=== PATIENT | female | born 1945 | race Caucasian/White ===

== ENCOUNTER → 2018-07-17 12:04 | Outpatient (CLI) | payer MEDICARE, BC, SELFPAY ==
--- NOTE | 2018-07-17 12:07 | BI_ITS ---
MAMMOGRAPHY - BILATERAL SCREENING REASON FOR EXAM: Female, 73 years old. Routine annual screening examination. PERTINENT HISTORY: Non-contributory. TECHNIQUE: Digital bilateral breast viv (3D mammographic acquisition) in the CC and MLO projections. 2-D mediolateral oblique (MLO) and craniocaudad (CC) views of both breasts were obtained. CAD: Full Field Digital Mammography with Computer Added Detection was performed. COMPARISON: Comparison is made with prior study dated February 04, 2017 and September 09, 2014. FINDINGS: Breast Composition: There are scattered areas of fibroglandular density. There are no dominant masses or suspicious calcifications. No other significant abnormalities are identified. There has been no significant change since the prior study. BI/SCREENING MAMM (CAD), BILAT IMPRESSION: Stable bilateral screening mammogram. Yearly follow-up mammogram recommended. (A) ASSESSMENT CATEGORY: BIRADS Category 1: Negative. A letter regarding these results will be sent to the patient by the facility within 30 days. Approximately 10% of breast cancers are not detected by mammography. A normal mammogram should not delay biopsy of a clinically suspicious abnormality. [id number] Electronically Signed: Nico Shine MD at 13:08 EST Tel [phone], Service support ,
--- OUTSIDE RECORDS SUMMARY | 2018-09-21 01:24 | XMS RPT_ITS | Continuity of Care Document ---
:1945 Author Organization [facility] Address [address] [place] [address] Phone Care Team Providers Name Role Phone Melissa Amanda DO Unavailable Physical Therapy, [facility] Unavailable Dr. Servando Vanessa Unavailable Flavio Patino Unavailable Gravius, Monae Unavailable Unavailable Messenger, ELECTRICAL SYSTEMS DESIGNER Jackie Unavailable Unavailable Slanishi ELECTRICAL SYSTEMS DESIGNERDarlene Terry Unavailable Unavailable Unavailable Unavailable Problems Name Dates Details Abortions/Miscarriages Comments: 2. Status: Active Acquired hypothyroidism (E03.9, 244.9) Status: Active Annual Medicare Phyiscal WITHOUT abnormal findings (Renamed from Encounter for general adult medical examination without abnormal findings) (Z00.00, V70.9) Status: Active Anxiety (F41.9, 300.00) Comments: stressful situ currently going on Status: Active BMI 45.0-49.9, adult (Z68.42, V85.42) Status: Active BMI 45.0-49.9, adult (Z68.42, V85.42) Status: Active Encounter for annual general medical examination with abnormal findings in adult (Z00.01, V70.0) Status: Active Encounter for annual general medical examination with abnormal findings in adult (Z00.01, V70.0) Status: Active Encounter for screening for malignant neoplasm of colon (Renamed from Special screening for malignant neoplasms, colon) (Z12.11, V76.51) Comments: pt to call chastity to resched scope before yr end 2017 Status: Active Encounter for screening mammogram for breast cancer (Renamed from Encounter for screening mammogram for malignant neoplasm of breast) (Z12.31, V76.12) Status: Active Encounter for screening mammogram for breast cancer (Renamed from Encounter for screening mammogram for malignant neoplasm of breast) (Z12.31, V76.12) Status: Active GERD (gastroesophageal reflux disease) (K21.9, 530.81) Status: Active Hip pain, left (M25.552, 719.45) Status: Active Hypercholesteremia (Renamed from Hypercholesterolemia) (E78.00, 272.0) Status: Active Hypertension, benign (I10, 401.1) Comments: h/o night odonnell occassionally & her hr would go up and not come down-- so last dr in [place] gave rx low dose atenolol to use prn Status: Active Need for prophylactic vaccination and inoculation against influenza (Renamed from Need for immunization against influenza) (Z23, V04.81) Status: Active Nonsmoker (Z78.9, V49.89) Status: Active Nonsmoker (Z78.9, V49.89) Status: Active Non-smoker (Z78.9, V49.89) Status: Active Nutritional counseling (Z71.3, V65.3) Status: Active Osteoarthritis, chronic (M19.90, 715.90) Status: Active Osteoarthritis, localized (M19.90, 715.30) Status: Active Osteopenia, unspecified location (M85.80, 733.90) Status: Active Pneumococcal vaccination given (Z23, V06.6) Status: Active Postmenopausal (Renamed from Postmenopausal status) (Z78.0, V49.81) Comments: dexa 02/13 Status: Active Pregnancies () Comments: 2. Status: Active Sinusitis, bacterial (J32.9, 473.9) Status: Active Stress fracture with routine healing, subsequent encounter (M84.30XD, V54.89) Status: Active Tear of left acetabular labrum, subsequent encounter (S73.192D, V58.89) Comments: [facility] -- needs hip replacement- but needs to lose wt per surgeon -- this will fix tear Status: Active Tear of left acetabular labrum, subsequent encounter (S73.192D, V58.89) Status: Active Vitamin D deficiency (E55.9, 268.9) Status: Active Medications Name Dates Details Nan-D Allergy & Congestion 180-240 MG Oral Tablet Extended Release 24 Hour 1 (one) Tablet ER 24HR prn for 30 days Refills: 0 Ordered:26-Mar-2016 Kiran Amanda DO, DO, Kathleen Start : 26-Mar-2016 Active Aspirin EC 81 MG Oral Tablet Delayed Release 1 (one) Tablet DR qd for 30 days Refills: 0 Ordered:26-Mar-2016 Kiran Amanda DO, DO, Kathleen Start : 26-Mar-2016 Active Atenolol 25 MG Oral Tablet 1 (one) Tablet qd for 0 days Quantity: 30 {Tablet} Refills: 11 Ordered:14-Apr-2017 Kiran Amanda DO, DO, Kathleen Start : 14-Apr-2017 Active Losartan Potassium-HCTZ 100-25 MG Oral Tablet 1 (one) Tablet qd for 30 days Quantity: 30 {Tablet} Refills: 10 Ordered:11-Mar-2018 Kiran Amanda DO, DO, Kathleen Start : 11-Mar-2018 Active Multivitamins Oral Capsule 1 (one) Capsule qd for 30 days Refills: 0 Ordered:26-Mar-2016 Kiran Amanda DO, DO, Kathleen Start : 26-Mar-2016 Active PARoxetine HCl 20 MG Oral Tablet 1 (one) Tablet qd for 30 days Quantity: 30 {Tablet} Refills: 11 Ordered:14-Apr-2017 Kiran Amanda DO, DO, Kathleen Start : 14-Apr-2017 Active Potassium Chloride ER 10 MEQ Oral Tablet Extended Release 1 (one) Tablet ER qd for 30 days Quantity: 30 {Tablet} Refills: 11 Ordered:11-Mar-2018 Kiran Amanda DO, DO, Kathleen Start : 11-Mar-2018 Active PriLOSEC 20 MG Oral Capsule Delayed Release 1 (one) Capsule DR qd for 30 days Refills: 0 Ordered:26-Mar-2016 Kiran Amanad DO, DO, Kathleen Start : 26-Mar-2016 Active Synthroid 150 MCG Oral Tablet 1 (one) Tablet daily for 30 days Quantity: 30 {Tablet} Refills: 3 Ordered:03-Nov-2017 Kiran Amanda DO, DO, Kathleen Start : 03-Nov-2017 Active Vitamin D3 1000 UNIT Oral Tablet 2 (two) Tablet qd for 30 days Refills: 0 Ordered:13-Feb-2017 Kiran Amanda DO, DO, Kathleen Start : 13-Feb-2017 Active Comments:new dose Vitamin E 400 UNIT Oral Capsule 1 (one) Capsule qd for 30 days Refills: 0 Ordered:26-Mar-2016 Kiran Amanda DO, DO, Kathleen Start : 26-Mar-2016 Active Atorvastatin Calcium 20 MG Oral Tablet 1 (one) Tablet qd for 90 days Quantity: 90 {Tablet} Refills: 0 Ordered:09-Mar-2018 Kiran Amanda DO, DO, Kathleen Start : 09-Mar-2018 End : 07-Jun-2018 Inactive Comments:no more refills, after this, until seen by office Cheratussin AC 100-10 MG/5ML Oral Solution 1 (one) Teaspoon Q6Hrs PRN for 0 days Quantity: 6 {Ounce} Refills: 0 Ordered:22-Jan-2017 Long Valorie HARDEN Start : 03-Jul-2016 End : 22-Jan-2017 Inactive Comments:Six Zithromax Z-Von 250 MG Oral Tablet TAD Tablet QD for 0 days Quantity: 1 {Package} Refills: 0 Ordered:10-Mar-2017 Slarb Darlene HARDEN Start : 24-Feb-2017 End : 10-Mar-2017 Inactive HydroCHLOROthiazide 12.5 MG Oral Capsule 1 (one) Capsule qd for 30 days Refills: 0 Ordered:22-Jan-2017 Kiran Amanda DO, DO, Kathleen Start : 26-Mar-2016 End : 22-Jan-2017 Discontinued Allergies and Adverse Reactions Name Dates Details CeleXA *ANTIDEPRESSANTS* (Allergy) Status: Active Comments: hyperactivity Reglan *GASTROINTESTINAL AGENTS - MISC.* (Allergy) Status: Active Comments: lump in throat Trees (Allergy) Reaction: Cough Status: Active Past Medical History Name Dates Details Abnormal TSH (R79.89, 790.6) Status: Inactive as of 16-Sep-2017 Allergic rhinitis (J30.9, 477.9) Status: Inactive as of 13-Feb-2017 BMI 45.0-49.9, adult (Z68.42, V85.42) Status: Inactive as of 10-Mar-2017 Cough (R05, 786.2) Status: Inactive as of 22-Jan-2017 Cough (R05, 786.2) Status: Inactive as of 10-Mar-2017 Left groin pain (R10.32, 789.09) Status: Inactive as of 16-Sep-2017 Pain of left hip joint (M25.552, 719.45) Status: Inactive as of 16-Sep-2017 Procedures Procedure Dates Details Annual Eye Exam Completed Comments: 07/05/15 Appendectomy Completed Comments: 1965 Colonoscopy, Screening Completed Comments: 10+ yrs Hysterectomy Completed Comments: 2000 Pap Smear Completed Comments: 2000 Tonsillectomy Completed Comments: 1969 Date Value Details 27-May-2017 Inital Evaluation (1) - PT Result: Comments: See Note; NOTES: [facility] [address] [place] [address] [address] [place], [place] [id number] Fax REHABILITATION SERVICES INITIAL EVALUATION MR#: [id number] Acct: [id number] Name: JOI MEDEL Rep #: [id number] : 1945 72 From: Darlene Olea MPT Referring Dr.: Melissa Amanda DO Status: REG RCR Insurance: MEDICARE PA RT A B ANTH Patient's Visit Information JOI MEDEL is a 72 year old F referred to Physical Therapy by Melissa Amanda with a diagnosis of L hip pain. Date of Evaluation: 03/19/17 Electrical Systems Designer apist: Darlene Olea - Visit Plan Frequency: 3x /Week Duration: 4-6 Weeks Plan: To transition to I water exc program. To continue progressing core strength, hip strength, and knee strength per supervi sing PT. - Subjective Subjective: Pt reports that she has developed horrible pain in L groin area. She gets in car with R leg and then butt in the car and then pulls the L leg in. She feels the pain in the front of the groin and radiates many times to the L lateral hip and will feel many times a tension in the abdomin. This has bee going on and off for the past couple of years. This episode has laste d about 1 month to 6 weeks and not getting any better. Dr Amanda wanted her to come to PT and she did the x-ray. She has some arthritic changes in her L hip. She has been using the cane since Mar 07 d ue to the pain. SOmetimes the pain goes down the side of the outer aspect of the leg and she will have a burning feeling in her leg. Pt has no pain when sitting only with walking on it. She notices that if she steps wrong it will bring pain on. Pt is take 4-600 grams IBprof 3 times per day. She can not tolerated it without taking it. 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 Stairs: do not bother her too much with a railing. She is sleeping ok with pain meds. She has pain running down her leg when she rolls onto the R side. WHen she lays on L side she is comfortable. - Pain L groin pain Pain Intens ity (Out of 10): 2 L outer hip pain Pain Intensity (Out of 10): 0 BLAT knees Pain Intensity (Out of 10): 1 Comment: where I hit it - Objective Gait: Walks with shorter strides , slower pace and decreased stance time on the L leg and most of her weight through her cane in the R hand. Pt is able to heel and toe raise holding onto the wall rail. LE MMT: hip flex R 4/5, L 3+/5, h ip abd L3+/5 and R 4/5, knee flex B 4/5, B knee ext 4/5. L hip IR very much limted in PROM compared to the R. Pain on the L with max IR (with limited ROM). ER of B hips is normal ROM without pain. - Go als Goal 1:: I HEP Goal Time Frame: 4-6 Weeks Goal 2:: Decrease L hip pain to 2/10 with gait and ADL's Goal Time Frame: 4-6 Weeks Goal 3:: Increase L hip strength by 1/2 muscle grade on the L to promote better function and less pain (at time of the eval: LE MMT: hip flex R 4/5, L 3+/5, hip abd L3+/5 and R 4/5, knee flex B 4/5, B knee ext 4/5). Goal Time Frame: 4-6 Weeks - Rehabilitation Potential Carol abilitation Potential: Good - Anticipated Interventions Patient/Client Instruction: Educate patient on: Plan of Care For the Purpose of:: To decrease pain, To decrease swelling/inflammation, To increas e ROM, To improve nutrient delivery to tissue, To improve muscle performance and motor function, To improve ability to perform ADL's, To increase tolerance to activity/condition/position, To improve per formance and independence with ADL's, To improve ability of physical actions for home/community/work/leisure, To improve gait and locomotor functions, To improve endurance Therapeutic Exercise to Includ e: Strength training, Endurance training, Gait and locomotor training, In an aquatic setting, Active ROM, Dynamic Lumbar Stabilization For the Purpose of:: To decrease pain, To increas e ROM, To improve nutrient delivery to tissue, To improve muscle performance and motor function, To improve ability to perform ADL's, To increase tolerance to activity/condition/position, To improve per formance and independence with ADL's, To improve ability of physical actions for home/community/work/leisure, To improve gait and locomotor functions Functional Training to Include: Gait training For th e Purpose of:: To improve gait and locomotor functions Thank you for the opportunity to evaluate your patient. For Medicare and Medicare HMO plans, please review the plan of care and approve it. It will need to be FAXED BACK to us at [phone] for Medicare purposes. Please let me know if there are questions or concerns regarding this plan of care. Physician Signature: Date: <Electronically signed by Darlene Olea MPT> 05/27/17 1801 CC: Melissa Amanda DO Signed For Medicare onl y, by signing this I certify the plan of care. Physicians Signature Date 19-May-2017 Lower Ext Joint Only (Routine) Result: Comments: See Note; NOTES: [facility] Imaging Services [address] [place] [address] Lower Ext Joint Only (Routine) MR#: [id number] Acct: [id number] Name: JOI MEDEL Rep # : [id number] : 1945 F 72 From: Stan De La Torre MD PCP: Melissa Amanda DO Status: REG CLI Study: Lower Ext Joint Only (Routine) Date of Exam: 05/19/17 Exam# [id number] Ordering Dr: Meghan Amanda DO STUDY: MRI LEFT HIP REASON FOR EXAM: Female, 72 years old. Left hip pain. Left groin pain. Left buttock pain. TECHNIQUE: Standardized fat and water weighted pulse sequences were obtained in al l 3 orthogonal planes. COMPARISON: X-ray March 13, 2017 FINDINGS: There is mild articular narrowing of the hip joint, with less than 50% loss of the hyaline car tilage. 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 There is edema of the acetabulum. There is teari ng of the acetabular labrum, coronal series 5 images through . There is marrow edema of the femoral head with linear diminished signal stress or insufficiency fracture, coronal series 5 imag es through . There is mild edema of the femoral neck . There is moderate joint effusion of the left hip. Normal gluteus minimus, medius and iliopsoas tendons and distal insertions. There is trochanteric bursitis, coronal series 5 images and . Normal superior and inferior pubic rami. Normal pubic symphysis. Normal ischial tuberosity. Normal origin of the hamstring tendons. Nor mal visualized iliac wing, sacroiliac joint, and sacral ala. Normal visualized soft tissue structures of the pelvis. Uterus is not seen consistent with hysterectomy MRI/Lower Ext Joint Only (Routine) IMPRESSION: Stress or insufficiency fracture of the left femoral head. Degenerative change of the left hip. Tear of the acetabular labrum. Joint effusion. Electronically Signed: Stan De La Torre MD at 13:44 EST , Service support , CC: Melissa Amanda DO Diesel Truck Technician: Signed 06-May-2017 Re-Evaluation - PT (1) Result: Comments: See Note; NOTES: [facility] [address] [place], [place] [address] Fax REEVALUATION / MEDICARE RECERTI FICATION PHYSICAL THERAPY MR#: [id number] Acct: [id number] Name: JOI MEDEL Rep #: [id number] : 1945 72 From: Darlene Olea MPT Referring Dr.: Melissa Amanda DO Status: REG RCR Insuranc e: MEDICARE PART A B ANTHEM Melissa Amanda, It has been my pleasure to treat JOI MEDEL over the last 18 visits for L hip pain. Please see the progress note below for an update on the physical therapy plan of care! Subjective: Pt reports that the water has been going up and down. On Friday she started some higher level exercises and she had increased pain in the L groin muscle 12/07 by that evening and she has been having some difficulties by then. THe therapist limited the exercises some since then. Today she has horrible pain in her knees and her groin muscle has been catching on the L. Pt would like to go back to the water.... she does not feel she is ready for land. Somedays she feels she is better and somedays not. She is only taking IBPROF for pain. Pt reports that she felt better after the first 9 sessions than she does now. Objective/Function: L LE MMT: LE MMT: hip flex L 3+/5 ( increase pain), knee ext b 4/5, knee flex B 4/5, hip abd in supine L 3+/5 Plan Plan: AT: X/ week fo r 4 weeks to work on core strength, hip strength, knee strength then to go to HEP/ water exercises Independently. F/U with Dr Amanda as pt is not progressing as quickly as she would like. She reports pr ogress but small at this time. Possible further diagnostics needed as pt is moving slow and has varying pain levels depending on what she does. Goals Goal 1:: I HEP Goal Time Frame: 4-6 Weeks Goal 2:: Decrease L hip pain to 2/10 with gait and ADL's Goal Time Frame: 4-6 Weeks Goal Progress: Progressing Goal 3:: Increase L hip strength by 1/2 muscle grade on the L to promote better function and less pa in (at time of the eval: LE MMT: hip flex R 4/5, L 3+/5, hip abd L3+/5 and R 4/5, knee flex B 4/5, B knee ext 4/5). Goal Time Frame: 4-6 Weeks Goal Progress: Progressing Anticipated Interventions Patie nt/Client Instruction: Educate patient on: Plan of Care For the Purpose of:: To decrease pain, To decrease swelling/inflammation, To increase ROM, To improve nutrient delivery to tissue, To improve musc le performance and motor function, To improve ability to perform ADL's, To increase tolerance to activity/condition/position, To improve performance and independence with ADL's, To improve ability of ph ysical actions for home/community/work/leisure, To improve gait and locomotor functions, To improve endurance Therapeutic Exercise to Include: Strength training, Endurance training, Gait and locomotor t raining, In an aquatic setting, Active ROM, Dynamic Lumbar Stabilization For the Purpose of:: To decrease pain, To increase ROM, To improve nutrient delivery to tissue, To improve musc le performance and motor function, To improve ability to perform ADL's, To increase tolerance to activity/condition/position, To improve performance and independence with ADL's, To improve ability of ph ysical actions for home/community/work/leisure, To improve gait and locomotor functions Functional Training to Include: Gait training For the Purpose of:: To improve gait and locomotor functions Please do not hesitate to contact me at [phone] by phone or if you have questions or concerns regarding this new plan of care! Sincerely, Darlene Olea <Electronically chayo d by Darlene Olea MPT> 05/06/17 1754 CC: Melissa Amanda DO Signed For Medicare only, by signing this I certify the plan of care. Physicians Signature Date 15-Apr-2017 Re-Evaluation - PT (1) Result: Comments: See Note; NOTES: [facility] [place] [address] Fax REEVALUATION / MEDICARE RECERTI FICATION PHYSICAL THERAPY MR#: [id number] Acct: [id number] Name: JOI MEDEL Rep #: [id number] : 1945 72 From: Darlene BETANCOURT Referring Dr.: Melissa Amanda DO Status: REG RCR Insuranc e: MEDICARE PART A B ANTHEM Melissa Amanda, It has been my pleasure to treat JOI MEDEL over the last 10 visits for L hip pain. Please see the progress note below for an update on the physical therapy plan of care! Subjective: PT 15 MIN LATE FOR APPOINTMENt,. Pt reports that her groin pain is about a 6. Pt feels that her improvement is better painwise. She still takes pain meds everyday. Pt reports that she is not feeling any increase in strength as of today. She has increased reps and stuff in the water but the day after the water she would have horrible pain but the day after that her p ain would be much better. Pt complains of B knee pain and rates the L knee as a 2/10 and R knee as a 4/10. She reports that she hit a pole in the pool on the R knee but it is getting better. Objective/F unction: LE MMT: hip flex R 4/5, L 3+/5 ( increase pain), knee ext b 4/5, knee flex B 4/5, hip abd in supine 3+/5, Plan Plan: Pt to continue AT X 3 additional weeks to see if pain lessesns and she gets stronger. Goals Goal 1:: I HEP Goal Time Frame: 4-6 Weeks Goal 2:: Decrease L hip pain to 2/10 with gait and ADL's Goal Time Frame: 4-6 Weeks Goal Progress: Progressing Goal 3:: Increase L hip strengt h by 1/2 muscle grade on the L to promote better function and less pain (at time of the eval: LE MMT: hip flex R 4/5, L 3+/5, hip abd L3+/5 and R 4/5, knee flex B 4/5, B knee ext 4/5). Goal Time Frame: 4-6 Weeks Goal Progress: Progressing Anticipated Interventions Patient/Client Instruction: Educate patient on: Plan of Care For the Purpose of:: To decrease pain, To decrease swelling/inflammation, To increase ROM, To improve nutrient delivery to tissue, To improve muscle performance and motor function, To improve ability to perform ADL's, To increase tolerance to activity/condition/position, To impr ove performance and independence with ADL's, To improve ability of physical actions for home/community/work/leisure, To improve gait and locomotor functions, To improve endurance Therapeutic Exercise to Include: Strength training, Endurance training, Gait and locomotor training, In an aquatic setting, Active ROM, Dynamic Lumbar Stabilization For the Purpose of:: To decrease pain, To increase ROM, To improve nutrient delivery to tissue, To improve muscle performance and motor function, To improve ability to perform ADL's, To increase tolerance to activity/condition/position, To impr ove performance and independence with ADL's, To improve ability of physical actions for home/community/work/leisure, To improve gait and locomotor functions Functional Training to Include: Gait training For the Purpose of:: To improve gait and locomotor functions Please do not hesitate to contact me at [phone] by phone or if you have questions or concerns regarding this new plan of care! Sincerely, Darlene Olea <Electronically signed by Darlene Olea MPT> 04/15/17 1726 CC: Melissa Amanda DO Signed For Medicare only, by si gning this I certify the plan of care. Physicians Signature Date 19-Mar-2017 Inital Evaluation (1) - PT Result: Comments: See Note; NOTES: [facility] [address] [place] [address] Fax REHABILITATION SERVICES INITIAL EVALUATION MR#: [id number] Acct: [id number] Name: JOI MEDEL Rep #: [id number] : 1945 72 From: Darlene Olea MPT Referring Dr.: Melissa Amanda DO Status: REG RCR Insurance: MEDICARE PA RT A B ANTH Patient's Visit Information JOI MEDEL is a 72 year old F referred to Physical Therapy by Melissa Amanda with a diagnosis of L hip pain. Date of Evaluation: 03/19/17 Electrical Systems Designer apist: Darlene Olea - Visit Plan Frequency: 3x /Week Duration: 4-6 Weeks Plan: 3X/ week for 3 weeks for L hip strengthening, core strengthening, gait training, enduarace actvities with HEP - Subject maranda Subjective: Pt reports that she has developed horrible pain in L groin area. She gets in car with R leg and then butt in the car and then pulls the L leg in. She feels the pain in the front of the g roin and radiates many times to the L lateral hip and will feel many times a tension in the abdomin. This has bee going on and off for the past couple of years. This episode has lasted about 1 month to 6 weeks and not getting any better. Dr Amanda wanted her to come to PT and she did the x-ray. She has some arthritic changes in her L hip. She has been using the cane since Mar 07 due to the pain. Dm etimes the pain goes down the side of the outer aspect of the leg and she will have a burning feeling in her leg. Pt has no pain when sitting only with walking on it. She notices that if she steps wrong it will bring pain on. Pt is take 4-600 grams IBprof 3 times per day. She can not tolerated it without taking it. 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 Stairs: do not bother her too much with a railin g. She is sleeping ok with pain meds. She has pain running down her leg when she rolls onto the R side. WHen she lays on L side she is comfortable. - Pain L groin pain Pain Intensity (Out of 10): 8 L outer hip pain Pain Intensity (Out of 10): 7 - Objective Gait: Walks with shorter strides, slower pace and decreased stance time on the L leg and most of her weight through her cane in the R hand . Pt is able to heel and toe raise holding onto the wall rail. LE MMT: hip flex R 4/5, L 3+/5, hip abd L3+/5 and R 4/5, knee flex B 4/5, B knee ext 4/5. L hip IR very much limted in PROM compared to the R. Pain on the L with max IR (with limited ROM). ER of B hips is normal ROM without pain. - Goals Goal 1:: I HEP Goal Time Frame: 4-6 Weeks Goal 2:: Decrease L hip pain to 2/10 with gait and ADL's Goa l Time Frame: 4-6 Weeks Goal 3:: Increase L hip strength by 1/2 muscle grade on the L to promote better function and less pain (at time of the eval: LE MMT: hip flex R 4/5, L 3+/5, hip abd L3+/5 and R 4 /5, knee flex B 4/5, B knee ext 4/5). Goal Time Frame: 4-6 Weeks - Rehabilitation Potential Rehabilitation Potential: Good - Anticipated Interventions Patient/Client Instruction: Educate patient on: P lydia of Care For the Purpose of:: To decrease pain, To decrease swelling/inflammation, To increase ROM, To improve nutrient delivery to tissue, To improve muscle performance and motor function, To improv e ability to perform ADL's, To increase tolerance to activity/condition/position, To improve performance and independence with ADL's, To improve ability of physical actions for home/community/work/leisu re, To improve gait and locomotor functions, To improve endurance Therapeutic Exercise to Include: Strength training, Endurance training, Gait and locomotor training, In an aquatic setting& #34;, Active ROM, Dynamic Lumbar Stabilization For the Purpose of:: To decrease pain, To increase ROM, To improve nutrient delivery to tissue, To improve muscle performance and motor function, To improv e ability to perform ADL's, To increase tolerance to activity/condition/position, To improve performance and independence with ADL's, To improve ability of physical actions for home/community/work/leisu re, To improve gait and locomotor functions Functional Training to Include: Gait training For the Purpose of:: To improve gait and locomotor functions Thank you for the opportunity to evaluate your patient. For Medicare and Medicare HMO plans, please review the plan of care and approve it. It will need to be FAXED BACK to us at [phone] for Medicare purposes. Please let me know if there are questions or concerns regarding this plan of care. Physician Signature: Date: <Electronically signed by Darlene Olea MPT&#62 ; 03/19/17 1827 CC: Melissa Amanda DO Signed For Medicare only, by signing this I certify the plan of care. Physicians Signature Date 13-Mar-2017 Hip 2-3 Views with Pelvis Result: Comments: See Note; NOTES: [facility] Imaging Services [address] [place] [address] Hip 2-3 Views with Pelvis MR#: [id number] Acct: [id number] Name: JOI MEDEL Rep #: [id number] : 1945 F 72 From: Linda Odell MD PCP: Melissa Amanda DO Status: REG CLI Study: Hip 2-3 Views with Pelvis Date of Exam: 03/13/17 Exam# [id number] Ordering Dr: Melissa Amanda DO STUDY : X-RAY - PELVIS AND LEFT HIP REASON FOR EXAM: Female, 72 years old. Left-sided hip pain. TECHNIQUE: Radiological exam, hip, unilateral, with pelvis when performed; 2 or 3 views. COMPARISON: Prior co mparison studies are not available for review at this time. FINDINGS: There is a non-specific bowel gas pattern. There are multiple calcified phleboliths. There is d iffuse demineralization of the osseous structures. Bowel gas is obscured by the sacrum and iliac wings. Normal bilateral superior and inferior pubic rami. Normal pubic symphysis. Normal bilateral ischi al tuberosities. Normal visualized femoral head. There is osteoarthritic spur formation of the acetabular rim. There is mild articular joint space narrowing of the hip. ___ RAD/Hip 2-3 Views with Pelvis IMPRESSION: Degenerative arthropathy of the left hip. Electronically Signed: Linda Odell MD at 16:15 EDT , Service s upport , CC: Melissa Amanda DO Diesel Truck Technician: Signed 04-Feb-2017 Dexa Bone Density Study (HP) Result: Comments: See Note; NOTES: [facility] Imaging Services [address] [place] [address] Dexa Bone Density Study (HP) MR#: [id number] Acct: [id number] Name: JOI MEDEL Rep #: [id number] : 1945 F 72 From: Nico Shine MD PCP: Melissa Amanda DO Status: REG CLI Study: Dexa Bone Density Study (HP) Date of Exam: 02/04/17 Exam# [id number] Ordering Dr: Meghan Amanda DO STUDY: DUAL ENERGY X-RAY ABSORPTIOMETRY / DXA REASON FOR EXAM: Female, 72 years old. The patient is postmenopausal. Loss of height. TECHNIQUE: Bone Mineral Density (BMD) measurements of lumbar spine and bilateral hips were obtained. COMPARISON: None. FINDINGS: Lumbar Spine (L1-L4): g/cm2 (1.153) / T-score (-0.1) / Z-score (1.5) Findings are suggestive o f normal bone density with a low fracture risk. Left Femur Total: g/cm2 (1.138) / T-score (1.0) / Z-score (2.5) Left Femoral Neck: g/cm2 (0.960) / T-score (- 0.6) / Z-score (1.1) Right Femur Total: g/cm 2 (1.089) / T-score (0.7) / Z-score (2.1) Right Femoral Neck: g/cm2 (0.865) / T-score (-1.2) / Z-score (0.4) HPBD/Dexa Bone Density Study (HP) IM PRESSION: The patient is considered osteopenic as outlined below according to World Tony Organization (WHO) criteria with a low fracture risk. Reference Informatio n: The T-score is the number of standard deviations above or below the standard which is normal for young adults at their peak bone mineral density. The World Health Organization (WHO) interprets the T- scores as follows: Above -1 Normal bone density Between -1 and -2.5 Osteopenia Equal to / or below -2.5 Osteoporosis As a practical clinical guideline, osteopenia may be graded as follows: Mild -1 thr ough -1.5 Moderate -1.6 through -2.0 Severe -2.1 through -2.4 The Z-score is the number of standard deviations above or below age-matched controls. A Z-score of less than -1.5 would be considered abnor mal. References: 1. NIH Osteoporosis and Related Bone Diseases http://www.osteo.org 2. International Society for Clinical Densitometry http://www.iscd.org 3. National Osteoporosis Foundation http://www .nof.org Electronically Signed: Nico Shine MD at 15:43 EDT Tel [phone], Service support , CC: Melissa Amanda DO Diesel Truck Technician: Signed 04-Feb-2017 SCREENING MAMM (CAD), BILAT Result: Comments: See Note; NOTES: [facility] Imaging Services [address] [place] [address] SCREENING MAMM (CAD), BILAT MR#: [id number] Acct: [id number] Name: JOI MEDEL Rep #: [id number] : 1945 F 72 From: Nico Shine MD PCP: Melissa Amanda DO Status: REG CLI Study: SCREENING MAMM (CAD), BILAT Date of Exam: 02/04/17 Exam# [id number] Ordering Dr: Melissa Amanda DO MAMMOGRAPHY - BILATERAL SCREENING REASON FOR EXAM: Female, 72 years old. Routine annual screening examination. PERTINENT HISTORY: Non-contributory. TECHNIQUE: Digital bilateral breast viv (3D mammographic acquisition) in the CC and MLO projections. 2-D mediolateral oblique (MLO) and craniocaudad (CC) views of both breasts were obtained. CAD: Full Field Digital Mammography with Computer Added Detection was performed. COMPARISON: Comparison is made with prior examination dated September 09, 2014. FINDINGS: Breast Composition: There are scattered areas of fib roglandular density. There are no dominant masses or suspicious calcifications. No other significant abnormalities are identified. There has been no significant change since the prior study. HPBI/SCREENING MAMM (CAD), BILAT IMPRESSION: Stable bilateral screening mammogram. Yearly follow-up mammogram recommended. (A) ASSESSMENT CATEGORY: BIRADS Category 1: Negative. A letter regarding these results will be sent to the patient by the facility within 30 days. Approximately 10% of breast cancers are not det ected by mammography. A normal mammogram should not delay biopsy of a clinically suspicious abnormality. [id number] Electronically Signed: Nico Shine MD at 12:03 EDT Tel [phone], Se rvice support , CC: Melissa Amanda DO Diesel Truck Technician: Signed Family History Unknown Family Member Name Dates Details Alcohol Abuse Comments: Maternal Grandfather. Paternal Grandfather. Status: Active Anxiety Disorder Comments: Mother. Maternal Grandmother. Status: Active Colon Cancer Comments: Paternal Grandmother. Status: Active Diabetes Mellitus Comments: Father. Status: Active Heart Disease Comments: Father. Paternal Grandmother. Paternal Grandfather. Status: Active IBS Comments: Maternal Grandmother. Status: Active Kidney Disease Comments: Father. Status: Active Lung Cancer Comments: Mother. Status: Active Prostate dx Comments: Father. Status: Active Thyroid problems Comments: Mother. Brother. Status: Active Social History Name Dates Details Caffeine Use Comments: qd Status: Active Exercise History Status: Active Living Situation: Lives alone. Status: Active No Drug Use Status: Active Non Drinker/No Alcohol Use Status: Active Pets/Animals Status: Active Tobacco use: Never smoker. Status: Active Smoking Status Name Dates Details Never smoker Vital Signs Date Test Result Details [id number] Comments: did not take bp medication yet bc fasting for labs Temperature 98.2 f Comments: Method: Temporal Pulse 76 /min Comments: Pattern: Regular Respiration Rate 16 /min Comments: Pattern: Unlabored O2 SAT 97 % Comments: Room air BP Systolic 158 mm[Hg] Comments: Patient Position: Sitting; Cuff Location: Left Arm; Cuff Size: Standard BP Diastolic 98 mm[Hg] Comments: Patient Position: Sitting; Cuff Location: Left Arm; Cuff Size: Standard Weight 241.5 lb Height 59 in Body Mass Index Calculated 48.78 kg/m2 Body Surface Area Calculated 2 m2 87-Udb-[id number]:05 Comments: hearing wnlNo eye doc Pulse 104 /min Comments: Pattern: Regular Respiration Rate 18 /min Comments: Pattern: Unlabored O2 SAT 97 % Comments: Room air BP Systolic 138 mm[Hg] Comments: Patient Position: Sitting; Cuff Location: Left Arm; Cuff Size: Large BP Diastolic 72 mm[Hg] Comments: Patient Position: Sitting; Cuff Location: Left Arm; Cuff Size: Large Weight 245.5 lb Height 59 in Body Mass Index Calculated 49.58 kg/m2 Body Surface Area Calculated 2.01 m2 :04 Pulse 110 /min Comments: Pattern: Regular Respiration Rate 18 /min Comments: Pattern: Unlabored O2 SAT 93 % Comments: Room air BP Systolic 148 mm[Hg] Comments: Patient Position: Sitting; Cuff Location: Left Arm; Cuff Size: Large BP Diastolic 90 mm[Hg] Comments: Patient Position: Sitting; Cuff Location: Left Arm; Cuff Size: Large Weight 241.375 lb Height 59 in Body Mass Index Calculated 48.75 kg/m2 Body Surface Area Calculated 2 m2 :02 Pulse 91 /min Comments: Pattern: Regular Respiration Rate 18 /min Comments: Pattern: Unlabored O2 SAT 98 % Comments: Room air BP Systolic 142 mm[Hg] Comments: Patient Position: Sitting; Cuff Location: Left Arm; Cuff Size: Large BP Diastolic 90 mm[Hg] Comments: Patient Position: Sitting; Cuff Location: Left Arm; Cuff Size: Large Weight 243 lb Height 59 in Body Mass Index Calculated 49.08 kg/m2 Body Surface Area Calculated 2 m2 :15 Pulse 70 /min Comments: Pattern: Regular Respiration Rate 18 /min Comments: Pattern: Unlabored O2 SAT 97 % Comments: Room air BP Systolic 162 mm[Hg] Comments: Patient Position: Sitting; Cuff Location: Left Arm; Cuff Size: Large BP Diastolic 78 mm[Hg] Comments: Patient Position: Sitting; Cuff Location: Left Arm; Cuff Size: Large Weight 246.5 lb Height 59 in Body Mass Index Calculated 49.79 kg/m2 Body Surface Area Calculated 2.02 m2 :12 Comments: hearing [facility] and had a glaucoma test done Pulse 77 /min Comments: Pattern: Regular Respiration Rate 18 /min Comments: Pattern: Unlabored O2 SAT 97 % Comments: Room air BP Systolic 138 mm[Hg] Comments: Patient Position: Sitting; Cuff Location: Left Arm; Cuff Size: Large BP Diastolic 84 mm[Hg] Comments: Patient Position: Sitting; Cuff Location: Left Arm; Cuff Size: Large Weight 242.125 lb Height 59 in Body Mass Index Calculated 48.9 kg/m2 Body Surface Area Calculated 2 m2 30-Uwu-[id number]:50 Temperature 97.9 f Pulse 79 /min Comments: Pattern: Regular Respiration Rate 17 /min Comments: Pattern: Unlabored O2 SAT 97 % Comments: Room air BP Systolic 124 mm[Hg] Comments: Patient Position: Sitting; Cuff Location: Left Arm; Cuff Size: Standard BP Diastolic 82 mm[Hg] Comments: Patient Position: Sitting; Cuff Location: Left Arm; Cuff Size: Standard Weight 247.5 lb Height 59 in Body Mass Index Calculated 49.99 kg/m2 Body Surface Area Calculated 2.02 m2 :04 Temperature 97.3 f Comments: Method: Temporal Pulse 112 /min Comments: Pattern: Regular Respiration Rate 18 /min Comments: Pattern: Unlabored O2 SAT 92 % Comments: Room air BP Systolic 126 mm[Hg] Comments: Patient Position: Sitting; Cuff Location: Left Arm; Cuff Size: Large BP Diastolic 84 mm[Hg] Comments: Patient Position: Sitting; Cuff Location: Left Arm; Cuff Size: Large Weight 247.5 lb Height 59 in Body Mass Index Calculated 49.99 kg/m2 Body Surface Area Calculated 2.02 m2 :15 Temperature 97.3 f Comments: Method: Temporal Pulse 93 /min Comments: Pattern: Regular Respiration Rate 16 /min Comments: Pattern: Unlabored O2 SAT 96 % Comments: Room air BP Systolic 124 mm[Hg] Comments: Patient Position: Sitting; Cuff Location: Left Arm; Cuff Size: Large BP Diastolic 80 mm[Hg] Comments: Patient Position: Sitting; Cuff Location: Left Arm; Cuff Size: Large Weight 247.5 lb Height 59 in Body Mass Index Calculated 49.99 kg/m2 Body Surface Area Calculated 2.02 m2 :45 Temperature 98.1 f Comments: Method: Temporal Pulse 111 /min Comments: Pattern: Regular Respiration Rate 17 /min Comments: Pattern: Unlabored O2 SAT 93 % Comments: Room air BP Systolic 136 mm[Hg] Comments: Patient Position: Sitting; Cuff Location: Left Arm; Cuff Size: Standard BP Diastolic 84 mm[Hg] Comments: Patient Position: Sitting; Cuff Location: Left Arm; Cuff Size: Standard Weight 245 lb Height 59 in Body Mass Index Calculated 49.48 kg/m2 Body Surface Area Calculated 2.01 m2 :14 Temperature 99.7 f Comments: Method: Temporal Pulse 91 /min Comments: Pattern: Regular Respiration Rate 18 /min Comments: Pattern: Unlabored O2 SAT 98 % Comments: Room air BP Systolic 138 mm[Hg] Comments: Patient Position: Sitting; Cuff Location: Left Arm; Cuff Size: Large BP Diastolic 82 mm[Hg] Comments: Patient Position: Sitting; Cuff Location: Left Arm; Cuff Size: Large Weight 242.375 lb Height 59 in Body Mass Index Calculated 48.95 kg/m2 Body Surface Area Calculated 2 m2 85-Ury-092548:27 Pulse 101 /min Comments: Pattern: Regular Respiration Rate 18 /min Comments: Pattern: Unlabored O2 SAT 96 % Comments: Room air BP Systolic 148 mm[Hg] Comments: Patient Position: Sitting; Cuff Location: Left Arm; Cuff Size: Large BP Diastolic 78 mm[Hg] Comments: Patient Position: Sitting; Cuff Location: Left Arm; Cuff Size: Large Weight 242.375 lb Height 59 in Body Mass Index Calculated 48.95 kg/m2 Body Surface Area Calculated 2 m2 Results Date Description Value Details :05 T4, FREE (THYROXINE) Comments: PATIENT WAS FASTINGPERFORMED BY: [employer] Gh[address] [id number] BY: [employer] InternationalMatheny Medical and Educational CenterXxctmy6130 [facility] [id number] ([id number]) T4,Free(Direct) 1.44 ng/dL (Normal) Range: 0.82-1.77 :05 T3, FREE (TRIDOTHYRONINE) Comments: PATIENT WAS FASTINGPERFORMED BY: [employer] [id number] BY: [employer] [id number] ([address]229) Triiodothyronine (T3), Free 2.7 pg/mL (Normal) Range: 2.0-4.4 21-Wgr-495231:05 CALCIFIDIOL (87053) VIT D Comments: PATIENT WAS FASTINGPERFORMED BY: [employer] Ndpepoysks[address] [id number] BY: [employer] Vckpqb7675 [facility] [id number] Vitamin D, 25-Hydroxy 47.9 ng/mL (Normal) Range: 30.0-100.0 Comments: Vitamin D deficiency has been defined by the [place] of[place]icine and an Endocrine Society practice guideline as alevel of serum 25-OH vitamin D less than 20 ng/mL (1,2).The Endocrine Society went on to further define vitamin Dinsufficiency as a level between 21 and 29 ng/mL (2).1. IOM ([place] of Medicine). 2010. Dietary reference intakes for calcium and D. [place]: The National Academies Press.2. Lisa MF, Jatinder NC, Sofía MA, et al. Evaluation, treatment, and prevention of vitamin D deficiency: an Endocrine Society clinical practice guideline. JCEM. 2010; 96(7):1911-30. 23-Cfe-138948:05 TSH (68027) Comments: PATIENT WAS FASTINGPERFORMED BY: [employer] [id number] BY: [employer] MarketingMimbres Memorial HospitalWwuukz4846 [facility] [id number] TSH 0.115 {uIU/mL} (Abnormal) Range: 0.450-4.500 20-Vff-537410:05 METABOLIC PANEL, Comments: PATIENT WAS FASTINGPERFORMED BY: [employer] [id number] BY: [employer] Mewxpy4728 [facility] [id number] COMPREHENSIVE (50897) ALT (SGPT) 26 [iU]/L (Normal) Range: 0-32 AST (SGOT) 24 [iU]/L (Normal) Range: 0-40 Alkaline Phosphatase 105 [iU]/L (Normal) Range: 39-117 Bilirubin, Total 0.3 mg/dL (Normal) Range: 0.0-1.2 A/G Ratio 1.8 (Normal) Range: 1.2-2.2 Globulin, Total 2.4 g/dL (Normal) Range: 1.5-4.5 Albumin 4.3 g/dL (Normal) Range: 3.5-4.8 Protein, Total 6.7 g/dL (Normal) Range: 6.0-8.5 Calcium 10.0 mg/dL (Normal) Range: 8.7-10.3 Carbon Dioxide, Total 27 mmol/L (Normal) Range: 20-29 Chloride 105 mmol/L (Normal) Range: 96-106 Potassium 5.0 mmol/L (Normal) Range: 3.5-5.2 Sodium 147 mmol/L (Abnormal) Range: 134-144 BUN/Creatinine Ratio 22 (Normal) Range: 12-28 eGFR If Africn Am 62 mL/min/1.73 (Normal) eGFR If NonAfricn Am 54 mL/min/1.73 (Abnormal) Creatinine 1.05 mg/dL (Abnormal) Range: 0.57-1.00 BUN 23 mg/dL (Normal) Range: 8-27 Glucose 98 mg/dL (Normal) Range: 65-99 50-Qzz-316536:05 LIPOPROTEIN, BLD, BY NMR Comments: PATIENT WAS FASTINGPERFORMED BY: BN [facility] [address] [id number] BY: CB [facility] [address]3495 [facility] [id number] (35755) LP-IR Score 62 (Abnormal) Comments: INSULIN RESISTANCE MARKER <--Insulin Sensitive Insulin Resistant--> Percentile in Reference PopulationInsulin Resistance ScoreLP-IR Score Low 25th 50th 75th High <27 27 45 63 >63LP-IR Score is inaccurate if patient is non-fasting. .The LP-IR score is a laboratory developed i [facility] that has beenassociated with insulin resistance and diabetes risk and should beused as one component of a physician's clinical assessment. TheLP-IR score listed above has not been cleared by the [place] Food andDrug Administration. LDL Size 21.1 nm (Normal) Comments: INTERPRETATIVE INFORMATION PARTICLE CONCENTRATION AND SIZE <--Lower CVD Risk Highe r CVD Risk--> LDL AND HDL PARTICLES Percentile in Reference Population HDL-P (total) High 75th 50th 25th Low >34.9 34.9 30.5 26.7 <26.7 . Small LDL-P Low 25th 50th 75th High <117 117 527 839 >839 . LDL Size <-Large (Pattern A)-> <-Small (Pattern B)-> 23.0 20.6 20.5 19.0 Small LDL-P and LDL Size are associated with CVD risk, but not afterLDL-P is taken into account. .These assays were developed and their performance characteristicsdetermined by [employer]. These assays have not been cleared by [place] Food and Drug Administration. The clinical utility of theselaboratory values have not been fully established. Small LDL-P 472 nmol/L (Normal) HDL-P (Total) 39.1 umol/L (Normal) Cholesterol, Total 180 mg/dL (Normal) Range: 100-199 Triglycerides 115 mg/dL (Normal) Range: 0-149 HDL-C 52 mg/dL (Normal) LDL-C 105 mg/dL (Abnormal) Range: 0-99 Comments: . Optimal < 100 Above optimal 100 - 129 Borderline 1 30 - 159 High 160 - 189 Very high > 189 .LDL-C is inaccurate if patient is non-fasting. LDL-P 1294 nmol/L (Abnormal) Comments: Low < 1000 Moderate 1000 - 1299 Borderline-High 1300 - 1599 High 1600 - 2000 Very High > 27-May-201813:05 CBC W/AUTO DIFF WBC Comments: PATIENT WAS FASTINGPERFORMED BY: [facility] [address] [id number] BY: [facility] X[address] [facility] [id number] (11395) Immature Grans (Abs) 0.0 {x10E3/uL} (Normal) Range: 0.0-0.1 Immature Granulocytes 0 % (Normal) Baso (Absolute) 0.0 {x10E3/uL} (Normal) Range: 0.0-0.2 Eos (Absolute) 0.2 {x10E3/uL} (Normal) Range: 0.0-0.4 Monocytes(Absolute) 0.5 {x10E3/uL} (Normal) Range: 0.1-0.9 Lymphs (Absolute) 2.2 {x10E3/uL} (Normal) Range: 0.7-3.1 Neutrophils (Absolute) 5.4 {x10E3/uL} (Normal) Range: 1.4-7.0 Basos 0 % (Normal) Eos 3 % (Normal) Monocytes 6 % (Normal) Lymphs 26 % (Normal) Neutrophils 65 % (Normal) Platelets 207 {x10E3/uL} (Normal) Range: 150-379 RDW 12.8 % (Normal) Range: 12.3-15.4 MCHC 33.4 g/dL (Normal) Range: 31.5-35.7 MCH 29.9 pg (Normal) Range: 26.6-33.0 MCV 90 fL (Normal) Range: 79-97 Hematocrit 43.4 % (Normal) Range: 34.0-46.6 Hemoglobin 14.5 g/dL (Normal) Range: 11.1-15.9 RBC 4.85 {x10E6/uL} (Normal) Range: 3.77-5.28 WBC 8.4 {x10E3/uL} (Normal) Range: 3.4-10.8 92-Auy-472154:52 Microscopic Examination Comments: PATIENT WAS FASTINGPERFORMED BY: [facility] Ggznnx4727 [facility] [id number] Bacteria Few (Normal) Mucus Threads Present (Normal) Crystal Type Amorphous Sediment (Normal) Crystals Present (Abnormal) Cast Type Hyaline casts (Normal) Casts Present {/lpf} (Abnormal) Epithelial Cells (non renal) 0-10 {/hpf} (Normal) Range: 0 - 10 RBC 0-2 {/hpf} (Normal) Range: 0 - 2 WBC 0-5 {/hpf} (Normal) Range: 0 - 5 12-Nol-278707:52 CALCIFIDIOL (38733) VIT D 25 Comments: PATIENT WAS FASTINGPERFORMED BY: [employer] Xwjmyl0568 [facility] [place] [id number] Vitamin D, 25-Hydroxy 45.4 ng/mL (Normal) Range: 30.0-100.0 Comments: Vitamin D deficiency has been defined by the [place] [facility] and an Endocrine Society practice guideline as alevel of serum 25-OH vitamin D less than 20 ng/mL (1,2).The Endocrine Society went on to further define vitamin Dinsufficiency as a level between 21 and 29 ng/mL (2).1. IOM ([place] of Medicine). 2010. Dietary reference intakes for calcium and D. [place]: The National Academies Press.2. Lisa MF, Jatinder DAVILA, Sofía MA, et al. Evaluation, treatment, and prevention of vitamin D deficiency: an Endocrine Society clinical practice guideline. JCEM. 2010; 96(7):1911-30. 62-Ika-164990:52 TSH (80762) Comments: PATIENT WAS FASTINGPERFORMED BY: [employer] Hprhmg0220 [facility] [id number] TSH 0.306 {uIU/mL} (Abnormal) Range: 0.450-4.500 31-Qmc-518677:52 URINALYSIS, W/ MICRO (26248) Comments: PATIENT WAS FASTINGPERFORMED BY: [facility] Tajwcn1795 [facility] [id number] Microscopic Examination See below: (Normal) Comments: Microscopic was indicated and was performed. Microscopic Examination MICRON (Normal) Comments: Microscopic follows if indicated. Nitrite, Urine Negative (Normal) Urobilinogen,Semi-Qn 0.2 mg/dL (Normal) Range: 0.2-1.0 Bilirubin Negative (Normal) Occult Blood Negative (Normal) Ketones Negative (Normal) Glucose Negative (Normal) Protein Negative (Normal) WBC Esterase Negative (Normal) Appearance Clear (Normal) Urine-Color Yellow (Normal) pH 6.5 (Normal) Range: 5.0-7.5 Specific [place] 1.019 (Normal) Range: 1.005-1.030 36-Dwg-544192:52 MICROALBUMIN: CREATININE RATIO Comments: PATIENT WAS FASTINGPERFORMED BY: [facility]6370 [facility] [id number] (39738) AND (69855) Alb/Creat Ratio 2.6 {mg/g_creat} (Normal) Range: 0.0-30.0 Albumin, Urine 3.3 ug/mL (Normal) Creatinine, Urine 125.1 mg/dL (Normal) 59-Byq-488388:52 METABOLIC PANEL, COMPREHENSIVE Comments: PATIENT WAS FASTINGPERFORMED BY: [facility]6370 [facility] [id number] (34968) ALT (SGPT) 24 [iU]/L (Normal) Range: 0-32 AST (SGOT) 16 [iU]/L (Normal) Range: 0-40 Alkaline Phosphatase, S 118 [iU]/L (Abnormal) Range: 39-117 Bilirubin, Total 0.6 mg/dL (Normal) Range: 0.0-1.2 A/G Ratio 1.8 (Normal) Range: 1.2-2.2 Globulin, Total 2.5 g/dL (Normal) Range: 1.5-4.5 Albumin, Serum 4.5 g/dL (Normal) Range: 3.5-4.8 Protein, Total, Serum 7.0 g/dL (Normal) Range: 6.0-8.5 Calcium, Serum 9.9 mg/dL (Normal) Range: 8.7-10.3 Carbon Dioxide, Total 28 mmol/L (Normal) Range: 18-29 Chloride, Serum 98 mmol/L (Normal) Range: 96-106 Potassium, Serum 4.3 mmol/L (Normal) Range: 3.5-5.2 Sodium, Serum 143 mmol/L (Normal) Range: 134-144 BUN/Creatinine Ratio 19 (Normal) Range: 12-28 eGFR If Africn Am 71 mL/min/1.73 (Normal) eGFR If NonAfricn Am 62 mL/min/1.73 (Normal) Creatinine, Serum 0.94 mg/dL (Normal) Range: 0.57-1.00 BUN 18 mg/dL (Normal) Range: 8-27 Glucose, Serum 94 mg/dL (Normal) Range: 65-99 86-Ajq-148982:52 LIPID PANEL ([id number]) Comments: PATIENT WAS FASTINGPERFORMED BY: LabCoMatheny Medical and Educational CenterUznqxh4364 [facility] [id number] LDL/HDL Ratio 1.5 {ratio_units} (Normal) Range: 0.0-3.2 Comments: LDL/HDL Ratio Men Women 1/2 Avg.Risk 1.0 1.5 Av g.Risk 3.6 3.2 2X Avg.Risk 6.2 5.0 3X Avg.Risk 8.0 6.1 LDL Cholesterol Calc 81 mg/dL (Normal) Range: 0-99 VLDL Cholesterol Abisai 28 mg/dL (Normal) Range: 5-40 HDL Cholesterol 55 mg/dL (Normal) Triglycerides 139 mg/dL (Normal) Range: 0-149 Cholesterol, Total 164 mg/dL (Normal) Range: 100-199 83-Zqm-174261:52 CBC W/AUTO DIFF WBC ([id number]) Comments: PATIENT WAS FASTINGPERFORMED BY: LabDigonex TechnologiesMatheny Medical and Educational CenterQeosyy5748 [facility] [id number] Immature Grans (Abs) 0.0 {x10E3/uL} (Normal) Range: 0.0-0.1 Immature Granulocytes 0 % (Normal) Baso (Absolute) 0.0 {x10E3/uL} (Normal) Range: 0.0-0.2 Eos (Absolute) 0.3 {x10E3/uL} (Normal) Range: 0.0-0.4 Monocytes(Absolute) 0.5 {x10E3/uL} (Normal) Range: 0.1-0.9 Lymphs (Absolute) 2.1 {x10E3/uL} (Normal) Range: 0.7-3.1 Neutrophils (Absolute) 5.1 {x10E3/uL} (Normal) Range: 1.4-7.0 Basos 0 % (Normal) Eos 4 % (Normal) Monocytes 6 % (Normal) Lymphs 26 % (Normal) Neutrophils 64 % (Normal) Platelets 221 {x10E3/uL} (Normal) Range: 150-379 RDW 12.8 % (Normal) Range: 12.3-15.4 MCHC 33.7 g/dL (Normal) Range: 31.5-35.7 MCH 30.4 pg (Normal) Range: 26.6-33.0 MCV 90 fL (Normal) Range: 79-97 Hematocrit 44.8 % (Normal) Range: 34.0-46.6 Hemoglobin 15.1 g/dL (Normal) Range: 11.1-15.9 RBC 4.97 {x10E6/uL} (Normal) Range: 3.77-5.28 WBC 8.0 {x10E3/uL} (Normal) Range: 3.4-10.8 :31 TSH ([id number]) Comments: PATIENT NOT FASTINGPERFORMED BY: Direct Vet MarketingMimbres Memorial HospitalLnkngg7684 [facility] [id number] TSH 0.504 {uIU/mL} (Normal) Range: 0.450-4.500 :31 T4, FREE (THYROXINE) ([id number]) Comments: PATIENT NOT FASTINGPERFORMED BY: [facility]ermBarn[facility] Laadec0047 [facility] [id number] T4,Free(Direct) 1.24 ng/dL (Normal) Range: 0.82-1.77 :31 T3, FREE (TRIDOTHYRONINE) (13562) Comments: PATIENT NOT FASTINGPERFORMED BY: [employer] Whmbet8409 [facility] [id number] Triiodothyronine,Free,Serum 2.9 pg/mL (Normal) Range: 2.0-4.4 34-Ido-737583:04 Microscopic Examination Comments: PATIENT WAS FASTINGPERFORMED BY: LabDigonex Technologies [id number] [facility] [id number] Bacteria Few (Normal) Mucus Threads Present (Normal) Epithelial Cells (non renal) 0-10 {/hpf} (Normal) Range: 0 - 10 RBC 0-2 {/hpf} (Normal) Range: 0 - 2 WBC 0-5 {/hpf} (Normal) Range: 0 - 5 23-Iyn-877293:04 URINALYSIS, W/ MICRO (13529) Comments: PATIENT WAS FASTINGPERFORMED BY: [employer] [id number] [facility] [id number] Microscopic Examination See below: (Normal) Comments: Microscopic was indicated and was performed. Nitrite, Urine Negative (Normal) Urobilinogen,Semi-Qn 0.2 mg/dL (Normal) Range: 0.2-1.0 Bilirubin Negative (Normal) Occult Blood Negative (Normal) Ketones Negative (Normal) Glucose Negative (Normal) Protein Negative (Normal) WBC Esterase 1+ (Abnormal) Appearance Clear (Normal) Urine-Color Yellow (Normal) pH 5.5 (Normal) Range: 5.0-7.5 Specific [place] 1.021 (Normal) Range: 1.005-1.030 41-Hml-962799:04 MICROALBUMIN: CREATININE RATIO Comments: PATIENT WAS FASTINGPERFORMED BY: Cort[facility] CorporationEC[facility] [id number] ([id number]) AND (28193) Microalb/Creat Ratio <2.5 {mg/g_creat} (Normal) Range: 0.0-30.0 Microalbumin, Urine <3.0 ug/mL (Normal) Creatinine, Urine 118.9 mg/dL (Normal) :04 CALCIFIDIOL (85345) VIT D 25 Comments: PATIENT WAS FASTINGPERFORMED BY: AllClear [id number] [facility]NFocus HealthcareEC[facility] [id number] Vitamin D, 25-Hydroxy 42.3 ng/mL (Normal) Range: 30.0-100.0 Comments: Vitamin D deficiency has been defined by the [place] ofMedicine and an Endocrine Society practice guideline as alevel of serum 25-OH vitamin D less than 20 ng/mL (1,2).The Endocrine Society went on to further define vitamin Dinsufficiency as a level between 21 and 29 ng/mL (2).1. IOM ([place] of Medicine). 2010. Dietary reference intakes for calcium and D. [place]: The National Academies Press.2. Lisa MF, Jatinder [place], Sofía MA, et al. Evaluation, treatment, and prevention of vitamin D deficiency: an Endocrine Society clinical practice guideline. JCEM. 2010; 96(7):1911-30. :04 TSH (15371) Comments: PATIENT WAS FASTINGPERFORMED BY: AllClear ID6370 [facility] [place] [id number] TSH 0.241 {uIU/mL} (Abnormal) Range: 0.450-4.500 32-Amd-122604:04 METABOLIC PANEL, COMPREHENSIVE Comments: PATIENT WAS FASTINGPERFORMED BY: [address] [facility] [id number] ([id number]) ALT (SGPT) 23 [iU]/L (Normal) Range: 0-32 AST (SGOT) 16 [iU]/L (Normal) Range: 0-40 Alkaline Phosphatase, S 93 [iU]/L (Normal) Range: 39-117 Bilirubin, Total 0.6 mg/dL (Normal) Range: 0.0-1.2 A/G Ratio 1.6 (Normal) Range: 1.2-2.2 Globulin, Total 2.7 g/dL (Normal) Range: 1.5-4.5 Albumin, Serum 4.3 g/dL (Normal) Range: 3.6-4.8 Protein, Total, Serum 7.0 g/dL (Normal) Range: 6.0-8.5 Calcium, Serum 9.6 mg/dL (Normal) Range: 8.7-10.3 Carbon Dioxide, Total 26 mmol/L (Normal) Range: 18-29 Chloride, Serum 100 mmol/L (Normal) Range: 96-106 Potassium, Serum 4.7 mmol/L (Normal) Range: 3.5-5.2 Sodium, Serum 143 mmol/L (Normal) Range: 134-144 BUN/Creatinine Ratio 29 (Abnormal) Range: 12-28 eGFR If Africn Am 93 mL/min/1.73 (Normal) eGFR If NonAfricn Am 80 mL/min/1.73 (Normal) Creatinine, Serum 0.76 mg/dL (Normal) Range: 0.57-1.00 BUN 22 mg/dL (Normal) Range: 8-27 Glucose, Serum 90 mg/dL (Normal) Range: 65-99 23-Twj-547100:04 LIPID PANEL (72872) Comments: PATIENT WAS FASTINGPERFORMED BY: [id number] [facility] [id number] LDL/HDL Ratio 1.1 {ratio_units} (Normal) Range: 0.0-3.2 Comments: LDL/HDL Ratio Men Women 1/2 Avg.Risk 1.0 1.5 Av g.Risk 3.6 3.2 2X Avg.Risk 6.2 5.0 3X Avg.Risk 8.0 6.1 LDL Cholesterol Calc 67 mg/dL (Normal) Range: 0-99 VLDL Cholesterol Abisai 19 mg/dL (Normal) Range: 5-40 HDL Cholesterol 59 mg/dL (Normal) Triglycerides 94 mg/dL (Normal) Range: 0-149 Cholesterol, Total 145 mg/dL (Normal) Range: 100-199 65-Ooz-747869:04 CBC W/AUTO DIFF WBC (84107) Comments: PATIENT WAS FASTINGPERFORMED BY: LabCoMatheny Medical and Educational CenterZiduaz6069 [facility] [id number] Immature Grans (Abs) 0.0 {x10E3/uL} (Normal) Range: 0.0-0.1 Immature Granulocytes 0 % (Normal) Baso (Absolute) 0.0 {x10E3/uL} (Normal) Range: 0.0-0.2 Eos (Absolute) 0.3 {x10E3/uL} (Normal) Range: 0.0-0.4 Monocytes(Absolute) 0.6 {x10E3/uL} (Normal) Range: 0.1-0.9 Lymphs (Absolute) 2.6 {x10E3/uL} (Normal) Range: 0.7-3.1 Neutrophils (Absolute) 5.7 {x10E3/uL} (Normal) Range: 1.4-7.0 Basos 0 % (Normal) Eos 3 % (Normal) Monocytes 6 % (Normal) Lymphs 28 % (Normal) Neutrophils 63 % (Normal) Platelets 207 {x10E3/uL} (Normal) Range: 150-379 RDW 13.2 % (Normal) Range: 12.3-15.4 MCHC 32.8 g/dL (Normal) Range: 31.5-35.7 MCH 29.4 pg (Normal) Range: 26.6-33.0 MCV 90 fL (Normal) Range: 79-97 Hematocrit 43.9 % (Normal) Range: 34.0-46.6 Hemoglobin 14.4 g/dL (Normal) Range: 11.1-15.9 RBC 4.90 {x10E6/uL} (Normal) Range: 3.77-5.28 WBC 9.2 {x10E3/uL} (Normal) Range: 3.4-10.8 Plan of Care Name Dates Details Instructions Non-smoker : Eprescribed prescriptions (G8553) Indication: Non-smoker Encounter for annual general medical examination with abnormal findings in adult : fall reduction handout Indication: Encounter for annual general medical examination with abnormal findings in adult Encounter for annual general medical examination with abnormal findings in adult : elderly packet given Indication: Encounter for annual general medical examination with abnormal findings in adult Encounter for annual general medical examination with abnormal findings in adult : advance planning information Indication: Encounter for annual general medical examination with abnormal findings in adult Encounter for annual general medical examination with abnormal findings in adult : *Weight Loss Discussion Indication: Encounter for annual general medical examination with abnormal findings in adult Hip pain, left : Follow up in 4 weeks Indication: Hip pain, left Tear of left acetabular labrum, subsequent encounter : Reviewed Editor Index Letter Indication: Tear of left acetabular labrum, subsequent encounter Tear of left acetabular labrum, subsequent encounter : Reviewed Diagnostic Tests Indication: Tear of left acetabular labrum, subsequent encounter Tear of left acetabular labrum, subsequent encounter : Reviewed Diagnostic Tests Indication: Tear of left acetabular labrum, subsequent encounter Hypertension, benign : HTN/CAD Red Flags Indication: Hypertension, benign Hypercholesteremia (Renamed from Hypercholesterolemia) : Cholesterol mgmt Indication: Hypercholesteremia (Renamed from Hypercholesterolemia) Acquired hypothyroidism : HTN/CAD Red Flags Indication: Acquired hypothyroidism GERD (gastroesophageal reflux disease) : GERD Education Indication: GERD (gastroesophageal reflux disease) Acquired hypothyroidism : Continue Current Prescription(s) Indication: Acquired hypothyroidism Pain of left hip joint : Reviewed Diagnostic Tests Indication: Pain of left hip joint Left groin pain : Reviewed Editor Index Letter Indication: Left groin pain Acquired hypothyroidism : Continue Current Prescription(s) Indication: Acquired hypothyroidism Osteoarthritis, localized : *Weight Loss Discussion Indication: Osteoarthritis, localized Encounter for annual general medical examination with abnormal findings in adult : fall reduction handout Indication: Encounter for annual general medical examination with abnormal findings in adult Encounter for annual general medical examination with abnormal findings in adult : elderly packet given Indication: Encounter for annual general medical examination with abnormal findings in adult Encounter for annual general medical examination with abnormal findings in adult : advance planning information Indication: Encounter for annual general medical examination with abnormal findings in adult Encounter for annual general medical examination with abnormal findings in adult : *Weight Loss Discussion Indication: Encounter for annual general medical examination with abnormal findings in adult Encounter for annual general medical examination with abnormal findings in adult : Self breast exam Indication: Encounter for annual general medical examination with abnormal findings in adult Encounter for screening for malignant neoplasm of colon (Renamed from Special screening for malignant neoplasms, colon) : *Colon Cancer Screening Indication: Encounter for screening for malignant neoplasm of colon (Renamed from Special screening for malignant neoplasms, colon) Left groin pain : Eprescribed prescriptions (G8553) Indication: Left groin pain Nonsmoker : Eprescribed prescriptions (G8553) Indication: Nonsmoker Osteopenia, unspecified location : Reviewed Lab Indication: Osteopenia, unspecified location Osteopenia, unspecified location : Reviewed Diagnostic Tests Indication: Osteopenia, unspecified location Nonsmoker : Eprescribed prescriptions (G8553) Indication: Nonsmoker Hypertension, benign : Follow up in 6 months Indication: Hypertension, benign Hypertension, benign : Continue Current Prescription(s) Indication: Hypertension, benign GERD (gastroesophageal reflux disease) : GERD Education Indication: GERD (gastroesophageal reflux disease) Hypercholesteremia (Renamed from Hypercholesterolemia) : Cholesterol mgmt Indication: Hypercholesteremia (Renamed from Hypercholesterolemia) Hypertension, benign : Diet, Exercise, and Wt loss Indication: Hypertension, benign Hypertension, benign : HTN/CAD Red Flags Indication: Hypertension, benign Nonsmoker : Eprescribed prescriptions (G8553) Indication: Nonsmoker Nonsmoker : Eprescribed prescriptions (G8553) Indication: Nonsmoker Encounter for screening for malignant neoplasm of colon (Renamed from Special screening for malignant neoplasms, colon) : Eprescribed prescriptions (G8553) Indication: Encounter for screening for malignant neoplasm of colon (Renamed from Special screening for malignant neoplasms, colon) Annual Medicare Phyiscal WITHOUT abnormal findings (Renamed from Encounter for general adult medical examination without abnormal findings) : *Weight Loss Discussion Indication: Annual Medicare Phyiscal WITHOUT abnormal findings (Renamed from Encounter for general adult medical examination without abnormal findings) Annual Medicare Phyiscal WITHOUT abnormal findings (Renamed from Encounter for general adult medical examination without abnormal findings) : fall reduction handout Indication: Annual Medicare Phyiscal WITHOUT abnormal findings (Renamed from Encounter for general adult medical examination without abnormal findings) Annual Medicare Phyiscal WITHOUT abnormal findings (Renamed from Encounter for general adult medical examination without abnormal findings) : elderly packet given Indication: Annual Medicare Phyiscal WITHOUT abnormal findings (Renamed from Encounter for general adult medical examination without abnormal findings) Annual Medicare Phyiscal WITHOUT abnormal findings (Renamed from Encounter for general adult medical examination without abnormal findings) : advance planning information Indication: Annual Medicare Phyiscal WITHOUT abnormal findings (Renamed from Encounter for general adult medical examination without abnormal findings) Encounter for screening for malignant neoplasm of colon (Renamed from Special screening for malignant neoplasms, colon) : Self breast exam Indication: Encounter for screening for malignant neoplasm of colon (Renamed from Special screening for malignant neoplasms, colon) Encounter for screening for malignant neoplasm of colon (Renamed from Special screening for malignant neoplasms, colon) : *Colon Cancer Screening Indication: Encounter for screening for malignant neoplasm of colon (Renamed from Special screening for malignant neoplasms, colon) Planned Observations URINALYSIS, W/ MICRO (26541)Indication: Hypertension, benign On: 65-Vcl-603788:56 Request MICROALBUMIN: CREATININE RATIO (06035) AND (96659)Indication: Hypertension, benign On: 39-Fyf-166415:56 Request THYROXINE FREE (T4) (96183)Indication: Acquired hypothyroidism On: 67-Wee-742727:33 Request T3, TOTAL (TRIDOTHYRONINE) (65674)Indication: Acquired hypothyroidism On: 22-Jht-937284:33 Request TSH (THYROID STIMULATING HORMONE) (20763)Indication: Acquired hypothyroidism On: 16-Jpf-881248:33 Request T4, FREE (THYROXINE) (58783)Indication: Acquired hypothyroidism On: 90-Ldy-301517:40 Request T3, FREE (TRIDOTHYRONINE) (60754)Indication: Acquired hypothyroidism On: 24-Ukb-535923:40 Request TSH (55877)Indication: Acquired hypothyroidism On: 04-Xyp-672597:40 Request Planned Procedures SCREENING DIGITAL TOMOSYNTHESIS OF On: 27-May-2018 Intent BREAST (18760)By: Melissa Amanda DO, DO, Kathleen PNEUM VAC ADLT/IMUMNOSPR, SBC/INTRM On: 27-May-2018 Intent (87254)By: Monae Busby Comments: lot:[id number]:September 2019site/route: L subq tissue amt:0.5mlJasmin, CCMA [id number] BEHAVIORAL COUNSELING On: 09-Apr-2018 Intent FOR OBESITY, 15 MINUTES (G0447)By: Melissa Amanda DO, DO, Melissa SCREENING DIGITAL TOMOSYNTHESIS OF On: 09-Apr-2018 Intent BREAST ([id number])By: Melissa Amanda DO, DO, Kathleen Flu Vaccine (Quadrivalent) 52891Sv: On: 09-Apr-2018 Intent Vasiliy DOMelissa DO, Comments: Lot #[id number] Exp-12/27/18Site-L dltd, IMDose prefilled syringegiven by: Lisa IRVINGVIS reviewed and ABN signed Mleissa MRI HIP LEFT W CONTRAST (25219)By: On: 12-May-2017 Intent Vasiliy PAPPAS, Melissa Vasiliy DO, Comments: attention look at groin -left as well r/o mass, labrial tear Melissa Flu Vaccine (Quadrivalent) 23533Kk: On: 03-Apr-2017 Intent Melissa Amanda DO Vasiliy DO, Comments: lot: [id number]: 12/15/17ite/route: L rogelio, IMamt: 0.5mlVIS and ABN signed when applicableChelsea, BLACK PULLER Melissa EFOW-LD-EZBY BEHAVIORAL COUNSELING On: 03-Apr-2017 Intent FOR OBESITY, 15 MINUTES (G0447)By: Melissa Amanda DO, DO, Melissa XR HIP, 2 VIEWS (06649)By: Vasiliy On: 10-Mar-2017 Intent Melissa PAPPAS DO, Melissa DEXA SCAN AXIAL SKELETON (55994)By: On: 30-Jan-2017 Intent Chinyere Langston SCREENING DIGITAL TOMOSYNTHESIS OF On: 30-Jan-2017 Intent BREAST ([id number])By: Chinyere Langston ELECTROCARDIOGRAM, COMPLETE (ECG) On: 22-Jan-2017 Intent ([id number])By: Melissa Amanda DO Comments: nsr no acute chg Melissa Amanda DO YRRK-DN-LPTS BEHAVIORAL COUNSELING On: 26-Mar-2016 Intent FOR OBESITY, 15 MINUTES (G0447)By: Melissa Amanda DOon DO, Melissa DEXA SCAN AXIAL SKELETON (85165)By: On: 26-Mar-2016 Intent Melissa Amanda DO DO, Melissa MAMMOGRAM, SCREENING, BOTH BREAST On: 26-Mar-2016 Intent (08593)By: Melissa Amanda DO, DO, Kathleen Flu Vaccine (Quadrivalent) [id number]: On: 26-Mar-2016 Intent Melissa Amanda DO, DO, Comments: FLUlot: [id number]:11/13site:Lt deltoidroute:IMdose:.5mlDEMICKTENZIN Instructions Name Dates Details Non-smoker : How to access health information online Indication: Non-smoker Non-smoker : How to access health information online - Detail Indication: Non-smoker Non-smoker : Patient Instructions Indication: Non-smoker Hypertension, benign : obesity counseling Indication: Hypertension, benign BMI 45.0-49.9, adult : How to access health information online Indication: BMI 45.0-49.9, adult BMI 45.0-49.9, adult : How to access health information online - Detail Indication: BMI 45.0-49.9, adult BMI 45.0-49.9, adult : Patient Instructions Indication: BMI 45.0-49.9, adult Nonsmoker : How to access health information online Indication: Nonsmoker Nonsmoker : How to access health information online - Detail Indication: Nonsmoker Nonsmoker : Patient Instructions Indication: Nonsmoker Nonsmoker : How to access health information online Indication: Nonsmoker Nonsmoker : How to access health information online - Detail Indication: Nonsmoker Nonsmoker : Patient Instructions Indication: Nonsmoker Nonsmoker : How to access health information online Indication: Nonsmoker Nonsmoker : How to access health information online - Detail Indication: Nonsmoker Nonsmoker : Patient Instructions Indication: Nonsmoker Osteoarthritis, localized : obesity counseling Indication: Osteoarthritis, localized Nonsmoker : How to access health information online Indication: Nonsmoker Nonsmoker : How to access health information online - Detail Indication: Nonsmoker Nonsmoker : Patient Instructions Indication: Nonsmoker Left groin pain : How to access health information online Indication: Left groin pain Left groin pain : How to access health information online - Detail Indication: Left groin pain Left groin pain : Patient Instructions Indication: Left groin pain Nonsmoker : How to access health information online Indication: Nonsmoker Nonsmoker : How to access health information online - Detail Indication: Nonsmoker Nonsmoker : Patient Instructions Indication: Nonsmoker Nonsmoker : How to access health information online Indication: Nonsmoker Nonsmoker : How to access health information online - Detail Indication: Nonsmoker Nonsmoker : Patient Instructions Indication: Nonsmoker Nonsmoker : How to access health information online Indication: Nonsmoker Nonsmoker : How to access health information online - Detail Indication: Nonsmoker Nonsmoker : Patient Instructions Indication: Nonsmoker Nonsmoker : How to access health information online Indication: Nonsmoker Nonsmoker : How to access health information online - Detail Indication: Nonsmoker Nonsmoker : Patient Instructions Indication: Nonsmoker Encounter for screening for malignant neoplasm of colon (Renamed from Special screening for malignant neoplasms, colon) : Patient Instructions Indication: Encounter for screening for malignant neoplasm of colon (Renamed from Special screening for malignant neoplasms, colon) Encounter for screening for malignant neoplasm of colon (Renamed from Special screening for malignant neoplasms, colon) : How to access health information online Indication: Encounter for screening for malignant neoplasm of colon (Renamed from Special screening for malignant neoplasms, colon) Encounter for screening for malignant neoplasm of colon (Renamed from Special screening for malignant neoplasms, colon) : How to access health information online - Detail Indication: Encounter for screening for malignant neoplasm of colon (Renamed from Special screening for malignant neoplasms, colon) Hypertension, benign : obesity counseling Indication: Hypertension, benign Encounters Office Visit On: 27-May-2018 10:19 Encounter Reason: Hip Strain/Sprain - The patient sustained an injury to the left hip. Previous presentation included hip pain. Past evaluation has included orthopedic evaluation. The last clinic visit was 1 month(s) ago End: 27-May-2018 10:59 . Symptoms include pain. Note for Hip strain/sprain: It has been a year and I went to [facility] and he gave me a order for water therapy. Has been taking advil for the apinand it does help but neds to take it around the clock. Encounter Diagnosis: Non-smoker, BMI 45.0-49.9, adult, Pneumococcal vaccination given, Tear of left acetabular labrum, subsequent encounter, Hip pain, left, Hypertension, benign, Acquired hypothyroidism, Vitamin D deficiency, Encounter for screening mammogram for breast cancer (Renamed from Encounter for screening mammogram for malignant neoplasm of breast) [facility] Office Visit On: 09-Apr-2018 11:02 Encounter Reason: Hip Strain/Sprain - The patient sustained an injury to the left hip. Previous presentation included hip pain. Past evaluation has included orthopedic evaluation. Symptoms include pain. Note for Hip str End: 09-Apr-2018 12:37 ain/sprain: It has been a year and I went to [facility] and he gave me a order for water therapy. Has been taking advil for the apinand it does help but neds to take it around the clock., [ADDITIONAL REASON] Annual Medicare Exam - The patient had reviewed and updated the family history, medication/s, past medical history and social history. Yes the patient did have a mini mental status exam done today. The activities of daily living the patient needs help with are none. The patient has driven in past 6 months, but the patient has not had fecal incontinence, had urinary incontinence, m issed or ran out of medications to soon, fallen in the past 6 months, gotten lost, has a medalert necklace or bracelet, put area rugs through house or put handrails in bathroom. The patient has complete d the following preventative measures: PAP smear (1999), mammography (1 yr) and colonoscopy (over 10 yrs). The patient does have durable power of civil attorney and living will. The patient has noticed lack o f energy. Other providers contributing to the patient's care are other:. Encounter Diagnosis: Nonsmoker, BMI 45.0-49.9, adult, Need for prophylactic vaccination and inoculation against influenza (Renamed from Need for immunization against influenza) , Encounter for screening mammogram for breast cancer (Renamed from Encounter for screening mammogram for malignant neoplasm of breast), Hip pain, left, Osteoarthritis, chronic, Tear of left acetabular labrum, subsequent encounter, Encounter for annual general medical examination with abnormal findings in adult, Encounter for screening for malignant neoplasm of colon (Renamed from Special screening for malignant neoplasms, colon), Postmenopausal (Renamed from Postmenopausal status), Hypertension, benign [facility] Annotation/Addendum On: 17-Sep-2017 15:31 Encounter Diagnosis: Acquired hypothyroidism End: 17-Sep-2017 15:33 [facility] Office Visit On: 16-Sep-2017 8:45 Encounter Reason: Follow up for chronic medical issues - The patient feels well with minor complaints, has decreased energy level and is sleeping poorly. Patient has been compliant with instructions. Current medication u End: 16-Sep-2017 14:38 se: no side effects and compliant with dosing regimen. Patient sleeps 5 hours per night. Nutrition: inappropriate diet. The medical issues the patient is following up for include All identified problems below, gastric reflux, high blood pressure, high cholesterol and osteoporosis/osteopenia.Encounter Diagnosis: BMI 45.0-49.9, adult, Nonsmoker, Acquired hypothyroidism, GERD (gastroesophageal reflux disease), Hypertension, benign, Hypercholesteremia (Renamed from Hypercholesterolemia), Vitamin D deficiency, Tear of left acetabular labrum, subsequent encounter, Nutritional counseling [facility] Office Visit On: 05-Sep-2017 13:36 Encounter Diagnosis: Tear of left acetabular labrum, subsequent encounter End: 05-Sep-2017 14:12 [facility] Visit On: 04-Sep-2017 7:50 Encounter Reason: Groin Sprain/Strain - The patient sustained an injury to the left groin. Previous presentation included groin pain and difficulty ambulating. Symptoms include pain and difficulty ambulating. The pain is End: 04-Sep-2017 8:24 located in the left groin. The pain radiates to the left thigh. The patient describes the pain as sharp. The symptoms occur constantly (worse with ambulation). The patient describes symptoms as worseni ng. Symptoms are exacerbated by movement and walking.Encounter Diagnosis: BMI 45.0- 49.9, adult, Nonsmoker, Pain of left hip joint, Tear of left acetabular labrum, subsequent encounter, Stress fracture with routine healing, subsequent encounter [facility] Visit On: 12-May-2017 12:15 Encounter Reason: Groin Sprain/Strain - The patient sustained an injury to the left groin. Previous presentation included groin pain and difficulty ambulating. Symptoms include pain and difficulty ambulating. The pain is End: 12-May-2017 17:20 located in the left groin. The pain radiates to the left thigh. The patient describes the pain as sharp. The symptoms occur constantly (worse with ambulation). The patient describes symptoms as worseni ng. Symptoms are exacerbated by movement and walking.Encounter Diagnosis: BMI 45.0- 49.9, adult, Nonsmoker, Osteoarthritis, localized, Left groin pain, Pain of left hip joint [facility] Office Visit On: 03-Apr-2017 9:05 Encounter Reason: Annual Medicare Exam - The patient had reviewed and updated the family history, medication/s, past medical history and social history. Yes the patient did have a mini mental status exam done today. The End: 03-Apr-2017 10:24 activities of daily living the patient needs help with are housework. The patient has driven in past 6 months and put handrails in bathroom, but the patient has not had fecal incontinence, had urinary i ncontinence, missed or ran out of medications to soon, fallen in the past 6 months, gotten lost, has a medalert necklace or bracelet or put area rugs through house. The patient has completed the followi ng preventative measures: mammography (2017) and colonoscopy. The patient does not have durable power of civil attorney or living will. The patient has noticed nothing from the geriatic depression scale. Othe r providers contributing to the patient's care are other:.Encounter Diagnosis: BMI 45.0-49.9, adult, Nonsmoker, Encounter for annual general medical examination with abnormal findings in adult, Encounter for screening mammogram for breast cancer (Renamed from Encounter for screening mammogram for malignant neoplasm of breast), Postmenopausal (Renamed from Postmenopausal status), Encounter for screening for malignant neoplasm of colon (Renamed from Special screening for malignant neoplasms, colon), Acquired hypothyroidism, Abnormal TSH, Osteoarthritis, localized, Need for prophylactic vaccination and inoculation against influenza (Renamed from Need for immunization against influenza), Nutritional counseling [facility] Office Visit On: 10-Mar-2017 15:46 Encounter Reason: Groin Sprain/Strain - The patient sustained an injury to the left groin. Previous presentation included groin pain and difficulty ambulating. Symptoms include pain and difficulty ambulating. The pain is End: 10-Mar-2017 16:11 located in the left groin. The pain radiates to the left thigh. The patient describes the pain as sharp. The symptoms occur constantly (worse with ambulation). The patient describes symptoms as worseni ng. Symptoms are exacerbated by movement and walking.Encounter Diagnosis: BMI 45.0- 49.9, adult, Nonsmoker, Left groin pain, Pain of left hip joint [facility] Visit On: 24-Feb-2017 13:01 Encounter Reason: Cough - No changes in management were made at the last visit. Symptoms include cough, wheezing, runny nose and sore throat, while symptoms do not include stuffy nose. The cough is described as hacking a End: 24-Feb-2017 13:17 nd tight. Cough onset was sudden 1 week(s) ago. Onset of cough followed cold symptoms. The cough occurs constantly. Symptoms are described as moderate in severity and worsening. Current treatment includ es nonsteroidal anti-inflammatory drugs, antihistamines and decongestants.Encounter Diagnosis: BMI 45.0-49.9, adult, Nonsmoker, Cough, Sinusitis, bacterial [facility] Office Visit On: 13-Feb-2017 13:49 Encounter Reason: Follow up tests - Date: (02/04/17 dexa scan).Encounter Diagnosis: BMI 45.0-49.9, adult, Nonsmoker, Vitamin D deficiency, Osteopenia, unspecified location End: 13-Feb-2017 14:58 [facility] Phone Encounter On: 30-Jan-2017 9:10 Encounter Diagnosis: Postmenopausal (Renamed from Postmenopausal status) End: 30-Jan-2017 9:13 [facility] Phone Encounter On: 30-Jan-2017 9:04 Encounter Diagnosis: Encounter for screening mammogram for breast cancer (Renamed from Encounter for screening mammogram for malignant neoplasm of breast) End: 30-Jan-2017 9:13 [facility] Phone Encounter On: 24-Jan-2017 16:38 Encounter Diagnosis: Acquired hypothyroidism End: 24-Jan-2017 16:40 [facility] Visit On: 22-Jan-2017 8:43 Encounter Reason: Follow up for chronic medical issues - The patient feels well with minor complaints and is sleeping poorly. Current medication use: no side effects and considered effective by patient. Patient sleeps 6 End: 22-Jan-2017 13:37 hours per night. Impact of disease: emotional impact-moderate (Family issue and thought about it on the way in and that may be with the hr is elevated). The medical issues the patient is following up for include All identified problems below. Encounter Diagnosis: BMI 45.0-49.9, adult, Nonsmoker, Acquired hypothyroidism, Hypertension, benign, GERD (gastroesophageal reflux disease), Vitamin D deficiency, Hypercholesteremia (Renamed from Hypercholesterolemia), Anxiety [facility] Visit On: 03-Jul-2016 13:10 Encounter Reason: Cough - No changes in management were made at the last visit. Symptoms include cough, while symptoms do not include dyspnea, wheezing, chills or fever. The cough is described as hacking and productive. End: 03-Jul-2016 13:39 Cough onset was 4 week(s) ago. There is no known event that preceded symptom onset. Symptoms are described as unchanged.Encounter Diagnosis: BMI 45.0-49.9, adult, Nonsmoker, Cough, Sinusitis, bacterial [facility] Office Visit On: 26-Mar-2016 11:06 Encounter Reason: new patient female physical - Last seen between 3-6 months ago. General health: feels well with minor complaints, has good energy level and is sleeping well. The patient's appetite is normal. Nutrition: End: 26-Mar-2016 12:49 normal/adequate. Exercises 0 days per week. Sleeps on average 7 hours per night. Normal bowel and bladder habits. Safety measures include appropriate use of safety belts and home smoke detectors. Curre nt emotional problems include anxiety. screening, colonoscopy (10 yrs), screening, mammography (2014) and screening, Pap smear (hyster)., [ADDITIONAL REASON] Annual Medicare Exam - Yes the patient did have (mms 30/30) a mini mental status exam done today. The activities of daily living the patient needs help with are none. The patient has driven in past 6 months and put handrails in bathroom, but the patient has not had fecal incontinen ce, had urinary incontinence, missed or ran out of medications to soon, fallen in the past 6 months, gotten lost, has a medalert necklace or bracelet or put area rugs through house. The patient has comp leted the following preventative measures: mammography (2014) and colonoscopy (2000). The patient does not have durable power of civil attorney or living will. The patient has noticed nothing from the geriatic depression scale. Encounter Diagnosis: Need for prophylactic vaccination and inoculation against influenza (Renamed from Need for immunization against influenza), Annual Medicare Phyiscal WITHOUT abnormal findings (Renamed from Encounter for general adult medical examination without abnormal findings), Encounter for screening mammogram for breast cancer (Renamed from Encounter for screening mammogram for malignant neoplasm of breast), Postmenopausal (Renamed from Postmenopausal status), Encounter for screening for malignant neoplasm of colon (Renamed from Special screening for malignant neoplasms, colon), Nonsmoker, BMI 45.0-49.9, adult, Hypertension, benign, Vitamin D deficiency, Acquired hypothyroidism, Allergic rhinitis, Hypercholesteremia (Renamed from Hypercholesterolemia), GERD (gastroesophageal reflux disease), Anxiety [facility] Payers MedicareAnthem [employer]/Andrew Medel; a guarantor
--- OUTSIDE RECORDS SUMMARY | 2018-09-21 01:24 | XMS RPT_ITS | Continuity of Care Document ---
:1945 Author Organization [facility] Address [address] [place] [address] Phone Care Team Providers Name Role Phone Melissa Amanda DO Unavailable Physical Therapy, [facility] Unavailable Dr. Servando Vanessa Unavailable Flavio Patino Unavailable Gravius, Monae Unavailable Unavailable Messenger, CENTRIFUGAL STATION OPERATOR Jackie Unavailable Unavailable Slanishi CENTRIFUGAL STATION OPERATORDarlene Terry Unavailable Unavailable Unavailable Unavailable Problems Name [...] not come down-- so last dr in [place] gave rx low dose atenolol to use [...] acetabular labrum, subsequent encounter (S73.192D, V58.89) Comments: [facility] -- needs hip replacement- but needs to lose wt per surgeon -- this will fix tear Status: Active Tear of left acetabular labrum, subsequent encounter (S73.192D, V58.89) Status: Active Vitamin D deficiency (E55.9, 268.9) Status: Active Medications Name Dates Details Ann-D Allergy & Congestion 180-240 MG Oral Tablet [...] DO, DO, Kathleen Start : 14-Apr-2017 Active Atorvastatin Calcium 20 MG Oral Tablet 1 (one) Tablet qd for 90 days Quantity: 90 {Tablet} Refills: 0 Ordered:09-Mar-2018 Kiran Amanda DO, DO, Kathleen Start : 09-Mar-2018 Active Comments:no more refills, after this, until seen by office Losartan Potassium-HCTZ 100-25 MG Oral Tablet 1 [...] DO, DO, Kathleen Start : 26-Mar-2016 Active Cheratussin AC 100-10 MG/5ML Oral Solution 1 (one) Teaspoon Q6Hrs PRN for 0 days Quantity: 6 {Ounce} Refills: 0 Ordered:22-Jan-2017 Long Claudio HARDENn L Start : 03-Jul-2016 End : 22-Jan-2017 Inactive Comments:Six Zithromax Z-Von 250 MG Oral Tablet TAD Tablet QD for 0 days Quantity: 1 {Package} Refills: 0 Ordered:10-Mar-2017 Slarb DERECK Darlene Start : 24-Feb-2017 End : 10-Mar-2017 Inactive [...] - PT Result: Comments: See Note; NOTES: [facility] Physical Therapy [facility] [address] [place] [address] [address] [place] [address] Fax REHABILITATION SERVICES INITIAL EVALUATION MR#: [id number] Acct: [id number] Name: JOI MEDEL Rep #: [id number] : 1945 72 From: Darlene Olea MPT Referring Dr.: Melissa Amanda DO Status: REG RCR Insurance: MEDICARE PA RT A B ANTH Patient's Visit Information JOI MEDEL is a 72 year old F referred to Physical Therapy by Melissa Amanda with a diagnosis of L hip pain. Date of Evaluation: 03/19/17 Tank Charger apist: Darlene Olea - Visit Plan Frequency: [...] without taking it. 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 Stairs: do not bother her too [...] to be FAXED BACK to us at [phone] for Medicare purposes. Please let me know if there are questions or concerns regarding this plan of care. Physician Signature: Date: <Electronically signed by Darlene Olea MPT> 05/27/17 1801 CC: Melissa Amanda DO Signed For Medicare onl y, by signing this I certify the plan of care. Physicians Signature Date 19-May-2017 Lower Ext Joint Only (Routine) Result: Comments: See Note; NOTES: [facility] Imaging Services [address] [place] [address] Lower Ext Joint Only (Routine) MR#: [id number] Acct: [id number] Name: JOI MEDEL Rep # : [id number] : 1945 F 72 From: Stan De La Torre MD PCP: Melissa Amanda DO Status: REG CLI Study: Lower Ext Joint Only (Routine) Date of Exam: 05/19/17 Exam# [id number] Ordering Dr: Meghan Amanda DO STUDY: MRI [...] Service support , CC: Melissa Amanda DO Screed Operator: Signed 06-May-2017 Re-Evaluation - PT (1) Result: Comments: See Note; NOTES: [facility] Physical Therapy [facility] [address] [place] [address] Fax REEVALUATION / [facility] MR#: [id number] Acct: [id number] Name: JOI MEDEL Rep #: [id number] : 1945 72 From: Darlene Olea MPT [...] do not hesitate to contact me at [phone] by phone or if you have questions or concerns regarding this new plan of care! Sincerely, Darlene Olea <Electronically chayo d by Darlene Olea MPT> 05/06/17 1751 CC: Melissa Amanda DO Signed For Medicare only, by signing this I certify the plan of care. Physicians Signature Date 15-Apr-2017 Re-Evaluation - PT (1) Result: Comments: See Note; NOTES: [facility] Physical Therapy [facility]. [address] [place] [address] Fax REEVALUATION / MEDICARE RECERTI FICATION PHYSICAL THERAPY MR#: [id number] Acct: [id number] Name: JOI MEDEL Rep #: [id number] : 1945 72 From: Darlene BETANCOURT Referring [...] do not hesitate to contact me at [phone] by phone or if you have questions or concerns regarding this new plan of care! Sincerely, Darlene Olea <Electronically signed by Darlene Olea MPT> 04/15/17 1726 CC: Melissa Amanda DO Signed For Medicare only, by estefany morley I certify the plan of care. Physicians Signature Date 19-Mar-2017 Inital Evaluation (1) - PT Result: Comments: See Note; NOTES: [facility] Physical Therapy [facility] [address] [place], [place] [address] Fax REHABILITATION SERVICES INITIAL EVALUATION MR#: [id number] Acct: [id number] Name: JOI MEDEL Rep #: [id number] : 1945 72 From: Darlene Olea MPT Referring Dr.: Melissa Amanda DO Status: REG RCR Insurance: MEDICARE PA RT A B ANTH Patient's Visit Information JOI MEDEL is a 72 year old F referred to Physical Therapy by Melissa Amanda with a diagnosis of L hip pain. Date of Evaluation: 03/19/17 Tank Charger apist: Darlene Olea - Visit Plan Frequency: [...] without taking it. 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 Stairs: do not bother her too [...] to be FAXED BACK to us at [phone] for Medicare purposes. Please let me know if there are questions or concerns regarding this plan of care. Physician Signature: Date: <Electronically signed by Darlene Olea MPT&#62 ; 03/19/17 1827 CC: Melissa Amanda DO Signed For Medicare only, by signing this I certify the plan of care. Physicians Signature Date 13-Mar-2017 Hip 2-3 Views with Pelvis Result: Comments: See Note; NOTES: [facility] Imaging Services [address] [place] [address] Hip 2-3 Views with Pelvis MR#: [id number] Acct: [id number] Name: JOI MEDEL Rep #: [id number] : 1945 F 72 From: Linda Odell MD PCP: Melissa Amanda DO Status: REG CLI Study: Hip 2-3 Views with Pelvis Date of Exam: 03/13/17 Exam# [id number] Ordering Dr: Melissa Amanda DO STUDY : [...] s upport , CC: Melissa Amanda DO Screed Operator: Signed 04-Feb-2017 Dexa Bone Density Study (HP) Result: Comments: See Note; NOTES: [facility] Imaging Services [address] [place] [address] Dexa Bone Density Study (HP) MR#: [id number] Acct: [id number] Name: JOI MEDEL Rep #: [id number] : 1945 F 72 From: Nico Shine MD PCP: Melissa Amanda DO Status: [facility] CLI Study: Dexa Bone Density Study (HP) Date of Exam: 02/04/17 Exam# [id number] Ordering Dr: Meghan Amanda DO STUDY: DUAL [...] Nico Shine MD at 15:43 EDT Tel [phone], Service support , CC: Melissa Amanda DO Screed Operator: Signed 04-Feb-2017 SCREENING MAMM (CAD), BILAT Result: Comments: See Note; NOTES: [facility] Imaging Services [address] [place] [address] SCREENING MAMM (CAD), BILAT MR#: [id number] Acct: [id number] Name: JOI MEDEL Rep #: [id number] : 1945 F 72 From: Nico Shine MD PCP: Melissa Amanda DO Status: REG CLI Study: SCREENING MAMM (CAD), BILAT Date of Exam: 02/04/17 Exam# [id number] Ordering Dr: Melissa Amanda DO MAMMOGRAPHY - [...] delay biopsy of a clinically suspicious abnormality. [id number] Electronically Signed: Nico Shine MD at 12:03 EDT Tel [phone], Se rvice support , CC: Melissa Amanda DO Screed Operator: Signed Family History Unknown Family Member Name [...] smoker Vital Signs Date Test Result Details 42-Vxz-308193:23 Comments: did not take bp medication yet [...] kg/m2 Body Surface Area Calculated 2 m2 52-Iqx-414990:05 Comments: hearing wnlNo eye doc Pulse 104 [...] kg/m2 Body Surface Area Calculated 2 m2 :50 Temperature 97.9 f Pulse 79 /min Comments: [...] kg/m2 Body Surface Area Calculated 2.01 m2 4-Csd-339438:14 Temperature 99.7 f Comments: Method: Temporal Pulse [...] kg/m2 Body Surface Area Calculated 2 m2 31-Bdx-043956:27 Pulse 101 /min Comments: Pattern: Regular Respiration [...] 2 m2 Results Date Description Value Details 76-Fwl-215184:52 Microscopic Examination Comments: PATIENT WAS FASTINGPERFORMED BY: [employer]70 [facility] [id number] Bacteria Few (Normal) Mucus Threads Present (Normal) Crystal Type Amorphous Sediment (Normal) Crystals Present (Abnormal) Cast Type Hyaline casts (Normal) Casts Present {/lpf} (Abnormal) Epithelial Cells (non renal) 0-10 {/hpf} (Normal) Range: 0 - 10 RBC 0-2 {/hpf} (Normal) Range: 0 - 2 WBC 0-5 {/hpf} (Normal) Range: 0 - 5 :52 CALCIFIDIOL (95409) VIT D 25 Comments: PATIENT WAS FASTINGPERFORMED BY: [employer]6370 [facility], [facility] [id number] Vitamin D, 25-Hydroxy 45.4 ng/mL (Normal) Range: 30.0-100.0 Comments: Vitamin D deficiency has been defined by the [place] of[place] and an Endocrine Society practice guideline as alevel of serum 25-OH vitamin D less than 20 ng/mL (1,2).The Endocrine Society went on to further define vitamin Dinsufficiency as a level between 21 and 29 ng/mL (2).1. IOM ([place] of [employer]). 2010. Dietary reference intakes for calcium and D. [place]: The National Academies Press.2. Lisa MF, Jatinder DAVILA, Sofía MA, et al. Evaluation, treatment, and prevention of vitamin D deficiency: an Endocrine Society clinical practice guideline. JCEM. 2010; 96(7):1911-30. 94-Lqm-367026:52 TSH (81350) Comments: PATIENT WAS FASTINGPERFORMED BY: [employer] [place] [id number] TSH 0.306 {uIU/mL} (Abnormal) Range: 0.450-4.500 07-Nql-311374:52 URINALYSIS, W/ MICRO (02338) Comments: PATIENT WAS FASTINGPERFORMED BY: [employer] [id number] Microscopic Examination See below: (Normal) Comments: Microscopic was indicated and was performed. Microscopic Examination MICRON (Normal) Comments: Microscopic follows if indicated. Nitrite, Urine Negative (Normal) Urobilinogen,Semi-Qn 0.2 mg/dL (Normal) Range: 0.2-1.0 Bilirubin Negative (Normal) Occult Blood Negative (Normal) Ketones Negative (Normal) Glucose Negative (Normal) Protein Negative (Normal) WBC Esterase Negative (Normal) Appearance Clear (Normal) Urine-Color Yellow (Normal) pH 6.5 (Normal) Range: 5.0-7.5 Specific [place] 1.019 (Normal) Range: 1.005-1.030 23-Nui-436607:52 MICROALBUMIN: CREATININE RATIO Comments: PATIENT WAS FASTINGPERFORMED BY: [employer] [id number] (21339) AND (10049) Alb/Creat Ratio 2.6 {mg/g_creat} (Normal) Range: 0.0-30.0 Albumin, Urine 3.3 ug/mL (Normal) Creatinine, Urine 125.1 mg/dL (Normal) 14-Vrz-069149:52 METABOLIC PANEL, COMPREHENSIVE Comments: PATIENT WAS FASTINGPERFORMED BY: [employer] Lwdefl0750 [facility] [id number] (40445) ALT (SGPT) 24 [iU]/L (Normal) Range: 0-32 [...] Glucose, Serum 94 mg/dL (Normal) Range: 65-99 93-Oju-780907:52 LIPID PANEL (56401) Comments: PATIENT WAS FASTINGPERFORMED BY: [employer] TechnologyLovelace Rehabilitation HospitalYgtaeq9313 [facility] [id number] LDL/HDL Ratio 1.5 {ratio_units} (Normal) Range: 0.0-3.2 Comments: LDL/HDL Ratio Men Women 1/2 Avg.Risk 1.0 1.5 Av g.Risk 3.6 3.2 2X Avg.Risk 6.2 5.0 3X Avg.Risk 8.0 6.1 LDL Cholesterol Calc 81 mg/dL (Normal) Range: 0-99 VLDL Cholesterol Abisai 28 mg/dL (Normal) Range: 5-40 HDL Cholesterol 55 mg/dL (Normal) Triglycerides 139 mg/dL (Normal) Range: 0-149 Cholesterol, Total 164 mg/dL (Normal) Range: 100-199 34-Tsl-942033:52 CBC W/AUTO DIFF WBC (07585) Comments: PATIENT WAS FASTINGPERFORMED BY: [employer] Ksyivw3472 [facility] [id number] Immature Grans (Abs) 0.0 {x10E3/uL} (Normal) Range: [...] 8.0 {x10E3/uL} (Normal) Range: 3.4-10.8 :31 TSH (76016) Comments: PATIENT NOT FASTINGPERFORMED BY: [place] 9048870 [facility] [id number] TSH 0.504 {uIU/mL} (Normal) Range: 0.450-4.500 :31 T4, FREE (THYROXINE) (94872) Comments: PATIENT NOT FASTINGPERFORMED BY: [address] [id number] T4,Free(Direct) 1.24 ng/dL (Normal) Range: 0.82-1.77 :31 T3, FREE (TRIDOTHYRONINE) (57231) Comments: PATIENT NOT FASTINGPERFORMED BY: [address] [id number] Triiodothyronine,Free,Serum 2.9 pg/mL (Normal) Range: 2.0-4.4 74-Ush-391489:04 Microscopic Examination Comments: PATIENT WAS FASTINGPERFORMED BY: [facility]6370 [facility] [id number] Bacteria Few (Normal) Mucus Threads Present (Normal) Epithelial Cells (non renal) 0-10 {/hpf} (Normal) Range: 0 - 10 RBC 0-2 {/hpf} (Normal) Range: 0 - 2 WBC 0-5 {/hpf} (Normal) Range: 0 - 5 84-Zez-905701:04 URINALYSIS, W/ MICRO (61473) Comments: PATIENT WAS FASTINGPERFORMED BY: [place] 9048870 [facility] [id number] Microscopic Examination See below: (Normal) Comments: Microscopic was indicated and was performed. Nitrite, Urine Negative (Normal) Urobilinogen,Semi-Qn 0.2 mg/dL (Normal) Range: 0.2-1.0 Bilirubin Negative (Normal) Occult Blood Negative (Normal) Ketones Negative (Normal) Glucose Negative (Normal) Protein Negative (Normal) WBC Esterase 1+ (Abnormal) Appearance Clear (Normal) Urine-Color Yellow (Normal) pH 5.5 (Normal) Range: 5.0-7.5 Specific [place] 1.021 (Normal) Range: 1.005-1.030 56-Sbt-264723:04 MICROALBUMIN: CREATININE RATIO Comments: PATIENT WAS FASTINGPERFORMED BY: [employer] Plehcq8646 [facility] [id number] (66110) AND (58322) Microalb/Creat Ratio <2.5 {mg/g_creat} (Normal) Range: 0.0-30.0 Microalbumin, Urine <3.0 ug/mL (Normal) Creatinine, Urine 118.9 mg/dL (Normal) :04 CALCIFIDIOL (48913) VIT D 25 Comments: PATIENT WAS FASTINGPERFORMED BY: [employer] Crycne9862 [facility] [id number] Vitamin D, 25-Hydroxy 42.3 ng/mL (Normal) Range: 30.0-100.0 Comments: Vitamin D deficiency has been defined by the [place] of[place]icine and an Endocrine Society practice guideline as alevel of serum 25-OH vitamin D less than 20 ng/mL (1,2).The Endocrine Society went on to further define vitamin Dinsufficiency as a level between 21 and 29 ng/mL (2).1. IOM ([place]). 2010. Dietary reference intakes for calcium and D. [place]: The National Academies Press.2. Lisa MF, Jatinder [place], Sofía MA, et al. Evaluation, treatment, and prevention of vitamin D deficiency: an Endocrine Society clinical practice guideline. JCEM. 2010; 96(7):1911-30. :04 TSH (75820) Comments: PATIENT WAS FASTINGPERFORMED BY: [employer] Dhtmha8388 [facility] [id number] TSH 0.241 {uIU/mL} (Abnormal) Range: 0.450-4.500 :04 METABOLIC PANEL, COMPREHENSIVE Comments: PATIENT WAS FASTINGPERFORMED BY: [employer] Tsfjik2133 [facility] [id number] (87326) ALT (SGPT) 23 [iU]/L (Normal) Range: 0-32 [...] Glucose, Serum 90 mg/dL (Normal) Range: 65-99 98-Omv-462882:04 LIPID PANEL (85871) Comments: PATIENT WAS FASTINGPERFORMED BY: LabCoAnn Klein Forensic CenterPzjalz0239 [facility] [id number] LDL/HDL Ratio 1.1 {ratio_units} (Normal) Range: 0.0-3.2 Comments: LDL/HDL Ratio Men Women 1/2 Avg.Risk 1.0 1.5 Av g.Risk 3.6 3.2 2X Avg.Risk 6.2 5.0 3X Avg.Risk 8.0 6.1 LDL Cholesterol Calc 67 mg/dL (Normal) Range: 0-99 VLDL Cholesterol Abisai 19 mg/dL (Normal) Range: 5-40 HDL Cholesterol 59 mg/dL (Normal) Triglycerides 94 mg/dL (Normal) Range: 0-149 Cholesterol, Total 145 mg/dL (Normal) Range: 100-199 18-Tfi-254165:04 CBC W/AUTO DIFF WBC (99160) Comments: PATIENT WAS FASTINGPERFORMED BY: [employer] Ocqbct1800 [facility] [id number] Immature Grans (Abs) 0.0 {x10E3/uL} (Normal) Range: [...] left acetabular labrum, subsequent encounter : Reviewed Tool And Equipment Rental Clerk Letter Indication: Tear of left acetabular labrum, [...] hip joint Left groin pain : Reviewed Tool And Equipment Rental Clerk Letter Indication: Left groin pain Acquired hypothyroidism [...] screening for malignant neoplasms, colon) Planned Observations T4, FREE (THYROXINE) (75007)Indication: Acquired hypothyroidism On: 89-Zpm-218975:57 Request T3, FREE (TRIDOTHYRONINE) (27862)Indication: Acquired hypothyroidism On: 72-Fhm-931767:57 Request CALCIFIDIOL (25041) VIT D 25Indication: Vitamin D deficiency On: 78-Qrz-668895:56 Request TSH (43189)Indication: Acquired hypothyroidism On: 16-Xzc-493983:56 Request URINALYSIS, W/ MICRO (74639)Indication: Hypertension, benign On: 42-Auk-431107:56 Request MICROALBUMIN: CREATININE RATIO (02807) AND (06959)Indication: Hypertension, benign On: 22-Qez-455546:56 Request METABOLIC PANEL, COMPREHENSIVE (34584)Indication: Hypertension, benign On: 36-Qbq-225067:56 Request LIPOPROTEIN, BLD, BY NMR (99465)Indication: Hypertension, benign On: 17-Vbl-577735:56 Request CBC W/AUTO DIFF WBC (74991)Indication: Hypertension, benign On: 02-Eev-543958:56 Request THYROXINE FREE (T4) (45953)Indication: Acquired hypothyroidism On: 25-Lcz-901552:33 Request T3, TOTAL (TRIDOTHYRONINE) (21822)Indication: Acquired hypothyroidism On: 79-Zfs-361379:33 Request TSH (THYROID STIMULATING HORMONE) (39167)Indication: Acquired hypothyroidism On: 60-Dhs-848318:33 Request T4, FREE (THYROXINE) (01594)Indication: Acquired hypothyroidism On: :40 Request T3, FREE (TRIDOTHYRONINE) (27139)Indication: Acquired hypothyroidism On: 58-Ofk-202061:40 Request TSH (75113)Indication: Acquired hypothyroidism On: 95-Xbo-069801:40 Request Planned Encounters Medical; [facility] PHY/GEN MED - On: 17-Jun-2018 10:15 [facility] Melissa Amanda DO, DO, Kathleen Planned Procedures SCREENING DIGITAL TOMOSYNTHESIS OF On: 27-May-2018 Intent BREAST (84586)By: Melissa Amanda DO, DO, Melissa PNEUM VAC ADLT/IMUMNOSPR, SBC/INTRM On: 27-May-2018 Intent (26561)By: Monae Busby Comments: lot:[id number]:September 2019site/route: L subq tissue amt:0.5mlJasmin, CCMA GHGY-RR-GEAJ BEHAVIORAL COUNSELING On: 09-Apr-2018 Intent FOR OBESITY, 15 MINUTES (G0447)By: Melissa Amanda DO, DO, Kathleen SCREENING DIGITAL TOMOSYNTHESIS OF On: 09-Apr-2018 Intent BREAST (58727)By: Melissa Amanda DO DO Melissa Flu Vaccine (Quadrivalent) 00628Pj: On: 09-Apr-2018 Intent Melissa Amanda DO DO, Comments: Lot #[id number] Exp-12/27/18Site-L dltd, IMDose prefilled syringegiven by: Lisa IRVINGVIS reviewed and ABN signed Melissa MRI HIP LEFT W CONTRAST (60966)By: On: 12-May-2017 Intent Melissa Amanda DO, DO, Comments: attention look at groin -left as well r/o mass, labrial tear Melissa Flu Vaccine (Quadrivalent) 49075Qi: On: 03-Apr-2017 Intent Melissa Amanda DO DO, Comments: lot: [id number]: 12/15/17ite/route: L rogelio, IMamt: 0.5mlVIS and ABN signed when applicableChelsea, CONCRETE POURING SUPERVISOR Melissa ELLF-BY-UXNX BEHAVIORAL COUNSELING On: 03-Apr-2017 Intent FOR OBESITY, 15 MINUTES (G0447)By: Melissa Amanda DO, DO, Melissa XR HIP, 2 VIEWS (48527)By: Vasiliy On: 10-Mar-2017 Intent Melissa PAPPAS DOMelissa DEXA SCAN AXIAL SKELETON (42565)By: On: 30-Jan-2017 Intent Chinyere Langston SCREENING DIGITAL TOMOSYNTHESIS OF On: 30-Jan-2017 Intent BREAST (60960)By: Chinyere Langston ELECTROCARDIOGRAM, COMPLETE (ECG) On: 22-Jan-2017 Intent (59055)By: Melissa Amanda DO Comments: nsr no acute chg Melissa Amanda DO YGMP-SO-EEXC BEHAVIORAL COUNSELING On: 26-Mar-2016 Intent FOR OBESITY, 15 MINUTES (G0447)By: Melissa Amanda DO, DO, Kathleen DEXA SCAN AXIAL SKELETON (01471)By: On: 26-Mar-2016 Intent Melissa Amanda DO, DO, Kathleen MAMMOGRAM, SCREENING, BOTH BREAST On: 26-Mar-2016 Intent (86617)By: Melissa Amanda DO, DO, Kathleen Flu Vaccine (Quadrivalent) 21230Mv: On: 26-Mar-2016 Intent Melissa Amanda DO, DO, Comments: FLUlot: [id number]:11/13site:Lt deltoidroute:IMdose:.5mlDEMICKTENZIN Instructions Name Dates Details Non-smoker : [...] been a year and I went to [facility] and he gave me a order for [...] been a year and I went to [facility] and he gave me a order for [...] The patient does have durable power of privacy attorney and living will. The patient has [...] patient does not have durable power of privacy attorney or living will. The patient has [...] of safety belts and home smoke detectors. Sofíae nt emotional problems include anxiety. screening, colonoscopy [...] patient does not have durable power of privacy attorney or living will. The patient has [...]
--- OUTSIDE RECORDS SUMMARY | 2018-09-21 01:24 | XMS RPT_ITS ---
:1945 Author Organization [employer] Address [address] [place] [address] Phone Care Team Providers Name Role Phone Sukumar COVINGTON, Flavio Servin Unavailable Reason for Visit Reason For Visit Description Start Date New - 1st visit with practice Preliminary reason for visit data, not yet signed by the author as of left hip pain Preliminary reason for visit data, not yet signed by the author as of Chief Complaint Chief Complaint Description Start Date left hip pain Preliminary chief complaint data, not yet signed by the author as of Instructions Instruction Description Start Date Patient advised to follow-up with Primary Care Physician for BMI management. Plan of Care Type Date Detail Appointment 10:00 AM Flavio Patino MD, [address] [facility], [address], [place], [address], Medications Medication Instructions Start Stop Generic Name NDC Provider Date Date KLOR-CON M10 10 one a day / POTASSIUM [id number] Flavio Servin MEQ CR-TABS 20 CHLORIDE SON ER Sukumar COVINGTON SYNTHROID 150 one a day / LEVOTHYROXINE [id number] Flavio Servin MCG TABS 20 SODIUM Sukumar COVINGTON LOSARTAN one a day / LOSARTAN [id number] Flavio Servin POTASSIUM-HCTZ 20 POTASSIUM-HCTZ Sukumar 100-25 MG TABS ATORVASTATIN one a day / ATORVASTATIN [id number] Flavio Servin CALCIUM 20 MG 20 CALCIUM Sukumar BRAR MD PAROXETINE HCL one a day / PAROXETINE HCL 04532517414 Flavio Servin 20 MG TABS 20 Sukumar COV[place] ASPIRIN 81 MG one a day / ASPIRIN [id number] Flavio R TABS 20 Sukumar COVINGTON PRILOSEC 10 MG two tabs daily / OMEPRAZOLE [id number] Flavio Servin CPDR 20 Sukumar COVINGTON INGRID ALLERGY one a day / FEXOFENADINE HCL 87776671501 Flavio Servin 180 MG TABS 20 Sukumar COVINGTON VITAMIN D 1000 two a day / CHOLECALCIFEROL 07957422019 Flavio Servin UNIT TABS 20 Sukumar COVINGTON MULTI-VITAMIN one a day / MULTIPLE VITAMIN 19991778768 Flavio Servin TABS 20 Sukumar COVINGTON VITAMIN E 400 one a day / VITAMIN E 37291075336 Flavio Servin UNIT CAPS 20 Sukumar COVINGTON ATENOLOL 25 MG one a day / ATENOLOL 49299258651 Flavio Servin TABS 20 Sukumar COVINGTON Conditions or Problems Problem Name Problem Onset Status Entry Provider Comment Standard Annotate Code Date Date Description 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 Flavio Servin 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-C /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/17 Sukumar primary osteoarthritis M) osteoarthrit left hip is, left hip Allergies, Adverse Reactions, Alerts Allergy Name Reaction Start Date Severity Status Provider Description CELEXA Critical Active Flavio Patino MD REGLAN Critical Active Flavio Servin (METOCLOPRAMID Sukumar COVINGTON E HCL) Social History Concept Description Observation Name Observation Value Units Start Date Alcohol use ETOH USE No Preliminary social history data, not yet signed by the author as of Details of drug DRUG USE No misuse behavior Preliminary social history data, not yet signed by the author as of How many days of EXERCISEFREQ 7 days per moderate to week strenuous exercise, like a brisk walk, did you do in the last 7 days? Preliminary social history data, not yet signed by the author as of Never smoker SMOK STATUS never smoker Preliminary social history data, not yet signed by the author as of Vital Signs Date Name Value Unit Description BMI (Body Mass 50.55 kg/m2 Body Mass Index Index) [Ratio] Preliminary vital sign data, not yet signed by the author as of BP Diastolic 82 mm[Hg] blood pressure, diastolic Preliminary vital sign data, not yet signed by the author as of BP Systolic 132 mm[Hg] blood pressure, systolic Preliminary vital sign data, not yet signed by the author as of Heart Rate 81 /min pulse rate E&M Preliminary vital sign data, not yet signed by the author as of Height 58 [in_us] height E&M Preliminary vital sign data, not yet signed by the author as of Height 147 cm height in centimeters E&M Preliminary vital sign data, not yet signed by the author as of Weight Measured 241 [lb_av] weight E&M Preliminary vital sign data, not yet signed by the author as of Weight Measured 110 kg weight in kilograms E&M Preliminary vital sign data, not yet signed by the author as of Results Date Name Value Unit Range Flag Description Office Visit: New - 1st visit with practice, Rm: 6 MEDS REVIEW Done Documentation of current medications (procedure) Preliminary observation data, not yet signed by the author as of XRAY HX of the left hip on xray history 03/13/2017 at [facility] Preliminary observation data, not yet signed by the author as of MRI HX of the left hip on MRI (magnetic 05/19/2017 at [facility] imaging) history Preliminary observation data, not yet signed by the author as of Preliminary observation data, not yet signed by the author as of SMOK STATUS never smoker Tobacco smoking status NHIS Preliminary observation data, not yet signed by the author as of Clinical Summary: Scanned History Summary 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 7 days per week Data entered by patient exercise frequency DEP EXERTYP walking Data entered by patient exercise type DEP DRUG USE No data entered by patient, drug (of abuse) use DEP ETOH USE No data entered by patient, alcohol (ethanol or ETOH) use DEP CSMO never smoker data entered by patient, social history, current smoker [employer] [address] Floor housing unit size (asthma environmental history, housing) (from single family to don't know) [employer] Mobile home Housing Type: apartment, house, halfway, trailer, none #DEP CHLDRN No Number of dependent children DEP SH MAST Single data entered by patient, social history, marital status 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 data entered by patient, 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 PMH CancerHypothyroidism medical history of patient's brother(s) DEP DAD PMH Heart diseaseKidney disease data entered by patient, father's medical history FATHER A/D father of patient is alive or DEP MOM PMH CancerHypothyroidismAlcoholism data entered by patient, mother's medical history MOTHER A/D mother of patient is alive or DEP SURGERY AppendectomyTonsillectomyHysterectomy Data entered by patient, history of past surgeries DEP PM GERDAnxietyHigh blood data entered pressureObesityHigh by patient, cholesterolHypothyroidism past medical history [facility] account number Procedures Code Procedure Name Date Entry Date G8730 Pain assessment documented as positive - follow-up documented G8427 Current medications documented 1036F Tobacco screening was negative - non user G8417 BMI documented as above normal parameters - follow-up documented G8783 Blood pressure within normal parameters - no follow-up required 1006F Osteoarthritis symptoms and functional status assessed [id number] Patient Encounter Medications Administered No information available. Immunizations No information available. Advance Directives There may be information available, but it has not been provided by the sender. Assessments There may be information available, but it has not been provided by the sender. Review of Systems There may be information available, but it has not been provided by the sender. Family History There may be information available, but it has not been provided by the sender. History of Past Illness There may be information available, but it has not been provided by the sender. History of Present Illness There may be information available, but it has not been provided by the sender.
--- OUTSIDE RECORDS SUMMARY | 2018-09-21 01:24 | XMS RPT_ITS ---
:1945 Author Organization [employer] Address [address] [place] [address] Phone Care Team Providers Name Role Phone Hudson COVINGTON, Neville Haile Unavailable Reason for Visit Reason For Visit Description Start Date New/Est - 1st visit with physician Preliminary reason for visit data, not yet signed by the author as of left hip unilateral primary osteoarthritis Preliminary reason for visit data, not yet signed by the author as of Chief Complaint Chief Complaint Description Start Date left hip unilateral primary osteoarthritis Preliminary chief complaint data, not yet signed by the author as of Instructions No information available. Plan of Care Type Date Detail Appointment 09:30 AM Neville Treviño MD, [address] [facility], [place], [address], Medications Medication Instructions Start Stop Generic Name [facility] Provider Date Date KLOR-CON M10 10 one a day / POTASSIUM [id number] Flavio Servin MEQ CR-TABS 20 CHLORIDE SON ER Sukumar COVINGTON SYNTHROID 150 one a day / LEVOTHYROXINE [id number] Flavio Servin MCG TABS 20 SODIUM Sukumar COVINGTON LOSARTAN one a day / LOSARTAN [id number] Flavio Servin POTASSIUM-HCTZ 20 POTASSIUM-HCTZ Sukumar 100-25 MG TABS ATORVASTATIN one a day / ATORVASTATIN 20618834395 Flavio Servin CALCIUM 20 MG 20 CALCIUM Sukumar BRAR MD PAROXETINE HCL one a day / PAROXETINE HCL 53007678299 Flavio R 20 MG TABS 20 Sukumar [place] ASPIRIN 81 MG one a day / ASPIRIN 77714660950 Flavio R TABS 20 Sukumar COV[place] PRILOSEC 10 MG two tabs daily / OMEPRAZOLE 03028314319 Flavio R CPDR 20 Sukumar COV[place] INGRID ALLERGY one a day / FEXOFENADINE HCL 69141835569 Flavio R 180 MG TABS 20 Sukumar [place] VITAMIN D 1000 two a day / CHOLECALCIFEROL 75415101366 Flavio R UNIT TABS 20 Sukumar COV[place] MULTI-VITAMIN one a day / MULTIPLE VITAMIN 65301311339 Flavio R TABS 20 Sukumar COV[place] VITAMIN E 400 one a day / VITAMIN E 04087996084 Flavio R UNIT CAPS 20 Sukumar COVINGTON ATENOLOL 25 MG one a day / ATENOLOL 47719732203 Flavio Servin TABS 20 Sukumar COVINGTON Conditions [...] (METOCLOPRAMID Sukumar COVINGTON E HCL) Social History No information available. Vital Signs Date Name Value Unit Description BMI (Body Mass 50.97 kg/m2 Body Mass Index Index) [Ratio] Preliminary vital sign data, not yet signed by the author as of BP Diastolic 78 mm[Hg] blood pressure, diastolic Preliminary vital sign data, not yet signed by the author as of BP Systolic 120 mm[Hg] blood pressure, systolic Preliminary vital sign data, not yet signed by the author as of Heart Rate 91 /min pulse rate E&M Preliminary vital sign data, not yet signed by the author as of Height 58 [in_us] height E&M Preliminary vital sign data, not yet signed by the author as of Height 147 cm height in centimeters E&M Preliminary vital sign data, not yet signed by the author as of Weight Measured 243 [lb_av] weight E&M Preliminary vital sign data, not yet signed by the author as of Weight Measured 110 kg weight in kilograms E&M Preliminary vital sign data, not yet signed by the author as of Results Date Name Value Unit Range Flag Description Office Visit: New/Est - 1st visit with physician, Rm: 3 MEDS REVIEW Done Documentation of current medications (procedure) Preliminary observation data, not yet signed by the author as of Preliminary observation data, not yet signed by the author as of Clinical Summary: [facility] account number Procedures Code Procedure Name Date Entry Date [id number]-64640 Physical Therapy G8730 Pain assessment documented as positive - follow-up documented G8427 Current medications documented 1036F Tobacco screening was negative - non user G8419 BMI outside of normal parameters - no follow-up plan/reason not given G8783 Blood pressure within normal parameters - no follow-up required 1006F Osteoarthritis symptoms and functional status assessed [id number] Patient Encounter Medications Administered No information available. [...]
--- OUTSIDE RECORDS SUMMARY | 2018-09-21 01:24 | XMS RPT_ITS | Continuity of Care Document ---
:1945 Author Organization [facility] Address [address] [place] [address] Phone Care Team Providers Name Role Phone Melissa Amanda DO Unavailable Physical Therapy, [facility] Unavailable Dr. Servando Vanessa Unavailable Flavio Patino Unavailable DERECK Kohler Unavailable Unavailable Darlene Quintero LPN Unavailable Unavailable Unavailable Unavailable Problems Name Dates [...] for malignant neoplasm of breast) (Z12.31, V76.12) Comments: up to date 2017 Status: Active GERD (gastroesophageal reflux disease) (K21.9, 530.81) Status: Active Hip pain, left (M25.552, 719.45) Status: Active Hypercholesteremia (Renamed from Hypercholesterolemia) (E78.00, 272.0) Status: Active Hypertension, benign (I10, 401.1) Comments: h/o night odonnell occassionally & her hr would go up and not come down-- so last dr in [place] gave rx low dose atenolol to use prn Status: Active Need for prophylactic vaccination and inoculation against influenza (Renamed from Need for immunization against influenza) (Z23, V04.81) Status: Active Nonsmoker (Z78.9, V49.89) Status: Active Nonsmoker (Z78.9, V49.89) Status: Active Nutritional counseling (Z71.3, V65.3) Status: Active Osteoarthritis, chronic (M19.90, 715.90) Status: Active Osteoarthritis, localized (M19.90, 715.30) Status: Active Osteopenia, unspecified location (M85.80, 733.90) Status: Active Postmenopausal (Renamed from Postmenopausal status) (Z78.0, V49.81) Comments: dexa 02/13 Status: Active Pregnancies () Comments: 2. Status: Active Sinusitis, bacterial (J32.9, 473.9) Status: Active Stress fracture with routine healing, subsequent encounter (M84.30XD, V54.89) Status: Active Tear of left acetabular labrum, subsequent encounter (S73.192D, V58.89) Comments: [facility] -- needs hip replacement- but needs to [...] Quantity: 1 {Package} Refills: 0 Ordered:10-Mar-2017 Slarb ORTHOPAEDIC DOCTOR, Darlene Start : 24-Feb-2017 End : 10-Mar-2017 [...] - PT Result: Comments: See Note; NOTES: [facility] [place], [place] [address] Fax REHABILITATION SERVICES INITIAL EVALUATION MR#: [id number] Acct: [id number] Name: JOI MEDEL Rep #: [id number] : 1945 72 From: Darlene Olea MPT Referring Dr.: Melissa Amanda DO Status: REG RCR Insurance: MEDICARE PA RT A B ANTH Patient's Visit Information JOI MEDEL is a 72 year old F referred to Physical Therapy by Melissa Amanda with a diagnosis of L hip pain. Date of Evaluation: 03/19/17 Marine Propulsion Technician apist: Darlene Olea - Visit Plan Frequency: [...] to be FAXED BACK to us at [phone] for Medicare purposes. Please let me know if there are questions or concerns regarding this plan of care. Physician Signature: Date: <Electronically signed by Darlene Olea MPT> 05/27/17 1807 CC: Melissa Amanda DO Signed For Medicare onl y, by signing this I certify the plan of care. Physicians Signature Date 19-May-2017 Lower Ext Joint Only (Routine) Result: Comments: See Note; NOTES: [facility] Imaging Services [address] [place] [address] Lower Ext Joint Only (Routine) MR#: [id number] Acct: [id number] Name: JOI MEDEL Rep # : [id number] : 1945 F 72 From: Stan De La Torre MD PCP: Melissa Amanda DO Status: REG CLI Study: Lower Ext Joint Only (Routine) Date of Exam: 05/19/17 Exam# [id number] Ordering Dr: Meghan Amanda DO STUDY: MRI [...] trochanteric bursitis, coronal series 5 images and 14. Normal superior and inferior pubic rami. Normal [...] Service support , CC: Melissa Amanda DO Hat Trimmer: Signed 06-May-2017 Re-Evaluation - PT (1) Result: Comments: See Note; NOTES: [facility] [address] [place] [address] Fax [facility] [id number] Acct: [id number] Name: JOI MEDEL Rep #: [id number] : 1945 72 From: Darlene Olea MPT [...] do not hesitate to contact me at [phone] by phone or if you have questions or concerns regarding this new plan of care! Sincerely, Darlene Olea <Electronically chayo d by Darlene Olea MPT> 05/06/17 9655 CC: Melissa Amanda DO Signed For Medicare only, by signing this I certify the plan of care. Physicians Signature Date 15-Apr-2017 Re-Evaluation - PT (1) Result: Comments: See Note; NOTES: [facility] [address] [place] [address] Fax REEVALUATION / MEDICARE RECERTI FICATION PHYSICAL THERAPY MR#: [id number] Acct: [id number] Name: JOI MEDEL Rep #: [id number] : 1945 72 From: Darlene Olea MPT [...] do not hesitate to contact me at [phone] by phone or if you have questions or concerns regarding this new plan of care! Sincerely, Darlene Olea <Electronically signed by Darlene Oela MPT> 04/15/17 1726 CC: Melissa Amanda DO Signed For Medicare only, by estefany morley I certify the plan of care. Physicians Signature Date 19-Mar-2017 Inital Evaluation (1) - PT Result: Comments: See Note; NOTES: [facility] [address] [place], [place] [address] Fax REHABILITATION SERVICES INITIAL EVALUATION MR#: [id number] Acct: [id number] Name: JOI MEDEL Rep #: [id number] : 1945 72 From: Darlene Olea MPT Referring Dr.: Melissa Amanda DO Status: REG RCR Insurance: MEDICARE PA RT A B ANTHEM Patient's Visit Information JOI MEDEL is a 72 year old F referred to Physical Therapy by Melissa Amanda with a diagnosis of L hip pain. Date of Evaluation: 03/19/17 Marine Propulsion Technician apist: Darlene Olea - Visit Plan Frequency: [...] to be FAXED BACK to us at [phone] for Medicare purposes. Please let me know if there are questions or concerns regarding this plan of care. Physician Signature: Date: <Electronically signed by Darlene Olea MPT&#62 ; 03/19/17 1827 CC: Melissa Amanda DO Signed For Medicare only, by signing this I certify the plan of care. Physicians Signature Date 13-Mar-2017 Hip 2-3 Views with Pelvis Result: Comments: See Note; NOTES: [facility] Imaging Services [address] [place] [address] Hip 2-3 Views with Pelvis MR#: [id number] Acct: [id number] Name: OJI MEDEL Rep #: [id number] : 1945 F 72 From: Linda Odell MD PCP: Melissa Amanda DO Status: REG CLI Study: Hip 2-3 Views with Pelvis Date of Exam: 03/13/17 Exam# [id number] Ordering Dr: Melissa Amanda DO STUDY : [...] s upport , CC: Melissa Amanda DO Hat Trimmer: Signed 04-Feb-2017 Dexa Bone Density Study (HP) Result: Comments: See Note; NOTES: [facility] Imaging Services [address] [place] [address] Dexa Bone Density Study (HP) MR#: [id number] Acct: [id number] Name: JOI MEDEL Rep #: [id number] : 1945 F 72 From: Nico Shine MD PCP: Melissa Amanda DO Status: REG CLI Study: Dexa Bone Density Study (HP) Date of Exam: 02/04/17 Exam# [id number] Ordering Dr: Meghan Amanda DO STUDY: DUAL [...] Nico Shine MD at 15:43 EDT Tel [phone], Service support , CC: Melissa Amanda DO Hat Trimmer: Signed 04-Feb-2017 SCREENING MAMM (CAD), BILAT Result: Comments: See Note; NOTES: [facility] Imaging Services [address] [place] [address] SCREENING MAMM (CAD), BILAT MR#: [id number] Acct: [id number] Name: JOI MEDEL Rep #: [id number] : 1945 F 72 From: Nico Shine MD PCP: Melissa Amanda DO Status: REG CLI Study: SCREENING MAMM (CAD), BILAT Date of Exam: 02/04/17 Exam# [id number] Ordering Dr: Melissa Amanda DO MAMMOGRAPHY - [...] delay biopsy of a clinically suspicious abnormality. [id number] Electronically Signed: Nico Shine MD at 12:03 EDT Tel [phone], Se rvice support , CC: Melissa Amanda DO Hat Trimmer: Signed Family History Unknown Family Member Name [...] smoker Vital Signs Date Test Result Details 56-Crh-030613:05 Comments: hearing wnlNo eye doc Pulse 104 [...] kg/m2 Body Surface Area Calculated 2 m2 :27 Pulse 101 /min Comments: Pattern: Regular Respiration [...] 2 m2 Results Date Description Value Details :52 Microscopic Examination Comments: PATIENT WAS FASTINGPERFORMED BY: [employer] Jaqytj8984 [facility] [id number] Bacteria Few (Normal) Mucus Threads Present (Normal) Crystal Type Amorphous Sediment (Normal) Crystals Present (Abnormal) Cast Type Hyaline casts (Normal) Casts Present {/lpf} (Abnormal) Epithelial Cells (non renal) 0-10 {/hpf} (Normal) Range: 0 - 10 RBC 0-2 {/hpf} (Normal) Range: 0 - 2 WBC 0-5 {/hpf} (Normal) Range: 0 - 5 38-Ajb-482085:52 CALCIFIDIOL (71699) VIT D 25 Comments: PATIENT WAS FASTINGPERFORMED BY: PHRQL6370 [facility] [id number] Vitamin D, 25-Hydroxy 45.4 ng/mL (Normal) Range: 30.0-100.0 Comments: Vitamin D deficiency has been defined by the [place] of[place]icine and an Endocrine Society practice guideline as alevel of serum 25-OH vitamin D less than 20 ng/mL (1,2).The Endocrine Society went on to further define vitamin Dinsufficiency as a level between 21 and 29 ng/mL (2).1. IOM ([place] of Medicine). 2010. Dietary reference intakes for calcium and D. [place]: The National Academies Press.2. Lisa MF, Jatinder NC, Sofía MA, et al. Evaluation, treatment, and prevention of vitamin D deficiency: an Endocrine Society clinical practice guideline. JCEM. 2010; 96(7):1911-30. :52 TSH (29269) Comments: PATIENT WAS FASTINGPERFORMED BY: [facility] MarltonXndjvi1668 [facility] [id number] TSH 0.306 {uIU/mL} (Abnormal) Range: 0.450-4.500 81-Tqz-112490:52 URINALYSIS, W/ MICRO (32095) Comments: PATIENT WAS FASTINGPERFORMED BY: [facility]6370 [facility] [id number] Microscopic Examination See below: (Normal) Comments: Microscopic was indicated and was performed. Microscopic Examination MICRON (Normal) Comments: Microscopic follows if indicated. Nitrite, Urine Negative (Normal) Urobilinogen,Semi-Qn 0.2 mg/dL (Normal) Range: 0.2-1.0 Bilirubin Negative (Normal) Occult Blood Negative (Normal) Ketones Negative (Normal) Glucose Negative (Normal) Protein Negative (Normal) WBC Esterase Negative (Normal) Appearance Clear (Normal) Urine-Color Yellow (Normal) pH 6.5 (Normal) Range: 5.0-7.5 Specific [place] 1.019 (Normal) Range: 1.005-1.030 85-Xwz-028131:52 MICROALBUMIN: CREATININE RATIO Comments: PATIENT WAS FASTINGPERFORMED BY: [facility]6370 [facility] [id number] ([id number]) AND (89817) Alb/Creat Ratio 2.6 {mg/g_creat} (Normal) Range: 0.0-30.0 Albumin, Urine 3.3 ug/mL (Normal) Creatinine, Urine 125.1 mg/dL (Normal) 67-Lsk-932559:52 METABOLIC PANEL, COMPREHENSIVE Comments: PATIENT WAS FASTINGPERFORMED BY: [facility]6370 [facility] [id number] ([id number]) ALT (SGPT) 24 [iU]/L (Normal) Range: 0-32 [...] Glucose, Serum 94 mg/dL (Normal) Range: 65-99 43-Rzp-121418:52 LIPID PANEL (62364) Comments: PATIENT WAS FASTINGPERFORMED BY: [employer] [facility] [id number] LDL/HDL Ratio 1.5 {ratio_units} (Normal) Range: 0.0-3.2 Comments: LDL/HDL Ratio Men Women 1/2 Avg.Risk 1.0 1.5 Av g.Risk 3.6 3.2 2X Avg.Risk 6.2 5.0 3X Avg.Risk 8.0 6.1 LDL Cholesterol Calc 81 mg/dL (Normal) Range: 0-99 VLDL Cholesterol Abisai 28 mg/dL (Normal) Range: 5-40 HDL Cholesterol 55 mg/dL (Normal) Triglycerides 139 mg/dL (Normal) Range: 0-149 Cholesterol, Total 164 mg/dL (Normal) Range: 100-199 32-Mes-331207:52 CBC W/AUTO DIFF WBC (05129) Comments: PATIENT WAS FASTINGPERFORMED BY: [employer] [facility] Zhioox7067 Vargas [facility] [id number] Immature Grans (Abs) 0.0 {x10E3/uL} (Normal) Range: [...] 3.77-5.28 WBC 8.0 {x10E3/uL} (Normal) Range: 3.4-10.8 9-Svc-112047:31 TSH (37111) Comments: PATIENT NOT FASTINGPERFORMED BY: LabCoVirtua MarltonVpodbv3748 [facility] [id number] TSH 0.504 {uIU/mL} (Normal) Range: 0.450-4.500 5-Ivb-402005:31 T4, FREE (THYROXINE) (82075) Comments: PATIENT NOT FASTINGPERFORMED BY: [facility]6370 [facility] [id number] T4,Free(Direct) 1.24 ng/dL (Normal) Range: 0.82-1.77 7-Lyc-973433:31 T3, FREE (TRIDOTHYRONINE) (54431) Comments: PATIENT NOT FASTINGPERFORMED BY: [facility]6370 [facility] [id number] Triiodothyronine,Free,Serum 2.9 pg/mL (Normal) Range: 2.0-4.4 26-Qvm-081205:04 Microscopic Examination Comments: PATIENT WAS FASTINGPERFORMED BY: [place] 3727070 [facility] [id number] Bacteria Few (Normal) Mucus Threads Present (Normal) Epithelial Cells (non renal) 0-10 {/hpf} (Normal) Range: 0 - 10 RBC 0-2 {/hpf} (Normal) Range: 0 - 2 WBC 0-5 {/hpf} (Normal) Range: 0 - 5 19-Fqw-987039:04 URINALYSIS, W/ MICRO (64233) Comments: PATIENT WAS FASTINGPERFORMED BY: [facility] [id number] Microscopic Examination See below: (Normal) Comments: Microscopic was indicated and was performed. Nitrite, Urine Negative (Normal) Urobilinogen,Semi-Qn 0.2 mg/dL (Normal) Range: 0.2-1.0 Bilirubin Negative (Normal) Occult Blood Negative (Normal) Ketones Negative (Normal) Glucose Negative (Normal) Protein Negative (Normal) WBC Esterase 1+ (Abnormal) Appearance Clear (Normal) Urine-Color Yellow (Normal) pH 5.5 (Normal) Range: 5.0-7.5 Specific [place] 1.021 (Normal) Range: 1.005-1.030 47-Pjb-826488:04 MICROALBUMIN: CREATININE RATIO Comments: PATIENT WAS FASTINGPERFORMED BY: [address] [id number] (81663) AND (53352) Microalb/Creat Ratio <2.5 {mg/g_creat} (Normal) Range: 0.0-30.0 Microalbumin, Urine <3.0 ug/mL (Normal) Creatinine, Urine 118.9 mg/dL (Normal) 60-Wny-929678:04 CALCIFIDIOL (78654) VIT D 25 Comments: PATIENT WAS FASTINGPERFORMED BY: [address] [id number] Vitamin D, 25-Hydroxy 42.3 ng/mL (Normal) Range: 30.0-100.0 Comments: Vitamin D deficiency has been defined by the [place] of[place]icine and an Endocrine Society practice guideline as alevel of serum 25-OH vitamin D less than 20 ng/mL (1,2).The Endocrine Society went on to further define vitamin Dinsufficiency as a level between 21 and 29 ng/mL (2).1. IOM ([place] of [place]). 2010. Dietary reference intakes for calcium and D. [place]: The National Academ[place] Standards Press.2. Lisa MF, Jatinder DAVILA, Sofía MA, et al. Evaluation, treatment, and prevention of vitamin D deficiency: an Endocrine Society clinical practice guideline. JCEM. 2010; 96(7):1911-30. 82-Anx-439952:04 TSH (76706) Comments: PATIENT WAS FASTINGPERFORMED BY: CB [facility] Cedmop5956 [facility] [id number] TSH 0.241 {uIU/mL} (Abnormal) Range: 0.450-4.500 15-Wgh-402142:04 METABOLIC PANEL, COMPREHENSIVE Comments: PATIENT WAS FASTINGPERFORMED BY: [employer] [facility] Ztmcbd8594 [facility] [id number] (34675) ALT (SGPT) 23 [iU]/L (Normal) Range: 0-32 [...] Glucose, Serum 90 mg/dL (Normal) Range: 65-99 16-Uwk-583019:04 LIPID PANEL (48248) Comments: PATIENT WAS FASTINGPERFORMED BY: [employer]70 [facility] [id number] LDL/HDL Ratio 1.1 {ratio_units} (Normal) Range: 0.0-3.2 Comments: LDL/HDL Ratio Men Women 1/2 Avg.Risk 1.0 1.5 Av g.Risk 3.6 3.2 2X Avg.Risk 6.2 5.0 3X Avg.Risk 8.0 6.1 LDL Cholesterol Calc 67 mg/dL (Normal) Range: 0-99 VLDL Cholesterol Abisai 19 mg/dL (Normal) Range: 5-40 HDL Cholesterol 59 mg/dL (Normal) Triglycerides 94 mg/dL (Normal) Range: 0-149 Cholesterol, Total 145 mg/dL (Normal) Range: 100-199 49-Rmh-906246:04 CBC W/AUTO DIFF WBC (98296) Comments: PATIENT WAS FASTINGPERFORMED BY: PHRQL6370 [facility] [id number] Immature Grans (Abs) 0.0 {x10E3/uL} (Normal) Range: [...] Plan of Care Name Dates Details Instructions Encounter for annual general medical examination with [...] left acetabular labrum, subsequent encounter : Reviewed Marketing Proposal Coordinator Letter Indication: Tear of left acetabular labrum, [...] hip joint Left groin pain : Reviewed Marketing Proposal Coordinator Letter Indication: Left groin pain Acquired hypothyroidism [...] screening for malignant neoplasms, colon) Planned Observations THYROXINE FREE (T4) (29530)Indication: Acquired hypothyroidism On: 31-Eki-851328:33 Request T3, TOTAL (TRIDOTHYRONINE) (54953)Indication: Acquired hypothyroidism On: 01-Vkk-284473:33 Request TSH (THYROID STIMULATING HORMONE) (95462)Indication: Acquired hypothyroidism On: 33-Ash-738158:33 Request T4, FREE (THYROXINE) (29936)Indication: Acquired hypothyroidism On: 44-Vdx-514073:40 Request T3, FREE (TRIDOTHYRONINE) (13797)Indication: Acquired hypothyroidism On: 17-Cgj-381221:40 Request TSH (63757)Indication: Acquired hypothyroidism On: 56-Mdi-138445:40 Request Planned Encounters Medical; 1 Month FU - On: 11-May-2018 9:00 [facility] Melissa Amanda DO, DO, Kathleen Planned Procedures ILKM-NW-OHFQ BEHAVIORAL COUNSELING On: 09-Apr-2018 Intent FOR OBESITY, 15 MINUTES (G0447)By: Melissa Amanda DO, DO, Kathleen SCREENING DIGITAL TOMOSYNTHESIS OF On: 09-Apr-2018 Intent BREAST (14918)By: Melissa Amanda DO, DO, Kathleen Flu Vaccine (Quadrivalent) 31960Cq: On: 09-Apr-2018 Intent Melissa Amanda DO, DO, Comments: Lot #[id number] Exp-12/27/18Site-L dltd, IMDose prefilled syringegiven by: Lisa HARDEN.VIS reviewed and ABN signed Melissa MRI HIP LEFT W CONTRAST (61896)By: On: 12-May-2017 Intent Melissa Amanda DO, DO, Comments: attention look at groin -left as well r/o mass, labrial tear Melissa Flu Vaccine (Quadrivalent) [id number]: On: 03-Apr-2017 Intent Melissa Amanda DO, DO, Comments: lot: [id number]: 12/15/17ite/route: L rogelio, IMamt: 0.5mlVIS and ABN signed when applicableChelsEFREN morocho Melissa TYGN-DL-UNMD BEHAVIORAL COUNSELING On: 03-Apr-2017 Intent FOR OBESITY, 15 MINUTES (G0447)By: Melissa Amanda DO, DO, Melissa XR HIP, 2 VIEWS (42499)By: Vasiliy On: 10-Mar-2017 Intent Melissa PAPPAS DO, Kathleen DEXA SCAN AXIAL SKELETON (97423)By: On: 30-Jan-2017 Intent Chinyere Langston SCREENING DIGITAL TOMOSYNTHESIS OF On: 30-Jan-2017 Intent BREAST (98042)By: Chinyere Langston ELECTROCARDIOGRAM, COMPLETE (ECG) On: 22-Jan-2017 Intent (75157)By: Melissa Amanda DO Comments: nsr no acute chg Melissa Amanda DO KOWD-RD-TYHC BEHAVIORAL COUNSELING On: 26-Mar-2016 Intent FOR OBESITY, 15 MINUTES (G0447)By: Melissa Amanda DO, DO, Kathleen DEXA SCAN AXIAL SKELETON (31013)By: On: 26-Mar-2016 Intent Melissa Amanda DO, DO, Kathleen MAMMOGRAM, SCREENING, BOTH BREAST On: 26-Mar-2016 Intent (82829)By: Melissa Amanda DO, DO, Kathleen Flu Vaccine (Quadrivalent) 91225Dz: On: 26-Mar-2016 Intent Melissa Amanda DO, DO, Comments: FLUlot: [id number]:11/13site:Lt deltoidroute:IMdose:.5mlDEMICKTENZIN Instructions Name Dates Details Hypertension, benign : obesity counseling Indication: Hypertension, [...] Indication: Hypertension, benign Encounters Office Visit On: 09-Apr-2018 11:02 Encounter Reason: Hip Strain/Sprain - The patient sustained an injury to the left hip. Previous presentation included hip pain. Past evaluation has included orthopedic evaluation. Symptoms include pain. Note for Hip str End: 09-Apr-2018 12:37 ain/sprain: It has been a year and I went to [facility] and he gave me a [...] The patient does have durable power of securities attorney and living will. The patient has [...] patient does not have durable power of securities attorney or living will. The patient has [...] of safety belts and home smoke detectors. Karen nt emotional problems include anxiety. screening, colonoscopy (10 yrs), screening, mammography (2014) and screening, Pap smear (hyster)., [ADDITIONAL REASON] Annual Medicare Exam - Yes the patient did have (mms ) a mini mental status exam done today. [...] patient does not have durable power of securities attorney or living will. The patient has [...]
--- OUTSIDE RECORDS SUMMARY | 2018-09-21 01:25 | XMS RPT_ITS ---
:1945 Author Organization OHIP Care Team Providers Name Role Phone Melissa Amanda DO Attending Unavailable Melissa Amanda DO Referring Unavailable Melissa Amanda DO Consulting Unavailable TASHA JACKSON, DR. UMANA Attending Unavailable Melissa Amanda Attending Unavailable Melissa Amanda Referring Unavailable Melissa Amanda Primary Care Unavailable PROBLEMS PROBLEMS No Problem Records FoundPROCEDURES PROCEDURES No Procedure Records FoundRESULTS RESULTS SCREENING MAMM (CAD), Observed: 07/17/2018 Status: F Source: [facility] 12:07 PM [facility] REPOSITORY [facility] Imaging Services [address] [place] [address] SCREENING MAMM (CAD), BILAT MR#: [id number] Acct: [id number] Name: JOI BATISAT I Rep #: [id number] : 1945 F 73 From: Nico Shine MD PCP: Melissa Amanda DO Status: REG CLI Study: SCREENING MAMM (CAD), BILAT Date of Exam: 07/17/18 Exam# [id number] Ordering Dr: Melissa Amanda DO MAMMOGRAPHY - BILATERAL SCREENING REASON FOR EXAM: Female, 73 years old. Routine annual screening examination. PERTINENT HISTORY: Non-contributory. TECHNIQUE: Digital bilateral breast viv (3D mammographic acquisition) in the CC and MLO projections. 2-D mediolateral oblique (MLO) and craniocaudad (CC) views of both breasts were obtained. CAD: Full Field Digital Mammography with Computer Added Detection was performed. COMPARISON: Comparison is made with prior study dated February 04, 2017 and September 09, 2014. FINDINGS: Breast Composition: There are scattered areas of fibroglandular density. There are no dominant masses or suspicious calcifications. No other significant abnormalities are identified. There has been no significant change since the prior study. BI/SCREENING MAMM (CAD), BILAT IMPRESSION: Stable bilateral screening mammogram. Yearly follow-up mammogram recommended. (A) ASSESSMENT CATEGORY: BIRADS Category 1: Negative. A letter regarding these results will be sent to the patient by the facility within 30 days. Approximately 10% of breast cancers are not detected by mammography. A normal mammogram should not delay biopsy of a clinically suspicious abnormality. [id number] Electronically Signed: Nico Shine MD at 13:08 EST Tel [phone], Service support , CC: Melissa Amanda DO Vise Hand: Signed ALLERGIES ALLERGIES No Allergies Records FoundENCOUNTERS ENCOUNTERS ADMIT/DISCHARGE ACCOUNT NUMBER ADMITTING ENCOUNTER LOCATION SOURCE CLASS 07/17/2018 [id number] Ambulatory [place] [facility] ding:OPBI Repository 06/02/2018 [id number] Ambulatory Building:[facility] Practices Repository 05/25/2018/05/25/20 [id number] Ambulatory BBuilding:ELOISA Mcfadden [address] [place] [address] Repository PAYERS PAYERS ENCOUNTER GUARANTOR PAYER SUBSCRIBER SOURCE 07/17/2018 JOI Sawant Primary JOI [place] [id number] Insurance:MEDICARE IANIKDOB: [facility] PART A BPolicy [id number] Number: Repository [address]Jyx: [phone] [id number] [phone] (HP) Date:2018-04-13 07/17/2018 Secondary JOI I [place] Insurance:ANTHEMPolic KRAJCIKDOB: Community y Number: [id number] [id number] Repository Date:[id number]QDG, [place] [address]HM: 07/17/2018 Tertiary NOT GIVENUNK [place] Insurance:SELF PAY Community [facility]: Effective Repository Date:2018-04-13 06/02/2018 Joi I Primary Joi I OHIP Practices KraritoDOB: Insurance:MedicarePol KrajcikDOB: Repository icy Number: [id number] [address] [id number] [address] [place], [place] Date:5614-91-75[place]oooRam[place], [place] [address]Kuh: (996) Name:[facility] [address]Jon: [id number], [place] [phone] () (HP)Tel: [phone]: [phone] 06/02/2018 Secondary Joi I OHIP Practices Insurance:Tiffanie MillanB: Repository /BSPolicy Number: [id number] [address] Date:6519-55-22AfkqRam[place], [place] Name:[facility] [address] [address]Yrh: [phone], [place] [phone] (HP) [id number]: 05/25/2018 JOI I Primary JOI I [facility] MONTYB: Insurance:MEDICARE KRAHARDEEPIKDOB: Foundation [id number] PART B INSCOPolicy [id number] Repository [address]: [address] [id number] [address] [place] [id number]: (234) Date:2018-05-22Tel: () [id number] [phone] Name:PCGS ()Tel: (000) Administrators LLCPO 000-0000 (WP) [address] [address]Kyxpqywam, [place] [address]EQ: 05/25/2018 Secondary [facility] Insurance:TIFFANIE MILLANB: [facility] [id number] Repository Number: [facility] [id number] [address] [place] Date:2018-05-22Tel: [phone] [phone] Name:[address] ()Tel: [phone]) [phone] [place] 000-0000 (WP) [id number]:
== END ==
PROVIDERS: Family Provider Internal Medicine; PCP Internal Medicine; Referring Provider Internal Medicine; Visit Provider Internal Medicine
DX: Z12.31 Encounter for screening mammogram for malignant neoplasm of breast (principal)
CPT/HCPCS: 77063; 77067

== ENCOUNTER → 2020-07-18 13:19 | Outpatient (CLI) | payer MEDICARE, BC, SELFPAY ==
--- NOTE | 2020-07-18 13:22 | BI_ITS ---
MAMMOGRAPHY - BILATERAL SCREENING REASON FOR EXAM: Female, 75 years old. Routine annual screening examination. PERTINENT HISTORY: Non-contributory. TECHNIQUE: Digital bilateral breast xiomy (3D mammographic acquisition) in the CC and MLO projections. 2-D mediolateral oblique (MLO) and craniocaudad (CC) views of both breasts were obtained. CAD: Full Field Digital Mammography with Computer Added Detection was performed. COMPARISON: Comparison is made with prior examination dated 07/17/2018 and 02/04/2017. FINDINGS: Breast Composition: There are scattered areas of fibroglandular density. There are no dominant masses or suspicious calcifications. No other significant abnormalities are identified. There has been no significant change since the prior study. BI/SCRN MAMM (CAD)W/XIOMY BILAT IMPRESSION: Stable bilateral screening mammogram. Yearly follow-up mammogram recommended. (A) ASSESSMENT CATEGORY: BIRADS Category 1: Negative. A letter regarding these results will be sent to the patient by the facility within 30 days. Approximately 10% of breast cancers are not detected by mammography. A normal mammogram should not delay biopsy of a clinically suspicious abnormality. [id number] Electronically Signed: Nico Shine MD at 15:00 EST , Service support ,
--- NOTE | 2020-07-18 13:24 | BD_ITS ---
STUDY: DUAL ENERGY X-RAY ABSORPTIOMETRY / DXA REASON FOR EXAM: Female, 75 years old. 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 COMPARISON: Comparison is made with prior study dated 02/04/2017. FINDINGS: Right Forearm: g/cm2 (0.895) / T-score (0.1) / Z-score (2.2) Left Forearm: g/cm2 (0.891) / T-score (0.0) / Z-score (2.2) BD/Dexa Bone Density/Append Skel IMPRESSION: The patient is considered normal as outlined below according to World Tony Organization (WHO) criteria with a low fracture risk. Reference Information: The T-score is the number of standard deviations above or below the standard which is normal for young adults at their peak bone mineral density. The World Health Organization (WHO) interprets the T-scores as follows: Above -1 Normal bone density Between -1 and -2.5 Osteopenia Equal to / or below -2.5 Osteoporosis As a practical clinical guideline, osteopenia may be graded as follows: Mild -1 through -1.5 Moderate -1.6 through -2.0 Severe -2.1 through -2.4 The Z-score is the number of standard deviations above or below age-matched controls. A Z-score of less than -1.5 would be considered abnormal. References: 1. NIH Osteoporosis and Related Bone Diseases www osteo.org 2. International Society for Clinical Densitometry www iscd.org 3. National Osteoporosis Foundation www nof.org Electronically Signed: Nico Shine MD at 10:19 EST , Service support ,
== END ==
PROVIDERS: PCP Internal Medicine; Referring Provider Internal Medicine; Visit Provider Internal Medicine
DX: Z78.0 Asymptomatic menopausal state (principal); Z12.31 Encounter for screening mammogram for malignant neoplasm of breast
CPT/HCPCS: 77063; 77067; 77081

== ENCOUNTER → 2021-03-27 12:51 | Outpatient (CLI) | payer MEDICARE, BC, SELFPAY ==
--- NOTE | 2021-03-27 12:53 | ECHOCS_ITS ---
Reason For Study: RBBB Procedure This was a 2D Doppler, Color Flow transthoracic echocardiogram. The study was technically difficult. Contrast injection was performed. Exam performed in department. Left Ventricle Normal LV size. Left ventricular systolic function is normal. The estimated ejection fraction is 60 %. Diastolic function is indeterminate. No regional wall motion abnormalities noted. Right Ventricle Normal RV size. Normal systolic function. Atria Normal left atrium. Normal right atrium. No doppler evidence for ASD. Mitral Valve There is no mitral annular calcification. Normal mitral valve. Trivial mitral valve insufficiency. Tricuspid Valve Normal tricuspid valve. Trivial tricuspid valve insufficiency. Right ventricular systolic pressure estimated to be 37 mmHg. Aortic Valve The aortic valve is not well visualized. Pulmonic Valve The pulmonic valve is not well visualized. Great Vessels Normal sized aortic root. Pericardium/Pleural No pericardial effusion. Medication 22 gauge I.V. with prn adaptor inserted into left arm. Diluted definity 2.5ml given slow IV push to enhance endocardial definition. MMode/2D Measurements & Calculations LVIDd: 4.4 cm IVSd: 0.99 cm Ao root diam: 3.3 cm LVIDs: 3.1 cm LVPWd: 0.97 cm RVDd: 3.4 cm FS: 30.2 % LAV(MOD-bp): 39.4 ml LVAd ap4: 33.3 cm2 LVAd ap2: 29.5 cm2 LAV(MOD-bp) Indexed: 19.8 ml/m2 LVLd ap4: 7.8 cm LVLd ap2: 8.1 cm LAV(MOD-sp2): 42.1 ml EDV(MOD-sp4): 116.6 ml EDV(MOD-sp2): 94.5 ml LAV(MOD-sp4): 35.2 ml EDV(sp4-el): 120.0 ml EDV(sp2-el): 90.7 ml LVAs ap4: 17.3 cm2 LVAs ap2: 15.0 cm2 LVLs ap4: 6.0 cm LVLs ap2: 6.3 cm ESV(MOD-sp4): 40.7 ml ESV(MOD-sp2): 29.9 ml ESV(sp4-el): 42.4 ml ESV(sp2-el): 30.4 ml EF(MOD-sp4): 65.1 % EF(MOD-sp2): 68.3 % EF(sp4-el): 64.7 % SV(MOD-sp4): 75.9 ml SV(MOD-sp2): 64.6 ml SV(sp4-el): 77.7 ml LA A4 area: 15.5 cm2 LA dimension(2D): 3.8 cm RA A4 area: 15.0 cm2 Doppler Measurements & Calculations MV E max joe: 77.1 cm/sec Lat Peak E' Joe: 9.0 cm/sec Med Peak E' Joe: 6.0 cm/sec MV A max joe: 115.2 cm/sec E/E' lat: 8.5 E/E' med: 12.8 MV E/A: 0.67 Ao V2 max: 161.9 cm/sec LV V1 max: 116.4 cm/sec PA V2 max: 99.0 cm/sec Ao max P.5 mmHg LV V1 max P.4 mmHg TR max joe: 290.4 cm/sec TR max P.7 mmHg ECHO/Echo Complete W/ Contrast Interpretation Summary The study was technically difficult. Contrast injection was performed. Left ventricular systolic function is normal. The estimated ejection fraction is 60 %. Trivial mitral valve insufficiency. Trivial tricuspid valve insufficiency. Right ventricular systolic pressure estimated to be 37 mmHg. Diastolic function is indeterminate. Ordering Physician: Melissa Amanda Referring Physician: Melissa Amanda Performed By: Daisy Wing, RDCS, RVT
== END ==
PROVIDERS: PCP Internal Medicine; Referring Provider Internal Medicine; Visit Provider Internal Medicine
DX: R94.31 Abnormal electrocardiogram [ECG] [EKG] (principal); I45.10 Unspecified right bundle-branch block
CPT/HCPCS: 93306; Q9957; A4216; C8929; J3490

== ENCOUNTER → 2023-07-01 | Outpatient (CLI) | payer MEDICARE, BC, SELFPAY ==
[2023-07-01 12:20] LABS: Absolute Lymphocyte Count 2.22 X10^3/uL (0.83-4.51); Absolute Neutrophil Count 8.1 X10^3/uL (2.0-7.7); Basophil# 0.07 X10^3/uL; Basophil% 0.6 % (0-1); Eosinophil# 0.46 X10^3/uL; Eosinophils% 3.9 % (0-5); Hematocrit 40.3 % (37-47); Hemoglobin 12.5 g/dL (12.0-15.0); Lymphocyte # 2.22 X10^3/ul (0.83-4.51); Lymphocyte % 18.9 % (19-41); Mean Corpuscular Hgb 30.3 pg (27.0-32.0); Mean Corpuscular Volume 97.6 fL (81-99); Mean Platelet Vol. 11.7 fl (6.2-12.0); Monocyte# 0.89 X10^3/uL; Monocyte% 7.6 % (0-10); NRBC Flagged by Analyzer 0 % (0-5); Neutrophil # 8.08 X10^3/uL (2.7-7.7); Neutrophil % 68.7 % (47-70); Platelet Count 230 K/mm3 (150-450); RBC Distribution Width CV 11.9 % (11.6-14.6); RBC Distribution Width SD 42.9 fl (35.1-43.9); Red Blood Count 4.13 M/mm3 (4.2-5.4); White Blood Count 11.8 K/mm3 (4.4-11.0)
[2023-07-01 12:40] LABS: Vitamin D,25 Hydroxy 47.4 ng/mL
[2023-07-01 12:48] LABS: AST(SGOT) 21 U/L (15-37); Alanine Aminotransfer ALT/SGPT 39 U/L (13-56); Albumin, Serum 3.6 g/dL (3.2-5.0); Alkaline Phosphatase 102 U/L (45-117); Anion Gap 4 (5-15); BUN 41 mg/dL (7-18); BUN/Creat Ratio 21.7 RATIO (10-20); Calcium,Total 9.6 mg/dL (8.5-10.1); Chloride 112 mmol/L (98-107); Cholesterol 141 mg/dL (200); Creatinine, Serum 1.89 mg/dL (0.55-1.02); EST Glomerular Filtration Rate 28 mL/min (>60); Est Glom Filt Rate - Afr Amer 33 mL/min (>60); Globulin 3.5 g/dL (2.2-4.2); Glucose 100 mg/dL (74-106); High Density Lipoprotein 43 mg/dL; Protein, Total 7.1 g/dL (6.4-8.2); Sodium Level 139 mmol/L (136-145); Thyroid Stim Hormone (TSH) 4.86 uIU/mL (0.358-3.74); Triglycerides 150 mg/dL; Very Low Density Lipoprotein 30 mg/dL (5-40)
== END | disposition home or self-care (01) ==
PROVIDERS: PCP Internal Medicine; Referring Provider Internal Medicine; Visit Provider Internal Medicine
DX: E03.9 Hypothyroidism, unspecified (principal); E78.00 Pure hypercholesterolemia, unspecified; E55.9 Vitamin D deficiency, unspecified
CPT/HCPCS: 36415; 80053; 80061; 82306; 84443; 85025

== ENCOUNTER → 2023-09-03 | Outpatient (CLI) | payer MEDICARE, BC, SELFPAY ==
--- NOTE | 2023-09-03 15:30 | BI_ITS ---
MAMMOGRAPHY - BILATERAL SCREENING 3-D TOMOSYNTHESIS REASON FOR EXAM: Female, 78 years old. SCREENING PERTINENT HISTORY: No significant family history. TECHNIQUE: 2-D mammograms and 3-D Tomosynthesis of the breast (s) were performed. CAD was performed. COMPARISON: 07/18/2020 FINDINGS: The breast composition is composed of scattered fibroglandular density. Scattered benign calcifications are seen. No dense spiculated masses or suspicious microcalcifications are identified. No architectural distortion is identified. There is no skin thickening or retraction. There has been no significant change since the prior study. BI/SCRN MAMM (CAD)W/XIOMY BILAT IMPRESSION: No mammographic signs of malignancy. Routine yearly mammograms recommended. ASSESSMENT CATEGORY: BIRADS Category 1: Negative. A letter regarding these results will be sent to the patient by the facility within 30 days. FOLLOW UP RECOMMENDATION: Yearly follow up mammogram recommended. (A) Approximately 10% of breast cancers are not detected by mammography. A normal mammogram should not delay biopsy of a clinically suspicious abnormality. Electronically Signed: Bhaskar Chen MD at 18:23 EST ,
--- NOTE | 2023-09-03 15:33 | BD_ITS ---
STUDY: DUAL ENERGY X-RAY ABSORPTIOMETRY / DXA REASON FOR EXAM: Female, 78 years old. Z78.0 TECHNIQUE: Bone Mineral Density (BMD) measurements of both forearms were obtained. COMPARISON: Comparison is made with prior study dated July 18, 2020. FINDINGS: Right Forearm: g/cm2 (0.623) / T-score (0.8) / Z-score (3.4) Left Forearm: g/cm2 (0.631) / T-score (-1.0) / Z-score (3.6) BD/Dexa Bone Density/Append Skel IMPRESSION: The patient is considered normal as outlined below according to World Tony Organization (WHO) criteria with a low fracture risk. There has been worsening of bone density since the previous examination. Reference Information: The T-score is the number of standard deviations above or below the standard which is normal for young adults at their peak bone mineral density. The World Health Organization (WHO) interprets the T-scores as follows: Above -1 Normal bone density Between -1 and -2.5 Osteopenia Equal to / or below -2.5 Osteoporosis As a practical clinical guideline, osteopenia may be graded as follows: Mild -1 through -1.5 Moderate -1.6 through -2.0 Severe -2.1 through -2.4 The Z-score is the number of standard deviations above or below age-matched controls. A Z-score of less than -1.5 would be considered abnormal. References: 1. NIH Osteoporosis and Related Bone Diseases www osteo.org 2. International Society for Clinical Densitometry www iscd.org 3. National Osteoporosis Foundation www nof.org Electronically Signed: Nico Shine MD at 15:12 EDT ,
--- OUTSIDE RECORDS SUMMARY | 2023-09-03 20:26 | XMS RPT_ITS | CCD ---
Author Name Unknown Address [address] [place] [address] Organization [facility] Care Team Providers Care Elastic Attacher Overlock Name Role Phone Vasiliy, Melissa Unavailable Physical Therapy, [facility] Unavailable Servando Cordova Unavailable Flavio Patino Unavailable Edita, Jackie Unavailable Unavailable Slarb, Darlene Unavailable Unavailable Unavailable Unavailable Gravius, Monae Unavailable Unavailable Vasiliy, Melissa Unavailable Unavailable Vasiliy, Melissa Unavailable Unavailable Vasiliy, Melissa Unavailable Unavailable SERVANDO CORDOVA Unavailable Unavailable Vasiliy, Melissa Unavailable Physical Therapy, [facility] Unavailable [phone] Servando Cordova Unavailable Flavio Patino Unavailable Gravius, Monea Unavailable Unavailable Messenger, Jackie Unavailable Unavailable Slarb, Darlene Unavailable Unavailable Unavailable Unavailable Gravius, Monae Unavailable Unavailable Flavio Patino Unavailable MessengerJackie Unavailable Unavailable [facility], [facility] Unavailable Chelsea Marsh Unavailable Unavailable Vasiliy DO, Melissa Unavailable [facility] Un[facility] [phone] Dr. Servando Cordova Unavailable [facility], [facility] Unavailable Flavio Patino Unavailable Salma HARDEN Chelsea Unavailable Unavailable Gravius TOLL GATE KEEPER, Monae Unavailable Unavailable Messenger RN, Jackie Unavailable Unavailable Slarb TAR POT MAN, Darlene Unavailable Unavailable Unavailable Unavailable Sandeep Cleary Unavailable Flavio Patino Unavailable Gravius, Monae Unavailable Unavailable Messenger, TAR POT MAN Jackie Unavailable Unavailable Melissa Amanda DO Unavailable Brandon TOLL GATE KEEPER, Kayela Unavailable Unavailable Allergies Allergy Classification Reported Allergen(s) Allergy Type Date of Onset Reaction(s) Facility DOPamine Antagonists (1 source) Metoclopramide; Translations: [Reglan *GASTROINTESTINA L AGENTS - [facility] – [place]] Drug Allergy [facility] Work Phone: Medications Completed/Discontinued Medications Medication Drug Class(es) Dates Sig (Normalized) Sig (Original) acetaminophen 500 mg oral tablet (12 sources) take 1 tablet by mouth every eight hours Tylenol Extra Strength 500 MG Oral Tablet 1 (One) tab Every eight hours. (500 MG) Active aspirin 81 mg delayed release oral tablet (20 sources) Nonsteroidal Anti-inflammatory Drug Start: 03-26-2016 take 1 tablet by mouth once daily Aspirin EC 81 MG Oral Tablet Delayed Release 1 (one) Tablet DR qd for 30 days Refills: 0 Ordered: 26-Mar-2016 Melissa Amanda DO, DO, Kathleen Start : 26-Mar-2016 Active atenolol 25 mg oral tablet (20 sources) beta-Adrenergic Rosie Start: 11-19-2021 take 1 tablet by mouth once daily Atenolol 25 MG Oral Tablet 1 (one) Tablet qd for 0 days Quantity: 90 {Tablet} Refills: 0 Ordered: 17-May-2022 Melissa Amanda DO, DO, Kathleen Start : 17-May-2022 Active Problems Active Problems Problem Classification Problem Date Documented Da te Episodic/Chronic Abdominal pain (20 sources) Inguinal pain; Translations: [Left lower quadrant pain] Resolved: 09-16-2017 09-16-2017 Episodic Administrative/social admission (20 sources) Counseling procedure with explicit context; Translations: [Pneumococcal vaccination given] 04-09-2018 Episodic Anxiety disorders (20 sources) Anxiety; Translations: [Anxiety] 04-09-2018 Chronic Past or Other Problems Problem Classification Problem Date Documented Da te Episodic/Chronic Other non-traumatic joint disorders (18 sources) Pain of left hip joint; Translations: [Pain of left hip joint] Resolved: 09-16-2017 09-16-2017 Unclassified (20 sources) Patient encounter status; Translations: [Encounter for annual general medical examination with abnormal findings in adult] 04-09-2018 Unclassified (20 sources) Screening status; Translations: [Encounter for screening for malignant neoplasm of colon (Renamed from Special screening for malignant neoplasms, colon)] 04-09-2018 Results Test Name Value Interpretation Reference Range Facil ity Vital Signs Date Time Vital Sign Value Performing Clinician [place] lity 03-07-2022 11:17-0400 Body temperature 97.8 [degF] Melissa Vasiliy DO Work Phone: [facility] Work Phone: Encounters Encounter Date Encounter Type Care Provider Facility Start: 03-07-2022 End: 03-07-2022 Patient encounter procedure Zayra Taylor [facility] Work Phone: Start: 03-07-2022 End: 03-07-2022 Periodic preventive med est patient 65yrs& older Melissa Vasiliy DO Work Phone: [facility] Start: 12-27-2021 End: 12-28-2021 Office outpatient visit 25 minutes Melissa Vasiliy DO Work Phone: [facility] Start: 12-27-2021 Review Melissakatei Castanedao n DO Work Phone: [facility] Start: 12-06-2021 End: 12-06-2021 Office outpatient visit 10 minutes Melissa Vasiliy DO Work Phone: [facility] Start: 11-19-2021 End: 11-19-2021 Office outpatient visit 25 minutes Melissa Vasiliy DO Work Phone: [facility] Start: 07-09-2021 End: 07-09-2021 Office outpatient visit 25 minutes Melissa Vasiliy DO Work Phone: [facility] Start: 03-15-2021 End: 03-15-2021 Office outpatient visit 15 minutes Melissa Vasiliy DO Work Phone: [facility] Start: 03-12-2021 End: 03-12-2021 Office outpatient visit 10 minutes Melissa Vasiliy DO Work Phone: [facility] Start: 03-09-2021 End: 03-09-2021 Office outpatient visit 25 minutes Melissa Vasiliy DO Work Phone: [facility] Start: 06-14-2020 End: 06-14-2020 Office outpatient visit 25 minutes Melissa Vasiliy [facility] Start: 05-12-2019 End: 05-12-2019 Office outpatient visit 25 minutes Melissa Amanda [facility] Start: 02-03-2019 End: 02-03-2019 Phone Encounter Melissa Amanda [facility] Start: 06-02-2018 Patient encounter procedure Melissa Amanda [facility] Start: 05-27-2018 End: 05-27-2018 Office outpatient visit 15 minutes Melissa Amanda [facility] Start: 05-25-2018 End: 05-25-2018 Patient encounter procedure SERVANDO CORDOVA Facility:[facility] Start: 04-09-2018 End: 04-09-2018 Patient encounter procedure Jackie Kohler RN [facility] Work Phone: Start: 04-09-2018 End: 04-09-2018 Periodic preventive med est patient 65yrs& older Melissa Amanda [facility] Start: 09-17-2017 End: 09-17-2017 Annotation/Addendum Melissa Amanda [facility] Start: 09-16-2017 End: 09-16-2017 Office outpatient visit 25 minutes Melissa Amanda [facility] Start: 09-05-2017 End: 09-05-2017 Patient encounter Melissa Amanda [facility] Start: 09-04-2017 End: 09-04-2017 Office outpatient visit 15 minutes Melissa Amanda [facility] Start: 05-12-2017 End: 05-12-2017 Office outpatient visit 15 minutes Melissa Amanda [facility] Start: 04-03-2017 End: 04-03-2017 Patient encounter procedure Melissa Vasiliy DO Work Phone: [facility] Start: 04-03-2017 End: 04-03-2017 Periodic preventive med est patient 65yrs& older Melissa Amanda [facility] Start: 03-10-2017 End: 03-10-2017 Office outpatient visit 10 minutes Melissa Amanda [facility] Start: 02-24-2017 End: 02-24-2017 Office outpatient visit 15 minutes Melissa Amanda [facility] Start: 02-13-2017 End: 02-13-2017 Office outpatient visit 15 minutes Melissa Amanda [facility] Start: 01-30-2017 End: 01-30-2017 Phone Encounter Melissa Amanda [facility] Start: 01-24-2017 End: 01-24-2017 Phone Encounter Melissa Amanda [facility] Start: 01-22-2017 End: 01-22-2017 Office outpatient visit 25 minutes Melissa Amanda [facility] Start: 07-03-2016 End: 07-03-2016 Office outpatient visit 15 minutes Melissa Amanda [facility] Start: 03-26-2016 End: 03-26-2016 Patient encounter procedure Melissa Amanda DO Work Phone: [facility] Start: 03-26-2016 End: 03-26-2016 Periodic preventive med est patient 65yrs& older Melissa Amanda [facility] Patient encounter procedure Chelsea Marsh [facility] Work Phone: Patient encounter procedure Monae Gravius [facility] Work Phone: Patient encounter procedure Monae Gravius [facility] Work Phone: Patient encounter procedure Monae Gravius [facility] Work Phone: Patient encounter procedure Monae Gravius [facility] Work Phone: Patient encounter procedure Darlene Quintero [facility] Work Phone: Patient encounter procedure Zayra Taylor [facility] Work Phone: Procedures Date Procedure Procedure Detail Performing Clinician Start: 03-27-2021 End: 03-27-2021 Echo Complete W/ Contrast Comments: See Note; NOTES: [facility] [address] [place] [address] Echo Complete W/ Contrast 03/27/21 1255 MR#: [id number] Acct: [id number] Name: JOI MEDEL I Rep #: [id number] : 1945 76 From: Harpal Still MD Attending Dr: Dr. Melissa Amanda, DO Status: R EG CLI Ordering Dr: Melissa Amanda DO Date: 03/27/21 Location: [facility] Sex: F C Admitted: Reason For Study: RBBB Procedure This was a 2D Doppler, Color Flow transthoracic echocardiogram. The study was technically difficult. Contrast injection was performed. Exam performed in department. Left Ventricle Normal LV size. Left ventricular systolic function is normal. The estimated ejection fraction is 60 %. Diastolic function is indeterminate. No regional wall motion abnormalities noted. Right Ventricle Normal RV size. Normal systolic function. Atria Normal left atrium. Normal right atrium. No doppler evidence for ASD. Mitral Valve There is no mitral annular calcification. Normal mitral valve. Trivial mitral valve insufficiency. Tricuspid Valve Normal tricuspid valve. Trivial tricuspid valve insufficiency. Right ventricular systolic pressure estimated to be 37 mmHg. Aortic Valve The aortic valve is not well visualized. Pulmonic Valve The pulmonic valve is not well visualized. Great Vessels Normal sized aortic root. Pericardium/Pleural No pericardial effusion. Medication 22 gauge I.V. with prn adaptor inserted into left arm. Diluted definity 2.5ml given slow IV push to enhance endocardial definition. MMode/2D Measurements Calculations LVIDd: 4.4 cm IVSd: 0.99 cm Ao root diam: 3.3 cm LVIDs: 3.1 cm LVPWd: 0.97 cm RVDd: 3.4 cm FS: 30.2 % LAV(MOD-bp): 39.4 ml LVAd ap4: 33.3 cm2 LVAd ap2: 29.5 cm2 LAV(MOD-bp) Indexed: 19.8 ml/m2 LVLd ap4: 7.8 cm LVLd ap2: 8.1 cm LAV(MOD-sp2): 42.1 ml EDV(MOD-sp4): 116.6 ml EDV(MOD-sp2): 94.5 ml LAV(MOD-sp4): 35.2 ml EDV(sp4-el): 120.0 ml EDV(sp2-el): 90.7 ml LVAs ap4: 17.3 cm2 LVAs ap2: 15.0 cm2 LVLs ap4: 6.0 cm LVLs ap2: 6.3 cm ESV(MOD-sp4): 40.7 ml ESV(MOD-sp2): 29.9 ml ESV(sp4-el): 42.4 ml ESV(sp2-el): 30.4 ml EF(MOD-sp4): 65.1 % EF(MOD-sp2): 68.3 % EF(sp4-el): 64.7 % SV(MOD-sp4): 75.9 ml SV(MOD-sp2): 64.6 ml SV(sp4-el): 77.7 ml LA A4 area: 15.5 cm2 LA dimension(2D): 3.8 cm RA A4 area: 15.0 cm2 Doppler Measurements Calculations MV E max joe: 77.1 cm/sec Lat Peak E' Joe: 9.0 cm/sec Med Peak E' Joe: 6.0 cm/sec MV A max joe: 115.2 cm/sec E/E' lat: 8.5 E/E' med: 12.8 MV E/A: 0.67 Ao V2 max: 161.9 cm/sec LV V1 max: 116.4 cm/sec PA V2 max: 99.0 cm/sec Ao max P.5 mmHg LV V1 max P.4 mmHg TR max joe: 290.4 cm/sec TR max P.7 mmHg ECHO/Echo Complete W/ Contrast Interpretation Summary The study was technically difficult. Contrast injection was performed. Left ventricular systolic function is normal. The estimated ejection fraction is 60 %. Trivial mitral valve insufficiency. Trivial tricuspid valve insufficiency. Right ventricular systolic pressure estimated to be 37 mmHg. Diastolic function is indeterminate. _ Ordering Physician: Melissa Amanda Referring Physician: Melissa Amanda Performed By: Daisy Wing RDCS, RVT 03/27/21 1816 Date Harpal Still MD CC: Dr. Melissa Amanda DO Date Dictated: 03/27/21 1255 Date Transcribed: 03/27/211815 Building Operator: Signed Melissa Amanda DO Work Phone: Start: 07-18-2020 End: 07-19-2020 Dexa Bone Density/Append Skel Comments: See Note; NOTES: [facility] Imaging Services [address] [place] [address] Dexa Bone Density/Append Skel MR#: [id number] Acct: [id number] Name: JOI MEDEL I Rep #: [id number] : 1945 F 75 From: Nico brooks MD PCP: Dr. Melissa Amanda DO Status: REG CLI Study: Dexa Bone Density/Append Skel Date of Exam: Exam# [id number] Ordering Dr: Melissa Amanda DO STUDY: DUAL ENERGY X-RAY ABSORPTIOMETRY / DXA REASON FOR EXAM: Female, 75 years old. 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 COMPARISON: Comparison is made with prior study dated 02/04/2017. FINDINGS: Right Forearm: g/cm2 (0.895) / T-score (0.1) / Z-score (2.2) Left Forearm: g/cm2 (0.891) / T-score (0.0) / Z-score (2.2) BD/Dexa Bone Density/Append Skel IMPRESSION: The patient is considered normal as outlined below according to World Tony Organization (WHO) criteria with a low fracture risk. Reference Information: The T-score is the number of standard deviations above or below the standard which is normal for young adults at their peak bone mineral density. The World Health Organization (WHO) interprets the T-scores as follows: Above -1 Normal bone density Between -1 and -2.5 Osteopenia Equal to / or below -2.5 Osteoporosis As a practical clinical guideline, osteopenia may be graded as follows: Mild -1 through -1.5 Moderate -1.6 through -2.0 Severe -2.1 through -2.4 The Z-score is the number of standard deviations above or below age-matched controls. A Z-score of less than -1.5 would be considered abnormal. References: 1. NIH Osteoporosis and Related Bone Diseases www osteo.org 2. International Society for Clinical Densitometry www iscd.org 3. National Osteoporosis Foundation www nof.org Electronically Signed: iNco Shine MD at 10:19 EST , Service support , CC: Dr. Melissa Amanda DO Building Operator: Signed Melissa Amanda Work Phone: Start: 07-18-2020 End: 07-18-2020 SCRN MAMM (CAD)W/XIOMY BILAT Comments: See Note; NOTES: [facility] Imaging Services [address] [place] [address] SCRN MAMM (CAD)W/XIOMY BILAT MR#: [id number] Acct: [id number] Name: JOI MEDEL I Rep #: [id number] : 1945 F 75 From: Nico brooks MD PCP: Dr. Melissa Amanda DO Status: REG CLI Study: SCRN MAMM (CAD)W/XIOYM BILAT Date of Exam: 06/30 03/20 Exam# [id number] Ordering Dr: Melissa Amanda DO MAMMOGRAPHY - BILATERAL SCREENING REASON FOR EXAM: Female, 75 years old. Routine annual screening examination. PERTINENT HISTORY: Non-contributory. TECHNIQUE: Digital bilateral breast xiomy (3D mammographic acquisition) in the CC and MLO projections. 2-D mediolateral oblique (MLO) and craniocaudad (CC) views of both breasts were obtained. CAD: Full Field Digital Mammography with Computer Added Detection was performed. COMPARISON: Comparison is made with prior examination dated 07/17/2018 and 02/04/2017. FINDINGS: Breast Composition: There are scattered areas of fibroglandular density. There are no dominant masses or suspicious calcifications. No other significant abnormalities are identified. There has been no significant change since the prior study. BI/SCRN MAMM (CAD)W/XIOMY BILAT IMPRESSION: Stable bilateral screening mammogram. Yearly follow-up mammogram recommended. (A) ASSESSMENT CATEGORY: BIRADS Category 1: Negative. A letter regarding these results will be sent to the patient by the facility within 30 days. Approximately 10% of breast cancers are not detected by mammography. A normal mammogram should not delay biopsy of a clinically suspicious abnormality. [id number] Electronically Signed: Nico Shine MD at 15:00 EST , Service support , CC: Dr. Melissa Amanda DO Building Operator: Signed Melissa Amanda Work Phone: Start: 07-17-2018 End: 07-17-2018 SCREENING MAMM (CAD), BILAT Comments: See Note; NOTES: [facility] Imaging Services [address] [place] [address] SCREENING MAMM (CAD), BILAT MR#: [id number] Acct: [id number] Name: JOI MEDEL I Rep #: [id number] : 1945 F 73 From: Nico Shine MD PCP: Melissa Amanda DO Status: REG CLI Study: SCREENING MAMM (CAD), BILAT Date of Exam: 07/17/18 Exam# [id number] Ordering Dr: Melissa Amanda DO MAMMOGRAPHY - BILATERAL SCREENING REASON FOR EXAM: Female, 73 years old. Routine annual screening examination. PERTINENT HISTORY: Non-contributory. TECHNIQUE: Digital bilateral breast xiomy (3D mammographic acquisition) in the CC and [...] delay biopsy of a clinically suspicious abnormality. [id number] Electronically Signed: Nico Shine MD at 13:08 EST Tel [phone], Service support , CC: Melissa Amanda DO Building Operator: Signed Melissa Amanda Work Phone: Start: 05-27-2017 End: 05-27-2017 Inital Evaluation (1) - PT Comments: See Note; NOTES: [facility] [address] [place] [address] Fax REHABILITATION SERVICES INITIAL EVALUATION MR#: [id number] Acct: [id number] Name: JOI MEDEL Rep #: [id number] : 1945 72 From: Darlene Olea MPT Referring Dr.: Melissa Amanda DO Status: REG RCR Insurance: MEDICARE PART A B ANTHEM Patient's Visit Information JOI MEDEL is a 72 year old F referred to Physical Therapy by Melissa Amanda with a diagnosis of L hip pain. Date of Evaluation: 03/19/17 Physical Therapist: Darlene Olea - Visit Plan Frequency: 3x /Week Duration: 4-6 Weeks Plan: To transition to I water exc program. To continue progressing core strength, hip strength, and knee strength per supervising PT. - Subjective Subjective: Pt reports that [...] since Mar 07 due to the pain. SOmetimes the pain goes [...] without taking it. 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 Stairs: do not bother her too much with a railing. She is sleeping ok with pain meds. She has pain running down her leg when she rolls onto the R side. WHen she lays on L side she is comfortable. - Pain L groin pain Pain Intensity (Out of 10): 2 L outer hip pain Pain Intensity (Out of 10): 0 BLAT knees Pain Intensity (Out of 10): 1 Comment: where I hit it - Objective Gait: Walks with shorter strides, [...] to perform ADL's, To increase tolerance to activity/condition/position , To improve performance and independence with ADL's, To improve ability of physical actions for home/community/work/leisure , To improve gait and locomotor functions, To improve endurance Therapeutic Exercise to Include: Strength training, Endurance training, Gait and locomotor training, In an aquatic setting , Active ROM, Dynamic Lumbar Stabilization For the Purpose of:: To decrease pain, To increase ROM, To improve nutrient delivery to tissue, To improve muscle performance and motor function, To improve ability to perform ADL's, To increase tolerance to activity/condition/position , To improve performance and independence with ADL's, To improve ability of physical actions for home/community/work/leisure , To improve gait and locomotor functions Functional Training to Include: Gait training For the Purpose of:: To improve gait and locomotor functions Thank you for the opportunity to evaluate your patient. For Medicare and Medicare HMO plans, please review the plan of care and approve it. It will need to be FAXED BACK to us at [phone] for Medicare purposes. Please let me know if there are questions or concerns regarding this plan of care. Physician Signature: Date: <Electronically signed by Darlene Olea MPT> 05/27/17 1801 CC: Melissa Amanda DO Signed For Medicare only, by signing this I certify the plan of care. _ Physicians Signature Date Melissa Amanda Start: 05-19-2017 End: 05-19-2017 Lower Ext Joint Only (Routine) Comments: See Note; NOTES: [facility] Imaging Services [address] [place] [address] Lower Ext Joint Only (Routine) MR#: [id number] Acct: [id number] Name: IANJOI SOTO Rep #: [id number] : 1945 F 72 From: Stan De La Torre MD PCP: Melissa Amanda DO Status: REG CLI Study: Lower Ext Joint Only (Routine) Date of Exam: 05/19/17 Exam# [id number] Ordering Dr: Melissa Amanda DO STUDY: MRI LEFT HIP REASON FOR EXAM: Female, 72 years old. Left hip pain. Left groin pain. Left buttock pain. TECHNIQUE: Standardized fat and water weighted pulse sequences were obtained in all 3 orthogonal planes. COMPARISON: X-ray March 13, 2017 FINDINGS: There is mild articular narrowing of the hip joint, with less than 50% loss of the hyaline cartilage. 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 There is edema of the acetabulum. There is tearing of the acetabular labrum, coronal series 5 images through . There is marrow edema of the femoral head with linear diminished signal stress or insufficiency fracture, coronal series 5 images through . There is mild edema of the femoral neck . There is moderate joint effusion of the left hip. Normal gluteus minimus, medius and iliopsoas tendons and distal insertions. There is trochanteric bursitis, coronal series 5 images and 14. Normal superior and inferior pubic rami. Normal pubic symphysis. Normal ischial tuberosity. Normal origin of the hamstring tendons. Normal visualized iliac wing, sacroiliac joint, and sacral [...] Service support , CC: Melissa Amanda DO Building Operator: Signed Melissa Amanda Work Phone: Start: 05-06-2017 End: 05-06-2017 Re-Evaluation - PT (1) Comments: See Note; NOTES: [facility] [address] [place], [place] [address] Fax REEVALUATION / MEDICARE RECERTIFICATION PHYSICAL THERAPY MR#: [id number] Acct: [id number] Name: JOI MEDEL Rep #: [id number] : 1945 72 From: Darlene Olea MPT Referring Dr.: Melissa Amanda DO Status: REG RCR Insurance: MEDICARE PART A B ANTHEM Melissa Amanda, [...] increased pain in the L groin muscle 6/10 by that evening and she has been [...] L 3+/5 Plan Plan: AT: X/ week for 4 weeks to work on core strength, hip strength, knee strength then to go to HEP/ water exercises Independently. F/U with Dr Amanda as pt is not progressing as quickly as she would like. She reports progress but small at this time. Possible further [...] to perform ADL's, To increase tolerance to activity/condition/position , To improve performance and independence with ADL's, To improve ability of physical actions for home/community/work/leisure , To improve gait and locomotor functions, To improve endurance Therapeutic Exercise to Include: Strength training, Endurance training, Gait and locomotor training, In an aquatic setting , Active ROM, Dynamic Lumbar Stabilization For the Purpose of:: To decrease pain, To increase ROM, To improve nutrient delivery to tissue, To improve muscle performance and motor function, To improve ability to perform ADL's, To increase tolerance to activity/condition/position , To improve performance and independence with ADL's, To improve ability of physical actions for home/community/work/leisure , To improve gait and locomotor functions Functional Training to Include: Gait training For the Purpose of:: To improve gait and locomotor functions Please do not hesitate to contact me at [phone] by phone or if you have questions or concerns regarding this new plan of care! Sincerely, Darlene Olea <Electronically signed by Darlene Olea MPT> 05/06/17 1755 CC: Melissa Amanda DO Signed For Medicare only, by signing this I certify the plan of care. _ Physicians Signature Date Melissa Amanda Start: 04-15-2017 End: 04-15-2017 Re-Evaluation - PT (1) Comments: See Note; NOTES: [facility] [address] [place] [address] Fax REEVALUATION / MEDICARE RECERTIFICATION PHYSICAL THERAPY MR#: [id number] Acct: [id number] Name: JOI MEDEL Rep #: [id number] : 1945 72 From: Darlene Olea MPT Referring Dr.: Melissa Amanda DO Status: REG RCR Insurance: MEDICARE PART A B ANTHEM Melissa Amanda, [...] pain but the day after that her pain would be much better. Pt complains of B knee pain and rates the L knee as a 2/10 and R knee as a 4/10. She reports that she hit a pole in the pool on the R knee but it is getting better. Objective/Function: LE MMT: hip flex R 4/5, L [...] to perform ADL's, To increase tolerance to activity/condition/position , To improve performance and independence with ADL's, To improve ability of physical actions for home/community/work/leisure , To improve gait and locomotor functions, To improve endurance Therapeutic Exercise to Include: Strength training, Endurance training, Gait and locomotor training, In an aquatic setting , Active ROM, Dynamic Lumbar Stabilization For the Purpose of:: To decrease pain, To increase ROM, To improve nutrient delivery to tissue, To improve muscle performance and motor function, To improve ability to perform ADL's, To increase tolerance to activity/condition/position , To improve performance and independence with ADL's, To improve ability of physical actions for home/community/work/leisure , To improve gait and locomotor functions Functional Training to Include: Gait training For the Purpose of:: To improve gait and locomotor functions Please do not hesitate to contact me at [phone] by phone or if you have questions or concerns regarding this new plan of care! Sincerely, Darlene Olea <Electronically signed by Darlene Olea MPT> 04/15/17 1726 CC: Melissa Amanda DO Signed For Medicare only, by signing this I certify the plan of care. _ Physicians Signature Date Melissa Amanda Start: 03-19-2017 End: 03-20-2017 Inital Evaluation (1) - PT Comments: See Note; NOTES: [facility] [address] [place] [address]. [address] [place] [address] Fax REHABILITATION SERVICES INITIAL EVALUATION MR#: [id number] Acct: [id number] Name: JOI MEDEL Rep #: [id number] : 1945 72 From: Darlene Olea MPT Referring Dr.: Melissa Amanda DO Status: REG RCR Insurance: MEDICARE PART A B ANTHEM Patient's Visit Information JOI MEDEL is a 72 year old F referred to Physical Therapy by Melissa Amanda with a diagnosis of L hip pain. Date of Evaluation: 03/19/17 Physical Therapist: Darlene Olea - Visit Plan Frequency: 3x /Week Duration: 4-6 Weeks Plan: 3X/ week for 3 weeks for L hip strengthening, core strengthening, gait training, enduarace actvities with HEP - Subjective Subjective: Pt reports that she [...] since Mar 07 due to the pain. SOmetimes the pain goes [...] to perform ADL's, To increase tolerance to activity/condition/position , To improve performance and independence with ADL's, To improve ability of physical actions for home/community/work/leisure , To improve gait and locomotor functions, To improve endurance Therapeutic Exercise to Include: Strength training, Endurance training, Gait and locomotor training, In an aquatic setting , Active ROM, Dynamic Lumbar Stabilization For the Purpose of:: To decrease pain, To increase ROM, To improve nutrient delivery to tissue, To improve muscle performance and motor function, To improve ability to perform ADL's, To increase tolerance to activity/condition/position , To improve performance and independence with ADL's, To improve ability of physical actions for home/community/work/leisure , To improve gait and locomotor functions Functional Training to Include: Gait training For the Purpose of:: To improve gait and locomotor functions Thank you for the opportunity to evaluate your patient. For Medicare and Medicare HMO plans, please review the plan of care and approve it. It will need to be FAXED BACK to us at [phone] for Medicare purposes. Please let me know if there are questions or concerns regarding this plan of care. Physician Signature: Date: <Electronically signed by Darlene Olea MPT> 03/19/17 1827 CC: Melissa Amanda DO Signed For Medicare only, by signing this I certify the plan of care. _ Physicians Signature Date Melissa Amanda Start: 03-13-2017 End: 03-13-2017 Hip 2-3 Views with Pelvis Comments: See Note; NOTES: [facility] Imaging Services [address] [place] [address] Hip 2-3 Views with Pelvis MR#: [id number] Acct: [id number] Name: JOI MEDEL Rep #: [id number] : 1945 F 72 From: Linda Odell MD PCP: Melissa Amanda DO Status: REG CLI Study: Hip 2-3 Views with Pelvis Date of Exam: 03/13/17 Exam# [id number] Ordering Dr: Melissa Amanda DO STUDY: X-RAY - PELVIS AND LEFT HIP REASON FOR EXAM: Female, 72 years old. Left-sided hip pain. TECHNIQUE: Radiological exam, hip, unilateral, with pelvis when performed; 2 or 3 views. COMPARISON: Prior comparison studies are not available for review at this time. FINDINGS: There is a non-specific bowel gas pattern. There are multiple calcified phleboliths. There is diffuse demineralization of the osseous structures. Bowel gas is obscured by the sacrum and iliac wings. Normal bilateral superior and inferior pubic rami. Normal pubic symphysis. Normal bilateral ischial tuberosities. Normal visualized femoral head. There is osteoarthritic spur formation of the acetabular rim. There is mild articular joint space narrowing of the hip. RAD/Hip 2-3 Views with Pelvis IMPRESSION: Degenerative arthropathy of the left hip. Electronically Signed: Linda Odell MD at 16:15 EDT , Service support , CC: Melissa Amanda DO Building Operator: Signed Melissa Amanda Work Phone: Start: 02-04-2017 End: 02-04-2017 Dexa Bone Density Study (HP) Comments: See Note; NOTES: [facility] Imaging Services [address] [place] [address] Dexa Bone Density Study () MR#: [id number] Acct: [id number] Name: IANJOI SOTO Rep #: [id number] : 1945 F 72 From: Nico Shine MD PCP: Melissa Amanda DO Status: [facility] Study: Dexa Bone Density Study (HP) Date of Exam: 02/04/17 Exam# [id number] Ordering Dr: Melissa Amanda DO STUDY: DUAL ENERGY X-RAY ABSORPTIOMETRY / DXA REASON FOR EXAM: Female, 72 years old. The patient is postmenopausal. Loss of height. TECHNIQUE: Bone Mineral Density (BMD) measurements of lumbar spine and bilateral hips were obtained. COMPARISON: None. FINDINGS: Lumbar Spine (L1-L4): g/cm2 (1.153) / T-score (-0.1) / Z-score (1.5) Findings are suggestive of normal bone density with a low fracture risk. Left Femur Total: g/cm2 (1.138) / T-score (1.0) / Z-score (2.5) Left Femoral Neck: g/cm2 (0.960) / T-score (-0.6) / Z-score (1.1) Right Femur Total: g/cm2 (1.089) / T-score (0.7) / Z-score (2.1) Right Femoral Neck: g/cm2 (0.865) / T-score (-1.2) / Z-score (0.4) HPBD/Dexa Bone Density Study (HP) IMPRESSION: The patient is considered osteopenic as outlined below according to World Tony Organization (WHO) criteria with a low fracture risk. Reference Information: The T-score is the number of standard deviations above or below the standard which is normal for young adults at their peak bone mineral density. The World Health Organization (WHO) interprets the T-scores as follows: Above -1 Normal bone density Between -1 and -2.5 Osteopenia Equal to / or below -2.5 Osteoporosis As a practical clinical guideline, osteopenia may be graded as follows: Mild -1 through -1.5 Moderate -1.6 through -2.0 Severe -2.1 through -2.4 The Z-score is the number of standard deviations above or below age-matched controls. A Z-score of less than -1.5 would be considered abnormal. References: 1. NIH Osteoporosis and Related Bone Diseases http://www.osteo.org 2. International Society for Clinical Densitometry http://www.iscd.org 3. National Osteoporosis Foundation http://www.nof.org Electronically Signed: Nico Shine MD at 15:43 EDT Tel [phone], Service support , CC: Melissa Amanda DO Building Operator: Signed Melissa Amanda Work Phone: Start: 02-04-2017 End: 02-13-2017 SCREENING MAMM (CAD), BILAT Comments: See Note; NOTES: [facility] Imaging Services [address] [place] [address] SCREENING MAMM (CAD), BILAT MR#: [id number] Acct: [id number] Name: JOI MEDEL Rep #: [id number] : 1945 F 72 From: Nico Shine MD PCP: Melissa Amanda DO Status: REG CLI Study: SCREENING MAMM (CAD), BILAT Date of Exam: 02/04/17 Exam# [id number] Ordering Dr: Melissa Amanda DO MAMMOGRAPHY - BILATERAL SCREENING REASON FOR EXAM: Female, 72 years old. Routine annual screening examination. PERTINENT HISTORY: Non-contributory. TECHNIQUE: Digital bilateral breast xiomy (3D mammographic acquisition) in the CC and [...] delay biopsy of a clinically suspicious abnormality. [id number] Electronically Signed: Nico Shine MD at 12:03 EDT Tel [phone], Service support , CC: Melissa Amanda DO Building Operator: Signed Melissa Amanda Work Phone: Appendectomy Jackie Messenger Plan of Treatment Date Care Activity Detail Author Start: 03-07-2022 Procedure Education Eprescribed prescriptions (G8553) [facility]; [facility] Work Phone: Start: 03-07-2022 Provider Instructions for Treatment [facility]; [facility] Work Phone: Start: 12-27-2021 25 hydroxy includes fractions if performed CALCIFIDIOL (92135) VIT D 25 [facility]; [facility] Work Phone: Start: 12-27-2021 Lipid panel LIPID PANEL (90487) [facility]; [facility] Work Phone: Start: 12-27-2021 Blood count complete auto&auto difrntl wbc CBC W/AUTO DIFF WBC (28631) [facility]; [facility] Work Phone: Start: 12-27-2021 Urine albumin quantitative MICROALBUMIN: CREATININE RATIO (45063) AND (40039) [facility]; [facility] Work Phone: Start: 12-27-2021 Comprehensive metabolic panel METABOLIC PANEL, COMPREHENSIVE (07280) [facility]; [facility] Work Phone: Start: 12-27-2021 Assay of thyroid stimulating hormone tsh TSH (54427) [facility]; [facility] Work Phone: Start: 12-27-2021 Provider Instructions for Treatment [facility]; [facility] Work Phone: Start: 12-06-2021 Procedure Education Eprescribed prescriptions (G8553) [facility]; [facility] Work Phone: Start: 12-06-2021 Provider Instructions for Treatment [facility]; [facility] Work Phone: Start: 11-19-2021 Procedure Education Eprescribed prescriptions (G8553) [facility]; [facility] Work Phone: Start: 11-19-2021 Provider Instructions for Treatment [facility]; [facility] Work Phone: Start: 07-09-2021 25 hydroxy includes fractions if performed CALCIFIDIOL (22328) VIT D 25 [facility]; [facility] Work Phone: Start: 07-09-2021 Assay of thyroid stimulating hormone tsh TSH (75190) [facility]; [facility] Work Phone: Start: 07-09-2021 Urnls dip stick/tablet reagent auto microscopy URINALYSIS, W/ MICRO (65680) [facility]; [facility] Work Phone: Start: 07-09-2021 Urine albumin quantitative MICROALBUMIN: CREATININE RATIO (73668) AND (36418) [facility]; [facility] Work Phone: Start: 07-09-2021 Comprehensive metabolic panel METABOLIC PANEL, COMPREHENSIVE (09966) [facility]; [facility] Work Phone: Start: 07-09-2021 Lipid panel LIPID PANEL (70920) [facility]; [facility] Work Phone: Start: 07-09-2021 Blood count complete auto&auto difrntl wbc CBC W/AUTO DIFF WBC (02047) [facility]; [facility] Work Phone: Start: 07-09-2021 Procedure Education Eprescribed prescriptions (G8553) [facility]; [facility] Work Phone: Start: 07-09-2021 Provider Instructions for Treatment [facility]; [facility] Work Phone: Start: 03-15-2021 Assay of thyroid stimulating hormone tsh TSH (41954) [facility]; [facility] Work Phone: Start: 03-15-2021 Comprehensive metabolic panel METABOLIC PANEL, COMPREHENSIVE (55180) [facility]; [facility] Work Phone: Start: 03-15-2021 Procedure Education Eprescribed prescriptions (G8553) [facility]; [facility] Work Phone: Start: 03-15-2021 Provider Instructions for Treatment Reviewed Lab [facility]; [facility] Work Phone: Start: 03-12-2021 Procedure Education Eprescribed prescriptions (G8553) [facility]; [facility] Work Phone: Start: 03-09-2021 Procedure Education Eprescribed prescriptions (G8553) [facility]; [facility] Work Phone: Start: 03-09-2021 Provider Instructions for Treatment [facility]; [facility] Work Phone: Start: 06-14-2020 Procedure Education Eprescribed prescriptions (G8553) [facility]; [facility] Work Phone: Start: 06-14-2020 Provider Instructions for Treatment [facility]; [facility] Work Phone: Start: 06-14-2020 25 hydroxy includes fractions if performed CALCIFIDIOL (30413) VIT D 25 [facility]; [facility] Work Phone: Start: 06-14-2020 Urnls dip stick/tablet reagent auto microscopy URINALYSIS, W/ MICRO (19369) [facility]; [facility] Work Phone: Start: 06-14-2020 Urine albumin quantitative MICROALBUMIN: CREATININE RATIO (06343) AND (66263) [facility]; [facility] Work Phone: Start: 06-14-2020 Comprehensive metabolic panel METABOLIC PANEL, COMPREHENSIVE (75268) [facility]; [facility] Work Phone: Start: 06-14-2020 Blood count complete auto&auto difrntl wbc CBC W/AUTO DIFF WBC (96502) [facility]; [facility] Work Phone: Start: 06-14-2020 Lipid panel LIPID PANEL (97945) [facility]; [facility] Work Phone: Start: 06-14-2020 Assay of thyroid stimulating hormone tsh TSH (96992) [facility]; [facility] Work Phone: Start: 06-14-2020 TSH Qn TSH (47971) [facility]; [facility] Work Phone: Start: 06-14-2020 SARS-CoV-2 Antibody, IgG SARS-CoV-2 Antibody, IgG [facility]; [facility] Work Phone: Start: 05-12-2019 Provider Instructions for Treatment [facility] Work Phone: Start: 05-12-2019 25 hydroxy includes fractions if performed CALCIFIDIOL (96033) VIT D 25 [facility] Work Phone: Start: 05-12-2019 Lipoprotein blood liam numbers & subclasses NMR Profile (07846) [facility] Work Phone: Start: 05-12-2019 TSH Qn TSH (78903) [facility] Work Phone: Start: 05-12-2019 Urnls dip stick/tablet reagent auto microscopy URINALYSIS, W/ MICRO (57609) [facility] Work Phone: Start: 05-12-2019 Comprehensive metabolic panel METABOLIC PANEL, COMPREHENSIVE (42643) [facility] Work Phone: Start: 05-12-2019 Blood count complete auto&auto difrntl wbc CBC W/AUTO DIFF WBC (66669) [facility] Work Phone: Start: 05-27-2018 Procedure Education Eprescribed prescriptions (G8553) [facility] Work Phone: Start: 05-27-2018 T4 free mass conc T4, FREE (THYROXINE) (15334) [facility] Work Phone: Start: 05-27-2018 T3 free mass conc T3, FREE (TRIDOTHYRONINE) (94179) [facility] Work Phone: Start: 05-27-2018 25 hydroxy includes fractions if performed CALCIFIDIOL (86209) VIT D 25 [facility] Work Phone: Start: 05-27-2018 Thyrotropin Qn TSH (29824) [facility] Work Phone: Start: 05-27-2018 Urnls dip stick/tablet reagent auto microscopy URINALYSIS, W/ MICRO (94593) [facility] Work Phone: Start: 05-27-2018 Urine albumin quantitative MICROALBUMIN: CREATININE RATIO (28926) AND (51479) [facility] Work Phone: Start: 05-27-2018 Comprehensive metabolic panel METABOLIC PANEL, COMPREHENSIVE (19868) [facility] Work Phone: Start: 05-27-2018 Protein mass conc LIPOPROTEIN, BLD, BY NMR (37053) [facility] Work Phone: Start: 05-27-2018 Blood count complete auto&auto difrntl wbc CBC W/AUTO DIFF WBC (74592) [facility] Work Phone: Start: 04-09-2018 Provider Instructions for Treatment [facility] Work Phone: Start: 09-17-2017 Assay of free thyroxine THYROXINE FREE (T4) (40776) [facility] Work Phone: Start: 09-17-2017 Assay of triiodothyronine t3 total tt3 T3, TOTAL (TRIDOTHYRONINE) (35594) [facility] Work Phone: Start: 09-17-2017 Assay of thyroid stimulating hormone tsh TSH (THYROID STIMULATING HORMONE) (95840) [facility] Work Phone: Start: 09-17-2017 Thyrotropin Qn TSH (THYROID STIMULATING HORMONE) (03102) [facility] Work Phone: Start: 09-16-2017 Provider Instructions for Treatment [facility] Work Phone: Start: 09-04-2017 Provider Instructions for Treatment Reviewed Diagnostic Tests [facility] Work Phone: Start: 05-12-2017 Provider Instructions for Treatment Reviewed [place] Edger Letter [facility] Work Phone: Start: 04-03-2017 Provider Instructions for Treatment [facility] Work Phone: Start: 03-10-2017 Procedure Education Eprescribed prescriptions (G8553) [facility] Work Phone: Start: 02-24-2017 Procedure Education Eprescribed prescriptions (G8553) [facility] Work Phone: Start: 02-13-2017 Procedure Education Eprescribed prescriptions (G8553) [facility] Work Phone: Start: 02-13-2017 Provider Instructions for Treatment [facility] Work Phone: Start: 01-24-2017 Assay of free thyroxine T4, FREE (THYROXINE) (24111) [facility] Work Phone: Start: 01-24-2017 T4 free mass conc T4, FREE (THYROXINE) (55166) [facility] Work Phone: Start: 01-24-2017 Assay of triiodothyronine t3 free T3, FREE (TRIDOTHYRONINE) (34931) [facility] Work Phone: Start: 01-24-2017 T3 free mass conc T3, FREE (TRIDOTHYRONINE) (04232) [facility] Work Phone: Start: 01-24-2017 Assay of thyroid stimulating hormone tsh TSH (53901) [facility] Work Phone: Start: 01-24-2017 Thyrotropin Qn TSH (68757) [facility] Work Phone: Start: 01-22-2017 Procedure Education Eprescribed prescriptions (G8553) [facility] Work Phone: Start: 01-22-2017 Provider Instructions for Treatment [facility] Work Phone: Start: 07-03-2016 Procedure Education Eprescribed prescriptions (G8553) [facility] Work Phone: Start: 03-26-2016 Procedure Education Eprescribed prescriptions (G8553) [facility] Work Phone: Start: 03-26-2016 Provider Instructions for Treatment [facility] Work Phone: [facility] Work [facility]: [facility] Work [facility]: [facility] Work [facility]: [facility] Work [facility]: [facility] Work [facility]: [facility] Work [facility]: [facility] Work [facility] Work [facility]: [facility] Work [facility]: [facility] Work [facility] Work [facility] Work Phone: [facility] Work Phone: [facility] Work Phone: [facility] Work Phone: [facility] Work Phone: [facility] Work Phone: [facility] Work Phone: Immunizations Immunization Date Immunization Notes Care Provider Vianney boyd 06-30-2020 COVID-Moderna (100 MCG/0.5 ML) Melissa Amanda DO Work Phone: [facility]; [facility] Work Phone: Payers Date Payer Category Payer Medicare [id number] 2017 Unknown [id number] 2012 Medicare [id number] 1945 Unknown [id number] 1945 Unknown [id number] Unknown Social History Date Type Detail Facility Caffeine Use Never smoker [facility] Work Phone: Functional Status Date Assessment Result Facility 05-12-2019 LP-IR Score LP-IR Score 55 [facility] Work Phone: Clinical Notes Note Date & Type Note Facility [facility]; [facility] Work Phone: Instructions* Name Dates Details Patient Instructions Indication:Hypertension, benign Start:15-Mar-2021 Instruction Type:Provider Instructions for Treatment Patient Instructions Indication:BMI 45.0-49.9, adult Start:15-Mar-2021 Instruction Type:Provider Instructions for Treatment How to Access Health Informa tion Online using Patient Portal and [employer]rd [employer] Apps Indication:BMI 45.0-49.9, adult Start:15-Mar-2021 Instruction Type:Patient Education How to Access Health Informa tion Online using Patient Portal and [employer]rd [employer] Apps Indication:Non-smoker Start:12-Mar-2021 Instruction Type:Patient Education Patient Instructions Indication:Non-smoker Start:12-Mar-2021 Instruction Type:Provider Instructions for Treatment How to Access Health Informa tion Online using Patient Portal and [employer]rd [employer] Apps Indication:Non-smoker Start:12-Mar-2021 Instruction Type:Patient Education Patient Instructions Indication:Non-smoker Start:09-Mar-2021 Instruction Type:Provider Instructions for Treatment How to Access Health Informa tion Online using Patient Portal and [employer]rd [employer] Apps Indication:Non-smoker Start:09-Mar-2021 Instruction Type:Patient Education Patient Instructions Indication:BMI 45.0-49.9, adult Start:14-Jun-2020 Instruction Type:Provider Instructions for Treatment How to access health informa tion online Indication:Non-smoker Start:27-May-2018 Instruction Type:Patient Education How to access health informa tion online - Detail Indication:Non-smoker Start:27-May-2018 Instruction Type:Patient Education Patient Instructions Indication:Non-smoker Start:27-May-2018 Instruction Type:Provider Instructions for Treatment obesity counseling Indication:Hypertension, benign Start:09-Apr-2018 Instruction Type:Provider Instructions for Treatment How to access health informa tion online Indication:BMI 45.0-49.9, adult Start:09-Apr-2018 Instruction Type:Patient Education How to access health informa tion online - Detail Indication:BMI 45.0-49.9, adult Start:09-Apr-2018 Instruction Type:Patient Education Patient Instructions Indication:BMI 45.0-49.9, adult Start:09-Apr-2018 Instruction Type:Provider Instructions for Treatment How to access health informa tion online Indication:Nonsmoker Start:16-Sep-2017 Instruction Type:Patient Education How to access health informa tion online - Detail Indication:Nonsmoker Start:16-Sep-2017 Instruction Type:Patient Education Patient Instructions Indication:Nonsmoker Start:16-Sep-2017 Instruction Type:Provider Instructions for Treatment How to access health informa tion online Indication:Nonsmoker Start:04-Sep-2017 Instruction Type:Patient Education How to access health informa tion online - Detail Indication:Nonsmoker Start:04-Sep-2017 Instruction Type:Patient Education Patient Instructions Indication:Nonsmoker Start:04-Sep-2017 Instruction Type:Provider Instructions for Treatment How to access health informa tion online Indication:Nonsmoker Start:12-May-2017 Instruction Type:Patient Education How to access health informa tion online - Detail Indication:Nonsmoker Start:12-May-2017 Instruction Type:Patient Education Patient Instructions Indication:Nonsmoker Start:12-May-2017 Instruction Type:Provider Instructions for Treatment obesity counseling Indication:Osteoarthritis, localized Start:03-Apr-2017 Instruction Type:Provider Instructions for Treatment How to access health informa tion online Indication:Nonsmoker Start:03-Apr-2017 Instruction Type:Patient Education How to access health informa tion online - Detail Indication:Nonsmoker Start:03-Apr-2017 Instruction Type:Patient Education Patient Instructions Indication:Nonsmoker Start:03-Apr-2017 Instruction Type:Provider Instructions for Treatment How to access health informa tion online Indication:Left groin pain Start:10-Mar-2017 Instruction Type:Patient Education How to access health informa tion online - Detail Indication:Left groin pain Start:10-Mar-2017 Instruction Type:Patient Education Patient Instructions Indication:Left groin pain Start:10-Mar-2017 Instruction Type:Provider Instructions for Treatment How to access health informa tion online Indication:Nonsmoker Start:24-Feb-2017 Instruction Type:Patient Education How to access health informa tion online - Detail Indication:Nonsmoker Start:24-Feb-2017 Instruction Type:Patient Education Patient Instructions Indication:Nonsmoker Start:24-Feb-2017 Instruction Type:Provider Instructions for Treatment How to access health informa tion online Indication:Nonsmoker Start:13-Feb-2017 Instruction Type:Patient Education How to access health informa tion online - Detail Indication:Nonsmoker Start:13-Feb-2017 Instruction Type:Patient Education Patient Instructions Indication:Nonsmoker Start:13-Feb-2017 Instruction Type:Provider Instructions for Treatment How to access health informa tion online Indication:Nonsmoker Start:22-Jan-2017 Instruction Type:Patient Education How to access health informa tion online - Detail Indication:Nonsmoker Start:22-Jan-2017 Instruction Type:Patient Education Patient Instructions Indication:Nonsmoker Start:22-Jan-2017 Instruction Type:Provider Instructions for Treatment How to access health informa tion online Indication:Nonsmoker Start:03-Jul-2016 Instruction Type:Patient Education How to access health informa tion online - Detail Indication:Nonsmoker Start:03-Jul-2016 Instruction Type:Patient Education Patient Instructions Indication:Nonsmoker Start:03-Jul-2016 Instruction Type:Provider Instructions for Treatment Patient Instructions Indication:Encounter for screening for malignant neoplasm of colon (Renamed from Special screening for malignant neoplasms, colon) Start:26-Mar-2016 Instruction Type:Provider Instructions for Treatment How to access health informa tion online Indication:Encounter for screening for malignant neoplasm of colon (Renamed from Special screening for malignant neoplasms, colon) Start:26-Mar-2016 Instruction Type:Patient Education How to access health informa tion online - Detail Indication:Encounter for screening for malignant neoplasm of colon (Renamed from Special screening for malignant neoplasms, colon) Start:26-Mar-2016 Instruction Type:Patient Education obesity counseling Indication:Hypertension, benign Start:26-Mar-2016 Instruction Type:Provider Instructions for Treatment [facility]; [facility] Work Phone: Instructions* Name Dates Details Patient Instructions Indication:BMI 45.0-49.9, adult Start:09-Jul-2021 Instruction Type:Provider Instructions for Treatment How to Access Health Informa tion Online using Patient Portal and [employer] Apps Indication:BMI 45.0-49.9, adult Start:09-Jul-2021 Instruction Type:Patient Education Patient Instructions Indication:Hypertension, benign Start:15-Mar-2021 Instruction Type:Provider Instructions for Treatment Patient Instructions Indication:BMI 45.0-49.9, adult Start:15-Mar-2021 Instruction Type:Provider Instructions for Treatment How to Access Health Informa tion Online using Patient Portal and [employer] Apps Indication:BMI 45.0-49.9, adult Start:15-Mar-2021 Instruction Type:Patient Education How to Access Health Informa tion Online using Patient Portal and [employer] Apps Indication:Non-smoker Start:12-Mar-2021 Instruction Type:Patient Education Patient Instructions Indication:Non-smoker Start:12-Mar-2021 Instruction Type:Provider Instructions for Treatment How to Access Health Informa tion Online using Patient Portal and [employer] Apps Indication:Non-smoker Start:12-Mar-2021 Instruction Type:Patient Education Patient Instructions Indication:Non-smoker Start:09-Mar-2021 Instruction Type:Provider Instructions for Treatment How to Access Health Informa tion Online using Patient Portal and [employer] Apps Indication:Non-smoker Start:09-Mar-2021 Instruction Type:Patient Education Patient Instructions Indication:BMI 45.0-49.9, adult Start:14-Jun-2020 Instruction Type:Provider Instructions for Treatment How to access health informa tion online Indication:Non-smoker Start:27-May-2018 Instruction Type:Patient Education How to access health informa tion online - Detail Indication:Non-smoker Start:27-May-2018 Instruction Type:Patient Education Patient Instructions Indication:Non-smoker Start:27-May-2018 Instruction Type:Provider Instructions for Treatment obesity counseling Indication:Hypertension, benign Start:09-Apr-2018 Instruction Type:Provider Instructions for Treatment How to access health informa tion online Indication:BMI 45.0-49.9, adult Start:09-Apr-2018 Instruction Type:Patient Education How to access health informa tion online - Detail Indication:BMI 45.0-49.9, adult Start:09-Apr-2018 Instruction Type:Patient Education Patient Instructions Indication:BMI 45.0-49.9, adult Start:09-Apr-2018 Instruction Type:Provider Instructions for Treatment How to access health informa tion online Indication:Nonsmoker Start:16-Sep-2017 Instruction Type:Patient Education How to access health informa tion online - Detail Indication:Nonsmoker Start:16-Sep-2017 Instruction Type:Patient Education Patient Instructions Indication:Nonsmoker Start:16-Sep-2017 Instruction Type:Provider Instructions for Treatment How to access health informa tion online Indication:Nonsmoker Start:04-Sep-2017 Instruction Type:Patient Education How to access health informa tion online - Detail Indication:Nonsmoker Start:04-Sep-2017 Instruction Type:Patient Education Patient Instructions Indication:Nonsmoker Start:04-Sep-2017 Instruction Type:Provider Instructions for Treatment How to access health informa tion online Indication:Nonsmoker Start:12-May-2017 Instruction Type:Patient Education How to access health informa tion online - Detail Indication:Nonsmoker Start:12-May-2017 Instruction Type:Patient Education Patient Instructions Indication:Nonsmoker Start:12-May-2017 Instruction Type:Provider Instructions for Treatment obesity counseling Indication:Osteoarthritis, localized Start:03-Apr-2017 Instruction Type:Provider Instructions for Treatment How to access health informa tion online Indication:Nonsmoker Start:03-Apr-2017 Instruction Type:Patient Education How to access health informa tion online - Detail Indication:Nonsmoker Start:03-Apr-2017 Instruction Type:Patient Education Patient Instructions Indication:Nonsmoker Start:03-Apr-2017 Instruction Type:Provider Instructions for Treatment How to access health informa tion online Indication:Left groin pain Start:10-Mar-2017 Instruction Type:Patient Education How to access health informa tion online - Detail Indication:Left groin pain Start:10-Mar-2017 Instruction Type:Patient Education Patient Instructions Indication:Left groin pain Start:10-Mar-2017 Instruction Type:Provider Instructions for Treatment How to access health informa tion online Indication:Nonsmoker Start:24-Feb-2017 Instruction Type:Patient Education How to access health informa tion online - Detail Indication:Nonsmoker Start:24-Feb-2017 Instruction Type:Patient Education Patient Instructions Indication:Nonsmoker Start:24-Feb-2017 Instruction Type:Provider Instructions for Treatment How to access health informa tion online Indication:Nonsmoker Start:13-Feb-2017 Instruction Type:Patient Education How to access health informa tion online - Detail Indication:Nonsmoker Start:13-Feb-2017 Instruction Type:Patient Education Patient Instructions Indication:Nonsmoker Start:13-Feb-2017 Instruction Type:Provider Instructions for Treatment How to access health informa tion online Indication:Nonsmoker Start:22-Jan-2017 Instruction Type:Patient Education How to access health informa tion online - Detail Indication:Nonsmoker Start:22-Jan-2017 Instruction Type:Patient Education Patient Instructions Indication:Nonsmoker Start:22-Jan-2017 Instruction Type:Provider Instructions for Treatment How to access health informa tion online Indication:Nonsmoker Start:03-Jul-2016 Instruction Type:Patient Education How to access health informa tion online - Detail Indication:Nonsmoker Start:03-Jul-2016 Instruction Type:Patient Education Patient Instructions Indication:Nonsmoker Start:03-Jul-2016 Instruction Type:Provider Instructions for Treatment Patient Instructions Indication:Encounter for screening for malignant neoplasm of colon (Renamed from Special screening for malignant neoplasms, colon) Start:26-Mar-2016 Instruction Type:Provider Instructions for Treatment How to access health informa tion online Indication:Encounter for screening for malignant neoplasm of colon (Renamed from Special screening for malignant neoplasms, colon) Start:26-Mar-2016 Instruction Type:Patient Education How to access health informa tion online - Detail Indication:Encounter for screening for malignant neoplasm of colon (Renamed from Special screening for malignant neoplasms, colon) Start:26-Mar-2016 Instruction Type:Patient Education obesity counseling Indication:Hypertension, benign Start:26-Mar-2016 Instruction Type:Provider Instructions for Treatment [facility]; [facility] Work Phone: Instructions* Name Dates Details How to access health informa tion online Indication:Non-smoker Start:27-May-2018 Instruction Type:Patient Education How to access health informa tion online - Detail Indication:Non-smoker Start:27-May-2018 Instruction Type:Patient Education Patient Instructions Indication:Non-smoker Start:27-May-2018 Instruction Type:Provider Instructions for Treatment obesity counseling Indication:Hypertension, benign Start:09-Apr-2018 Instruction Type:Provider Instructions for Treatment How to access health informa tion online Indication:BMI 45.0-49.9, adult Start:09-Apr-2018 Instruction Type:Patient Education How to access health informa tion online - Detail Indication:BMI 45.0-49.9, adult Start:09-Apr-2018 Instruction Type:Patient Education Patient Instructions Indication:BMI 45.0-49.9, adult Start:09-Apr-2018 Instruction Type:Provider Instructions for Treatment How to access health informa tion online Indication:Nonsmoker Start:16-Sep-2017 Instruction Type:Patient Education How to access health informa tion online - Detail Indication:Nonsmoker Start:16-Sep-2017 Instruction Type:Patient Education Patient Instructions Indication:Nonsmoker Start:16-Sep-2017 Instruction Type:Provider Instructions for Treatment How to access health informa tion online Indication:Nonsmoker Start:04-Sep-2017 Instruction Type:Patient Education How to access health informa tion online - Detail Indication:Nonsmoker Start:04-Sep-2017 Instruction Type:Patient Education Patient Instructions Indication:Nonsmoker Start:04-Sep-2017 Instruction Type:Provider Instructions for Treatment How to access health informa tion online Indication:Nonsmoker Start:12-May-2017 Instruction Type:Patient Education How to access health informa tion online - Detail Indication:Nonsmoker Start:12-May-2017 Instruction Type:Patient Education Patient Instructions Indication:Nonsmoker Start:12-May-2017 Instruction Type:Provider Instructions for Treatment obesity counseling Indication:Osteoarthritis, localized Start:03-Apr-2017 Instruction Type:Provider Instructions for Treatment How to access health informa tion online Indication:Nonsmoker Start:03-Apr-2017 Instruction Type:Patient Education How to access health informa tion online - Detail Indication:Nonsmoker Start:03-Apr-2017 Instruction Type:Patient Education Patient Instructions Indication:Nonsmoker Start:03-Apr-2017 Instruction Type:Provider Instructions for Treatment How to access health informa tion online Indication:Left groin pain Start:10-Mar-2017 Instruction Type:Patient Education How to access health informa tion online - Detail Indication:Left groin pain Start:10-Mar-2017 Instruction Type:Patient Education Patient Instructions Indication:Left groin pain Start:10-Mar-2017 Instruction Type:Provider Instructions for Treatment How to access health informa tion online Indication:Nonsmoker Start:24-Feb-2017 Instruction Type:Patient Education How to access health informa tion online - Detail Indication:Nonsmoker Start:24-Feb-2017 Instruction Type:Patient Education Patient Instructions Indication:Nonsmoker Start:24-Feb-2017 Instruction Type:Provider Instructions for Treatment How to access health informa tion online Indication:Nonsmoker Start:13-Feb-2017 Instruction Type:Patient Education How to access health informa tion online - Detail Indication:Nonsmoker Start:13-Feb-2017 Instruction Type:Patient Education Patient Instructions Indication:Nonsmoker Start:13-Feb-2017 Instruction Type:Provider Instructions for Treatment How to access health informa tion online Indication:Nonsmoker Start:22-Jan-2017 Instruction Type:Patient Education How to access health informa tion online - Detail Indication:Nonsmoker Start:22-Jan-2017 Instruction Type:Patient Education Patient Instructions Indication:Nonsmoker Start:22-Jan-2017 Instruction Type:Provider Instructions for Treatment How to access health informa tion online Indication:Nonsmoker Start:03-Jul-2016 Instruction Type:Patient Education How to access health informa tion online - Detail Indication:Nonsmoker Start:03-Jul-2016 Instruction Type:Patient Education Patient Instructions Indication:Nonsmoker Start:03-Jul-2016 Instruction Type:Provider Instructions for Treatment Patient Instructions Indication:Encounter for screening for malignant neoplasm of colon (Renamed from Special screening for malignant neoplasms, colon) Start:26-Mar-2016 Instruction Type:Provider Instructions for Treatment How to access health informa tion online Indication:Encounter for screening for malignant neoplasm of colon (Renamed from Special screening for malignant neoplasms, colon) Start:26-Mar-2016 Instruction Type:Patient Education How to access health informa tion online - Detail Indication:Encounter for screening for malignant neoplasm of colon (Renamed from Special screening for malignant neoplasms, colon) Start:26-Mar-2016 Instruction Type:Patient Education obesity counseling Indication:Hypertension, benign Start:26-Mar-2016 Instruction Type:Provider Instructions for Treatment [facility] Work Phone: Instructions* Name Dates Details Patient Instructions Indication:Morbid obesity Start:19-Nov-2021 Instruction Type:Provider Instructions for Treatment How to Access Health Informa tion Online using Patient Portal and [employer] Apps Indication:Morbid obesity Start:19-Nov-2021 Instruction Type:Patient Education Patient Instructions Indication:BMI 45.0-49.9, adult Start:09-Jul-2021 Instruction Type:Provider Instructions for Treatment How to Access Health Informa tion Online using Patient Portal and [employer] Apps Indication:BMI 45.0-49.9, adult Start:09-Jul-2021 Instruction Type:Patient Education Patient Instructions Indication:Hypertension, benign Start:15-Mar-2021 Instruction Type:Provider Instructions for Treatment Patient Instructions Indication:BMI 45.0-49.9, adult Start:15-Mar-2021 Instruction Type:Provider Instructions for Treatment How to Access Health Informa tion Online using Patient Portal and [employer] Apps Indication:BMI 45.0-49.9, adult Start:15-Mar-2021 Instruction Type:Patient Education How to Access Health Informa tion Online using Patient Portal and [employer] Apps Indication:Non-smoker Start:12-Mar-2021 Instruction Type:Patient Education Patient Instructions Indication:Non-smoker Start:12-Mar-2021 Instruction Type:Provider Instructions for Treatment How to Access Health Informa tion Online using Patient Portal and [employer] Apps Indication:Non-smoker Start:12-Mar-2021 Instruction Type:Patient Education Patient Instructions Indication:Non-smoker Start:09-Mar-2021 Instruction Type:Provider Instructions for Treatment How to Access Health Informa tion Online using Patient Portal and [employer] Apps Indication:Non-smoker Start:09-Mar-2021 Instruction Type:Patient Education Patient Instructions Indication:BMI 45.0-49.9, adult Start:14-Jun-2020 Instruction Type:Provider Instructions for Treatment How to access health informa tion online Indication:Non-smoker Start:27-May-2018 Instruction Type:Patient Education How to access health informa tion online - Detail Indication:Non-smoker Start:27-May-2018 Instruction Type:Patient Education Patient Instructions Indication:Non-smoker Start:27-May-2018 Instruction Type:Provider Instructions for Treatment obesity counseling Indication:Hypertension, benign Start:09-Apr-2018 Instruction Type:Provider Instructions for Treatment How to access health informa tion online Indication:BMI 45.0-49.9, adult Start:09-Apr-2018 Instruction Type:Patient Education How to access health informa tion online - Detail Indication:BMI 45.0-49.9, adult Start:09-Apr-2018 Instruction Type:Patient Education Patient Instructions Indication:BMI 45.0-49.9, adult Start:09-Apr-2018 Instruction Type:Provider Instructions for Treatment How to access health informa tion online Indication:Nonsmoker Start:16-Sep-2017 Instruction Type:Patient Education How to access health informa tion online - Detail Indication:Nonsmoker Start:16-Sep-2017 Instruction Type:Patient Education Patient Instructions Indication:Nonsmoker Start:16-Sep-2017 Instruction Type:Provider Instructions for Treatment How to access health informa tion online Indication:Nonsmoker Start:04-Sep-2017 Instruction Type:Patient Education How to access health informa tion online - Detail Indication:Nonsmoker Start:04-Sep-2017 Instruction Type:Patient Education Patient Instructions Indication:Nonsmoker Start:04-Sep-2017 Instruction Type:Provider Instructions for Treatment How to access health informa tion online Indication:Nonsmoker Start:12-May-2017 Instruction Type:Patient Education How to access health informa tion online - Detail Indication:Nonsmoker Start:12-May-2017 Instruction Type:Patient Education Patient Instructions Indication:Nonsmoker Start:12-May-2017 Instruction Type:Provider Instructions for Treatment obesity counseling Indication:Osteoarthritis, localized Start:03-Apr-2017 Instruction Type:Provider Instructions for Treatment How to access health informa tion online Indication:Nonsmoker Start:03-Apr-2017 Instruction Type:Patient Education How to access health informa tion online - Detail Indication:Nonsmoker Start:03-Apr-2017 Instruction Type:Patient Education Patient Instructions Indication:Nonsmoker Start:03-Apr-2017 Instruction Type:Provider Instructions for Treatment How to access health informa tion online Indication:Left groin pain Start:10-Mar-2017 Instruction Type:Patient Education How to access health informa tion online - Detail Indication:Left groin pain Start:10-Mar-2017 Instruction Type:Patient Education Patient Instructions Indication:Left groin pain Start:10-Mar-2017 Instruction Type:Provider Instructions for Treatment How to access health informa tion online Indication:Nonsmoker Start:24-Feb-2017 Instruction Type:Patient Education How to access health informa tion online - Detail Indication:Nonsmoker Start:24-Feb-2017 Instruction Type:Patient Education Patient Instructions Indication:Nonsmoker Start:24-Feb-2017 Instruction Type:Provider Instructions for Treatment How to access health informa tion online Indication:Nonsmoker Start:13-Feb-2017 Instruction Type:Patient Education How to access health informa tion online - Detail Indication:Nonsmoker Start:13-Feb-2017 Instruction Type:Patient Education Patient Instructions Indication:Nonsmoker Start:13-Feb-2017 Instruction Type:Provider Instructions for Treatment How to access health informa tion online Indication:Nonsmoker Start:22-Jan-2017 Instruction Type:Patient Education How to access health informa tion online - Detail Indication:Nonsmoker Start:22-Jan-2017 Instruction Type:Patient Education Patient Instructions Indication:Nonsmoker Start:22-Jan-2017 Instruction Type:Provider Instructions for Treatment How to access health informa tion online Indication:Nonsmoker Start:03-Jul-2016 Instruction Type:Patient Education How to access health informa tion online - Detail Indication:Nonsmoker Start:03-Jul-2016 Instruction Type:Patient Education Patient Instructions Indication:Nonsmoker Start:03-Jul-2016 Instruction Type:Provider Instructions for Treatment Patient Instructions Indication:Encounter for screening for malignant neoplasm of colon (Renamed from Special screening for malignant neoplasms, colon) Start:26-Mar-2016 Instruction Type:Provider Instructions for Treatment How to access health informa tion online Indication:Encounter for screening for malignant neoplasm of colon (Renamed from Special screening for malignant neoplasms, colon) Start:26-Mar-2016 Instruction Type:Patient Education How to access health informa tion online - Detail Indication:Encounter for screening for malignant neoplasm of colon (Renamed from Special screening for malignant neoplasms, colon) Start:26-Mar-2016 Instruction Type:Patient Education obesity counseling Indication:Hypertension, benign Start:26-Mar-2016 Instruction Type:Provider Instructions for Treatment [facility]; [facility] Work Phone: Instructions* Name Dates Details Patient Instructions Indication:Hypertension, benign Start:06-Dec-2021 Instruction Type:Provider Instructions for Treatment How to Access Health Informa tion Online using Patient Portal and [employer] Apps Indication:Hypertension, benign Start:06-Dec-2021 Instruction Type:Patient Education Patient Instructions Indication:Morbid obesity Start:19-Nov-2021 Instruction Type:Provider Instructions for Treatment How to Access Health Informa tion Online using Patient Portal and [employer] Apps Indication:Morbid obesity Start:19-Nov-2021 Instruction Type:Patient Education Patient Instructions Indication:BMI 45.0-49.9, adult Start:09-Jul-2021 Instruction Type:Provider Instructions for Treatment How to Access Health Informa tion Online using Patient Portal and [employer]rd [employer] Apps Indication:BMI 45.0-49.9, adult Start:09-Jul-2021 Instruction Type:Patient Education Patient Instructions Indication:Hypertension, benign Start:15-Mar-2021 Instruction Type:Provider Instructions for Treatment Patient Instructions Indication:BMI 45.0-49.9, adult Start:15-Mar-2021 Instruction Type:Provider Instructions for Treatment How to Access Health Informa tion Online using Patient Portal and [employer]rd [employer] Apps Indication:BMI 45.0-49.9, adult Start:15-Mar-2021 Instruction Type:Patient Education How to Access Health Informa tion Online using Patient Portal and [employer]rd [employer] Apps Indication:Non-smoker Start:12-Mar-2021 Instruction Type:Patient Education Patient Instructions Indication:Non-smoker Start:12-Mar-2021 Instruction Type:Provider Instructions for Treatment How to Access Health Informa tion Online using Patient Portal and [employer]rd [employer] Apps Indication:Non-smoker Start:12-Mar-2021 Instruction Type:Patient Education Patient Instructions Indication:Non-smoker Start:09-Mar-2021 Instruction Type:Provider Instructions for Treatment How to Access Health Informa tion Online using Patient Portal and [employer]rd [employer] Apps Indication:Non-smoker Start:09-Mar-2021 Instruction Type:Patient Education Patient Instructions Indication:BMI 45.0-49.9, adult Start:14-Jun-2020 Instruction Type:Provider Instructions for Treatment How to access health informa tion online Indication:Non-smoker Start:27-May-2018 Instruction Type:Patient Education How to access health informa tion online - Detail Indication:Non-smoker Start:27-May-2018 Instruction Type:Patient Education Patient Instructions Indication:Non-smoker Start:27-May-2018 Instruction Type:Provider Instructions for Treatment obesity counseling Indication:Hypertension, benign Start:09-Apr-2018 Instruction Type:Provider Instructions for Treatment How to access health informa tion online Indication:BMI 45.0-49.9, adult Start:09-Apr-2018 Instruction Type:Patient Education How to access health informa tion online - Detail Indication:BMI 45.0-49.9, adult Start:09-Apr-2018 Instruction Type:Patient Education Patient Instructions Indication:BMI 45.0-49.9, adult Start:09-Apr-2018 Instruction Type:Provider Instructions for Treatment How to access health informa tion online Indication:Nonsmoker Start:16-Sep-2017 Instruction Type:Patient Education How to access health informa tion online - Detail Indication:Nonsmoker Start:16-Sep-2017 Instruction Type:Patient Education Patient Instructions Indication:Nonsmoker Start:16-Sep-2017 Instruction Type:Provider Instructions for Treatment How to access health informa tion online Indication:Nonsmoker Start:04-Sep-2017 Instruction Type:Patient Education How to access health informa tion online - Detail Indication:Nonsmoker Start:04-Sep-2017 Instruction Type:Patient Education Patient Instructions Indication:Nonsmoker Start:04-Sep-2017 Instruction Type:Provider Instructions for Treatment How to access health informa tion online Indication:Nonsmoker Start:12-May-2017 Instruction Type:Patient Education How to access health informa tion online - Detail Indication:Nonsmoker Start:12-May-2017 Instruction Type:Patient Education Patient Instructions Indication:Nonsmoker Start:12-May-2017 Instruction Type:Provider Instructions for Treatment obesity counseling Indication:Osteoarthritis, localized Start:03-Apr-2017 Instruction Type:Provider Instructions for Treatment How to access health informa tion online Indication:Nonsmoker Start:03-Apr-2017 Instruction Type:Patient Education How to access health informa tion online - Detail Indication:Nonsmoker Start:03-Apr-2017 Instruction Type:Patient Education Patient Instructions Indication:Nonsmoker Start:03-Apr-2017 Instruction Type:Provider Instructions for Treatment How to access health informa tion online Indication:Left groin pain Start:10-Mar-2017 Instruction Type:Patient Education How to access health informa tion online - Detail Indication:Left groin pain Start:10-Mar-2017 Instruction Type:Patient Education Patient Instructions Indication:Left groin pain Start:10-Mar-2017 Instruction Type:Provider Instructions for Treatment How to access health informa tion online Indication:Nonsmoker Start:24-Feb-2017 Instruction Type:Patient Education How to access health informa tion online - Detail Indication:Nonsmoker Start:24-Feb-2017 Instruction Type:Patient Education Patient Instructions Indication:Nonsmoker Start:24-Feb-2017 Instruction Type:Provider Instructions for Treatment How to access health informa tion online Indication:Nonsmoker Start:13-Feb-2017 Instruction Type:Patient Education How to access health informa tion online - Detail Indication:Nonsmoker Start:13-Feb-2017 Instruction Type:Patient Education Patient Instructions Indication:Nonsmoker Start:13-Feb-2017 Instruction Type:Provider Instructions for Treatment How to access health informa tion online Indication:Nonsmoker Start:22-Jan-2017 Instruction Type:Patient Education How to access health informa tion online - Detail Indication:Nonsmoker Start:22-Jan-2017 Instruction Type:Patient Education Patient Instructions Indication:Nonsmoker Start:22-Jan-2017 Instruction Type:Provider Instructions for Treatment How to access health informa tion online Indication:Nonsmoker Start:03-Jul-2016 Instruction Type:Patient Education How to access health informa tion online - Detail Indication:Nonsmoker Start:03-Jul-2016 Instruction Type:Patient Education Patient Instructions Indication:Nonsmoker Start:03-Jul-2016 Instruction Type:Provider Instructions for Treatment Patient Instructions Indication:Encounter for screening for malignant neoplasm of colon (Renamed from Special screening for malignant neoplasms, colon) Start:26-Mar-2016 Instruction Type:Provider Instructions for Treatment How to access health informa tion online Indication:Encounter for screening for malignant neoplasm of colon (Renamed from Special screening for malignant neoplasms, colon) Start:26-Mar-2016 Instruction Type:Patient Education How to access health informa tion online - Detail Indication:Encounter for screening for malignant neoplasm of colon (Renamed from Special screening for malignant neoplasms, colon) Start:26-Mar-2016 Instruction Type:Patient Education obesity counseling Indication:Hypertension, benign Start:26-Mar-2016 Instruction Type:Provider Instructions for Treatment [facility]; [facility] Work Phone: Instructions* Name Dates Details Patient Instructions Indication:Hypertension, benign Start:06-Dec-2021 Instruction Type:Provider Instructions for Treatment How to Access Health Informa tion Online using Patient Portal and [employer]rd [employer] Apps Indication:Hypertension, benign Start:06-Dec-2021 Instruction Type:Patient Education Patient Instructions Indication:Morbid obesity Start:19-Nov-2021 Instruction Type:Provider Instructions for Treatment How to Access Health Informa tion Online using Patient Portal and [employer]rd [employer] Apps Indication:Morbid obesity Start:19-Nov-2021 Instruction Type:Patient Education Patient Instructions Indication:BMI 45.0-49.9, adult Start:09-Jul-2021 Instruction Type:Provider Instructions for Treatment How to Access Health Informa tion Online using Patient Portal and [employer]rd [employer] Apps Indication:BMI 45.0-49.9, adult Start:09-Jul-2021 Instruction Type:Patient Education Patient Instructions Indication:Hypertension, benign Start:15-Mar-2021 Instruction Type:Provider Instructions for Treatment Patient Instructions Indication:BMI 45.0-49.9, adult Start:15-Mar-2021 Instruction Type:Provider Instructions for Treatment How to Access Health Informa tion Online using Patient Portal and [employer]rd [employer] Apps Indication:BMI 45.0-49.9, adult Start:15-Mar-2021 Instruction Type:Patient Education How to Access Health Informa tion Online using Patient Portal and [employer] Apps Indication:Non-smoker Start:12-Mar-2021 Instruction Type:Patient Education Patient Instructions Indication:Non-smoker Start:12-Mar-2021 Instruction Type:Provider Instructions for Treatment How to Access Health Informa tion Online using Patient Portal and [employer] Apps Indication:Non-smoker Start:12-Mar-2021 Instruction Type:Patient Education Patient Instructions Indication:Non-smoker Start:09-Mar-2021 Instruction Type:Provider Instructions for Treatment How to Access Health Informa tion Online using Patient Portal and [employer] Apps Indication:Non-smoker Start:09-Mar-2021 Instruction Type:Patient Education Patient Instructions Indication:BMI 45.0-49.9, adult Start:14-Jun-2020 Instruction Type:Provider Instructions for Treatment How to access health informa tion online Indication:Non-smoker Start:27-May-2018 Instruction Type:Patient Education How to access health informa tion online - Detail Indication:Non-smoker Start:27-May-2018 Instruction Type:Patient Education Patient Instructions Indication:Non-smoker Start:27-May-2018 Instruction Type:Provider Instructions for Treatment obesity counseling Indication:Hypertension, benign Start:09-Apr-2018 Instruction Type:Provider Instructions for Treatment How to access health informa tion online Indication:BMI 45.0-49.9, adult Start:09-Apr-2018 Instruction Type:Patient Education How to access health informa tion online - Detail Indication:BMI 45.0-49.9, adult Start:09-Apr-2018 Instruction Type:Patient Education Patient Instructions Indication:BMI 45.0-49.9, adult Start:09-Apr-2018 Instruction Type:Provider Instructions for Treatment How to access health informa tion online Indication:Nonsmoker Start:16-Sep-2017 Instruction Type:Patient Education How to access health informa tion online - Detail Indication:Nonsmoker Start:16-Sep-2017 Instruction Type:Patient Education Patient Instructions Indication:Nonsmoker Start:16-Sep-2017 Instruction Type:Provider Instructions for Treatment How to access health informa tion online Indication:Nonsmoker Start:04-Sep-2017 Instruction Type:Patient Education How to access health informa tion online - Detail Indication:Nonsmoker Start:04-Sep-2017 Instruction Type:Patient Education Patient Instructions Indication:Nonsmoker Start:04-Sep-2017 Instruction Type:Provider Instructions for Treatment How to access health informa tion online Indication:Nonsmoker Start:12-May-2017 Instruction Type:Patient Education How to access health informa tion online - Detail Indication:Nonsmoker Start:12-May-2017 Instruction Type:Patient Education Patient Instructions Indication:Nonsmoker Start:12-May-2017 Instruction Type:Provider Instructions for Treatment obesity counseling Indication:Osteoarthritis, localized Start:03-Apr-2017 Instruction Type:Provider Instructions for Treatment How to access health informa tion online Indication:Nonsmoker Start:03-Apr-2017 Instruction Type:Patient Education How to access health informa tion online - Detail Indication:Nonsmoker Start:03-Apr-2017 Instruction Type:Patient Education Patient Instructions Indication:Nonsmoker Start:03-Apr-2017 Instruction Type:Provider Instructions for Treatment How to access health informa tion online Indication:Left groin pain Start:10-Mar-2017 Instruction Type:Patient Education How to access health informa tion online - Detail Indication:Left groin pain Start:10-Mar-2017 Instruction Type:Patient Education Patient Instructions Indication:Left groin pain Start:10-Mar-2017 Instruction Type:Provider Instructions for Treatment How to access health informa tion online Indication:Nonsmoker Start:24-Feb-2017 Instruction Type:Patient Education How to access health informa tion online - Detail Indication:Nonsmoker Start:24-Feb-2017 Instruction Type:Patient Education Patient Instructions Indication:Nonsmoker Start:24-Feb-2017 Instruction Type:Provider Instructions for Treatment How to access health informa tion online Indication:Nonsmoker Start:13-Feb-2017 Instruction Type:Patient Education How to access health informa tion online - Detail Indication:Nonsmoker Start:13-Feb-2017 Instruction Type:Patient Education Patient Instructions Indication:Nonsmoker Start:13-Feb-2017 Instruction Type:Provider Instructions for Treatment How to access health informa tion online Indication:Nonsmoker Start:22-Jan-2017 Instruction Type:Patient Education How to access health informa tion online - Detail Indication:Nonsmoker Start:22-Jan-2017 Instruction Type:Patient Education Patient Instructions Indication:Nonsmoker Start:22-Jan-2017 Instruction Type:Provider Instructions for Treatment How to access health informa tion online Indication:Nonsmoker Start:03-Jul-2016 Instruction Type:Patient Education How to access health informa tion online - Detail Indication:Nonsmoker Start:03-Jul-2016 Instruction Type:Patient Education Patient Instructions Indication:Nonsmoker Start:03-Jul-2016 Instruction Type:Provider Instructions for Treatment Patient Instructions Indication:Encounter for screening for malignant neoplasm of colon (Renamed from Special screening for malignant neoplasms, colon) Start:26-Mar-2016 Instruction Type:Provider Instructions for Treatment How to access health informa tion online Indication:Encounter for screening for malignant neoplasm of colon (Renamed from Special screening for malignant neoplasms, colon) Start:26-Mar-2016 Instruction Type:Patient Education How to access health informa tion online - Detail Indication:Encounter for screening for malignant neoplasm of colon (Renamed from Special screening for malignant neoplasms, colon) Start:26-Mar-2016 Instruction Type:Patient Education obesity counseling Indication:Hypertension, benign Start:26-Mar-2016 Instruction Type:Provider Instructions for Treatment [facility]; [facility] Work Phone: Instructions* Name Dates Details Patient Instructions Indication:Hypertension, benign Start:06-Dec-2021 Instruction Type:Provider Instructions for Treatment How to Access Health Informa tion Online using Patient Portal and [employer] Apps Indication:Hypertension, benign Start:06-Dec-2021 Instruction Type:Patient Education Patient Instructions Indication:Morbid obesity Start:19-Nov-2021 Instruction Type:Provider Instructions for Treatment How to Access Health Informa tion Online using Patient Portal and [employer]rd [employer] Apps Indication:Morbid obesity Start:19-Nov-2021 Instruction Type:Patient Education Patient Instructions Indication:BMI 45.0-49.9, adult Start:09-Jul-2021 Instruction Type:Provider Instructions for Treatment How to Access Health Informa tion Online using Patient Portal and [employer]rd [employer] Apps Indication:BMI 45.0-49.9, adult Start:09-Jul-2021 Instruction Type:Patient Education Patient Instructions Indication:Hypertension, benign Start:15-Mar-2021 Instruction Type:Provider Instructions for Treatment Patient Instructions Indication:BMI 45.0-49.9, adult Start:15-Mar-2021 Instruction Type:Provider Instructions for Treatment How to Access Health Informa tion Online using Patient Portal and [employer]rd [employer] Apps Indication:BMI 45.0-49.9, adult Start:15-Mar-2021 Instruction Type:Patient Education How to Access Health Informa tion Online using Patient Portal and [employer] Apps Indication:Non-smoker Start:12-Mar-2021 Instruction Type:Patient Education Patient Instructions Indication:Non-smoker Start:12-Mar-2021 Instruction Type:Provider Instructions for Treatment How to Access Health Informa tion Online using Patient Portal and [employer] Apps Indication:Non-smoker Start:12-Mar-2021 Instruction Type:Patient Education Patient Instructions Indication:Non-smoker Start:09-Mar-2021 Instruction Type:Provider Instructions for Treatment How to Access Health Informa tion Online using Patient Portal and [employer] Apps Indication:Non-smoker Start:09-Mar-2021 Instruction Type:Patient Education Patient Instructions Indication:BMI 45.0-49.9, adult Start:14-Jun-2020 Instruction Type:Provider Instructions for Treatment How to access health informa tion online Indication:Non-smoker Start:27-May-2018 Instruction Type:Patient Education How to access health informa tion online - Detail Indication:Non-smoker Start:27-May-2018 Instruction Type:Patient Education Patient Instructions Indication:Non-smoker Start:27-May-2018 Instruction Type:Provider Instructions for Treatment obesity counseling Indication:Hypertension, benign Start:09-Apr-2018 Instruction Type:Provider Instructions for Treatment How to access health informa tion online Indication:BMI 45.0-49.9, adult Start:09-Apr-2018 Instruction Type:Patient Education How to access health informa tion online - Detail Indication:BMI 45.0-49.9, adult Start:09-Apr-2018 Instruction Type:Patient Education Patient Instructions Indication:BMI 45.0-49.9, adult Start:09-Apr-2018 Instruction Type:Provider Instructions for Treatment How to access health informa tion online Indication:Nonsmoker Start:16-Sep-2017 Instruction Type:Patient Education How to access health informa tion online - Detail Indication:Nonsmoker Start:16-Sep-2017 Instruction Type:Patient Education Patient Instructions Indication:Nonsmoker Start:16-Sep-2017 Instruction Type:Provider Instructions for Treatment How to access health informa tion online Indication:Nonsmoker Start:04-Sep-2017 Instruction Type:Patient Education How to access health informa tion online - Detail Indication:Nonsmoker Start:04-Sep-2017 Instruction Type:Patient Education Patient Instructions Indication:Nonsmoker Start:04-Sep-2017 Instruction Type:Provider Instructions for Treatment How to access health informa tion online Indication:Nonsmoker Start:12-May-2017 Instruction Type:Patient Education How to access health informa tion online - Detail Indication:Nonsmoker Start:12-May-2017 Instruction Type:Patient Education Patient Instructions Indication:Nonsmoker Start:12-May-2017 Instruction Type:Provider Instructions for Treatment obesity counseling Indication:Osteoarthritis, localized Start:03-Apr-2017 Instruction Type:Provider Instructions for Treatment How to access health informa tion online Indication:Nonsmoker Start:03-Apr-2017 Instruction Type:Patient Education How to access health informa tion online - Detail Indication:Nonsmoker Start:03-Apr-2017 Instruction Type:Patient Education Patient Instructions Indication:Nonsmoker Start:03-Apr-2017 Instruction Type:Provider Instructions for Treatment How to access health informa tion online Indication:Left groin pain Start:10-Mar-2017 Instruction Type:Patient Education How to access health informa tion online - Detail Indication:Left groin pain Start:10-Mar-2017 Instruction Type:Patient Education Patient Instructions Indication:Left groin pain Start:10-Mar-2017 Instruction Type:Provider Instructions for Treatment How to access health informa tion online Indication:Nonsmoker Start:24-Feb-2017 Instruction Type:Patient Education How to access health informa tion online - Detail Indication:Nonsmoker Start:24-Feb-2017 Instruction Type:Patient Education Patient Instructions Indication:Nonsmoker Start:24-Feb-2017 Instruction Type:Provider Instructions for Treatment How to access health informa tion online Indication:Nonsmoker Start:13-Feb-2017 Instruction Type:Patient Education How to access health informa tion online - Detail Indication:Nonsmoker Start:13-Feb-2017 Instruction Type:Patient Education Patient Instructions Indication:Nonsmoker Start:13-Feb-2017 Instruction Type:Provider Instructions for Treatment How to access health informa tion online Indication:Nonsmoker Start:22-Jan-2017 Instruction Type:Patient Education How to access health informa tion online - Detail Indication:Nonsmoker Start:22-Jan-2017 Instruction Type:Patient Education Patient Instructions Indication:Nonsmoker Start:22-Jan-2017 Instruction Type:Provider Instructions for Treatment How to access health informa tion online Indication:Nonsmoker Start:03-Jul-2016 Instruction Type:Patient Education How to access health informa tion online - Detail Indication:Nonsmoker Start:03-Jul-2016 Instruction Type:Patient Education Patient Instructions Indication:Nonsmoker Start:03-Jul-2016 Instruction Type:Provider Instructions for Treatment Patient Instructions Indication:Encounter for screening for malignant neoplasm of colon (Renamed from Special screening for malignant neoplasms, colon) Start:26-Mar-2016 Instruction Type:Provider Instructions for Treatment How to access health informa tion online Indication:Encounter for screening for malignant neoplasm of colon (Renamed from Special screening for malignant neoplasms, colon) Start:26-Mar-2016 Instruction Type:Patient Education How to access health informa tion online - Detail Indication:Encounter for screening for malignant neoplasm of colon (Renamed from Special screening for malignant neoplasms, colon) Start:26-Mar-2016 Instruction Type:Patient Education obesity counseling Indication:Hypertension, benign Start:26-Mar-2016 Instruction Type:Provider Instructions for Treatment [facility]; [facility] Work Phone: Instructions* Name Dates Details Patient Instructions Indication:Hypertension, benign Start:06-Dec-2021 Instruction Type:Provider Instructions for Treatment How to Access Health Informa tion Online using Patient Portal and [employer]rd [employer] Apps Indication:Hypertension, benign Start:06-Dec-2021 Instruction Type:Patient Education Patient Instructions Indication:Morbid obesity Start:19-Nov-2021 Instruction Type:Provider Instructions for Treatment How to Access Health Informa tion Online using Patient Portal and [employer]rd [employer] Apps Indication:Morbid obesity Start:19-Nov-2021 Instruction Type:Patient Education Patient Instructions Indication:BMI 45.0-49.9, adult Start:09-Jul-2021 Instruction Type:Provider Instructions for Treatment How to Access Health Informa tion Online using Patient Portal and [employer] Apps Indication:BMI 45.0-49.9, adult Start:09-Jul-2021 Instruction Type:Patient Education Patient Instructions Indication:Hypertension, benign Start:15-Mar-2021 Instruction Type:Provider Instructions for Treatment Patient Instructions Indication:BMI 45.0-49.9, adult Start:15-Mar-2021 Instruction Type:Provider Instructions for Treatment How to Access Health Informa tion Online using Patient Portal and [employer]rd [employer] Apps Indication:BMI 45.0-49.9, adult Start:15-Mar-2021 Instruction Type:Patient Education How to Access Health Informa tion Online using Patient Portal and [employer] Apps Indication:Non-smoker Start:12-Mar-2021 Instruction Type:Patient Education Patient Instructions Indication:Non-smoker Start:12-Mar-2021 Instruction Type:Provider Instructions for Treatment How to Access Health Informa tion Online using Patient Portal and [employer]rd [employer] Apps Indication:Non-smoker Start:12-Mar-2021 Instruction Type:Patient Education Patient Instructions Indication:Non-smoker Start:09-Mar-2021 Instruction Type:Provider Instructions for Treatment How to Access Health Informa tion Online using Patient Portal and [employer] Apps Indication:Non-smoker Start:09-Mar-2021 Instruction Type:Patient Education Patient Instructions Indication:BMI 45.0-49.9, adult Start:14-Jun-2020 Instruction Type:Provider Instructions for Treatment How to access health informa tion online Indication:Non-smoker Start:27-May-2018 Instruction Type:Patient Education How to access health informa tion online - Detail Indication:Non-smoker Start:27-May-2018 Instruction Type:Patient Education Patient Instructions Indication:Non-smoker Start:27-May-2018 Instruction Type:Provider Instructions for Treatment obesity counseling Indication:Hypertension, benign Start:09-Apr-2018 Instruction Type:Provider Instructions for Treatment How to access health informa tion online Indication:BMI 45.0-49.9, adult Start:09-Apr-2018 Instruction Type:Patient Education How to access health informa tion online - Detail Indication:BMI 45.0-49.9, adult Start:09-Apr-2018 Instruction Type:Patient Education Patient Instructions Indication:BMI 45.0-49.9, adult Start:09-Apr-2018 Instruction Type:Provider Instructions for Treatment How to access health informa tion online Indication:Nonsmoker Start:16-Sep-2017 Instruction Type:Patient Education How to access health informa tion online - Detail Indication:Nonsmoker Start:16-Sep-2017 Instruction Type:Patient Education Patient Instructions Indication:Nonsmoker Start:16-Sep-2017 Instruction Type:Provider Instructions for Treatment How to access health informa tion online Indication:Nonsmoker Start:04-Sep-2017 Instruction Type:Patient Education How to access health informa tion online - Detail Indication:Nonsmoker Start:04-Sep-2017 Instruction Type:Patient Education Patient Instructions Indication:Nonsmoker Start:04-Sep-2017 Instruction Type:Provider Instructions for Treatment How to access health informa tion online Indication:Nonsmoker Start:12-May-2017 Instruction Type:Patient Education How to access health informa tion online - Detail Indication:Nonsmoker Start:12-May-2017 Instruction Type:Patient Education Patient Instructions Indication:Nonsmoker Start:12-May-2017 Instruction Type:Provider Instructions for Treatment obesity counseling Indication:Osteoarthritis, localized Start:03-Apr-2017 Instruction Type:Provider Instructions for Treatment How to access health informa tion online Indication:Nonsmoker Start:03-Apr-2017 Instruction Type:Patient Education How to access health informa tion online - Detail Indication:Nonsmoker Start:03-Apr-2017 Instruction Type:Patient Education Patient Instructions Indication:Nonsmoker Start:03-Apr-2017 Instruction Type:Provider Instructions for Treatment How to access health informa tion online Indication:Left groin pain Start:10-Mar-2017 Instruction Type:Patient Education How to access health informa tion online - Detail Indication:Left groin pain Start:10-Mar-2017 Instruction Type:Patient Education Patient Instructions Indication:Left groin pain Start:10-Mar-2017 Instruction Type:Provider Instructions for Treatment How to access health informa tion online Indication:Nonsmoker Start:24-Feb-2017 Instruction Type:Patient Education How to access health informa tion online - Detail Indication:Nonsmoker Start:24-Feb-2017 Instruction Type:Patient Education Patient Instructions Indication:Nonsmoker Start:24-Feb-2017 Instruction Type:Provider Instructions for Treatment How to access health informa tion online Indication:Nonsmoker Start:13-Feb-2017 Instruction Type:Patient Education How to access health informa tion online - Detail Indication:Nonsmoker Start:13-Feb-2017 Instruction Type:Patient Education Patient Instructions Indication:Nonsmoker Start:13-Feb-2017 Instruction Type:Provider Instructions for Treatment How to access health informa tion online Indication:Nonsmoker Start:22-Jan-2017 Instruction Type:Patient Education How to access health informa tion online - Detail Indication:Nonsmoker Start:22-Jan-2017 Instruction Type:Patient Education Patient Instructions Indication:Nonsmoker Start:22-Jan-2017 Instruction Type:Provider Instructions for Treatment How to access health informa tion online Indication:Nonsmoker Start:03-Jul-2016 Instruction Type:Patient Education How to access health informa tion online - Detail Indication:Nonsmoker Start:03-Jul-2016 Instruction Type:Patient Education Patient Instructions Indication:Nonsmoker Start:03-Jul-2016 Instruction Type:Provider Instructions for Treatment Patient Instructions Indication:Encounter for screening for malignant neoplasm of colon (Renamed from Special screening for malignant neoplasms, colon) Start:26-Mar-2016 Instruction Type:Provider Instructions for Treatment How to access health informa tion online Indication:Encounter for screening for malignant neoplasm of colon (Renamed from Special screening for malignant neoplasms, colon) Start:26-Mar-2016 Instruction Type:Patient Education How to access health informa tion online - Detail Indication:Encounter for screening for malignant neoplasm of colon (Renamed from Special screening for malignant neoplasms, colon) Start:26-Mar-2016 Instruction Type:Patient Education obesity counseling Indication:Hypertension, benign Start:26-Mar-2016 Instruction Type:Provider Instructions for Treatment [facility]; [facility] Work Phone: Instructions* Name Dates Details obesity counseling Indication:Hypertension, benign Start:07-Mar-2022 Instruction Type:Provider Instructions for Treatment Patient Instructions Indication:Non-smoker Start:07-Mar-2022 Instruction Type:Provider Instructions for Treatment How to Access Health Informa tion Online using Patient Portal and [employer] Apps Indication:Non-smoker Start:07-Mar-2022 Instruction Type:Patient Education Patient Instructions Indication:Hypertension, benign Start:06-Dec-2021 Instruction Type:Provider Instructions for Treatment How to Access Health Informa tion Online using Patient Portal and [employer] Apps Indication:Hypertension, benign Start:06-Dec-2021 Instruction Type:Patient Education Patient Instructions Indication:Morbid obesity Start:19-Nov-2021 Instruction Type:Provider Instructions for Treatment How to Access Health Informa tion Online using Patient Portal and [employer] Apps Indication:Morbid obesity Start:19-Nov-2021 Instruction Type:Patient Education Patient Instructions Indication:BMI 45.0-49.9, adult Start:09-Jul-2021 Instruction Type:Provider Instructions for Treatment How to Access Health Informa tion Online using Patient Portal and [employer] Apps Indication:BMI 45.0-49.9, adult Start:09-Jul-2021 Instruction Type:Patient Education Patient Instructions Indication:Hypertension, benign Start:15-Mar-2021 Instruction Type:Provider Instructions for Treatment Patient Instructions Indication:BMI 45.0-49.9, adult Start:15-Mar-2021 Instruction Type:Provider Instructions for Treatment How to Access Health Informa tion Online using Patient Portal and [employer] Apps Indication:BMI 45.0-49.9, adult Start:15-Mar-2021 Instruction Type:Patient Education How to Access Health Informa tion Online using Patient Portal and [employer] Apps Indication:Non-smoker Start:12-Mar-2021 Instruction Type:Patient Education Patient Instructions Indication:Non-smoker Start:12-Mar-2021 Instruction Type:Provider Instructions for Treatment How to Access Health Informa tion Online using Patient Portal and [employer] Apps Indication:Non-smoker Start:12-Mar-2021 Instruction Type:Patient Education Patient Instructions Indication:Non-smoker Start:09-Mar-2021 Instruction Type:Provider Instructions for Treatment How to Access Health Informa tion Online using Patient Portal and [employer] Apps Indication:Non-smoker Start:09-Mar-2021 Instruction Type:Patient Education Patient Instructions Indication:BMI 45.0-49.9, adult Start:14-Jun-2020 Instruction Type:Provider Instructions for Treatment How to access health informa tion online Indication:Non-smoker Start:27-May-2018 Instruction Type:Patient Education How to access health informa tion online - Detail Indication:Non-smoker Start:27-May-2018 Instruction Type:Patient Education Patient Instructions Indication:Non-smoker Start:27-May-2018 Instruction Type:Provider Instructions for Treatment obesity counseling Indication:Hypertension, benign Start:09-Apr-2018 Instruction Type:Provider Instructions for Treatment How to access health informa tion online Indication:BMI 45.0-49.9, adult Start:09-Apr-2018 Instruction Type:Patient Education How to access health informa tion online - Detail Indication:BMI 45.0-49.9, adult Start:09-Apr-2018 Instruction Type:Patient Education Patient Instructions Indication:BMI 45.0-49.9, adult Start:09-Apr-2018 Instruction Type:Provider Instructions for Treatment How to access health informa tion online Indication:Nonsmoker Start:16-Sep-2017 Instruction Type:Patient Education How to access health informa tion online - Detail Indication:Nonsmoker Start:16-Sep-2017 Instruction Type:Patient Education Patient Instructions Indication:Nonsmoker Start:16-Sep-2017 Instruction Type:Provider Instructions for Treatment How to access health informa tion online Indication:Nonsmoker Start:04-Sep-2017 Instruction Type:Patient Education How to access health informa tion online - Detail Indication:Nonsmoker Start:04-Sep-2017 Instruction Type:Patient Education Patient Instructions Indication:Nonsmoker Start:04-Sep-2017 Instruction Type:Provider Instructions for Treatment How to access health informa tion online Indication:Nonsmoker Start:12-May-2017 Instruction Type:Patient Education How to access health informa tion online - Detail Indication:Nonsmoker Start:12-May-2017 Instruction Type:Patient Education Patient Instructions Indication:Nonsmoker Start:12-May-2017 Instruction Type:Provider Instructions for Treatment obesity counseling Indication:Osteoarthritis, localized Start:03-Apr-2017 Instruction Type:Provider Instructions for Treatment How to access health informa tion online Indication:Nonsmoker Start:03-Apr-2017 Instruction Type:Patient Education How to access health informa tion online - Detail Indication:Nonsmoker Start:03-Apr-2017 Instruction Type:Patient Education Patient Instructions Indication:Nonsmoker Start:03-Apr-2017 Instruction Type:Provider Instructions for Treatment How to access health informa tion online Indication:Left groin pain Start:10-Mar-2017 Instruction Type:Patient Education How to access health informa tion online - Detail Indication:Left groin pain Start:10-Mar-2017 Instruction Type:Patient Education Patient Instructions Indication:Left groin pain Start:10-Mar-2017 Instruction Type:Provider Instructions for Treatment How to access health informa tion online Indication:Nonsmoker Start:24-Feb-2017 Instruction Type:Patient Education How to access health informa tion online - Detail Indication:Nonsmoker Start:24-Feb-2017 Instruction Type:Patient Education Patient Instructions Indication:Nonsmoker Start:24-Feb-2017 Instruction Type:Provider Instructions for Treatment How to access health informa tion online Indication:Nonsmoker Start:13-Feb-2017 Instruction Type:Patient Education How to access health informa tion online - Detail Indication:Nonsmoker Start:13-Feb-2017 Instruction Type:Patient Education Patient Instructions Indication:Nonsmoker Start:13-Feb-2017 Instruction Type:Provider Instructions for Treatment How to access health informa tion online Indication:Nonsmoker Start:22-Jan-2017 Instruction Type:Patient Education How to access health informa tion online - Detail Indication:Nonsmoker Start:22-Jan-2017 Instruction Type:Patient Education Patient Instructions Indication:Nonsmoker Start:22-Jan-2017 Instruction Type:Provider Instructions for Treatment How to access health informa tion online Indication:Nonsmoker Start:03-Jul-2016 Instruction Type:Patient Education How to access health informa tion online - Detail Indication:Nonsmoker Start:03-Jul-2016 Instruction Type:Patient Education Patient Instructions Indication:Nonsmoker Start:03-Jul-2016 Instruction Type:Provider Instructions for Treatment Patient Instructions Indication:Encounter for screening for malignant neoplasm of colon (Renamed from Special screening for malignant neoplasms, colon) Start:26-Mar-2016 Instruction Type:Provider Instructions for Treatment How to access health informa tion online Indication:Encounter for screening for malignant neoplasm of colon (Renamed from Special screening for malignant neoplasms, colon) Start:26-Mar-2016 Instruction Type:Patient Education How to access health informa tion online - Detail Indication:Encounter for screening for malignant neoplasm of colon (Renamed from Special screening for malignant neoplasms, colon) Start:26-Mar-2016 Instruction Type:Patient Education obesity counseling Indication:Hypertension, benign Start:26-Mar-2016 Instruction Type:Provider Instructions for Treatment [facility]; [facility] Work Phone: Instructions* Name Dates Details obesity counseling Indication:Hypertension, benign Start:07-Mar-2022 Instruction Type:Provider Instructions for Treatment Patient Instructions Indication:Non-smoker Start:07-Mar-2022 Instruction Type:Provider Instructions for Treatment How to Access Health Informa tion Online using Patient Portal and [employer] Apps Indication:Non-smoker Start:07-Mar-2022 Instruction Type:Patient Education Patient Instructions Indication:Hypertension, benign Start:06-Dec-2021 Instruction Type:Provider Instructions for Treatment How to Access Health Informa tion Online using Patient Portal and [employer] Apps Indication:Hypertension, benign Start:06-Dec-2021 Instruction Type:Patient Education Patient Instructions Indication:Morbid obesity Start:19-Nov-2021 Instruction Type:Provider Instructions for Treatment How to Access Health Informa tion Online using Patient Portal and [employer]rd [employer] Apps Indication:Morbid obesity Start:19-Nov-2021 Instruction Type:Patient Education Patient Instructions Indication:BMI 45.0-49.9, adult Start:09-Jul-2021 Instruction Type:Provider Instructions for Treatment How to Access Health Informa tion Online using Patient Portal and [employer]rd [employer] Apps Indication:BMI 45.0-49.9, adult Start:09-Jul-2021 Instruction Type:Patient Education Patient Instructions Indication:Hypertension, benign Start:15-Mar-2021 Instruction Type:Provider Instructions for Treatment Patient Instructions Indication:BMI 45.0-49.9, adult Start:15-Mar-2021 Instruction Type:Provider Instructions for Treatment How to Access Health Informa tion Online using Patient Portal and [employer] Apps Indication:BMI 45.0-49.9, adult Start:15-Mar-2021 Instruction Type:Patient Education How to Access Health Informa tion Online using Patient Portal and [employer] Apps Indication:Non-smoker Start:12-Mar-2021 Instruction Type:Patient Education Patient Instructions Indication:Non-smoker Start:12-Mar-2021 Instruction Type:Provider Instructions for Treatment How to Access Health Informa tion Online using Patient Portal and [employer] Apps Indication:Non-smoker Start:12-Mar-2021 Instruction Type:Patient Education Patient Instructions Indication:Non-smoker Start:09-Mar-2021 Instruction Type:Provider Instructions for Treatment How to Access Health Informa tion Online using Patient Portal and [employer] Apps Indication:Non-smoker Start:09-Mar-2021 Instruction Type:Patient Education Patient Instructions Indication:BMI 45.0-49.9, adult Start:14-Jun-2020 Instruction Type:Provider Instructions for Treatment How to access health informa tion online Indication:Non-smoker Start:27-May-2018 Instruction Type:Patient Education How to access health informa tion online - Detail Indication:Non-smoker Start:27-May-2018 Instruction Type:Patient Education Patient Instructions Indication:Non-smoker Start:27-May-2018 Instruction Type:Provider Instructions for Treatment obesity counseling Indication:Hypertension, benign Start:09-Apr-2018 Instruction Type:Provider Instructions for Treatment How to access health informa tion online Indication:BMI 45.0-49.9, adult Start:09-Apr-2018 Instruction Type:Patient Education How to access health informa tion online - Detail Indication:BMI 45.0-49.9, adult Start:09-Apr-2018 Instruction Type:Patient Education Patient Instructions Indication:BMI 45.0-49.9, adult Start:09-Apr-2018 Instruction Type:Provider Instructions for Treatment How to access health informa tion online Indication:Nonsmoker Start:16-Sep-2017 Instruction Type:Patient Education How to access health informa tion online - Detail Indication:Nonsmoker Start:16-Sep-2017 Instruction Type:Patient Education Patient Instructions Indication:Nonsmoker Start:16-Sep-2017 Instruction Type:Provider Instructions for Treatment How to access health informa tion online Indication:Nonsmoker Start:04-Sep-2017 Instruction Type:Patient Education How to access health informa tion online - Detail Indication:Nonsmoker Start:04-Sep-2017 Instruction Type:Patient Education Patient Instructions Indication:Nonsmoker Start:04-Sep-2017 Instruction Type:Provider Instructions for Treatment How to access health informa tion online Indication:Nonsmoker Start:12-May-2017 Instruction Type:Patient Education How to access health informa tion online - Detail Indication:Nonsmoker Start:12-May-2017 Instruction Type:Patient Education Patient Instructions Indication:Nonsmoker Start:12-May-2017 Instruction Type:Provider Instructions for Treatment obesity counseling Indication:Osteoarthritis, localized Start:03-Apr-2017 Instruction Type:Provider Instructions for Treatment How to access health informa tion online Indication:Nonsmoker Start:03-Apr-2017 Instruction Type:Patient Education How to access health informa tion online - Detail Indication:Nonsmoker Start:03-Apr-2017 Instruction Type:Patient Education Patient Instructions Indication:Nonsmoker Start:03-Apr-2017 Instruction Type:Provider Instructions for Treatment How to access health informa tion online Indication:Left groin pain Start:10-Mar-2017 Instruction Type:Patient Education How to access health informa tion online - Detail Indication:Left groin pain Start:10-Mar-2017 Instruction Type:Patient Education Patient Instructions Indication:Left groin pain Start:10-Mar-2017 Instruction Type:Provider Instructions for Treatment How to access health informa tion online Indication:Nonsmoker Start:24-Feb-2017 Instruction Type:Patient Education How to access health informa tion online - Detail Indication:Nonsmoker Start:24-Feb-2017 Instruction Type:Patient Education Patient Instructions Indication:Nonsmoker Start:24-Feb-2017 Instruction Type:Provider Instructions for Treatment How to access health informa tion online Indication:Nonsmoker Start:13-Feb-2017 Instruction Type:Patient Education How to access health informa tion online - Detail Indication:Nonsmoker Start:13-Feb-2017 Instruction Type:Patient Education Patient Instructions Indication:Nonsmoker Start:13-Feb-2017 Instruction Type:Provider Instructions for Treatment How to access health informa tion online Indication:Nonsmoker Start:22-Jan-2017 Instruction Type:Patient Education How to access health informa tion online - Detail Indication:Nonsmoker Start:22-Jan-2017 Instruction Type:Patient Education Patient Instructions Indication:Nonsmoker Start:22-Jan-2017 Instruction Type:Provider Instructions for Treatment How to access health informa tion online Indication:Nonsmoker Start:03-Jul-2016 Instruction Type:Patient Education How to access health informa tion online - Detail Indication:Nonsmoker Start:03-Jul-2016 Instruction Type:Patient Education Patient Instructions Indication:Nonsmoker Start:03-Jul-2016 Instruction Type:Provider Instructions for Treatment Patient Instructions Indication:Encounter for screening for malignant neoplasm of colon (Renamed from Special screening for malignant neoplasms, colon) Start:26-Mar-2016 Instruction Type:Provider Instructions for Treatment How to access health informa tion online Indication:Encounter for screening for malignant neoplasm of colon (Renamed from Special screening for malignant neoplasms, colon) Start:26-Mar-2016 Instruction Type:Patient Education How to access health informa tion online - Detail Indication:Encounter for screening for malignant neoplasm of colon (Renamed from Special screening for malignant neoplasms, colon) Start:26-Mar-2016 Instruction Type:Patient Education obesity counseling Indication:Hypertension, benign Start:26-Mar-2016 Instruction Type:Provider Instructions for Treatment [facility]; [facility] Work Phone: Instructions* Name Dates Details obesity counseling Indication:Hypertension, benign Start:07-Mar-2022 Instruction Type:Provider Instructions for Treatment Patient Instructions Indication:Non-smoker Start:07-Mar-2022 Instruction Type:Provider Instructions for Treatment How to Access Health Informa tion Online using Patient Portal and [employer] Apps Indication:Non-smoker Start:07-Mar-2022 Instruction Type:Patient Education Patient Instructions Indication:Hypertension, benign Start:06-Dec-2021 Instruction Type:Provider Instructions for Treatment How to Access Health Informa tion Online using Patient Portal and [employer] Apps Indication:Hypertension, benign Start:06-Dec-2021 Instruction Type:Patient Education Patient Instructions Indication:Morbid obesity Start:19-Nov-2021 Instruction Type:Provider Instructions for Treatment How to Access Health Informa tion Online using Patient Portal and [employer]rd [employer] Apps Indication:Morbid obesity Start:19-Nov-2021 Instruction Type:Patient Education Patient Instructions Indication:BMI 45.0-49.9, adult Start:09-Jul-2021 Instruction Type:Provider Instructions for Treatment How to Access Health Informa tion Online using Patient Portal and [employer]rd [employer] Apps Indication:BMI 45.0-49.9, adult Start:09-Jul-2021 Instruction Type:Patient Education Patient Instructions Indication:Hypertension, benign Start:15-Mar-2021 Instruction Type:Provider Instructions for Treatment Patient Instructions Indication:BMI 45.0-49.9, adult Start:15-Mar-2021 Instruction Type:Provider Instructions for Treatment How to Access Health Informa tion Online using Patient Portal and [employer] Apps Indication:BMI 45.0-49.9, adult Start:15-Mar-2021 Instruction Type:Patient Education How to Access Health Informa tion Online using Patient Portal and [employer] Apps Indication:Non-smoker Start:12-Mar-2021 Instruction Type:Patient Education Patient Instructions Indication:Non-smoker Start:12-Mar-2021 Instruction Type:Provider Instructions for Treatment How to Access Health Informa tion Online using Patient Portal and [employer] Apps Indication:Non-smoker Start:12-Mar-2021 Instruction Type:Patient Education Patient Instructions Indication:Non-smoker Start:09-Mar-2021 Instruction Type:Provider Instructions for Treatment How to Access Health Informa tion Online using Patient Portal and [employer] Apps Indication:Non-smoker Start:09-Mar-2021 Instruction Type:Patient Education Patient Instructions Indication:BMI 45.0-49.9, adult Start:14-Jun-2020 Instruction Type:Provider Instructions for Treatment How to access health informa tion online Indication:Non-smoker Start:27-May-2018 Instruction Type:Patient Education How to access health informa tion online - Detail Indication:Non-smoker Start:27-May-2018 Instruction Type:Patient Education Patient Instructions Indication:Non-smoker Start:27-May-2018 Instruction Type:Provider Instructions for Treatment obesity counseling Indication:Hypertension, benign Start:09-Apr-2018 Instruction Type:Provider Instructions for Treatment How to access health informa tion online Indication:BMI 45.0-49.9, adult Start:09-Apr-2018 Instruction Type:Patient Education How to access health informa tion online - Detail Indication:BMI 45.0-49.9, adult Start:09-Apr-2018 Instruction Type:Patient Education Patient Instructions Indication:BMI 45.0-49.9, adult Start:09-Apr-2018 Instruction Type:Provider Instructions for Treatment How to access health informa tion online Indication:Nonsmoker Start:16-Sep-2017 Instruction Type:Patient Education How to access health informa tion online - Detail Indication:Nonsmoker Start:16-Sep-2017 Instruction Type:Patient Education Patient Instructions Indication:Nonsmoker Start:16-Sep-2017 Instruction Type:Provider Instructions for Treatment How to access health informa tion online Indication:Nonsmoker Start:04-Sep-2017 Instruction Type:Patient Education How to access health informa tion online - Detail Indication:Nonsmoker Start:04-Sep-2017 Instruction Type:Patient Education Patient Instructions Indication:Nonsmoker Start:04-Sep-2017 Instruction Type:Provider Instructions for Treatment How to access health informa tion online Indication:Nonsmoker Start:12-May-2017 Instruction Type:Patient Education How to access health informa tion online - Detail Indication:Nonsmoker Start:12-May-2017 Instruction Type:Patient Education Patient Instructions Indication:Nonsmoker Start:12-May-2017 Instruction Type:Provider Instructions for Treatment obesity counseling Indication:Osteoarthritis, localized Start:03-Apr-2017 Instruction Type:Provider Instructions for Treatment How to access health informa tion online Indication:Nonsmoker Start:03-Apr-2017 Instruction Type:Patient Education How to access health informa tion online - Detail Indication:Nonsmoker Start:03-Apr-2017 Instruction Type:Patient Education Patient Instructions Indication:Nonsmoker Start:03-Apr-2017 Instruction Type:Provider Instructions for Treatment How to access health informa tion online Indication:Left groin pain Start:10-Mar-2017 Instruction Type:Patient Education How to access health informa tion online - Detail Indication:Left groin pain Start:10-Mar-2017 Instruction Type:Patient Education Patient Instructions Indication:Left groin pain Start:10-Mar-2017 Instruction Type:Provider Instructions for Treatment How to access health informa tion online Indication:Nonsmoker Start:24-Feb-2017 Instruction Type:Patient Education How to access health informa tion online - Detail Indication:Nonsmoker Start:24-Feb-2017 Instruction Type:Patient Education Patient Instructions Indication:Nonsmoker Start:24-Feb-2017 Instruction Type:Provider Instructions for Treatment How to access health informa tion online Indication:Nonsmoker Start:13-Feb-2017 Instruction Type:Patient Education How to access health informa tion online - Detail Indication:Nonsmoker Start:13-Feb-2017 Instruction Type:Patient Education Patient Instructions Indication:Nonsmoker Start:13-Feb-2017 Instruction Type:Provider Instructions for Treatment How to access health informa tion online Indication:Nonsmoker Start:22-Jan-2017 Instruction Type:Patient Education How to access health informa tion online - Detail Indication:Nonsmoker Start:22-Jan-2017 Instruction Type:Patient Education Patient Instructions Indication:Nonsmoker Start:22-Jan-2017 Instruction Type:Provider Instructions for Treatment How to access health informa tion online Indication:Nonsmoker Start:03-Jul-2016 Instruction Type:Patient Education How to access health informa tion online - Detail Indication:Nonsmoker Start:03-Jul-2016 Instruction Type:Patient Education Patient Instructions Indication:Nonsmoker Start:03-Jul-2016 Instruction Type:Provider Instructions for Treatment Patient Instructions Indication:Encounter for screening for malignant neoplasm of colon (Renamed from Special screening for malignant neoplasms, colon) Start:26-Mar-2016 Instruction Type:Provider Instructions for Treatment How to access health informa tion online Indication:Encounter for screening for malignant neoplasm of colon (Renamed from Special screening for malignant neoplasms, colon) Start:26-Mar-2016 Instruction Type:Patient Education How to access health informa tion online - Detail Indication:Encounter for screening for malignant neoplasm of colon (Renamed from Special screening for malignant neoplasms, colon) Start:26-Mar-2016 Instruction Type:Patient Education obesity counseling Indication:Hypertension, benign Start:26-Mar-2016 Instruction Type:Provider Instructions for Treatment [facility]; [facility] Work Phone: Instructions* Name Dates Details obesity counseling Indication:Hypertension, benign Start:07-Mar-2022 Instruction Type:Provider Instructions for Treatment Patient Instructions Indication:Non-smoker Start:07-Mar-2022 Instruction Type:Provider Instructions for Treatment How to Access Health Informa tion Online using Patient Portal and [employer]rd [employer] Apps Indication:Non-smoker Start:07-Mar-2022 Instruction Type:Patient Education Patient Instructions Indication:Hypertension, benign Start:06-Dec-2021 Instruction Type:Provider Instructions for Treatment How to Access Health Informa tion Online using Patient Portal and [employer] Apps Indication:Hypertension, benign Start:06-Dec-2021 Instruction Type:Patient Education Patient Instructions Indication:Morbid obesity Start:19-Nov-2021 Instruction Type:Provider Instructions for Treatment How to Access Health Informa tion Online using Patient Portal and [employer] Apps Indication:Morbid obesity Start:19-Nov-2021 Instruction Type:Patient Education Patient Instructions Indication:BMI 45.0-49.9, adult Start:09-Jul-2021 Instruction Type:Provider Instructions for Treatment How to Access Health Informa tion Online using Patient Portal and [employer] Apps Indication:BMI 45.0-49.9, adult Start:09-Jul-2021 Instruction Type:Patient Education Patient Instructions Indication:Hypertension, benign Start:15-Mar-2021 Instruction Type:Provider Instructions for Treatment Patient Instructions Indication:BMI 45.0-49.9, adult Start:15-Mar-2021 Instruction Type:Provider Instructions for Treatment How to Access Health Informa tion Online using Patient Portal and [employer] Apps Indication:BMI 45.0-49.9, adult Start:15-Mar-2021 Instruction Type:Patient Education How to Access Health Informa tion Online using Patient Portal and [employer] Apps Indication:Non-smoker Start:12-Mar-2021 Instruction Type:Patient Education Patient Instructions Indication:Non-smoker Start:12-Mar-2021 Instruction Type:Provider Instructions for Treatment How to Access Health Informa tion Online using Patient Portal and [employer] Apps Indication:Non-smoker Start:12-Mar-2021 Instruction Type:Patient Education Patient Instructions Indication:Non-smoker Start:09-Mar-2021 Instruction Type:Provider Instructions for Treatment How to Access Health Informa tion Online using Patient Portal and [employer] Apps Indication:Non-smoker Start:09-Mar-2021 Instruction Type:Patient Education Patient Instructions Indication:BMI 45.0-49.9, adult Start:14-Jun-2020 Instruction Type:Provider Instructions for Treatment How to access health informa tion online Indication:Non-smoker Start:27-May-2018 Instruction Type:Patient Education How to access health informa tion online - Detail Indication:Non-smoker Start:27-May-2018 Instruction Type:Patient Education Patient Instructions Indication:Non-smoker Start:27-May-2018 Instruction Type:Provider Instructions for Treatment obesity counseling Indication:Hypertension, benign Start:09-Apr-2018 Instruction Type:Provider Instructions for Treatment How to access health informa tion online Indication:BMI 45.0-49.9, adult Start:09-Apr-2018 Instruction Type:Patient Education How to access health informa tion online - Detail Indication:BMI 45.0-49.9, adult Start:09-Apr-2018 Instruction Type:Patient Education Patient Instructions Indication:BMI 45.0-49.9, adult Start:09-Apr-2018 Instruction Type:Provider Instructions for Treatment How to access health informa tion online Indication:Nonsmoker Start:16-Sep-2017 Instruction Type:Patient Education How to access health informa tion online - Detail Indication:Nonsmoker Start:16-Sep-2017 Instruction Type:Patient Education Patient Instructions Indication:Nonsmoker Start:16-Sep-2017 Instruction Type:Provider Instructions for Treatment How to access health informa tion online Indication:Nonsmoker Start:04-Sep-2017 Instruction Type:Patient Education How to access health informa tion online - Detail Indication:Nonsmoker Start:04-Sep-2017 Instruction Type:Patient Education Patient Instructions Indication:Nonsmoker Start:04-Sep-2017 Instruction Type:Provider Instructions for Treatment How to access health informa tion online Indication:Nonsmoker Start:12-May-2017 Instruction Type:Patient Education How to access health informa tion online - Detail Indication:Nonsmoker Start:12-May-2017 Instruction Type:Patient Education Patient Instructions Indication:Nonsmoker Start:12-May-2017 Instruction Type:Provider Instructions for Treatment obesity counseling Indication:Osteoarthritis, localized Start:03-Apr-2017 Instruction Type:Provider Instructions for Treatment How to access health informa tion online Indication:Nonsmoker Start:03-Apr-2017 Instruction Type:Patient Education How to access health informa tion online - Detail Indication:Nonsmoker Start:03-Apr-2017 Instruction Type:Patient Education Patient Instructions Indication:Nonsmoker Start:03-Apr-2017 Instruction Type:Provider Instructions for Treatment How to access health informa tion online Indication:Left groin pain Start:10-Mar-2017 Instruction Type:Patient Education How to access health informa tion online - Detail Indication:Left groin pain Start:10-Mar-2017 Instruction Type:Patient Education Patient Instructions Indication:Left groin pain Start:10-Mar-2017 Instruction Type:Provider Instructions for Treatment How to access health informa tion online Indication:Nonsmoker Start:24-Feb-2017 Instruction Type:Patient Education How to access health informa tion online - Detail Indication:Nonsmoker Start:24-Feb-2017 Instruction Type:Patient Education Patient Instructions Indication:Nonsmoker Start:24-Feb-2017 Instruction Type:Provider Instructions for Treatment How to access health informa tion online Indication:Nonsmoker Start:13-Feb-2017 Instruction Type:Patient Education How to access health informa tion online - Detail Indication:Nonsmoker Start:13-Feb-2017 Instruction Type:Patient Education Patient Instructions Indication:Nonsmoker Start:13-Feb-2017 Instruction Type:Provider Instructions for Treatment How to access health informa tion online Indication:Nonsmoker Start:22-Jan-2017 Instruction Type:Patient Education How to access health informa tion online - Detail Indication:Nonsmoker Start:22-Jan-2017 Instruction Type:Patient Education Patient Instructions Indication:Nonsmoker Start:22-Jan-2017 Instruction Type:Provider Instructions for Treatment How to access health informa tion online Indication:Nonsmoker Start:03-Jul-2016 Instruction Type:Patient Education How to access health informa tion online - Detail Indication:Nonsmoker Start:03-Jul-2016 Instruction Type:Patient Education Patient Instructions Indication:Nonsmoker Start:03-Jul-2016 Instruction Type:Provider Instructions for Treatment Patient Instructions Indication:Encounter for screening for malignant neoplasm of colon (Renamed from Special screening for malignant neoplasms, colon) Start:26-Mar-2016 Instruction Type:Provider Instructions for Treatment How to access health informa tion online Indication:Encounter for screening for malignant neoplasm of colon (Renamed from Special screening for malignant neoplasms, colon) Start:26-Mar-2016 Instruction Type:Patient Education How to access health informa tion online - Detail Indication:Encounter for screening for malignant neoplasm of colon (Renamed from Special screening for malignant neoplasms, colon) Start:26-Mar-2016 Instruction Type:Patient Education obesity counseling Indication:Hypertension, benign Start:26-Mar-2016 Instruction Type:Provider Instructions for Treatment [facility]; [facility] Work Phone: Family History Unknown Family Member Name Dates Details Alcohol Abuse Comments:Maternal Grandfathe r. Paternal Grandfather. Status:Active Anxiety Disorder Comments:Mother. Maternal Gr andmother. Status:Active Colon Cancer Comments:Paternal Grandmothe r. Status:Active Diabetes Mellitus Comments:Father. Status:Active Heart Disease Comments:Father. Paternal Gr andmother. Paternal Grandfather. Status:Active IBS Comments:Maternal Grandmothe r. Status:Active Kidney Disease Comments:Father. Status:Active Lung Cancer Comments:Mother. Status:Active Prostate dx Comments:Father. Status:Active Thyroid problems Comments:Mother. Brother. Status:Active Unknown Family Member Name Dates Details Alcohol Abuse Comments:Maternal Grandfathe r. Paternal Grandfather. Status:Active Anxiety Disorder Comments:Mother. Maternal Gr andmother. Status:Active Colon Cancer Comments:Paternal Grandmothe r. Status:Active Diabetes Mellitus Comments:Father. Status:Active Heart Disease Comments:Father. Paternal Gr andmother. Paternal Grandfather. Status:Active IBS Comments:Maternal Grandmothe r. Status:Active Kidney Disease Comments:Father. Status:Active Lung Cancer Comments:Mother. Status:Active Prostate dx Comments:Father. Status:Active Thyroid problems Comments:Mother. Brother. Status:Active Unknown Family Member Name Dates Details Alcohol Abuse Comments:Maternal Grandfathe r. Paternal Grandfather. Status:Active Anxiety Disorder Comments:Mother. Maternal Gr andmother. Status:Active Colon Cancer Comments:Paternal Grandmothe r. Status:Active Diabetes Mellitus Comments:Father. Status:Active Heart Disease Comments:Father. Paternal Gr andmother. Paternal Grandfather. Status:Active IBS Comments:Maternal Grandmothe r. Status:Active Kidney Disease Comments:Father. Status:Active Lung Cancer Comments:Mother. Status:Active Prostate dx Comments:Father. Status:Active Thyroid problems Comments:Mother. Brother. Status:Active Unknown Family Member Name Dates Details Alcohol Abuse Comments:Maternal Grandfathe r. Paternal Grandfather. Status:Active Anxiety Disorder Comments:Mother. Maternal Gr andmother. Status:Active Colon Cancer Comments:Paternal Grandmothe r. Status:Active Diabetes Mellitus Comments:Father. Status:Active Heart Disease Comments:Father. Paternal Gr andmother. Paternal Grandfather. Status:Active IBS Comments:Maternal Grandmothe r. Status:Active Kidney Disease Comments:Father. Status:Active Lung Cancer Comments:Mother. Status:Active Prostate dx Comments:Father. Status:Active Thyroid problems Comments:Mother. Brother. Status:Active Unknown Family Member Name Dates Details Alcohol Abuse Comments:Maternal Grandfathe r. Paternal Grandfather. Status:Active Anxiety Disorder Comments:Mother. Maternal Gr andmother. Status:Active Colon Cancer Comments:Paternal Grandmothe r. Status:Active Diabetes Mellitus Comments:Father. Status:Active Heart Disease Comments:Father. Paternal Gr andmother. Paternal Grandfather. Status:Active IBS Comments:Maternal Grandmothe r. Status:Active Kidney Disease Comments:Father. Status:Active Lung Cancer Comments:Mother. Status:Active Prostate dx Comments:Father. Status:Active Thyroid problems Comments:Mother. Brother. Status:Active Unknown Family Member Name Dates Details Alcohol Abuse Comments:Maternal Grandfathe r. Paternal Grandfather. Status:Active Anxiety Disorder Comments:Mother. Maternal Gr andmother. Status:Active Colon Cancer Comments:Paternal Grandmothe r. Status:Active Diabetes Mellitus Comments:Father. Status:Active Heart Disease Comments:Father. Paternal Gr andmother. Paternal Grandfather. Status:Active IBS Comments:Maternal Grandmothe r. Status:Active Kidney Disease Comments:Father. Status:Active Lung Cancer Comments:Mother. Status:Active Prostate dx Comments:Father. Status:Active Thyroid problems Comments:Mother. Brother. Status:Active Unknown Family Member Name Dates Details Alcohol Abuse Comments:Maternal Grandfathe r. Paternal Grandfather. Status:Active Anxiety Disorder Comments:Mother. Maternal Gr andmother. Status:Active Colon Cancer Comments:Paternal Grandmothe r. Status:Active Diabetes Mellitus Comments:Father. Status:Active Heart Disease Comments:Father. Paternal Gr andmother. Paternal Grandfather. Status:Active IBS Comments:Maternal Grandmothe r. Status:Active Kidney Disease Comments:Father. Status:Active Lung Cancer Comments:Mother. Status:Active Prostate dx Comments:Father. Status:Active Thyroid problems Comments:Mother. Brother. Status:Active Unknown Family Member Name Dates Details Alcohol Abuse Comments:Maternal Grandfathe r. Paternal Grandfather. Status:Active Anxiety Disorder Comments:Mother. Maternal Gr andmother. Status:Active Colon Cancer Comments:Paternal Grandmothe r. Status:Active Diabetes Mellitus Comments:Father. Status:Active Heart Disease Comments:Father. Paternal Gr andmother. Paternal Grandfather. Status:Active IBS Comments:Maternal Grandmothe r. Status:Active Kidney Disease Comments:Father. Status:Active Lung Cancer Comments:Mother. Status:Active Prostate dx Comments:Father. Status:Active Thyroid problems Comments:Mother. Brother. Status:Active Unknown Family Member Name Dates Details Alcohol Abuse Comments:Maternal Grandfathe r. Paternal Grandfather. Status:Active Anxiety Disorder Comments:Mother. Maternal Gr andmother. Status:Active Colon Cancer Comments:Paternal Grandmothe r. Status:Active Diabetes Mellitus Comments:Father. Status:Active Heart Disease Comments:Father. Paternal Gr andmother. Paternal Grandfather. Status:Active IBS Comments:Maternal Grandmothe r. Status:Active Kidney Disease Comments:Father. Status:Active Lung Cancer Comments:Mother. Status:Active Prostate dx Comments:Father. Status:Active Thyroid problems Comments:Mother. Brother. Status:Active Unknown Family Member Name Dates Details Alcohol Abuse Comments:Maternal Grandfathe r. Paternal Grandfather. Status:Active Anxiety Disorder Comments:Mother. Maternal Gr andmother. Status:Active Colon Cancer Comments:Paternal Grandmothe r. Status:Active Diabetes Mellitus Comments:Father. Status:Active Heart Disease Comments:Father. Paternal Gr andmother. Paternal Grandfather. Status:Active IBS Comments:Maternal Grandmothe r. Status:Active Kidney Disease Comments:Father. Status:Active Lung Cancer Comments:Mother. Status:Active Prostate dx Comments:Father. Status:Active Thyroid problems Comments:Mother. Brother. Status:Active Unknown Family Member Name Dates Details Alcohol Abuse Comments:Maternal Grandfathe r. Paternal Grandfather. Status:Active Anxiety Disorder Comments:Mother. Maternal Gr andmother. Status:Active Colon Cancer Comments:Paternal Grandmothe r. Status:Active Diabetes Mellitus Comments:Father. Status:Active Heart Disease Comments:Father. Paternal Gr andmother. Paternal Grandfather. Status:Active IBS Comments:Maternal Grandmothe r. Status:Active Kidney Disease Comments:Father. Status:Active Lung Cancer Comments:Mother. Status:Active Prostate dx Comments:Father. Status:Active Thyroid problems Comments:Mother. Brother. Status:Active Unknown Family Member Name Dates Details Alcohol Abuse Comments:Maternal Grandfathe r. Paternal Grandfather. Status:Active Anxiety Disorder Comments:Mother. Maternal Gr andmother. Status:Active Colon Cancer Comments:Paternal Grandmothe r. Status:Active Diabetes Mellitus Comments:Father. Status:Active Heart Disease Comments:Father. Paternal Gr andmother. Paternal Grandfather. Status:Active IBS Comments:Maternal Grandmothe r. Status:Active Kidney Disease Comments:Father. Status:Active Lung Cancer Comments:Mother. Status:Active Prostate dx Comments:Father. Status:Active Thyroid problems Comments:Mother. Brother. Status:Active Unknown Family Member Name Dates Details Alcohol Abuse Comments:Maternal Grandfathe r. Paternal Grandfather. Status:Active Anxiety Disorder Comments:Mother. Maternal Gr andmother. Status:Active Colon Cancer Comments:Paternal Grandmothe r. Status:Active Diabetes Mellitus Comments:Father. Status:Active Heart Disease Comments:Father. Paternal Gr andmother. Paternal Grandfather. Status:Active IBS Comments:Maternal Grandmothe r. Status:Active Kidney Disease Comments:Father. Status:Active Lung Cancer Comments:Mother. Status:Active Prostate dx Comments:Father. Status:Active Thyroid problems Comments:Mother. Brother. Status:Active Unknown Family Member Name Dates Details Alcohol Abuse Comments:Maternal Grandfathe r. Paternal Grandfather. Status:Active Anxiety Disorder Comments:Mother. Maternal Gr andmother. Status:Active Colon Cancer Comments:Paternal Grandmothe r. Status:Active Diabetes Mellitus Comments:Father. Status:Active Heart Disease Comments:Father. Paternal Gr andmother. Paternal Grandfather. Status:Active IBS Comments:Maternal Grandmothe r. Status:Active Kidney Disease Comments:Father. Status:Active Lung Cancer Comments:Mother. Status:Active Prostate dx Comments:Father. Status:Active Thyroid problems Comments:Mother. Brother. Status:Active Unknown Family Member Name Dates Details Alcohol Abuse Comments:Maternal Grandfathe r. Paternal Grandfather. Status:Active Anxiety Disorder Comments:Mother. Maternal Gr andmother. Status:Active Colon Cancer Comments:Paternal Grandmothe r. Status:Active Diabetes Mellitus Comments:Father. Status:Active Heart Disease Comments:Father. Paternal Gr andmother. Paternal Grandfather. Status:Active IBS Comments:Maternal Grandmothe r. Status:Active Kidney Disease Comments:Father. Status:Active Lung Cancer Comments:Mother. Status:Active Prostate dx Comments:Father. Status:Active Thyroid problems Comments:Mother. Brother. Status:Active Unknown Family Member Name Dates Details Alcohol Abuse Comments:Maternal Grandfathe r. Paternal Grandfather. Status:Active Anxiety Disorder Comments:Mother. Maternal Gr andmother. Status:Active Colon Cancer Comments:Paternal Grandmothe r. Status:Active Diabetes Mellitus Comments:Father. Status:Active Heart Disease Comments:Father. Paternal Gr andmother. Paternal Grandfather. Status:Active IBS Comments:Maternal Grandmothe r. Status:Active Kidney Disease Comments:Father. Status:Active Lung Cancer Comments:Mother. Status:Active Prostate dx Comments:Father. Status:Active Thyroid problems Comments:Mother. Brother. Status:Active Unknown Family Member Name Dates Details Alcohol Abuse Comments:Maternal Grandfathe r. Paternal Grandfather. Status:Active Anxiety Disorder Comments:Mother. Maternal Gr andmother. Status:Active Colon Cancer Comments:Paternal Grandmothe r. Status:Active Diabetes Mellitus Comments:Father. Status:Active Heart Disease Comments:Father. Paternal Gr andmother. Paternal Grandfather. Status:Active IBS Comments:Maternal Grandmothe r. Status:Active Kidney Disease Comments:Father. Status:Active Lung Cancer Comments:Mother. Status:Active Prostate dx Comments:Father. Status:Active Thyroid problems Comments:Mother. Brother. Status:Active Unknown Family Member Name Dates Details Alcohol Abuse Comments:Maternal Grandfathe r. Paternal Grandfather. Status:Active Anxiety Disorder Comments:Mother. Maternal Gr andmother. Status:Active Colon Cancer Comments:Paternal Grandmothe r. Status:Active Diabetes Mellitus Comments:Father. Status:Active Heart Disease Comments:Father. Paternal Gr andmother. Paternal Grandfather. Status:Active IBS Comments:Maternal Grandmothe r. Status:Active Kidney Disease Comments:Father. Status:Active Lung Cancer Comments:Mother. Status:Active Prostate dx Comments:Father. Status:Active Thyroid problems Comments:Mother. Brother. Status:Active Unknown Family Member Name Dates Details Alcohol Abuse Comments:Maternal Grandfathe r. Paternal Grandfather. Status:Active Anxiety Disorder Comments:Mother. Maternal Gr andmother. Status:Active Colon Cancer Comments:Paternal Grandmothe r. Status:Active Diabetes Mellitus Comments:Father. Status:Active Heart Disease Comments:Father. Paternal Gr andmother. Paternal Grandfather. Status:Active IBS Comments:Maternal Grandmothe r. Status:Active Kidney Disease Comments:Father. Status:Active Lung Cancer Comments:Mother. Status:Active Prostate dx Comments:Father. Status:Active Thyroid problems Comments:Mother. Brother. Status:Active Unknown Family Member Name Dates Details Alcohol Abuse Comments:Maternal Grandfathe r. Paternal Grandfather. Status:Active Anxiety Disorder Comments:Mother. Maternal Gr andmother. Status:Active Colon Cancer Comments:Paternal Grandmothe r. Status:Active Diabetes Mellitus Comments:Father. Status:Active Heart Disease Comments:Father. Paternal Gr andmother. Paternal Grandfather. Status:Active IBS Comments:Maternal Grandmothe r. Status:Active Kidney Disease Comments:Father. Status:Active Lung Cancer Comments:Mother. Status:Active Prostate dx Comments:Father. Status:Active Thyroid problems Comments:Mother. Brother. Status:Active Unknown Family Member Name Dates Details Alcohol Abuse Comments:Maternal Grandfathe r. Paternal Grandfather. Status:Active Anxiety Disorder Comments:Mother. Maternal Gr andmother. Status:Active Colon Cancer Comments:Paternal Grandmothe r. Status:Active Diabetes Mellitus Comments:Father. Status:Active Heart Disease Comments:Father. Paternal Gr andmother. Paternal Grandfather. Status:Active IBS Comments:Maternal Grandmothe r. Status:Active Kidney Disease Comments:Father. Status:Active Lung Cancer Comments:Mother. Status:Active Prostate dx Comments:Father. Status:Active Thyroid problems Comments:Mother. Brother. Status:Active Unknown Family Member Name Dates Details Alcohol Abuse Comments:Maternal Grandfathe r. Paternal Grandfather. Status:Active Anxiety Disorder Comments:Mother. Maternal Gr andmother. Status:Active Colon Cancer Comments:Paternal Grandmothe r. Status:Active Diabetes Mellitus Comments:Father. Status:Active Heart Disease Comments:Father. Paternal Gr andmother. Paternal Grandfather. Status:Active IBS Comments:Maternal Grandmothe r. Status:Active Kidney Disease Comments:Father. Status:Active Lung Cancer Comments:Mother. Status:Active Prostate dx Comments:Father. Status:Active Thyroid problems Comments:Mother. Brother. Status:Active Unknown Family Member Name Dates Details Alcohol Abuse Comments:Maternal Grandfathe r. Paternal Grandfather. Status:Active Anxiety Disorder Comments:Mother. Maternal Gr andmother. Status:Active Colon Cancer Comments:Paternal Grandmothe r. Status:Active Diabetes Mellitus Comments:Father. Status:Active Heart Disease Comments:Father. Paternal Gr andmother. Paternal Grandfather. Status:Active IBS Comments:Maternal Grandmothe r. Status:Active Kidney Disease Comments:Father. Status:Active Lung Cancer Comments:Mother. Status:Active Prostate dx Comments:Father. Status:Active Thyroid problems Comments:Mother. Brother. Status:Active Unknown Family Member Name Dates Details Alcohol Abuse Comments:Maternal Grandfathe r. Paternal Grandfather. Status:Active Anxiety Disorder Comments:Mother. Maternal Gr andmother. Status:Active Colon Cancer Comments:Paternal Grandmothe r. Status:Active Diabetes Mellitus Comments:Father. Status:Active Heart Disease Comments:Father. Paternal Gr andmother. Paternal Grandfather. Status:Active IBS Comments:Maternal Grandmothe r. Status:Active Kidney Disease Comments:Father. Status:Active Lung Cancer Comments:Mother. Status:Active Prostate dx Comments:Father. Status:Active Thyroid problems Comments:Mother. Brother. Status:Active Instructions Name Dates Details Hypertension, benign : obesi ty counseling Indication:Hypertension, benign BMI 45.0-49.9, adult : How t o access health information online Indication:BMI 45.0-49.9, adult BMI 45.0-49.9, adult : How t o access health information online - Detail Indication:BMI 45.0-49.9, adult BMI 45.0-49.9, adult : Patie nt Instructions Indication:BMI 45.0-49.9, adult Nonsmoker : How to access he alth information online Indication:Nonsmoker Nonsmoker : How to access he alth information online - Detail Indication:Nonsmoker Nonsmoker : Patient Instruct ions Indication:Nonsmoker Osteoarthritis, localized : obesity counseling Indication:Osteoarthritis, localized Left groin pain : How to acc ess health information online Indication:Left groin pain Left groin pain : How to acc ess health information online - Detail Indication:Left groin pain Left groin pain : Patient In structions Indication:Left groin pain Encounter for screening for malignant neoplasm of colon (Renamed from Special screening for malignant neoplasms, colon) : Patient Instructions Indication:Encounter for screening for malignant neoplasm of colon (Renamed from Special screening for malignant neoplasms, colon) Encounter for screening for malignant neoplasm of colon (Renamed from Special screening for malignant neoplasms, colon) : How to access health information online Indication:Encounter for screening for malignant neoplasm of colon (Renamed from Special screening for malignant neoplasms, colon) Encounter for screening for malignant neoplasm of colon (Renamed from Special screening for malignant neoplasms, colon) : How to access health information online - Detail Indication:Encounter for screening for malignant neoplasm of colon (Renamed from Special screening for malignant neoplasms, colon) Name Dates Details Non-smoker : How to access h ealth information online Indication:Non-smoker Non-smoker : How to access h ealth information online - Detail Indication:Non-smoker Non-smoker : Patient Instruc tions Indication:Non-smoker Hypertension, benign : obesi ty counseling Indication:Hypertension, benign BMI 45.0-49.9, adult : How t o access health information online Indication:BMI 45.0-49.9, adult BMI 45.0-49.9, adult : How t o access health information online - Detail Indication:BMI 45.0-49.9, adult BMI 45.0-49.9, adult : Patie nt Instructions Indication:BMI 45.0-49.9, adult Nonsmoker : How to access he alth information online Indication:Nonsmoker Nonsmoker : How to access he alth information online - Detail Indication:Nonsmoker Nonsmoker : Patient Instruct ions Indication:Nonsmoker Osteoarthritis, localized : obesity counseling Indication:Osteoarthritis, localized Left groin pain : How to acc ess health information online Indication:Left groin pain Left groin pain : How to acc ess health information online - Detail Indication:Left groin pain Left groin pain : Patient In structions Indication:Left groin pain Encounter for screening for malignant neoplasm of colon (Renamed from Special screening for malignant neoplasms, colon) : Patient Instructions Indication:Encounter for screening for malignant neoplasm of colon (Renamed from Special screening for malignant neoplasms, colon) Encounter for screening for malignant neoplasm of colon (Renamed from Special screening for malignant neoplasms, colon) : How to access health information online Indication:Encounter for screening for malignant neoplasm of colon (Renamed from Special screening for malignant neoplasms, colon) Encounter for screening for malignant neoplasm of colon (Renamed from Special screening for malignant neoplasms, colon) : How to access health information online - Detail Indication:Encounter for screening for malignant neoplasm of colon (Renamed from Special screening for malignant neoplasms, colon) Name Dates Details Non-smoker : How to access h ealth information online Indication:Non-smoker Non-smoker : How to access h ealth information online - Detail Indication:Non-smoker Non-smoker : Patient Instruc tions Indication:Non-smoker Hypertension, benign : obesi ty counseling Indication:Hypertension, benign BMI 45.0-49.9, adult : How t o access health information online Indication:BMI 45.0-49.9, adult BMI 45.0-49.9, adult : How t o access health information online - Detail Indication:BMI 45.0-49.9, adult BMI 45.0-49.9, adult : Patie nt Instructions Indication:BMI 45.0-49.9, adult Nonsmoker : How to access he alth information online Indication:Nonsmoker Nonsmoker : How to access he alth information online - Detail Indication:Nonsmoker Nonsmoker : Patient Instruct ions Indication:Nonsmoker Osteoarthritis, localized : obesity counseling Indication:Osteoarthritis, localized Left groin pain : How to acc ess health information online Indication:Left groin pain Left groin pain : How to acc ess health information online - Detail Indication:Left groin pain Left groin pain : Patient In structions Indication:Left groin pain Encounter for screening for malignant neoplasm of colon (Renamed from Special screening for malignant neoplasms, colon) : Patient Instructions Indication:Encounter for screening for malignant neoplasm of colon (Renamed from Special screening for malignant neoplasms, colon) Encounter for screening for malignant neoplasm of colon (Renamed from Special screening for malignant neoplasms, colon) : How to access health information online Indication:Encounter for screening for malignant neoplasm of colon (Renamed from Special screening for malignant neoplasms, colon) Encounter for screening for malignant neoplasm of colon (Renamed from Special screening for malignant neoplasms, colon) : How to access health information online - Detail Indication:Encounter for screening for malignant neoplasm of colon (Renamed from Special screening for malignant neoplasms, colon) Name Dates Details Non-smoker : How to access h ealth information online Indication:Non-smoker Non-smoker : How to access h ealth information online - Detail Indication:Non-smoker Non-smoker : Patient Instruc tions Indication:Non-smoker Hypertension, benign : obesi ty counseling Indication:Hypertension, benign BMI 45.0-49.9, adult : How t o access health information online Indication:BMI 45.0-49.9, adult BMI 45.0-49.9, adult : How t o access health information online - Detail Indication:BMI 45.0-49.9, adult BMI 45.0-49.9, adult : Patie nt Instructions Indication:BMI 45.0-49.9, adult Nonsmoker : How to access he alth information online Indication:Nonsmoker Nonsmoker : How to access he alth information online - Detail Indication:Nonsmoker Nonsmoker : Patient Instruct ions Indication:Nonsmoker Osteoarthritis, localized : obesity counseling Indication:Osteoarthritis, localized Left groin pain : How to acc ess health information online Indication:Left groin pain Left groin pain : How to acc ess health information online - Detail Indication:Left groin pain Left groin pain : Patient In structions Indication:Left groin pain Encounter for screening for malignant neoplasm of colon (Renamed from Special screening for malignant neoplasms, colon) : Patient Instructions Indication:Encounter for screening for malignant neoplasm of colon (Renamed from Special screening for malignant neoplasms, colon) Encounter for screening for malignant neoplasm of colon (Renamed from Special screening for malignant neoplasms, colon) : How to access health information online Indication:Encounter for screening for malignant neoplasm of colon (Renamed from Special screening for malignant neoplasms, colon) Encounter for screening for malignant neoplasm of colon (Renamed from Special screening for malignant neoplasms, colon) : How to access health information online - Detail Indication:Encounter for screening for malignant neoplasm of colon (Renamed from Special screening for malignant neoplasms, colon) Name Dates Details How to access health informa tion online Indication:Non-smoker Start:27-May-2018 Instruction Type:Patient Education How to access health informa tion online - Detail Indication:Non-smoker Start:27-May-2018 Instruction Type:Patient Education Patient Instructions Indication:Non-smoker Start:27-May-2018 Instruction Type:Provider Instructions for Treatment obesity counseling Indication:Hypertension, benign Start:09-Apr-2018 Instruction Type:Provider Instructions for Treatment How to access health informa tion online Indication:BMI 45.0-49.9, adult Start:09-Apr-2018 Instruction Type:Patient Education How to access health informa tion online - Detail Indication:BMI 45.0-49.9, adult Start:09-Apr-2018 Instruction Type:Patient Education Patient Instructions Indication:BMI 45.0-49.9, adult Start:09-Apr-2018 Instruction Type:Provider Instructions for Treatment How to access health informa tion online Indication:Nonsmoker Start:16-Sep-2017 Instruction Type:Patient Education How to access health informa tion online - Detail Indication:Nonsmoker Start:16-Sep-2017 Instruction Type:Patient Education Patient Instructions Indication:Nonsmoker Start:16-Sep-2017 Instruction Type:Provider Instructions for Treatment How to access health informa tion online Indication:Nonsmoker Start:04-Sep-2017 Instruction Type:Patient Education How to access health informa tion online - Detail Indication:Nonsmoker Start:04-Sep-2017 Instruction Type:Patient Education Patient Instructions Indication:Nonsmoker Start:04-Sep-2017 Instruction Type:Provider Instructions for Treatment How to access health informa tion online Indication:Nonsmoker Start:12-May-2017 Instruction Type:Patient Education How to access health informa tion online - Detail Indication:Nonsmoker Start:12-May-2017 Instruction Type:Patient Education Patient Instructions Indication:Nonsmoker Start:12-May-2017 Instruction Type:Provider Instructions for Treatment obesity counseling Indication:Osteoarthritis, localized Start:03-Apr-2017 Instruction Type:Provider Instructions for Treatment How to access health informa tion online Indication:Nonsmoker Start:03-Apr-2017 Instruction Type:Patient Education How to access health informa tion online - Detail Indication:Nonsmoker Start:03-Apr-2017 Instruction Type:Patient Education Patient Instructions Indication:Nonsmoker Start:03-Apr-2017 Instruction Type:Provider Instructions for Treatment How to access health informa tion online Indication:Left groin pain Start:10-Mar-2017 Instruction Type:Patient Education How to access health informa tion online - Detail Indication:Left groin pain Start:10-Mar-2017 Instruction Type:Patient Education Patient Instructions Indication:Left groin pain Start:10-Mar-2017 Instruction Type:Provider Instructions for Treatment How to access health informa tion online Indication:Nonsmoker Start:24-Feb-2017 Instruction Type:Patient Education How to access health informa tion online - Detail Indication:Nonsmoker Start:24-Feb-2017 Instruction Type:Patient Education Patient Instructions Indication:Nonsmoker Start:24-Feb-2017 Instruction Type:Provider Instructions for Treatment How to access health informa tion online Indication:Nonsmoker Start:13-Feb-2017 Instruction Type:Patient Education How to access health informa tion online - Detail Indication:Nonsmoker Start:13-Feb-2017 Instruction Type:Patient Education Patient Instructions Indication:Nonsmoker Start:13-Feb-2017 Instruction Type:Provider Instructions for Treatment How to access health informa tion online Indication:Nonsmoker Start:22-Jan-2017 Instruction Type:Patient Education How to access health informa tion online - Detail Indication:Nonsmoker Start:22-Jan-2017 Instruction Type:Patient Education Patient Instructions Indication:Nonsmoker Start:22-Jan-2017 Instruction Type:Provider Instructions for Treatment How to access health informa tion online Indication:Nonsmoker Start:03-Jul-2016 Instruction Type:Patient Education How to access health informa tion online - Detail Indication:Nonsmoker Start:03-Jul-2016 Instruction Type:Patient Education Patient Instructions Indication:Nonsmoker Start:03-Jul-2016 Instruction Type:Provider Instructions for Treatment Patient Instructions Indication:Encounter for screening for malignant neoplasm of colon (Renamed from Special screening for malignant neoplasms, colon) Start:26-Mar-2016 Instruction Type:Provider Instructions for Treatment How to access health informa tion online Indication:Encounter for screening for malignant neoplasm of colon (Renamed from Special screening for malignant neoplasms, colon) Start:26-Mar-2016 Instruction Type:Patient Education How to access health informa tion online - Detail Indication:Encounter for screening for malignant neoplasm of colon (Renamed from Special screening for malignant neoplasms, colon) Start:26-Mar-2016 Instruction Type:Patient Education obesity counseling Indication:Hypertension, benign Start:26-Mar-2016 Instruction Type:Provider Instructions for Treatment Name Dates Details How to access health informa tion online Indication:Non-smoker Start:27-May-2018 Instruction Type:Patient Education How to access health informa tion online - Detail Indication:Non-smoker Start:27-May-2018 Instruction Type:Patient Education Patient Instructions Indication:Non-smoker Start:27-May-2018 Instruction Type:Provider Instructions for Treatment obesity counseling Indication:Hypertension, benign Start:09-Apr-2018 Instruction Type:Provider Instructions for Treatment How to access health informa tion online Indication:BMI 45.0-49.9, adult Start:09-Apr-2018 Instruction Type:Patient Education How to access health informa tion online - Detail Indication:BMI 45.0-49.9, adult Start:09-Apr-2018 Instruction Type:Patient Education Patient Instructions Indication:BMI 45.0-49.9, adult Start:09-Apr-2018 Instruction Type:Provider Instructions for Treatment How to access health informa tion online Indication:Nonsmoker Start:16-Sep-2017 Instruction Type:Patient Education How to access health informa tion online - Detail Indication:Nonsmoker Start:16-Sep-2017 Instruction Type:Patient Education Patient Instructions Indication:Nonsmoker Start:16-Sep-2017 Instruction Type:Provider Instructions for Treatment How to access health informa tion online Indication:Nonsmoker Start:04-Sep-2017 Instruction Type:Patient Education How to access health informa tion online - Detail Indication:Nonsmoker Start:04-Sep-2017 Instruction Type:Patient Education Patient Instructions Indication:Nonsmoker Start:04-Sep-2017 Instruction Type:Provider Instructions for Treatment How to access health informa tion online Indication:Nonsmoker Start:12-May-2017 Instruction Type:Patient Education How to access health informa tion online - Detail Indication:Nonsmoker Start:12-May-2017 Instruction Type:Patient Education Patient Instructions Indication:Nonsmoker Start:12-May-2017 Instruction Type:Provider Instructions for Treatment obesity counseling Indication:Osteoarthritis, localized Start:03-Apr-2017 Instruction Type:Provider Instructions for Treatment How to access health informa tion online Indication:Nonsmoker Start:03-Apr-2017 Instruction Type:Patient Education How to access health informa tion online - Detail Indication:Nonsmoker Start:03-Apr-2017 Instruction Type:Patient Education Patient Instructions Indication:Nonsmoker Start:03-Apr-2017 Instruction Type:Provider Instructions for Treatment How to access health informa tion online Indication:Left groin pain Start:10-Mar-2017 Instruction Type:Patient Education How to access health informa tion online - Detail Indication:Left groin pain Start:10-Mar-2017 Instruction Type:Patient Education Patient Instructions Indication:Left groin pain Start:10-Mar-2017 Instruction Type:Provider Instructions for Treatment How to access health informa tion online Indication:Nonsmoker Start:24-Feb-2017 Instruction Type:Patient Education How to access health informa tion online - Detail Indication:Nonsmoker Start:24-Feb-2017 Instruction Type:Patient Education Patient Instructions Indication:Nonsmoker Start:24-Feb-2017 Instruction Type:Provider Instructions for Treatment How to access health informa tion online Indication:Nonsmoker Start:13-Feb-2017 Instruction Type:Patient Education How to access health informa tion online - Detail Indication:Nonsmoker Start:13-Feb-2017 Instruction Type:Patient Education Patient Instructions Indication:Nonsmoker Start:13-Feb-2017 Instruction Type:Provider Instructions for Treatment How to access health informa tion online Indication:Nonsmoker Start:22-Jan-2017 Instruction Type:Patient Education How to access health informa tion online - Detail Indication:Nonsmoker Start:22-Jan-2017 Instruction Type:Patient Education Patient Instructions Indication:Nonsmoker Start:22-Jan-2017 Instruction Type:Provider Instructions for Treatment How to access health informa tion online Indication:Nonsmoker Start:03-Jul-2016 Instruction Type:Patient Education How to access health informa tion online - Detail Indication:Nonsmoker Start:03-Jul-2016 Instruction Type:Patient Education Patient Instructions Indication:Nonsmoker Start:03-Jul-2016 Instruction Type:Provider Instructions for Treatment Patient Instructions Indication:Encounter for screening for malignant neoplasm of colon (Renamed from Special screening for malignant neoplasms, colon) Start:26-Mar-2016 Instruction Type:Provider Instructions for Treatment How to access health informa tion online Indication:Encounter for screening for malignant neoplasm of colon (Renamed from Special screening for malignant neoplasms, colon) Start:26-Mar-2016 Instruction Type:Patient Education How to access health informa tion online - Detail Indication:Encounter for screening for malignant neoplasm of colon (Renamed from Special screening for malignant neoplasms, colon) Start:26-Mar-2016 Instruction Type:Patient Education obesity counseling Indication:Hypertension, benign Start:26-Mar-2016 Instruction Type:Provider Instructions for Treatment Name Dates Details How to access health informa tion online Indication:Non-smoker Start:27-May-2018 Instruction Type:Patient Education How to access health informa tion online - Detail Indication:Non-smoker Start:27-May-2018 Instruction Type:Patient Education Patient Instructions Indication:Non-smoker Start:27-May-2018 Instruction Type:Provider Instructions for Treatment obesity counseling Indication:Hypertension, benign Start:09-Apr-2018 Instruction Type:Provider Instructions for Treatment How to access health informa tion online Indication:BMI 45.0-49.9, adult Start:09-Apr-2018 Instruction Type:Patient Education How to access health informa tion online - Detail Indication:BMI 45.0-49.9, adult Start:09-Apr-2018 Instruction Type:Patient Education Patient Instructions Indication:BMI 45.0-49.9, adult Start:09-Apr-2018 Instruction Type:Provider Instructions for Treatment How to access health informa tion online Indication:Nonsmoker Start:16-Sep-2017 Instruction Type:Patient Education How to access health informa tion online - Detail Indication:Nonsmoker Start:16-Sep-2017 Instruction Type:Patient Education Patient Instructions Indication:Nonsmoker Start:16-Sep-2017 Instruction Type:Provider Instructions for Treatment How to access health informa tion online Indication:Nonsmoker Start:04-Sep-2017 Instruction Type:Patient Education How to access health informa tion online - Detail Indication:Nonsmoker Start:04-Sep-2017 Instruction Type:Patient Education Patient Instructions Indication:Nonsmoker Start:04-Sep-2017 Instruction Type:Provider Instructions for Treatment How to access health informa tion online Indication:Nonsmoker Start:12-May-2017 Instruction Type:Patient Education How to access health informa tion online - Detail Indication:Nonsmoker Start:12-May-2017 Instruction Type:Patient Education Patient Instructions Indication:Nonsmoker Start:12-May-2017 Instruction Type:Provider Instructions for Treatment obesity counseling Indication:Osteoarthritis, localized Start:03-Apr-2017 Instruction Type:Provider Instructions for Treatment How to access health informa tion online Indication:Nonsmoker Start:03-Apr-2017 Instruction Type:Patient Education How to access health informa tion online - Detail Indication:Nonsmoker Start:03-Apr-2017 Instruction Type:Patient Education Patient Instructions Indication:Nonsmoker Start:03-Apr-2017 Instruction Type:Provider Instructions for Treatment How to access health informa tion online Indication:Left groin pain Start:10-Mar-2017 Instruction Type:Patient Education How to access health informa tion online - Detail Indication:Left groin pain Start:10-Mar-2017 Instruction Type:Patient Education Patient Instructions Indication:Left groin pain Start:10-Mar-2017 Instruction Type:Provider Instructions for Treatment How to access health informa tion online Indication:Nonsmoker Start:24-Feb-2017 Instruction Type:Patient Education How to access health informa tion online - Detail Indication:Nonsmoker Start:24-Feb-2017 Instruction Type:Patient Education Patient Instructions Indication:Nonsmoker Start:24-Feb-2017 Instruction Type:Provider Instructions for Treatment How to access health informa tion online Indication:Nonsmoker Start:13-Feb-2017 Instruction Type:Patient Education How to access health informa tion online - Detail Indication:Nonsmoker Start:13-Feb-2017 Instruction Type:Patient Education Patient Instructions Indication:Nonsmoker Start:13-Feb-2017 Instruction Type:Provider Instructions for Treatment How to access health informa tion online Indication:Nonsmoker Start:22-Jan-2017 Instruction Type:Patient Education How to access health informa tion online - Detail Indication:Nonsmoker Start:22-Jan-2017 Instruction Type:Patient Education Patient Instructions Indication:Nonsmoker Start:22-Jan-2017 Instruction Type:Provider Instructions for Treatment How to access health informa tion online Indication:Nonsmoker Start:03-Jul-2016 Instruction Type:Patient Education How to access health informa tion online - Detail Indication:Nonsmoker Start:03-Jul-2016 Instruction Type:Patient Education Patient Instructions Indication:Nonsmoker Start:03-Jul-2016 Instruction Type:Provider Instructions for Treatment Patient Instructions Indication:Encounter for screening for malignant neoplasm of colon (Renamed from Special screening for malignant neoplasms, colon) Start:26-Mar-2016 Instruction Type:Provider Instructions for Treatment How to access health informa tion online Indication:Encounter for screening for malignant neoplasm of colon (Renamed from Special screening for malignant neoplasms, colon) Start:26-Mar-2016 Instruction Type:Patient Education How to access health informa tion online - Detail Indication:Encounter for screening for malignant neoplasm of colon (Renamed from Special screening for malignant neoplasms, colon) Start:26-Mar-2016 Instruction Type:Patient Education obesity counseling Indication:Hypertension, benign Start:26-Mar-2016 Instruction Type:Provider Instructions for Treatment Name Dates Details How to access health informa tion online Indication:Non-smoker Start:27-May-2018 Instruction Type:Patient Education How to access health informa tion online - Detail Indication:Non-smoker Start:27-May-2018 Instruction Type:Patient Education Patient Instructions Indication:Non-smoker Start:27-May-2018 Instruction Type:Provider Instructions for Treatment obesity counseling Indication:Hypertension, benign Start:09-Apr-2018 Instruction Type:Provider Instructions for Treatment How to access health informa tion online Indication:BMI 45.0-49.9, adult Start:09-Apr-2018 Instruction Type:Patient Education How to access health informa tion online - Detail Indication:BMI 45.0-49.9, adult Start:09-Apr-2018 Instruction Type:Patient Education Patient Instructions Indication:BMI 45.0-49.9, adult Start:09-Apr-2018 Instruction Type:Provider Instructions for Treatment How to access health informa tion online Indication:Nonsmoker Start:16-Sep-2017 Instruction Type:Patient Education How to access health informa tion online - Detail Indication:Nonsmoker Start:16-Sep-2017 Instruction Type:Patient Education Patient Instructions Indication:Nonsmoker Start:16-Sep-2017 Instruction Type:Provider Instructions for Treatment How to access health informa tion online Indication:Nonsmoker Start:04-Sep-2017 Instruction Type:Patient Education How to access health informa tion online - Detail Indication:Nonsmoker Start:04-Sep-2017 Instruction Type:Patient Education Patient Instructions Indication:Nonsmoker Start:04-Sep-2017 Instruction Type:Provider Instructions for Treatment How to access health informa tion online Indication:Nonsmoker Start:12-May-2017 Instruction Type:Patient Education How to access health informa tion online - Detail Indication:Nonsmoker Start:12-May-2017 Instruction Type:Patient Education Patient Instructions Indication:Nonsmoker Start:12-May-2017 Instruction Type:Provider Instructions for Treatment obesity counseling Indication:Osteoarthritis, localized Start:03-Apr-2017 Instruction Type:Provider Instructions for Treatment How to access health informa tion online Indication:Nonsmoker Start:03-Apr-2017 Instruction Type:Patient Education How to access health informa tion online - Detail Indication:Nonsmoker Start:03-Apr-2017 Instruction Type:Patient Education Patient Instructions Indication:Nonsmoker Start:03-Apr-2017 Instruction Type:Provider Instructions for Treatment How to access health informa tion online Indication:Left groin pain Start:10-Mar-2017 Instruction Type:Patient Education How to access health informa tion online - Detail Indication:Left groin pain Start:10-Mar-2017 Instruction Type:Patient Education Patient Instructions Indication:Left groin pain Start:10-Mar-2017 Instruction Type:Provider Instructions for Treatment How to access health informa tion online Indication:Nonsmoker Start:24-Feb-2017 Instruction Type:Patient Education How to access health informa tion online - Detail Indication:Nonsmoker Start:24-Feb-2017 Instruction Type:Patient Education Patient Instructions Indication:Nonsmoker Start:24-Feb-2017 Instruction Type:Provider Instructions for Treatment How to access health informa tion online Indication:Nonsmoker Start:13-Feb-2017 Instruction Type:Patient Education How to access health informa tion online - Detail Indication:Nonsmoker Start:13-Feb-2017 Instruction Type:Patient Education Patient Instructions Indication:Nonsmoker Start:13-Feb-2017 Instruction Type:Provider Instructions for Treatment How to access health informa tion online Indication:Nonsmoker Start:22-Jan-2017 Instruction Type:Patient Education How to access health informa tion online - Detail Indication:Nonsmoker Start:22-Jan-2017 Instruction Type:Patient Education Patient Instructions Indication:Nonsmoker Start:22-Jan-2017 Instruction Type:Provider Instructions for Treatment How to access health informa tion online Indication:Nonsmoker Start:03-Jul-2016 Instruction Type:Patient Education How to access health informa tion online - Detail Indication:Nonsmoker Start:03-Jul-2016 Instruction Type:Patient Education Patient Instructions Indication:Nonsmoker Start:03-Jul-2016 Instruction Type:Provider Instructions for Treatment Patient Instructions Indication:Encounter for screening for malignant neoplasm of colon (Renamed from Special screening for malignant neoplasms, colon) Start:26-Mar-2016 Instruction Type:Provider Instructions for Treatment How to access health informa tion online Indication:Encounter for screening for malignant neoplasm of colon (Renamed from Special screening for malignant neoplasms, colon) Start:26-Mar-2016 Instruction Type:Patient Education How to access health informa tion online - Detail Indication:Encounter for screening for malignant neoplasm of colon (Renamed from Special screening for malignant neoplasms, colon) Start:26-Mar-2016 Instruction Type:Patient Education obesity counseling Indication:Hypertension, benign Start:26-Mar-2016 Instruction Type:Provider Instructions for Treatment Name Dates Details How to access health informa tion online Indication:Non-smoker Start:27-May-2018 Instruction Type:Patient Education How to access health informa tion online - Detail Indication:Non-smoker Start:27-May-2018 Instruction Type:Patient Education Patient Instructions Indication:Non-smoker Start:27-May-2018 Instruction Type:Provider Instructions for Treatment obesity counseling Indication:Hypertension, benign Start:09-Apr-2018 Instruction Type:Provider Instructions for Treatment How to access health informa tion online Indication:BMI 45.0-49.9, adult Start:09-Apr-2018 Instruction Type:Patient Education How to access health informa tion online - Detail Indication:BMI 45.0-49.9, adult Start:09-Apr-2018 Instruction Type:Patient Education Patient Instructions Indication:BMI 45.0-49.9, adult Start:09-Apr-2018 Instruction Type:Provider Instructions for Treatment How to access health informa tion online Indication:Nonsmoker Start:16-Sep-2017 Instruction Type:Patient Education How to access health informa tion online - Detail Indication:Nonsmoker Start:16-Sep-2017 Instruction Type:Patient Education Patient Instructions Indication:Nonsmoker Start:16-Sep-2017 Instruction Type:Provider Instructions for Treatment How to access health informa tion online Indication:Nonsmoker Start:04-Sep-2017 Instruction Type:Patient Education How to access health informa tion online - Detail Indication:Nonsmoker Start:04-Sep-2017 Instruction Type:Patient Education Patient Instructions Indication:Nonsmoker Start:04-Sep-2017 Instruction Type:Provider Instructions for Treatment How to access health informa tion online Indication:Nonsmoker Start:12-May-2017 Instruction Type:Patient Education How to access health informa tion online - Detail Indication:Nonsmoker Start:12-May-2017 Instruction Type:Patient Education Patient Instructions Indication:Nonsmoker Start:12-May-2017 Instruction Type:Provider Instructions for Treatment obesity counseling Indication:Osteoarthritis, localized Start:03-Apr-2017 Instruction Type:Provider Instructions for Treatment How to access health informa tion online Indication:Nonsmoker Start:03-Apr-2017 Instruction Type:Patient Education How to access health informa tion online - Detail Indication:Nonsmoker Start:03-Apr-2017 Instruction Type:Patient Education Patient Instructions Indication:Nonsmoker Start:03-Apr-2017 Instruction Type:Provider Instructions for Treatment How to access health informa tion online Indication:Left groin pain Start:10-Mar-2017 Instruction Type:Patient Education How to access health informa tion online - Detail Indication:Left groin pain Start:10-Mar-2017 Instruction Type:Patient Education Patient Instructions Indication:Left groin pain Start:10-Mar-2017 Instruction Type:Provider Instructions for Treatment How to access health informa tion online Indication:Nonsmoker Start:24-Feb-2017 Instruction Type:Patient Education How to access health informa tion online - Detail Indication:Nonsmoker Start:24-Feb-2017 Instruction Type:Patient Education Patient Instructions Indication:Nonsmoker Start:24-Feb-2017 Instruction Type:Provider Instructions for Treatment How to access health informa tion online Indication:Nonsmoker Start:13-Feb-2017 Instruction Type:Patient Education How to access health informa tion online - Detail Indication:Nonsmoker Start:13-Feb-2017 Instruction Type:Patient Education Patient Instructions Indication:Nonsmoker Start:13-Feb-2017 Instruction Type:Provider Instructions for Treatment How to access health informa tion online Indication:Nonsmoker Start:22-Jan-2017 Instruction Type:Patient Education How to access health informa tion online - Detail Indication:Nonsmoker Start:22-Jan-2017 Instruction Type:Patient Education Patient Instructions Indication:Nonsmoker Start:22-Jan-2017 Instruction Type:Provider Instructions for Treatment How to access health informa tion online Indication:Nonsmoker Start:03-Jul-2016 Instruction Type:Patient Education How to access health informa tion online - Detail Indication:Nonsmoker Start:03-Jul-2016 Instruction Type:Patient Education Patient Instructions Indication:Nonsmoker Start:03-Jul-2016 Instruction Type:Provider Instructions for Treatment Patient Instructions Indication:Encounter for screening for malignant neoplasm of colon (Renamed from Special screening for malignant neoplasms, colon) Start:26-Mar-2016 Instruction Type:Provider Instructions for Treatment How to access health informa tion online Indication:Encounter for screening for malignant neoplasm of colon (Renamed from Special screening for malignant neoplasms, colon) Start:26-Mar-2016 Instruction Type:Patient Education How to access health informa tion online - Detail Indication:Encounter for screening for malignant neoplasm of colon (Renamed from Special screening for malignant neoplasms, colon) Start:26-Mar-2016 Instruction Type:Patient Education obesity counseling Indication:Hypertension, benign Start:26-Mar-2016 Instruction Type:Provider Instructions for Treatment Name Dates Details Patient Instructions Indication:BMI 45.0-49.9, adult Start:14-Jun-2020 Instruction Type:Provider Instructions for Treatment How to access health informa tion online Indication:Non-smoker Start:27-May-2018 Instruction Type:Patient Education How to access health informa tion online - Detail Indication:Non-smoker Start:27-May-2018 Instruction Type:Patient Education Patient Instructions Indication:Non-smoker Start:27-May-2018 Instruction Type:Provider Instructions for Treatment obesity counseling Indication:Hypertension, benign Start:09-Apr-2018 Instruction Type:Provider Instructions for Treatment How to access health informa tion online Indication:BMI 45.0-49.9, adult Start:09-Apr-2018 Instruction Type:Patient Education How to access health informa tion online - Detail Indication:BMI 45.0-49.9, adult Start:09-Apr-2018 Instruction Type:Patient Education Patient Instructions Indication:BMI 45.0-49.9, adult Start:09-Apr-2018 Instruction Type:Provider Instructions for Treatment How to access health informa tion online Indication:Nonsmoker Start:16-Sep-2017 Instruction Type:Patient Education How to access health informa tion online - Detail Indication:Nonsmoker Start:16-Sep-2017 Instruction Type:Patient Education Patient Instructions Indication:Nonsmoker Start:16-Sep-2017 Instruction Type:Provider Instructions for Treatment How to access health informa tion online Indication:Nonsmoker Start:04-Sep-2017 Instruction Type:Patient Education How to access health informa tion online - Detail Indication:Nonsmoker Start:04-Sep-2017 Instruction Type:Patient Education Patient Instructions Indication:Nonsmoker Start:04-Sep-2017 Instruction Type:Provider Instructions for Treatment How to access health informa tion online Indication:Nonsmoker Start:12-May-2017 Instruction Type:Patient Education How to access health informa tion online - Detail Indication:Nonsmoker Start:12-May-2017 Instruction Type:Patient Education Patient Instructions Indication:Nonsmoker Start:12-May-2017 Instruction Type:Provider Instructions for Treatment obesity counseling Indication:Osteoarthritis, localized Start:03-Apr-2017 Instruction Type:Provider Instructions for Treatment How to access health informa tion online Indication:Nonsmoker Start:03-Apr-2017 Instruction Type:Patient Education How to access health informa tion online - Detail Indication:Nonsmoker Start:03-Apr-2017 Instruction Type:Patient Education Patient Instructions Indication:Nonsmoker Start:03-Apr-2017 Instruction Type:Provider Instructions for Treatment How to access health informa tion online Indication:Left groin pain Start:10-Mar-2017 Instruction Type:Patient Education How to access health informa tion online - Detail Indication:Left groin pain Start:10-Mar-2017 Instruction Type:Patient Education Patient Instructions Indication:Left groin pain Start:10-Mar-2017 Instruction Type:Provider Instructions for Treatment How to access health informa tion online Indication:Nonsmoker Start:24-Feb-2017 Instruction Type:Patient Education How to access health informa tion online - Detail Indication:Nonsmoker Start:24-Feb-2017 Instruction Type:Patient Education Patient Instructions Indication:Nonsmoker Start:24-Feb-2017 Instruction Type:Provider Instructions for Treatment How to access health informa tion online Indication:Nonsmoker Start:13-Feb-2017 Instruction Type:Patient Education How to access health informa tion online - Detail Indication:Nonsmoker Start:13-Feb-2017 Instruction Type:Patient Education Patient Instructions Indication:Nonsmoker Start:13-Feb-2017 Instruction Type:Provider Instructions for Treatment How to access health informa tion online Indication:Nonsmoker Start:22-Jan-2017 Instruction Type:Patient Education How to access health informa tion online - Detail Indication:Nonsmoker Start:22-Jan-2017 Instruction Type:Patient Education Patient Instructions Indication:Nonsmoker Start:22-Jan-2017 Instruction Type:Provider Instructions for Treatment How to access health informa tion online Indication:Nonsmoker Start:03-Jul-2016 Instruction Type:Patient Education How to access health informa tion online - Detail Indication:Nonsmoker Start:03-Jul-2016 Instruction Type:Patient Education Patient Instructions Indication:Nonsmoker Start:03-Jul-2016 Instruction Type:Provider Instructions for Treatment Patient Instructions Indication:Encounter for screening for malignant neoplasm of colon (Renamed from Special screening for malignant neoplasms, colon) Start:26-Mar-2016 Instruction Type:Provider Instructions for Treatment How to access health informa tion online Indication:Encounter for screening for malignant neoplasm of colon (Renamed from Special screening for malignant neoplasms, colon) Start:26-Mar-2016 Instruction Type:Patient Education How to access health informa tion online - Detail Indication:Encounter for screening for malignant neoplasm of colon (Renamed from Special screening for malignant neoplasms, colon) Start:26-Mar-2016 Instruction Type:Patient Education obesity counseling Indication:Hypertension, benign Start:26-Mar-2016 Instruction Type:Provider Instructions for Treatment Name Dates Details Patient Instructions Indication:BMI 45.0-49.9, adult Start:14-Jun-2020 Instruction Type:Provider Instructions for Treatment How to access health informa tion online Indication:Non-smoker Start:27-May-2018 Instruction Type:Patient Education How to access health informa tion online - Detail Indication:Non-smoker Start:27-May-2018 Instruction Type:Patient Education Patient Instructions Indication:Non-smoker Start:27-May-2018 Instruction Type:Provider Instructions for Treatment obesity counseling Indication:Hypertension, benign Start:09-Apr-2018 Instruction Type:Provider Instructions for Treatment How to access health informa tion online Indication:BMI 45.0-49.9, adult Start:09-Apr-2018 Instruction Type:Patient Education How to access health informa tion online - Detail Indication:BMI 45.0-49.9, adult Start:09-Apr-2018 Instruction Type:Patient Education Patient Instructions Indication:BMI 45.0-49.9, adult Start:09-Apr-2018 Instruction Type:Provider Instructions for Treatment How to access health informa tion online Indication:Nonsmoker Start:16-Sep-2017 Instruction Type:Patient Education How to access health informa tion online - Detail Indication:Nonsmoker Start:16-Sep-2017 Instruction Type:Patient Education Patient Instructions Indication:Nonsmoker Start:16-Sep-2017 Instruction Type:Provider Instructions for Treatment How to access health informa tion online Indication:Nonsmoker Start:04-Sep-2017 Instruction Type:Patient Education How to access health informa tion online - Detail Indication:Nonsmoker Start:04-Sep-2017 Instruction Type:Patient Education Patient Instructions Indication:Nonsmoker Start:04-Sep-2017 Instruction Type:Provider Instructions for Treatment How to access health informa tion online Indication:Nonsmoker Start:12-May-2017 Instruction Type:Patient Education How to access health informa tion online - Detail Indication:Nonsmoker Start:12-May-2017 Instruction Type:Patient Education Patient Instructions Indication:Nonsmoker Start:12-May-2017 Instruction Type:Provider Instructions for Treatment obesity counseling Indication:Osteoarthritis, localized Start:03-Apr-2017 Instruction Type:Provider Instructions for Treatment How to access health informa tion online Indication:Nonsmoker Start:03-Apr-2017 Instruction Type:Patient Education How to access health informa tion online - Detail Indication:Nonsmoker Start:03-Apr-2017 Instruction Type:Patient Education Patient Instructions Indication:Nonsmoker Start:03-Apr-2017 Instruction Type:Provider Instructions for Treatment How to access health informa tion online Indication:Left groin pain Start:10-Mar-2017 Instruction Type:Patient Education How to access health informa tion online - Detail Indication:Left groin pain Start:10-Mar-2017 Instruction Type:Patient Education Patient Instructions Indication:Left groin pain Start:10-Mar-2017 Instruction Type:Provider Instructions for Treatment How to access health informa tion online Indication:Nonsmoker Start:24-Feb-2017 Instruction Type:Patient Education How to access health informa tion online - Detail Indication:Nonsmoker Start:24-Feb-2017 Instruction Type:Patient Education Patient Instructions Indication:Nonsmoker Start:24-Feb-2017 Instruction Type:Provider Instructions for Treatment How to access health informa tion online Indication:Nonsmoker Start:13-Feb-2017 Instruction Type:Patient Education How to access health informa tion online - Detail Indication:Nonsmoker Start:13-Feb-2017 Instruction Type:Patient Education Patient Instructions Indication:Nonsmoker Start:13-Feb-2017 Instruction Type:Provider Instructions for Treatment How to access health informa tion online Indication:Nonsmoker Start:22-Jan-2017 Instruction Type:Patient Education How to access health informa tion online - Detail Indication:Nonsmoker Start:22-Jan-2017 Instruction Type:Patient Education Patient Instructions Indication:Nonsmoker Start:22-Jan-2017 Instruction Type:Provider Instructions for Treatment How to access health informa tion online Indication:Nonsmoker Start:03-Jul-2016 Instruction Type:Patient Education How to access health informa tion online - Detail Indication:Nonsmoker Start:03-Jul-2016 Instruction Type:Patient Education Patient Instructions Indication:Nonsmoker Start:03-Jul-2016 Instruction Type:Provider Instructions for Treatment Patient Instructions Indication:Encounter for screening for malignant neoplasm of colon (Renamed from Special screening for malignant neoplasms, colon) Start:26-Mar-2016 Instruction Type:Provider Instructions for Treatment How to access health informa tion online Indication:Encounter for screening for malignant neoplasm of colon (Renamed from Special screening for malignant neoplasms, colon) Start:26-Mar-2016 Instruction Type:Patient Education How to access health informa tion online - Detail Indication:Encounter for screening for malignant neoplasm of colon (Renamed from Special screening for malignant neoplasms, colon) Start:26-Mar-2016 Instruction Type:Patient Education obesity counseling Indication:Hypertension, benign Start:26-Mar-2016 Instruction Type:Provider Instructions for Treatment Name Dates Details How to access health informa tion online Indication:Non-smoker Start:27-May-2018 Instruction Type:Patient Education How to access health informa tion online - Detail Indication:Non-smoker Start:27-May-2018 Instruction Type:Patient Education Patient Instructions Indication:Non-smoker Start:27-May-2018 Instruction Type:Provider Instructions for Treatment obesity counseling Indication:Hypertension, benign Start:09-Apr-2018 Instruction Type:Provider Instructions for Treatment How to access health informa tion online Indication:BMI 45.0-49.9, adult Start:09-Apr-2018 Instruction Type:Patient Education How to access health informa tion online - Detail Indication:BMI 45.0-49.9, adult Start:09-Apr-2018 Instruction Type:Patient Education Patient Instructions Indication:BMI 45.0-49.9, adult Start:09-Apr-2018 Instruction Type:Provider Instructions for Treatment How to access health informa tion online Indication:Nonsmoker Start:16-Sep-2017 Instruction Type:Patient Education How to access health informa tion online - Detail Indication:Nonsmoker Start:16-Sep-2017 Instruction Type:Patient Education Patient Instructions Indication:Nonsmoker Start:16-Sep-2017 Instruction Type:Provider Instructions for Treatment How to access health informa tion online Indication:Nonsmoker Start:04-Sep-2017 Instruction Type:Patient Education How to access health informa tion online - Detail Indication:Nonsmoker Start:04-Sep-2017 Instruction Type:Patient Education Patient Instructions Indication:Nonsmoker Start:04-Sep-2017 Instruction Type:Provider Instructions for Treatment How to access health informa tion online Indication:Nonsmoker Start:12-May-2017 Instruction Type:Patient Education How to access health informa tion online - Detail Indication:Nonsmoker Start:12-May-2017 Instruction Type:Patient Education Patient Instructions Indication:Nonsmoker Start:12-May-2017 Instruction Type:Provider Instructions for Treatment obesity counseling Indication:Osteoarthritis, localized Start:03-Apr-2017 Instruction Type:Provider Instructions for Treatment How to access health informa tion online Indication:Nonsmoker Start:03-Apr-2017 Instruction Type:Patient Education How to access health informa tion online - Detail Indication:Nonsmoker Start:03-Apr-2017 Instruction Type:Patient Education Patient Instructions Indication:Nonsmoker Start:03-Apr-2017 Instruction Type:Provider Instructions for Treatment How to access health informa tion online Indication:Left groin pain Start:10-Mar-2017 Instruction Type:Patient Education How to access health informa tion online - Detail Indication:Left groin pain Start:10-Mar-2017 Instruction Type:Patient Education Patient Instructions Indication:Left groin pain Start:10-Mar-2017 Instruction Type:Provider Instructions for Treatment How to access health informa tion online Indication:Nonsmoker Start:24-Feb-2017 Instruction Type:Patient Education How to access health informa tion online - Detail Indication:Nonsmoker Start:24-Feb-2017 Instruction Type:Patient Education Patient Instructions Indication:Nonsmoker Start:24-Feb-2017 Instruction Type:Provider Instructions for Treatment How to access health informa tion online Indication:Nonsmoker Start:13-Feb-2017 Instruction Type:Patient Education How to access health informa tion online - Detail Indication:Nonsmoker Start:13-Feb-2017 Instruction Type:Patient Education Patient Instructions Indication:Nonsmoker Start:13-Feb-2017 Instruction Type:Provider Instructions for Treatment How to access health informa tion online Indication:Nonsmoker Start:22-Jan-2017 Instruction Type:Patient Education How to access health informa tion online - Detail Indication:Nonsmoker Start:22-Jan-2017 Instruction Type:Patient Education Patient Instructions Indication:Nonsmoker Start:22-Jan-2017 Instruction Type:Provider Instructions for Treatment How to access health informa tion online Indication:Nonsmoker Start:03-Jul-2016 Instruction Type:Patient Education How to access health informa tion online - Detail Indication:Nonsmoker Start:03-Jul-2016 Instruction Type:Patient Education Patient Instructions Indication:Nonsmoker Start:03-Jul-2016 Instruction Type:Provider Instructions for Treatment Patient Instructions Indication:Encounter for screening for malignant neoplasm of colon (Renamed from Special screening for malignant neoplasms, colon) Start:26-Mar-2016 Instruction Type:Provider Instructions for Treatment How to access health informa tion online Indication:Encounter for screening for malignant neoplasm of colon (Renamed from Special screening for malignant neoplasms, colon) Start:26-Mar-2016 Instruction Type:Patient Education How to access health informa tion online - Detail Indication:Encounter for screening for malignant neoplasm of colon (Renamed from Special screening for malignant neoplasms, colon) Start:26-Mar-2016 Instruction Type:Patient Education obesity counseling Indication:Hypertension, benign Start:26-Mar-2016 Instruction Type:Provider Instructions for Treatment Summary Purpose Advance Directives No Advanced Directives Records FoundNo Advanced Directives Records Found Additional Source Comments INFORMATION SOURCE (unrecogn ized section and content) DATE CREATED AUTHOR AUTHOR'S ORGANIZ ATION 06/10/2018 [facility], later [facility] ([place]) FOR RECORDS PERTAINING TO PATIENTS WHO ARE OR HAVE BEEN ENROLLED IN A CHEMICAL DEPENDENCY/SUBSTANCEABUSE PROGRAM, SOME INFORMATION MAY BE OMITTED. This clinical summary was aggregated from multiple sources. Caution should be exercised in using it in the provision of clinical care. This summary normalizes information from multiple sources, and as a consequence, information in this document may materially change the coding, format and clinical context of patient data. In addition, data may be omitted in some cases. CLINICAL DECISIONS SHOULD BE BASED ON THE PRIMARY CLINICAL RECORDS. [employer] provides no warranty or guarantee of the accuracy or completeness of information in this document.
== END | disposition home or self-care (01) ==
LOC: OPBI 15:29
PROVIDERS: PCP Internal Medicine; Referring Provider Internal Medicine; Visit Provider Internal Medicine
DX: Z12.31 Encounter for screening mammogram for malignant neoplasm of breast (principal); M81.0 Age-related osteoporosis without current pathological fracture
CPT/HCPCS: 77063; 77067; 77081

== ENCOUNTER → 2025-05-13 | Outpatient (CLI) | payer MEDICARE, BC, SELFPAY ==
[2025-05-13 13:07] LABS: Mucous, Urine 0 SEEN /hpf (<or=2+)
[2025-05-13 15:05] LABS: Hematocrit 35.9 % (37-47); Hemoglobin 12.0 g/dL (12.0-15.0); Mean Corp Hgb Conc 33.4 g/dL (32-36); Mean Corpuscular Volume 93.7 fL (81-99); Mean Platelet Vol. 9.7 fl (6.2-12.0); Platelet Count 222 K/mm3 (150-450); RBC Distribution Width CV 12.0 % (11.6-14.6); RBC Distribution Width SD 41.4 fl (35.1-43.9); Red Blood Count 3.83 M/mm3 (4.2-5.4); White Blood Count 8.9 K/mm3 (4.4-11.0)
[2025-05-13 15:38] LABS: Creatinine, Urine (random) 119.00 mg/dL (28.00-217.00); Microalbumin,Random Urine < 12.0 mg/L (<20 mg/L)
[2025-05-13 16:02] LABS: AST(SGOT) 21 U/L (<=31); Alanine Aminotransfer ALT/SGPT 13 U/L (<=34); Albumin, Serum 4.5 g/dL (3.4-4.8); Alkaline Phosphatase 107 U/L (35-104); Anion Gap 13 (5-15); BUN 20 mg/dL (4-19); BUN/Creat Ratio 19.4 RATIO (10-20); Calcium,Total 9.9 mg/dL (7.6-11.0); Carbon Dioxide 22.9 mmol/L (21.0-32.0); Chloride 95 mmol/L (98-108); Cholesterol 195 mg/dL (<=200); Free T3 1.8 pg/mL (2.18-3.98); Globulin 2.7 g/dL (2.2-4.2); Glucose 89 mg/dL (70-99); Low Density Lipoprotein Calc. 117 mg/dL; Potassium 4.4 mmol/L (3.3-5.1); Triglycerides 88 mg/dL; Very Low Density Lipoprotein 18 mg/dL (5-40); Vitamin D,25 Hydroxy 19.8 ng/mL (30-100); cholesterol:hdl ratio screen 3.13
[2025-05-13 16:15] LABS: Color, Urine Yellow (Yellow); Glucose, Dipstick Normal (Normal); Ketone-Dipstick Negative (Negative); Leukocyte Esterase-Dipstick 25 /ul (Negative); Nitrite-Dipstick Negative (Negative); Occult Blood-Urine 10 /ul (Negative); Protein-Dipstick 15 mg/dl (Negative); Specific Gravity, Urine 1.020 (1.002-1.030); Urine Bilirubin Dipstick Negative (Negative)
[2025-05-13 18:12] LABS: Red Blood Cells-Urine 0-5 SEEN /hpf (0-5); Squamous Epithelial Cells - UA 5-10 SEEN /hpf (5-10)
== END | disposition home or self-care (01) ==
LOC: MTLAB 12:51
PROVIDERS: PCP Internal Medicine; Referring Provider Internal Medicine; Visit Provider Internal Medicine
DX: I10 Essential (primary) hypertension (principal); E03.9 Hypothyroidism, unspecified; E55.9 Vitamin D deficiency, unspecified; R73.9 Hyperglycemia, unspecified
CPT/HCPCS: 36415; 80053; 80061; 81001; 82043; 82306; 82570; 83036; 84443; 84481; 85027

== ENCOUNTER 2025-05-22 20:29 | Emergency (ER) | payer MEDICARE, BC, SELFPAY ==
[2025-05-22 20:29] VITALS: BP 196/78; PULSE 110; RESP 18; TEMP 36.8; O2SAT 98; BMI 46.1
--- OUTSIDE RECORDS SUMMARY | 2025-05-22 21:19 | XMS RPT_ITS | CCD ---
Author Organization [facility] Care Team Providers Care Residential Monitor Name Role Phone Vasiliy, Melissa Unavailable [facility] Unavailable Servando Cordova Unavailable Flavio Patino Unavailable Messenger, Jackie Unavailable Unavailable Slarb, Darlene Unavailable Unavailable Unavailable Unavailable Gravius, Monae Unavailable Unavailable Vasiliy, Melissa Unavailable Unavailable Vasiliy, Melissa Unavailable Unavailable Vasiliy, Melissa Unavailable Unavailable SERVANDO CORDOVA Unavailable Unavailable Vasiliy, Melissa Unavailable [facility] Unavailable [phone] Servando Cordova Unavailable Flavio Patino Unavailable Gravius, Monae Unavailable Unavailable Messenger, Jackie Unavailable Unavailable Slarb, Darlene Unavailable Unavailable Unavailable Unavailable Gravius, Monae Unavailable Unavailable Flavio Patino Unavailable Messenger, Jackie Unavailable [facility] Unavailable Chelsea Marsh Unavailable Unavailable Vasiliy DO, Melissa Unavailable [facility] Unavailable Dr. Servando Cordova Unavailable [facility] Unavailable Flavio Patino Unavailable Chelsea Marsh LPN Unavailable Unavailable Gravius PIANO CASE MAKER, Monae Unavailable Unavailable Messenger RN, Jackie Unavailable Unavailable Slarb CHILD SUPPORT INVESTIGATOR, Darlene Unavailable Unavailable Unavailable Unavailable Sandeep Cleary Unavailable Flavio Patino Unavailable Monae Busby Unavailable Unavailable Messenger, DERECK Mejia Unavailable Unavailable Vasiliy DO, Melissa Unavailable Brandon PIANO CASE MAKER, Kayela Unavailable Unavailable Vasiliy, Melissa Referring Unavailable Vasiliy, Melissa Attending Unavailable Vasiliy, Melissa Primary Care Unavailable Vasiliy, Melissa Primary Care Unavailable Vasiliy, Melissa Referring Unavailable Vasiliy, Melissa Attending Unavailable Allergies Allergy Classification Reported Allergen(s) Allergy Type Date of Onset Reaction(s) Facility DOPamine Antagonists (1 source) Metoclopramide; Translations: [Reglan *GASTROINTESTINAL AGENTS - MISC.*] Drug [facility] Work Phone: Comment on above: lump in throat Serotonin Reuptake Inhibitors (SSRIs) (1 source) Citalopram; Translations: [CeleXA *ANTIDEPRESSANTS* ] Drug Allergy [facility] Work Phone: Comment on above: hyperactivity (20 sources) citalopram; Translations: [CeleXA *ANTIDEPRESSANTS* ] Drug Allergy [facility] Work Phone: Comment on above: hyperactivity (20 sources) metoclopramide; Translations: [Reglan *GASTROINTESTINAL AGENTS - MISC.*] Drug Allergy [facility] Work Phone: Comment on above: lump in throat (20 sources) Tree; Translations: [Trees] allergy to substance Cough [facility] Work Phone: (20 sources) Naproxen; Translations: [Aleve *ANALGESICS - ANTI-INFLAMMATORY *] Drug Allergy [facility] Work Phone: Comment on above: chest pain Medications Completed/Discontinued Medications Medication Drug Class(es) Dates [...] for 30 days Refills: 0 Ordered: 26-Mar-2016 Vasiliy DO, Melissa Amanda DO Melissa Start : 26-Mar-2016 Active atenolol 25 mg oral tablet (20 sources) beta-Adrenergic Rosie Start: 11-19-2021 take 1 tablet by mouth once daily Atenolol 25 MG Oral Tablet 1 (one) Tablet qd for 0 days Quantity: 90 {Tablet} Refills: 0 Ordered: 17-May-2022 Vasiliy DO, Melissa Vasiliy DO Melissa Start : 17-May-2022 Active Start: 03-09-2021 take 1 tablet by jamal th once daily Atenolol 25 MG Oral Tablet 1 (one) Tablet qd for 0 days Quantity: 90 {Tablet} Refills: 0 Ordered: 09-Mar-2021 Monae Busby CMA Start : 09-Mar-2021 Active Start: 11-20-2020 take 1 tablet by jamal th once daily Atenolol 25 MG Oral Tablet 1 (one) Tablet qd for 0 days Quantity: 90 {Tablet} Refills: 0 Ordered: 20-Nov-2020 Vasiliy DO, Melissa Amanda DOBillMelissa Start : 20-Nov-2020 Active Start: 08-15-2020 take 1 tablet by jamal th once daily Atenolol 25 MG Oral Tablet 1 (one) Tablet qd for 0 days Quantity: 90 {Tablet} Refills: 0 Ordered: 15-Aug-2020 Vasiliy DO, Melissa Vasiliy DO Melissa Start : 15-Aug-2020 Active Start: 05-22-2020 take 1 tablet by jamal th once daily Atenolol 25 MG Oral Tablet 1 (one) Tablet qd for 0 days Quantity: 90 {Tablet} Refills: 0 Ordered: 22-May-2020 Monae Busby CMA Start : 22-May-2020 Active Start: 05-12-2019 take 1 tablet by jamal th once daily Atenolol 25 MG Oral Tablet 1 (one) Tablet qd for 0 days Quantity: 90 {Tablet} Refills: 3 Ordered: 12-May-2019 Monae Busby CMA Start : 12-May-2019 Active Start: 04-14-2017 take 1 tablet by jamal th once daily Atenolol 25 MG Oral Tablet 1 (one) Tablet qd for 0 days Quantity: 30 {Tablet} Refills: 11 Ordered: 14-Apr-2017 Melissa Amanda DO, DO, Kathleen Start : 14-Apr-2017 Active atorvastatin 20 mg oral tablet (20 sources) HMG-CoA Reductase Inhibitor Start: 07-11-2022 End: 02-17-2022 take 1 tablet by mouth once daily atorvastatin 20 mg oral tablet 1 (one) Tablet qd for 90 days Quantity: 90 {Tablet} Refills: 3 Ordered: 11-Jul-2022 Melissa Amanda DO, DO, Kathleen Start : 11-Jul-2022 End : 17-Feb-2022 Active Start: 07-11-2022 End: 02-17-2022 take 1 tablet by mouth once daily atorvastatin 20 mg oral tablet 1 (one) Tablet qd for 90 days Quantity: 90 {Tablet} Refills: 3 Ordered: 11-Jul-2022 Melissa Amanda DO, DO, Kathleen Start : 11-Jul-2022 End : 17-Feb-2022 Active Start: 07-11-2022 End: 02-17-2022 take 1 tablet by mouth once daily atorvastatin 20 mg oral tablet 1 (one) Tablet qd for 90 days Quantity: 90 {Tablet} Refills: 3 Ordered: 11-Jul-2022 Melissa Amanda DO, DO, Kathleen Start : 11-Jul-2022 End : 17-Feb-2022 Active Start: 07-11-2022 End: 02-17-2022 take 1 tablet by mouth once daily atorvastatin 20 mg oral tablet 1 (one) Tablet qd for 90 days Quantity: 90 {Tablet} Refills: 3 Ordered: 11-Jul-2022 Melissa Amanda DO, DO, Kathleen Start : 11-Jul-2022 End : 17-Feb-2022 Active Start: 07-11-2022 End: 02-17-2022 take 1 tablet by mouth once daily atorvastatin 20 mg oral tablet 1 (one) Tablet qd for 90 days Quantity: 90 {Tablet} Refills: 3 Ordered: 11-Jul-2022 Melissa Amanda DO Vasiliy DOBillMelissa Start : 11-Jul-2022 End : 17-Feb-2022 Active Start: 06-11-2022 End: 02-17-2022 take 1 tablet by mouth once daily atorvastatin 20 mg oral tablet 1 (one) Tablet qd for 90 days Quantity: 90 {Tablet} Refills: 0 Ordered: 11-Jun-2022 Vasiliy DOMelissa Vasiliy DOBillMelissa Start : 11-Jun-2022 End : 17-Feb-2022 Active Start: 11-19-2021 End: 02-17-2022 take 1 tablet by mouth once daily Atorvastatin Calcium 20 MG Oral Tablet 1 (one) Tablet qd for 90 days Quantity: 90 {Tablet} Refills: 0 Ordered: 19-Nov-2021 Monae Busby CMA Start : 19-Nov-2021 End : 17-Feb-2022 Inactive Start: 06-04-2021 End: 05-27-2021 take 1 tablet by mouth once daily Atorvastatin Calcium 20 MG Oral Tablet 1 (one) Tablet qd for 90 days Quantity: 90 {Tablet} Refills: 0 Ordered: 04-Jun-2021 Vasiliy DOMelissa DO, Kathleen Start : 04-Jun-2021 End : 27-May-2021 Active Start: 06-04-2021 End: 05-27-2021 take 1 tablet by mouth once daily Atorvastatin Calcium 20 MG Oral Tablet 1 (one) Tablet qd for 90 days Quantity: 90 {Tablet} Refills: 0 Ordered: 04-Jun-2021 Vasiliy DOMelissa DO, Kathleen Start : 04-Jun-2021 End : 27-May-2021 Active Start: 06-04-2021 End: 05-27-2021 take 1 tablet by mouth once daily Atorvastatin Calcium 20 MG Oral Tablet 1 (one) Tablet qd for 90 days Quantity: 90 {Tablet} Refills: 0 Ordered: 04-Jun-2021 Vasiliy DOMelissa DO, Kathleen Start : 04-Jun-2021 End : 27-May-2021 Active Start: 11-20-2020 End: 11-13-2020 take 1 tablet by mouth once daily Atorvastatin Calcium 20 MG Oral Tablet 1 (one) Tablet qd for 90 days Quantity: 90 {Tablet} Refills: 0 Ordered: 20-Nov-2020 Vasiliy PAPPAS Melissa Castanedaviky PAPPAS Melissa Start : 20-Nov-2020 End : 13-Nov-2020 Active Start: 08-15-2020 take 1 tablet by jamal th once daily Atorvastatin Calcium 20 MG Oral Tablet 1 (one) Tablet qd for 90 days Quantity: 90 {Tablet} Refills: 0 Ordered: 15-Aug-2020 Vasiliy PAPPAS Melissa VasiliyMelissa salmon DO Start : 15-Aug-2020 Active Start: 05-22-2020 take 1 tablet by jamal th once daily Atorvastatin Calcium 20 MG Oral Tablet 1 (one) Tablet qd for 90 days Quantity: 90 {Tablet} Refills: 0 Ordered: 22-May-2020 Monae Busby CMA Start : 22-May-2020 Active Start: 05-12-2019 take 1 tablet by jamal th once daily Atorvastatin Calcium 20 MG Oral Tablet 1 (one) Tablet qd for 90 days Quantity: 90 {Tablet} Refills: 3 Ordered: 12-May-2019 Vasiliy PAPPAS Melissa VasiliyBill salmon DOeen Start : 12-May-2019 Active Start: 03-09-2018 End: 06-07-2018 take 1 tablet by mouth once daily Atorvastatin Calcium 20 MG Oral Tablet 1 (one) Tablet qd for 90 days Quantity: 90 {Tablet} Refills: 0 Ordered: 09-Mar-2018 Vasiliy PAPPAS Melissahuong Amanda DO Melissa Start : 09-Mar-2018 End : 07-Jun-2018 Inactive Comments: no more refills, after this, until seen by office Comment on above: no more refills, aft er this, until seen by office azithromycin 250 mg oral tablet (20 sources) Macrolide Antimicrobial Start : 02-24 End: 03-10 take 1 tablet by mouth once daily Zithromax Z-Von 250 MG Oral Tablet TAD Tablet QD for 0 days Quantity: 1 {Package} Refills: 0 Ordered: 10-Mar-2017 Darlene Quintero LPN Start : 24-Feb-2017 End : 10-Mar-2017 Inactive calcium carbonate 1500 mg oral tablet (12 sources) take 1 tablet by mouth once daily Calcium 600 600 MG Oral Tablet 2(Two) tabs Once a day. (600 MG) Active cholecalciferol 0.025 mg oral tablet (20 sources) Vitamin D Start : 02-13 take 2 tablets by mouth once daily Vitamin D3 1000 UNIT Oral Tablet 2 (two) Tablet qd for 30 days Refills: 0 Ordered: 13-Feb-2017 Melissa Amanda DO, DO, Kathleen Start : 13-Feb-2017 Active Comments: new dose Comment on above: new dose codeine phosphate 2 mg/ml / guaiFENesin 20 mg/ml oral solution (20 sources) Opioid Agonist Start : 07-03 End: 01-22 take 1 [tsp_us] by mouth every six hours as needed Cheratussin AC 100-10 MG/5ML Oral Solution 1 (one) Teaspoon Q6Hrs PRN for 0 days Quantity: 6 {Ounce} Refills: 0 Ordered: 22-Jan-2017 Valorie Hernández RN Start : 03-Jul-2016 End : 22-Jan-2017 Inactive Comments: Six Comment on above: Six fexofenadine hydrochloride 180 mg oral tablet (15 sources) Histamine-1 Receptor Antagonist take 1 mg by mouth once daily in the morning Ann 180 MG Oral Tablet Once a day in the morning. (180 MG) Active 24 hr fexofenadine hydrochloride 180 mg / pseudoephedrine hydrochloride 240 mg extended release oral tablet (20 sources) alpha-Adrenergic Agonist, Histamine-1 Receptor Antagonist Start : 03-26 End: 12-27 take 180-240 mg by mouth every twenty-four hours as needed Ann-D Allergy [facility] Congestion 180-240 MG Oral Tablet Extended Release 24 Hour 1 (one) Tablet ER 24HR prn for 30 days Refills: 0 Ordered: 27-Dec-2021 Zayra Taylor CMA Start : 26-Mar-2016 End : 27-Dec-2021 Inactive hydroCHLOROthiazide 12.5 mg oral capsule (20 sources) Thiazide Diuretic Start : 03-26 End: 01-22 take 1 capsule by mouth once daily HydroCHLOROthiazide 12.5 MG Oral Capsule 1 (one) Capsule qd for 30 days Refills: 0 Ordered: 22-Jan-2017 Melissa Amanda DO, DO, Kathleen Start : 26-Mar-2016 End : 22-Jan-2017 Discontinued hydroCHLOROthiazide 25 mg / losartan potassium 100 mg oral tablet (20 sources) Thiazide Diuretic, Angiotensin 2 Receptor Rosie Start : 02-03 End: 02-03 take 1 tablet by mouth once daily Losartan Potassium-HCTZ 100-25 MG Oral Tablet 1 (one) Tablet qd for 30 days Quantity: 30 {Tablet} Refills: 10 Ordered: 03-Feb-2019 Melissa Amanda DO, DO, Kathleen Start : 03-Feb-2019 End : 03-Feb-2019 Discontinued Start: 02-02-2019 take 1 tablet by jamal th once daily Losartan Potassium-HCTZ 100-25 MG Oral Tablet 1 (one) Tablet qd for 30 days Quantity: 30 {Tablet} Refills: 10 Ordered: 02-Feb-2019 Melissa Amanda DO, DO, Kathleen Start : 02-Feb-2019 Active Start: 01-28-2019 take 1 tablet by jamal th once daily Losartan Potassium-HCTZ 100-25 MG Oral Tablet 1 (one) Tablet qd for 30 days Quantity: 30 {Tablet} Refills: 10 Ordered: 28-Jan-2019 Melissa Amanda DO, DO, Kathleen Start : 28-Jan-2019 Active Start: 01-28-2019 take 1 tablet by jamal th once daily Losartan Potassium-HCTZ 100-25 MG Oral Tablet 1 (one) Tablet qd for 30 days Quantity: 30 {Tablet} Refills: 10 Ordered: 28-Jan-2019 Melissa Amanda DO, DO, Kathleen Start : 28-Jan-2019 Active Start: 03-11-2018 take 1 tablet by jamal th once daily Losartan Potassium-HCTZ 100-25 MG Oral Tablet 1 (one) Tablet qd for 30 days Quantity: 30 {Tablet} Refills: 10 Ordered: 11-Mar-2018 Melissa Amanda DO, DO, Kathleen Start : 11-Mar-2018 Active hydroCHLOROthiazide 25 mg / valsartan 320 mg oral tablet (20 sources) Thiazide Diuretic, Angiotensin 2 Receptor Rosie Start: 07-08-2022 take 1 tablet by mouth once daily valsartan-hydrochlorothiazide 320-25 mg oral tablet 1 (one) Tablet qd for 30 days Quantity: 30 {Tablet} Refills: 1 Ordered: 08-Jul-2022 Phyllis Jimenez CNP Start : 08-Jul-2022 Active Start: 04-30-2022 take 1 tablet by jamal th once daily Valsartan-hydroCHLOROthiazide 320-25 MG Oral Tablet 1 (one) Tablet qd for 30 days Quantity: 30 {Tablet} Refills: 1 Ordered: 30-Apr-2022 Vasiliy DO, Melissa Amanda DO Melissa Start : 30-Apr-2022 Active Start: 04-16-2022 take 1 tablet by jamal th once daily Valsartan-hydroCHLOROthiazide 320-25 MG Oral Tablet 1 (one) Tablet qd for 30 days Quantity: 30 {Tablet} Refills: 1 Ordered: 16-Apr-2022 Vasiliy DO, Melissa Castanedaon DO Melissa Start : 16-Apr-2022 Active Start: 03-15-2022 take 1 tablet by jamal th once daily Valsartan-hydroCHLOROthiazide 320-25 MG Oral Tablet 1 (one) Tablet qd for 30 days Quantity: 30 {Tablet} Refills: 1 Ordered: 15-Mar-2022 Vasiliy DO, Melissa Amanda DO Melissa Start : 15-Mar-2022 Active Start: 01-16-2022 take 1 tablet by jamal th once daily Valsartan-hydroCHLOROthiazide 320-25 MG Oral Tablet 1 (one) Tablet qd for 30 days Quantity: 30 {Tablet} Refills: 1 Ordered: 16-Jan-2022 Vasiliy DO, Melissa Castanedaon DO Melissa Start : 16-Jan-2022 Active Start: 12-06-2021 take 1 tablet by jamal th once daily Valsartan-hydroCHLOROthiazide 320-25 MG Oral Tablet 1 (one) Tablet qd for 30 days Quantity: 30 {Tablet} Refills: 1 Ordered: 06-Dec-2021 Vasiliy DO, Melissa Amanda DO Melissa Start : 06-Dec-2021 Active Start: 11-19-2021 take 1 tablet by jamal th once daily Valsartan-hydroCHLOROthiazide 160-25 MG Oral Tablet 1 (one) Tablet qd for 90 days Quantity: 90 {Tablet} Refills: 0 Ordered: 19-Nov-2021 Monae Busby CMA Start : 19-Nov-2021 Active Start: 06-04-2021 take 1 tablet by jamal th once daily Valsartan-hydroCHLOROthiazide 160-25 MG Oral Tablet 1 (one) Tablet qd for 90 days Quantity: 90 {Tablet} Refills: 0 Ordered: 04-Jun-2021 Melissa Amanda DO, DO, Kathleen Start : 04-Jun-2021 Active Start: 08-15-2020 End: 11-13-2020 take 1 tablet by mouth once daily Valsartan-hydroCHLOROthiazide 160-25 MG Oral Tablet 1 (one) Tablet qd for 90 days Quantity: 90 {Tablet} Refills: 0 Ordered: 15-Aug-2020 Melissa Amanda DO, DO, Kathleen Start : 15-Aug-2020 End : 13-Nov-2020 Inactive Start: 05-22-2020 take 1 tablet by jamal th once daily Valsartan-hydroCHLOROthiazide 160-25 MG Oral Tablet 1 (one) Tablet qd for 90 days Quantity: 90 {Tablet} Refills: 0 Ordered: 22-May-2020 Monae Busby CMA Start : 22-May-2020 Active Start: 05-12-2019 take 1 tablet by jamal th once daily Valsartan-hydroCHLOROthiazide 160-25 MG Oral Tablet 1 (one) Tablet qd for 90 days Quantity: 90 {Tablet} Refills: 3 Ordered: 12-May-2019 Melissa Amanda DO, DO, Kathleen Start : 12-May-2019 Active Start: 05-04-2019 End: 05-04-2019 take 1 tablet by mouth once daily Valsartan-hydroCHLOROthiazide 160-25 MG Oral Tablet 1 (one) Tablet qd for 90 days Quantity: 90 {Tablet} Refills: 0 Ordered: 04-May-2019 Melissa Amanda DO, DO, Kathleen Start : 04-May-2019 End : 04-May-2019 Active Start: 02-03-2019 take 1 tablet by jamal th once daily Valsartan-hydroCHLOROthiazide 160-25 MG Oral Tablet 1 (one) Tablet qd for 90 days Quantity: 90 {Tablet} Refills: 0 Ordered: 03-Feb-2019 Jackie Kohler LPN Start : 03-Feb-2019 Active Multivitamins (3 sources) Start: 03-26-2016 take 1 capsule by mouth once daily Multivitamins Oral Capsule 1 (one) Capsule qd for 30 days Refills: 0 Ordered: 26-Mar-2016 Melissa Amanda DO, DO, Kathleen Start : 26-Mar-2016 Active Multivitamins Oral Capsule (20 sources) Start: 03-26-2016 take 1 capsule by mouth once daily Multivitamins Oral Capsule 1 (one) Capsule qd for 30 days Refills: 0 Ordered: 26-Mar-2016 Melissa Amanda DO, DO, Kathleen Start : 26-Mar-2016 Active omeprazole 20 mg delayed release oral capsule (20 sources) Proton Pump Inhibitor Start: 03-26-2016 take 1 capsule by mouth once daily PriLOSEC 20 MG Oral Capsule Delayed Release 1 (one) Capsule DR qd for 30 days Refills: 0 Ordered: 26-Mar-2016 Melissa Amanda DO, DO, Kathleen Start : 26-Mar-2016 Active PARoxetine hydrochloride 20 mg oral tablet (20 sources) Serotonin Reuptake Inhibitor Start: 12-13-2022 End: 08-15-2022 take 1 tablet by mouth once daily PARoxetine HCL 20 mg oral tablet 1 (one) Tablet qd for 90 days Quantity: 90 {Tablet} Refills: 0 Ordered: 13-Dec-2022 Melissa Amanda DO, DO, Kathleen Start : 13-Dec-2022 End : 15-Aug-2022 Active Start: 12-13-2022 End: 08-15-2022 take 1 tablet by mouth once daily PARoxetine HCL 20 mg oral tablet 1 (one) Tablet qd for 90 days Quantity: 90 {Tablet} Refills: 0 Ordered: 13-Dec-2022 Melissa Amanda DO, DO, Kathleen Start : 13-Dec-2022 End : 15-Aug-2022 Active Start: 12-13-2022 End: 08-15-2022 take 1 tablet by mouth once daily PARoxetine HCL 20 mg oral tablet 1 (one) Tablet qd for 90 days Quantity: 90 {Tablet} Refills: 0 Ordered: 13-Dec-2022 Melissa Amanda DO, DO, Kathleen Start : 13-Dec-2022 End : 15-Aug-2022 Active Start: 05-17-2022 End: 02-17-2022 take 1 tablet by mouth once daily PARoxetine HCl 20 MG Oral Tablet 1 (one) Tablet qd for 90 days Quantity: 90 {Tablet} Refills: 0 Ordered: 17-May-2022 Vasiliy PAPPAS Melissa Amanda DO Melissa Start : 17-May-2022 End : 17-Feb-2022 Active Start: 05-17-2022 End: 02-17-2022 take 1 tablet by mouth once daily PARoxetine HCl 20 MG Oral Tablet 1 (one) Tablet qd for 90 days Quantity: 90 {Tablet} Refills: 0 Ordered: 17-May-2022 Vasiliy PAPPAS Melissa Amanda DO Melissa Start : 17-May-2022 End : 17-Feb-2022 Active Start: 05-17-2022 End: 02-17-2022 take 1 tablet by mouth once daily PARoxetine HCl 20 MG Oral Tablet 1 (one) Tablet qd for 90 days Quantity: 90 {Tablet} Refills: 0 Ordered: 17-May-2022 Vasiliy PAPPAS Melissahuong Amanda DO Melissa Start : 17-May-2022 End : 17-Feb-2022 Active Start: 05-17-2022 End: 02-17-2022 take 1 tablet by mouth once daily PARoxetine HCl 20 MG Oral Tablet 1 (one) Tablet qd for 90 days Quantity: 90 {Tablet} Refills: 0 Ordered: 17-May-2022 Vasiliy PAPPAS Melissahuong Amanda DO Melissa Start : 17-May-2022 End : 17-Feb-2022 Active Start: 05-17-2022 End: 02-17-2022 take 1 tablet by mouth once daily PARoxetine HCl 20 MG Oral Tablet 1 (one) Tablet qd for 90 days Quantity: 90 {Tablet} Refills: 0 Ordered: 17-May-2022 Vasiliy PAPPAS Melissa Amanda DO Melissa Start : 17-May-2022 End : 17-Feb-2022 Active Start: 11-19-2021 End: 02-17-2022 take 1 tablet by mouth once daily PARoxetine HCl 20 MG Oral Tablet 1 (one) Tablet qd for 90 days Quantity: 90 {Tablet} Refills: 0 Ordered: 19-Nov-2021 Monae Busby CMA Start : 19-Nov-2021 End : 17-Feb-2022 Inactive Start: 06-04-2021 take 1 tablet by jamal once daily PARoxetine HCl 20 MG Oral Tablet 1 (one) Tablet qd for 90 days Quantity: 90 {Tablet} Refills: 0 Ordered: 04-Jun-2021 Vasiliy DO Melissa Castanedaon DO Melissa Start : 04-Jun-2021 Active Start: 08-15-2020 End: 11-13-2020 take 1 tablet by mouth once daily PARoxetine HCl 20 MG Oral Tablet 1 (one) Tablet qd for 90 days Quantity: 90 {Tablet} Refills: 0 Ordered: 15-Aug-2020 Vasiliy DO, Melissa Vasiliy DOBillMelissa Start : 15-Aug-2020 End : 13-Nov-2020 Inactive Start: 05-22-2020 take 1 tablet by jamal th once daily PARoxetine HCl 20 MG Oral Tablet 1 (one) Tablet qd for 90 days Quantity: 90 {Tablet} Refills: 0 Ordered: 22-May-2020 Monae Busby CMA Start : 22-May-2020 Active Start: 05-12-2019 take 1 tablet by jamal th once daily PARoxetine HCl 20 MG Oral Tablet 1 (one) Tablet qd for 90 days Quantity: 90 {Tablet} Refills: 3 Ordered: 12-May-2019 Monae Busby CMA Start : 12-May-2019 Active Start: 08-07-2018 take 1 tablet by jamal th once daily PARoxetine HCl 20 MG Oral Tablet 1 (one) Tablet qd for 30 days Quantity: 30 {Tablet} Refills: 11 Ordered: 07-Aug-2018 Vasiliy DO Melissa Castanedaviky PAPPAS Melissa Start : 07-Aug-2018 Active Start: 04-14-2017 take 1 tablet by jamal th once daily PARoxetine HCl 20 MG Oral Tablet 1 (one) Tablet qd for 30 days Quantity: 30 {Tablet} Refills: 11 Ordered: 14-Apr-2017 Vasiliy DO Melissa Castanedaon DO Melissa Start : 14-Apr-2017 Active potassium chloride 10 meq extended release oral tablet (20 sources) Start: 01-31-2023 take 1 tablet by mouth once daily potassium chloride 10 mEq oral tablet, extended release 1 (one) Tablet ER qd for 30 days Quantity: 30 {Tablet} Refills: 0 Ordered: 31-Jan-2023 Vasiliy DOMelissa DOJovanaMelissa Start : 31-Jan-2023 Active Start: 05-17-2022 End: 08-15-2022 take 1 tablet by mouth once daily Potassium Chloride ER 10 MEQ Oral Tablet Extended Release 1 (one) Tablet ER qd for 90 days Quantity: 90 {Tablet} Refills: 0 Ordered: 17-May-2022 Melissa Amanda DO, DO, Kathleen Start : 17-May-2022 End : 15-Aug-2022 Inactive Start: 05-17-2022 End: 02-17-2022 take 1 tablet by mouth once daily Potassium Chloride ER 10 MEQ Oral Tablet Extended Release 1 (one) Tablet ER qd for 90 days Quantity: 90 {Tablet} Refills: 0 Ordered: 17-May-2022 Melissa Amanda DO, DO, Kathleen Start : 17-May-2022 End : 17-Feb-2022 Active Start: 05-17-2022 End: 02-17-2022 take 1 tablet by mouth once daily Potassium Chloride ER 10 MEQ Oral Tablet Extended Release 1 (one) Tablet ER qd for 90 days Quantity: 90 {Tablet} Refills: 0 Ordered: 17-May-2022 Melissa Amanda DO, DO, Kathleen Start : 17-May-2022 End : 17-Feb-2022 Active Start: 05-17-2022 End: 02-17-2022 take 1 tablet by mouth once daily Potassium Chloride ER 10 MEQ Oral Tablet Extended Release 1 (one) Tablet ER qd for 90 days Quantity: 90 {Tablet} Refills: 0 Ordered: 17-May-2022 Melissa Amanda DO, DO, Kathleen Start : 17-May-2022 End : 17-Feb-2022 Active Start: 05-17-2022 End: 02-17-2022 take 1 tablet by mouth once daily Potassium Chloride ER 10 MEQ Oral Tablet Extended Release 1 (one) Tablet ER qd for 90 days Quantity: 90 {Tablet} Refills: 0 Ordered: 17-May-2022 Melissa Amanda DO, DO, Kathleen Start : 17-May-2022 End : 17-Feb-2022 Active Start: 05-17-2022 End: 02-17-2022 take 1 tablet by mouth once daily Potassium Chloride ER 10 MEQ Oral Tablet Extended Release 1 (one) Tablet ER qd for 90 days Quantity: 90 {Tablet} Refills: 0 Ordered: 17-May-2022 Melissa Amanda DO, DO, Kathleen Start : 17-May-2022 End : 17-Feb-2022 Active Start: 11-19-2021 End: 02-17-2022 take 1 tablet by mouth once daily Potassium Chloride ER 10 MEQ Oral Tablet Extended Release 1 (one) Tablet ER qd for 90 days Quantity: 90 {Tablet} Refills: 0 Ordered: 19-Nov-2021 Monae Busby CMA Start : 19-Nov-2021 End : 17-Feb-2022 Inactive Start: 06-04-2021 take 1 tablet by jamal th once daily Potassium Chloride ER 10 MEQ Oral Tablet Extended Release 1 (one) Tablet ER qd for 90 days Quantity: 90 {Tablet} Refills: 0 Ordered: 04-Jun-2021 Melissa Amanda DO, DO, Kathleen Start : 04-Jun-2021 Active Start: 08-15-2020 End: 11-13-2020 take 1 tablet by mouth once daily Potassium Chloride ER 10 MEQ Oral Tablet Extended Release 1 (one) Tablet ER qd for 90 days Quantity: 90 {Tablet} Refills: 0 Ordered: 15-Aug-2020 Melissa Amanda DO, DO, Kathleen Start : 15-Aug-2020 End : 13-Nov-2020 Inactive Start: 05-22-2020 take 1 tablet by jamal th once daily Potassium Chloride ER 10 MEQ Oral Tablet Extended Release 1 (one) Tablet ER qd for 90 days Quantity: 90 {Tablet} Refills: 0 Ordered: 22-May-2020 Monae Busby CMA Start : 22-May-2020 Active Start: 05-12-2019 take 1 tablet by jamal th once daily Potassium Chloride ER 10 MEQ Oral Tablet Extended Release 1 (one) Tablet ER qd for 90 days Quantity: 90 {Tablet} Refills: 3 Ordered: 12-May-2019 Monae Busby CMA Start : 12-May-2019 Active Start: 03-11-2018 take 1 tablet by jamal th once daily Potassium Chloride ER 10 MEQ Oral Tablet Extended Release 1 (one) Tablet ER qd for 30 days Quantity: 30 {Tablet} Refills: 11 Ordered: 11-Mar-2018 Melissa Amanda DO, DO, Kathleen Start : 11-Mar-2018 Active levothyroxine sodium 0.15 mg oral tablet (20 sources) l-Thyroxine Start: 07-11-2022 take 1 tablet by mouth once daily Synthroid 150 mcg oral tablet 1 (one) Tablet daily for 0 days Quantity: 90 {Tablet} Refills: 3 Ordered: 11-Jul-2022 Vasiliy DO, Melissa Vasiliy DO Melissa Start : 11-Jul-2022 Active Start: 06-11-2022 take 1 tablet by jamal th once daily Synthroid 150 mcg oral tablet 1 (one) Tablet daily for 0 days Quantity: 90 {Tablet} Refills: 0 Ordered: 11-Jun-2022 Vasiliy DO, Melissa Vasiliy DO Melissa Start : 11-Jun-2022 Active Start: 11-19-2021 take 1 tablet by jamal th once daily Synthroid 150 MCG Oral Tablet 1 (one) Tablet daily for 0 days Quantity: 90 {Tablet} Refills: 0 Ordered: 19-Nov-2021 Monae Busby CMA Start : 19-Nov-2021 Active Start: 07-09-2021 take 1 tablet by jamal once daily Synthroid 150 MCG Oral Tablet 1 (one) Tablet daily for 0 days Quantity: 90 {Tablet} Refills: 0 Ordered: 09-Jul-2021 Monae Busby CMA Start : 09-Jul-2021 Active Start: 06-04-2021 take 1 tablet by jamal th once daily Synthroid 150 MCG Oral Tablet 1 (one) Tablet daily for 0 days Quantity: 90 {Tablet} Refills: 0 Ordered: 04-Jun-2021 Vasiliy DO, Mleissa Vasiliy DO Melissa Start : 04-Jun-2021 Active Start: 08-15-2020 take 1 tablet by jamal th once daily Synthroid 150 MCG Oral Tablet 1 (one) Tablet daily for 0 days Quantity: 90 {Tablet} Refills: 0 Ordered: 15-Aug-2020 Vasiliy DO, Melissa Vasiliy DO Melissa Start : 15-Aug-2020 Active Start: 05-22-2020 take 1 tablet by jamal th once daily Synthroid 150 MCG Oral Tablet 1 (one) Tablet daily for 0 days Quantity: 90 {Tablet} Refills: 0 Ordered: 22-May-2020 Monae Busby CMA Start : 22-May-2020 Active Start: 05-12-2019 take 1 tablet by jamal th once daily Synthroid 150 MCG Oral Tablet 1 (one) Tablet daily for 0 days Quantity: 90 {Tablet} Refills: 3 Ordered: 12-May-2019 Monae Busby CMA Start : 12-May-2019 Active Start: 11-03-2017 take 1 tablet by jamal th once daily Synthroid 150 MCG Oral Tablet 1 (one) Tablet daily for 30 days Quantity: 30 {Tablet} Refills: 3 Ordered: 03-Nov-2017 Melissa Amanda DO, DO, Kathleen Start : 03-Nov-2017 Active vitamin e 180 mg oral capsule (20 sources) Start: 03-26-2016 take 1 capsule by mouth once daily Vitamin E 400 UNIT Oral Capsule 1 (one) Capsule qd for 30 days Refills: 0 Ordered: 26-Mar-2016 Melissa Amanda DO, DO, Kathleen Start : 26-Mar-2016 Active Start: 03-26-2016 take 1 capsule by mo uth once daily Vitamin E 400 UNIT Oral Capsule 1 (one) Capsule qd for 30 days Refills: 0 Ordered: 26-Mar-2016 Melissa Amanda DO, DO, Kathleen Start : 26-Mar-2016 Active Problems Active Problems Problem Classification Problem Date Documented Date Episodic/Chronic Abdominal pain (20 sources) Inguinal pain; Translations: [Left lower quadrant pain] Resolved: 8 09-16-2017 Episodic Administrative/social admission (20 sources) Counseling procedure with explicit context; Translations: [Pneumococcal vaccination given] 04-09-2018 Episodic Anxiety disorders (20 sources) Anxiety; Translations: [Anxiety] 04-09-2018 Chronic Comment on above: stressful situ curre ntly going on Conduction disorders (20 sources) Right bundle branch block; Translations: [Right bundle-branch block] 03-15-2021 Chronic Diabetes mellitus without complication (20 sources) Hyperglycemia; Translations: [Hyperglycemia] 06-14-2020 Episodic Disorders of lipid metabolism (20 sources) Hypercholesterolemia; Translations: [Hypercholesteremia (Renamed from Hypercholesterolemia)] 04-09-2018 Chronic Comment on above: repeat when thyroid stable Esophageal disorders (20 sources) Gastroesophageal reflux disease; Translations: [GERD (gastroesophageal reflux disease)] 04-09-2018 Chronic Essential hypertension (20 sources) Benign hypertension; Translations: [Hypertension, benign] 04-09-2018 Chronic Comment on above: h/[place] & her hr would go up and not come down-- so last dr in [place] gave rx low dose atenolol to use prn Immunizations and screening for infectious disease (20 sources) Need for prophylactic vaccination and inoculation against influenza; Translations: [Pneumococcal vaccination given] 05-27-2018 Episodic Joint disorders and dislocations; trauma-related (20 sources) Acetabular labrum tear; Translations: [Tear of left acetabular labrum, subsequent encounter] 04-09-2018 Episodic Comment on above: [facility] -- ne eds hip replacement- but needs to lose wt per surgeon -- this will fix tear Nutritional deficiencies (20 sources) Vitamin D deficiency; Translations: [Vitamin D deficiency] 04-09-2018 Chronic Comment on above: increase D3-5k daily Osteoarthritis (20 sources) Localized osteoarthrosis; Translations: [Chronic osteoarthritis] 04-09-2018 Chronic Comment on above: needs to lose wt to have joint replacements per surgeon Other bone disease and musculoskeletal deformities (20 sources) Osteopenia; Translations: [Osteopenia, unspecified location] 04-09-2018 Episodic Other diseases of kidney and ureters (20 sources) Renal impairment; Translations: [Renal insufficiency] 03-15-2021 Episodic Comment on above: stay hydrated Other fractures (20 sources) Stress fracture; Translations: [Stress fracture with routine healing, subsequent encounter] 06-14-2020 Episodic Other lower respiratory disease (20 sources) Cough; Translations: [Cough] Resolved: 7 02-13-2017 Episodic Other non-traumatic joint disorders (20 sources) Hip pain; Translations: [Hip pain, left] 04-09-2018 Episodic Other non-traumatic joint disorders (20 sources) Pain in left hip; Translations: [Pain of left hip joint] Resolved: 8 09-16-2017 Episodic Other nutritional; endocrine; and metabolic disorders (20 sources) Morbid obesity; Translations: [Morbid obesity] 11-19-2021 Chronic Other upper respiratory disease (20 sources) Allergic rhinitis; Translations: [Allergic rhinitis] Resolved: 7 02-13-2017 Chronic Other upper respiratory infections (20 sources) Chronic sinusitis, unspecified; Translations: [Bacterial sinusitis] 04-09-2018 Chronic Pulmonary heart disease (20 sources) Pulmonary hypertension, unspecified; Translations: [Pulmonary hypertension, mild] 07-09-2021 Chronic Comment on above: asx-- pt cancelled h er pulm appt Residual codes; unclassified (20 sources) Postmenopausal state; Translations: [Postmenopausal (Renamed from Postmenopausal status)] 05-27-2018 Episodic Comment on above: dexa 02/13 last dexa 07/20 Residual codes; unclassified (20 sources) Non-smoker; Translations: [Nonsmoker] 03-10-2017 Episodic Spondylosis; intervertebral disc disorders; other back problems (20 sources) Sciatica; Translations: [Sciatica] 06-14-2020 Episodic Comment on above: left Thyroid disorders (20 sources) Acquired hypothyroidism; Translations: [Acquired hypothyroidism] Onset: 4 04-09-2018 Chronic Unclassified (20 sources) Body mass index 40+ - severely obese; Translations: [BMI 45.0-49.9, adult] Resolved: 7 03-10-2017 Chronic Unclassified (20 sources) Breast neoplasm screening status; Translations: [Other specified abnormal findings of blood chemistry] Onset: 4 Resolved: 8 04-03-2017 Episodic Comment on above: up to date 2017 pt to call oksanavarun to resched scope before yr end 2016 2018 Unclassified (20 sources) Needs influenza immunization; Translations: [Postmenopausal state] 04-09-2018 Episodic Comment on above: dexa 02/13 Unclassified (20 sources) Hypertension, benign Unclassified (20 sources) Unclassified (20 sources) BMI 45.0-49.9, adult Unclassified (20 sources) Nonsmoker; Translations: [Non-smoker] 03-10-2017 Unclassified (20 sources) Hypercholesteremia (Renamed from Hypercholesterolemia) Unclassified (20 sources) Tear of left acetabular labrum, subsequent encounter Unclassified (20 sources) Nutritional counseling Unclassified (20 sources) Encounter for screening mammogram for breast cancer (Renamed from Encounter for screening mammogram for malignant neoplasm of breast) Unclassified (20 sources) Postmenopausal (Renamed from Postmenopausal status) Unclassified (20 sources) Osteoarthritis, chronic Unclassified (20 sources) Non-smoker Unclassified (14 sources) Encounter for hepatitis C virus screening test for high risk patient Unclassified (20 sources) Pulmonary hypertension, mild Past or Other Problems Problem Classification Problem [...] Special screening for malignant neoplasms, colon)] 04-09-2018 Comment on above: pt to call oksanavarun to resched scope before 2016 Unclassified (20 sources) Abortions/Miscarria ges; Translations: [Abortions/Miscarri ages] 04-09-2018 Comment on above: 2. Unclassified (20 sources) Pain of left hip joint Unclassified (20 sources) Stress fracture with routine healing, subsequent encounter; Translations: [Stress fracture] 04-09-2018 Unclassified (20 sources) Pregnancies (); Translations: [Pregnancies ()] 04-09-2018 Comment on above: 2. Unclassified (20 sources) Osteoarthritis, localized Unclassified (20 sources) Left groin pain Unclassified (20 sources) Abnormal TSH Unclassified (20 sources) Sinusitis, bacterial Unclassified (20 sources) Osteopenia, unspecified location Unclassified (20 sources) Hip pain, left Unclassified (20 sources) Annual Medicare Phyiscal WITHOUT abnormal findings (Renamed from Encounter for general adult medical examination without abnormal findings) Unclassified (20 sources) Encounter for screening for malignant neoplasm of colon (Renamed from Special screening for malignant neoplasms, colon) Unclassified (20 sources) Non-smoker; Translations: [Nonsmoker] 05-27-2018 Unclassified (20 sources) Stress fracture; Translations: [Stress fracture with routine healing, subsequent encounter] 05-27-2018 Unclassified (20 sources) Encounter for annual general medical examination with abnormal findings in adult Unclassified (20 sources) Abortions/Miscarria ges; Translations: [Abortions/Miscarri ages] 06-14-2020 Comment on above: 2. Unclassified (20 sources) Pregnancies (); Translations: [Pregnancies ()] 06-14-2020 Comment on above: 2. Results Test Name Value Interpretation Reference Range Facility Dexa Bone Density/Append Ske hannah 09-03-2023 Dexa Bone Density/Append Skel [facility] Imaging Services [address] [place] [address] Dexa Bone Density/Append Skel MR#: [id number] Acct: [id number] Name: ERIKA BATISTA Rep #: [id number] : 1945 F 78 From: Nico brooks MD PCP: Dr. Melissa Amanda DO Status: [facility] Study: Dexa Bone Density/Append Skel Date of Exam: Exam# [id number] Ordering Dr: Melissa Amanda DO [id number] STUDY: DUAL ENERGY X-RAY ABSORPTIOMETRY / DXA REASON FOR EXAM: Female, 78 years old. Z78.0 TECHNIQUE: Bone Mineral Density (BMD) measurements of both forearms were obtained. COMPARISON: Comparison is made with prior study dated July 18, 2020. FINDINGS: Right Forearm: g/cm2 (0.623) / T-score (0.8) / Z-score (3.4) Left Forearm: g/cm2 (0.631) / T-score (-1.0) / Z-score (3.6) BD/Dexa Bone Density/Append Skel IMPRESSION: The patient is considered normal as outlined below according to World Tony Organization (WHO) criteria with a low fracture risk. There has been worsening of bone density since the previous examination. Reference Information: The T-score is the number [...] National Osteoporosis Foundation www nof.org Electronically Signed: Nico Shine MD at 15:12 EDT Reading Location ID and State: [facility] / [place] , Service support , CC: Dr. Melissa Amanda DO Title I Paraprofessional: Signed [facility] SCRN MAMM (CAD)W/XIOMY BILATo n 09-03-2023 SCRN MAMM (CAD)W/XIOMY BILAT [facility] Imaging Services [address] [place] [address] SCRN MAMM (CAD)W/XIOMY BILAT MR#: [id number] Acct: [id number] Name: ERIKA BATISTA Rep #: [id number] : 1945 F 78 From: Bhaskar Chen MD PCP: Dr. Melissa Amanda DO Status: REG CLI Study: SCRN MAMM (CAD)W/XIOMY BILAT Date of Exam: 12/21 Exam# [id number] Ordering Dr: Melissa Amanda DO [id number] MAMMOGRAPHY - BILATERAL SCREENING 3-D TOMOSYNTHESIS REASON FOR EXAM: Female, 78 years old. SCREENING PERTINENT HISTORY: No significant family history. TECHNIQUE: 2-D mammograms and 3-D Tomosynthesis of the breast (s) were performed. CAD was performed. COMPARISON: 07/18/2020 FINDINGS: The breast composition is composed of scattered fibroglandular density. Scattered benign calcifications are seen. No dense spiculated masses or suspicious microcalcifications are identified. No architectural distortion is identified. There is no skin thickening or retraction. There has been no significant change since the prior study. BI/SCRN MAMM (CAD)W/XIOMY BILAT IMPRESSION: No mammographic signs of malignancy. Routine yearly mammograms recommended. ASSESSMENT CATEGORY: BIRADS Category 1: Negative. A letter regarding these results will be sent to the patient by the facility within 30 days. FOLLOW UP RECOMMENDATION: Yearly follow up mammogram recommended. (A) Approximately 10% of breast cancers are not detected by mammography. A normal mammogram should not delay biopsy of a clinically suspicious abnormality. Electronically Signed: Bhaskar Chen MD at 18:23 EST , CC: Dr. Melissa Amanda, DO Title I Paraprofessional: Signed [facility] Absolute lymphocyte countOrd ered By: Melissa Amanda on 07-01-2023 Lymphocytes Auto (Unsp spec) [#/Vol] 2.22 10*3/uL 0.83-4.51 [facility] Basophil percentageOrdered B y: Melissa Amanda on 07-01-2023 Basophils/100 WBC (Bld) 0.6 % 0-1 [facility] Bilirubin [Mass/Vol] 0.40 mg/dL 0.20-1.00 [facility] Comment on above: For patients on eltr ombopag therapy, use of Dimension [place] TBIL is not recommended. Chloride [Moles/Vol] 112 mmol/L 98-107 [facility] Cholesterol [Mass/Vol] 141 mg/dL <200 [facility] Comment on above: <200 mg/dL Desirable 200-240 mg/dL Borderline >240 mg/dL High Risk Eosinophils/100 WBC (Bld) 3.9 % 0-5 [facility] Glucose [Mass/Vol] 100 mg/dL 74-106 [facility] Comment on above: Fasting Glucose resu lt from 100 to 125 mg/dL suggests IMPAIRED HOMEOSTASIS per A.D.A. criteria. Neutrophils (Bld) [#/Vol] 8.1 10*3/uL 2.0-7.7 [facility] Neutrophils/100 WBC (Bld) 68.7 % 47-70 [facility] Potassium [Moles/Vol] 5.0 mmol/L 3.5-5.1 [facility] Protein [Mass/Vol] 7.1 g/dL 6.4-8.2 [facility] Sodium [Moles/Vol] 139 mmol/L 136-145 [facility] Triglyceride [Mass/Vol] 150 mg/dL <199 [facility] Comment on above: The drugs N-Acetylcy steine and Metamizole may falsely depress this assay.Serum Triglycerides Reference Interval Normal <150 mg/dL Borderline high 150 - 199 mg/dL High 200 - 499 mg/dL Very High > or = 500 mg/dL WBC (Bld) [#/Vol] 11.8 10*3/uL 4.4-11.0 [facility] Blood erythrocytes count (nu mber/volume)Ordered By: Melissa Amanda on 07-01-2023 RBC (Bld) [#/Vol] 4.13 10*6/uL 4.2-5.4 [facility] Blood hemoglobin measurement (mass/volume)Ordered By: Melissa Amanda on 07-01-2023 Hemoglobin (Bld) [Mass/Vol] 12.5 g/dL 12.0-15.0 [facility] Blood lymphocytes/100 leukoc ytesOrdered By: Melissa Amanda on 07-01-2023 Lymphocytes/100 WBC (Bld) 18.9 % 19-41 [facility] Blood monocytes/100 leukocyt esOrdered By: Melissa Amanda on 07-01-2023 Monocytes/100 WBC (Bld) 7.6 % 0-10 [facility] Blood platelet mean volumeOr dered By: Melissa Amanda on 07-01-2023 Platelet mean volume (Bld) [Entitic vol] 11.7 fL 6.2-12.0 [facility] CBC W/Diff, Automatedon Absolute Lymph 2.22 X10 3/uL Normal 0.83-4.51 [facility] Comment on above: Performed By: #### L 500.4100, L506.1000, L100.0100, L500.4050, L501.9520 #### [facility] [address] [place], [address] Absolute Neut 8.1 X10 3/uL High 2.0-7.7 [facility] Comment on above: Performed By: #### L 500.4100, L506.1000, L100.0100, L500.4050, L501.9520 #### [facility] [address] [place], [address] Basophils/100 WBC (Bld) 0.6 % Normal 0-1 [facility] Comment on above: Performed By: #### L 500.4100, L506.1000, L100.0100, L500.4050, L501.9520 #### [facility] [address] [place], [address] Eosinophils/100 WBC (Bld) 3.9 % Normal 0-5 [facility] Comment on above: Performed By: #### L 500.4100, L506.1000, L100.0100, L500.4050, L501.9520 #### [facility] [address] [place], [address] Erythrocyte distribution width (RBC) [Ratio] 11.9 % Normal 11.6-14.6 [facility] Comment on above: Performed By: #### L 500.4100, L506.1000, L100.0100, L500.4050, L501.9520 #### [facility] [address] [place], [address] Hematocrit (Bld) [Volume fraction] 40.3 % Normal 37-47 [facility] Comment on above: Performed By: #### L 500.4100, L506.1000, L100.0100, L500.4050, L501.9520 #### [facility] [address] [place], [address] Hemoglobin (Bld) [Mass/Vol] 12.5 g/dL Normal 12.0-15.0 [facility] Comment on above: Performed By: #### L 500.4100, L506.1000, L100.0100, L500.4050, L501.9520 #### [facility] [address] [place], [address] IG% 0.300 Normal 0.0-0.9 [facility] Comment on above: Result Comment: IG% - Immature Granulocytes (promyelocytes, myelocytes and metamyelocytes) > 1% indicates that a LEFT SHIFT is Present. Performed By: #### L 500.4100, L506.1000, L100.0100, L500.4050, L501.9520 #### [facility] [address] [place], [address] Lymphocytes/100 WBC (Bld) 18.9 % Low 19-41 [facility] Comment on above: Performed By: #### L 500.4100, L506.1000, L100.0100, L500.4050, L501.9520 #### [facility] [address] [place], [address] MCH (RBC) [Entitic mass] 30.3 pg Normal 27.0-32.0 [facility] Comment on above: Performed By: #### L 500.4100, L506.1000, L100.0100, L500.4050, L501.9520 #### [facility] [address] [place], [address] MCHC (RBC) [Mass/Vol] 31.0 g/dL Low 32-36 [facility] Comment on above: Performed By: #### L 500.4100, L506.1000, L100.0100, L500.4050, L501.9520 #### [facility] [address] [place], [address] MCV (RBC) [Entitic vol] 97.6 fL Normal 81-99 [facility] Comment on above: Performed By: #### L 500.4100, L506.1000, L100.0100, L500.4050, L501.9520 #### [facility] [address] [place], [address] Monocytes/100 WBC (Bld) 7.6 % Normal 0-10 [facility] Comment on above: Performed By: #### L 500.4100, L506.1000, L100.0100, L500.4050, L501.9520 #### [facility] [address] [place], [address] Neutrophils/100 WBC (Bld) 68.7 % Normal 47-70 [facility] Comment on above: Performed By: #### L 500.4100, L506.1000, L100.0100, L500.4050, L501.9520 #### [facility] [address] [place], [address] Nucleated RBC (Bld) [#/Vol] 0 10*3/uL Normal 0-5 [facility] Comment on above: Performed By: #### L 500.4100, L506.1000, L100.0100, L500.4050, L501.9520 #### [facility] [address] [place], [address] Platelet mean volume (Bld) [Entitic vol] 11.7 fL Normal 6.2-12.0 [facility] Comment on above: Performed By: #### L 500.4100, L506.1000, L100.0100, L500.4050, L501.9520 #### [facility] [address] [place], [address] Platelets (Bld) [#/Vol] 230 10*3/uL Normal 150-450 [facility] Comment on above: Performed By: #### L 500.4100, L506.1000, L100.0100, L500.4050, L501.9520 #### [facility] [address] [place], [address] RBC (Bld) [#/Vol] 4.13 10*6/uL Low 4.2-5.4 [facility] Comment on above: Performed By: #### L 500.4100, L506.1000, L100.0100, L500.4050, L501.9520 #### [facility] [address] [place], [address] RDW SD 42.9 fl Normal 35.1-43.9 [facility] Comment on above: Performed By: #### L 500.4100, L506.1000, L100.0100, L500.4050, L501.9520 #### [facility] [address] [place], [address] WBC (Bld) [#/Vol] 11.8 10*3/uL High 4.4-11.0 [facility] Comment on above: Performed By: #### L 500.4100, L506.1000, L100.0100, L500.4050, L501.9520 #### [facility] [address] [place], [address] Comprehensive Metabolic Prof [facility] 07-01-2023 Albumin [Mass/Vol] 3.6 g/dL Normal 3.2-5.0 [facility] Comment on above: Performed By: #### L 500.4100, L506.1000, L100.0100, L500.4050, L501.9520 #### [facility] [address] [place], [address] Albumin/Globulin [Mass ratio] 1.0 {ratio} Normal 0.9-2.4 [facility] Comment on above: Performed By: #### L 500.4100, L506.1000, L100.0100, L500.4050, L501.9520 #### [facility] [address] [place], [address] ALK P 102 U/L Normal 45-117 [facility] Comment on above: Performed By: #### L 500.4100, L506.1000, L100.0100, L500.4050, L501.9520 #### [facility] [address] [place], [address] ALT [Catalytic activity/Vol] 39 U/L Normal 13-56 [facility] Comment on above: Performed By: #### L 500.4100, L506.1000, L100.0100, L500.4050, L501.9520 #### [facility] [address] [place], [address] AST [Catalytic activity/Vol] 21 U/L Normal 15-37 [facility] Comment on above: Performed By: #### L 500.4100, L506.1000, L100.0100, L500.4050, L501.9520 #### [facility] [address] [place], [address] Bilirubin [Mass/Vol] 0.40 mg/dL Normal 0.20-1.00 [facility] Comment on above: Result Comment: For patients on eltrombopag therapy, use of Dimension [place] TBIL is not recommended. Performed By: #### L 500.4100, L506.1000, L100.0100, L500.4050, L501.9520 #### [facility] [address] [place], [address] BUN/CRE 21.7 RATIO High 10-20 [facility] Comment on above: Performed By: #### L 500.4100, L506.1000, L100.0100, L500.4050, L501.9520 #### [facility] [address] [place], [address] CA,Total 9.6 mg/dL Normal 8.5-10.1 [facility] Comment on above: Performed By: #### L 500.4100, L506.1000, L100.0100, L500.4050, L501.9520 #### [facility] [address] [place], [address] Chloride [Moles/Vol] 112 mmol/L High 98-107 [facility] Comment on above: Performed By: #### L 500.4100, L506.1000, L100.0100, L500.4050, L501.9520 #### [facility] [address] [place], [address] CO2 [Moles/Vol] 23.0 mmol/L Normal 21.0-32.0 [facility] Comment on above: Performed By: #### L 500.4100, L506.1000, L100.0100, L500.4050, L501.9520 #### [facility] [address] [place], [address] Creatinine [Mass/Vol] 1.89 mg/dL High 0.55-1.02 [facility] Comment on above: Result Comment: The validity of the calculated GFR GFRAA in patients over 70 years has not been determined. Clinical correlation is essential. Performed By: #### L 500.4100, L506.1000, L100.0100, L500.4050, L501.9520 #### [facility] [address] [place], [address] EST GFR - AA 33 mL/min Low >60 [facility] Comment on above: Result Comment: Afri can [place] GFR Calc Performed By: #### L 500.4100, L506.1000, L100.0100, L500.4050, L501.9520 #### [facility] [address] [place], [address] GAP 4 Low 5-15 [facility] Comment on above: Performed By: #### L 500.4100, L506.1000, L100.0100, L500.4050, L501.9520 #### [facility] [address] [place], [address] GFR/1.73 sq M.predicted among non-blacks MDRD (S/P/Bld) [Vol rate/Area] 28 mL/min/{1.73_m2} Low >60 [facility] Comment on above: Result Comment: Non- GFR Calc Performed By: #### L 500.4100, L506.1000, L100.0100, L500.4050, L501.9520 #### [facility] [address] [place], [address] Globulin (S) [Mass/Vol] 3.5 g/dL Normal 2.2-4.2 [facility] Comment on above: Performed By: #### L 500.4100, L506.1000, L100.0100, L500.4050, L501.9520 #### [facility] [address] [place], [address] Glucose [Mass/Vol] 100 mg/dL Normal 74-106 [facility] Comment on above: Result Comment: Fast ing Glucose result from 100 to 125 mg/dL suggests IMPAIRED HOMEOSTASIS per A.D.A. criteria. Performed By: #### L 500.4100, L506.1000, L100.0100, L500.4050, L501.9520 #### [facility] [address] [place], [address] Potassium [Moles/Vol] 5.0 mmol/L Normal 3.5-5.1 [facility] Comment on above: Performed By: #### L 500.4100, L506.1000, L100.0100, L500.4050, L501.9520 #### [facility] [address] [place], [address] Sodium [Moles/Vol] 139 mmol/L Normal 136-145 [facility] Comment on above: Performed By: #### L 500.4100, L506.1000, L100.0100, L500.4050, L501.9520 #### [facility] [address] [place], [address] T PROT 7.1 g/dL Normal 6.4-8.2 [facility] Comment on above: Performed By: #### L 500.4100, L506.1000, L100.0100, L500.4050, L501.9520 #### [facility] [address] [place], [address] Urea nitrogen [Mass/Vol] 41 mg/dL High 7-18 [facility] Comment on above: Performed By: #### L 500.4100, L506.1000, L100.0100, L500.4050, L501.9520 #### [facility] [address] [place], [address] Determination of erythrocyte mean corpuscular volume (MCV)Ordered By: Melissa Amanda on 07-01-2023 MCV (RBC) [Entitic vol] 97.6 fL 81-99 [facility] Hematocrit Auto (Bld) [Volum e fraction]Ordered By: Melissa Amanda on 07-01-2023 Hematocrit (Bld) [Volume fraction] 40.3 % 37-47 [facility] - Chemistry and C hemistry - challengeOrdered By: Melissa Amanda on 07-01-2023 ALP [Catalytic activity/Vol] 102 U/L 45-117 [facility] ALT [Catalytic activity/Vol] 39 U/L 13-56 [facility] CO2 [Moles/Vol] 23.0 mmol/L 21.0-32.0 [facility] Globulin (S) [Mass/Vol] 3.5 g/dL 2.2-4.2 [facility] Urea nitrogen/Creatinine [Mass ratio] 21.7 mg/mg 10-20 [facility] - Hematology and Cell countsOrdered By: Melissa Amanda on 07-01-2023 Erythrocyte distribution width (RBC) [Entitic vol] 42.9 fL 35.1-43.9 [facility] Erythrocyte distribution width (RBC) [Ratio] 11.9 % 11.6-14.6 [facility] Immature granulocytes/100 WBC (Bld) 0.300 % 0.0-0.9 [facility] Comment on above: IG% - Immature Granu locytes (promyelocytes, myelocytes and metamyelocytes) > 1% indicates that a LEFT SHIFT is Present. MCH (RBC) [Entitic mass] 30.3 pg 27.0-32.0 [facility] Nucleated RBC/100 WBC (Bld) [Ratio] 0 % 0-5 [facility] Lipid Profileon 07-01-2023 Cholesterol [Mass/Vol] 141 mg/dL Normal 200 [facility] Comment on above: Result Comment: <200 mg/dL Desirable 200-240 mg/dL Borderline >240 mg/dL High Risk Performed By: #### L 500.4100, L506.1000, L100.0100, L500.4050, L501.9520 #### [facility] [address] [place], [address] Cholesterol in HDL [Mass/Vol] 43 mg/dL Normal [facility] Comment on above: Result Comment: The drugs N-Acetylcysteine and Metamizole may falsely depress this assay. Reference Range HDL <40 mg/dL Low HDL Cholesterol HDL >or= 60 mg/dL High HDL Cholesterol Performed By: #### L 500.4100, L506.1000, L100.0100, L500.4050, L501.9520 #### [facility] [address] [place], [address] Cholesterol in LDL [Mass/Vol] 68 mg/dL Normal 0-130 [facility] Comment on above: Performed By: #### L 500.4100, L506.1000, L100.0100, L500.4050, L501.9520 #### [facility] [address] [place], [address] Cholesterol in VLDL [Mass/Vol] 30 mg/dL Normal 5-40 [facility] Comment on above: Performed By: #### L 500.4100, L506.1000, L100.0100, L500.4050, L501.9520 #### [facility] [address] [place], [address] Triglyceride [Mass/Vol] 150 mg/dL Normal [facility] Comment on above: Result Comment: The drugs N-Acetylcysteine and Metamizole may falsely depress this assay. Serum Triglycerides Reference Interval Normal <150 mg/dL Borderline high 150 - 199 mg/dL High 200 - 499 mg/dL Very High > or = 500 mg/dL Performed By: #### L 500.4100, L506.1000, L100.0100, L500.4050, L501.9520 #### [facility] [address] [place], [address] MCHC Auto (RBC) [Mass/Vol]Or dered By: Melissa Amanda on 07-01-2023 MCHC (RBC) [Mass/Vol] 31.0 g/dL 32-36 [facility] No Panel InformationOrdered By: Melissa Amanda on 07-01-2023 Estimated GFR (MDRD) Amer 33 mL/min >60 [facility] Comment on above: GFR Calc Estimated GFR (MDRD) Non-Af Amer 28 mL/min >60 [facility] Comment on above: Non- GFR Calc Thyroid Stimulating Hormone (TSH) 4.86 uIU/mL 0.358-3.74 [facility] Vitamin D 25-Hydroxy 47.4 ng/mL [facility] Comment on above: Vitamin D 25(OH) Sta tus Range Deficiency <20 ng/mL (50nmol/L) Insufficiency 20 - 30 ng/mL (50 - 75 nmol/L) Sufficiency 30 - 100 ng/mL (75 - 250 nmol/L) Toxicity >100 ng/mL (>250 nmol/L) Platelets bldOrdered By: Jovana Amanda on 07-01-2023 Platelets (Bld) [#/Vol] 230 10*3/uL 150-450 [facility] Serum or plasma albumin angel urement (mass/volume)Ordered By: Melissa Amanda on 07-01-2023 Albumin [Mass/Vol] 3.6 g/dL 3.2-5.0 [facility] Serum or plasma albumin/glob ulin mass ratioOrdered By: Melissa Amanda on 07-01-2023 Albumin/Globulin [Mass ratio] 1.0 {ratio} 0.9-2.4 [facility] Serum or plasma calcium angel urement (mass/volume)Ordered By: Melissa Amanda on 07-01-2023 Calcium [Mass/Vol] 9.6 mg/dL 8.5-10.1 [facility] Serum or plasma cholesterol in HDL measurement (mass/volume)Ordered By: Melissa Amanda on 07-01-2023 Cholesterol in HDL [Mass/Vol] 43 mg/dL >40 [facility] Comment on above: The drugs N-Acetylcy steine and Metamizole may falsely depress this assay. Reference Range HDL <40 mg/dL Low HDL Cholesterol HDL >or= 60 mg/dL High HDL Cholesterol Serum or plasma cholesterol in VLDL measurement (mass/volume)Ordered By: Melissa Amanda on 07-01-2023 Cholesterol in VLDL [Mass/Vol] 30 mg/dL 5-40 [facility] Serum or plasma creatinine m easurement (mass/volume)Ordered By: Melissa Amanda on 07-01-2023 Creatinine [Mass/Vol] 1.89 mg/dL 0.55-1.02 [facility] Comment on above: The validity of the calculated GFR & GFRAA in patients over 70 years has not been determined. Clinical correlation is essential. Serum or plasma low density lipoprotein (LDL) cholesterol measurement (mass/volume)Ordered By: Melissa Amanda on 07-01-2023 Cholesterol in LDL [Mass/Vol] 68 mg/dL 0-130 [facility] Serum or plasma urea nitroge n measurement (mass/volume)Ordered By: Melissa Amanda on 07-01-2023 Urea nitrogen [Mass/Vol] 41 mg/dL 7-18 [facility] Thin prep Papanicolaou smear with manual screeningOrdered By: Melissa Amanda on 07-01-2023 Thin prep Papanicolaou smear with manual screening 21 U/L 15-37 [facility] Thin prep Papanicolaou smear with manual screening 4 5-15 [facility] Thyroid Stim Hormone (TSH)on 07-01-2023 TSH 4.86 uIU/mL High 0.358-3.74 [facility] Comment on above: Performed By: #### L 500.4100, L506.1000, L100.0100, L500.4050, L501.9520 #### [facility] [address] [place], [place], [address] Vitamin D,25 Hydroxyon 07-01 Vitamin D 25-OH 47.4 ng/mL Normal [facility] Comment on above: Result Comment: Bri min D 25(OH) Status Range Deficiency <20 ng/mL (50nmol/L) Insufficiency 20 - 30 ng/mL (50 - 75 nmol/L) Sufficiency 30 - 100 ng/mL (75 - 250 nmol/L) Toxicity >100 ng/mL (>250 nmol/L) Performed By: #### L 500.4100, L506.1000, L100.0100, L500.4050, L501.9520 #### [facility] [address] [place], [address] HEPATITIS C ANTIBODY (79679) Ordered By: Collaborative Physician on 03-07-2022 HCV Ab Signal/Cutoff IA [Rel units/Vol] {ratio} Normal 0.0-0.9 [facility]; [facility] Work Phone: Comment on above: Negative: < 0.8 Inde terminate: 0.8 - 0.9 Positive: > 0.9 . HCV antibody alone does not differentiate between previous resolved infection and active infection. The CDC and current clinical guidelines recommend that a positive HCV antibody result be followed up with an HCV RNA test to support the diagnosis of acute HCV infection. [facility] Hepatitis C Virus (HCV) RNA, Diagnosis, WILLIAM (198756) and Hepatitis C Virus (HCV) Antibody with reflex to Quantitative Real-time PCR ([id number]). PATIENT NOT FASTINGP ERFORMED BY: [facility] [facility] [id number] CALCIFIDIOL (85535) VIT D 25 Ordered By: Collaborative Physician on 01-17-2022 25-hydroxyvitamin D [Mass/Vol] 42.4 ng/mL Normal 30.0-100.0 [facility]; [facility] Work Phone: Comment on above: Vitamin D deficiency has been defined by the [place] [employer] and an Endocrine Society practice guideline as alevel of serum 25-OH vitamin D less than 20 ng/mL (1,2).The Endocrine Society went on to further define vitamin Dinsufficiency as a level between 21 and 29 ng/mL (2).1. IOM ([place] of Medicine). 2010. Dietary reference intakes for calcium and D. [place]: The National Academies Press.2. Lisa MF, Jatinder DAVILA, Sofía MA, et al. Evaluation, treatment, and prevention of vitamin D deficiency: an Endocrine Society clinical practice guideline. JCEM. 2010; 96(7):1911-30. PATIENT WAS FASTINGP ERFORMED BY: [facility] [facility] [id number] CBC W/AUTO DIFF WBC (99987)O rdered By: Collaborative Physician on 01-17-2022 Basophils (Bld) [#/Vol] 0.1 10*3/uL Normal 0.0-0.2 [facility]; [facility] Work Phone: Comment on above: PATIENT WAS FASTINGP ERFORMED BY: [facility] [facility] [id number] Basophils/100 WBC (Bld) 1 % Normal [facility]; [facility] Work Phone: Comment on above: PATIENT WAS FASTINGP ERFORMED BY: [facility] [facility] [id number] Eosinophils (Bld) [#/Vol] 0.4 10*3/uL Normal 0.0-0.4 [facility]; [facility] Work Phone: Comment on above: PATIENT WAS FASTINGP ERFORMED BY: PARTH Lab[facility] Iopaac32[address]Dublin [place] [id number] Eosinophils/100 WBC (Bld) 4 % Normal [facility]; [facility] Work Phone: Comment on above: PATIENT WAS FASTINGP ERFORMED BY: [facility] Cynrlc9592 [address]Dublin [place] [id number] Erythrocyte distribution width (RBC) [Ratio] 11.7 % Normal 11.7-15.4 [facility]; [facility] Work Phone: Comment on above: PATIENT WAS FASTINGP ERFORMED BY: PARTH [facility] Pitypq2436 [address]Dublin [place] [id number] Hematocrit (Bld) [Volume fraction] 40.4 % Normal 34.0-46.6 [facility]; [facility] Work Phone: Comment on above: PATIENT WAS FASTINGP ERFORMED BY: PARTH [facility] Qdloea5146 [address]Dublin [place] [id number] Hemoglobin (Bld) [Mass/Vol] 13.4 g/dL Normal 11.1-15.9 [facility]; [facility] Work Phone: Comment on above: PATIENT WAS FASTINGP ERFORMED BY: CB [facility] Bpakhf5175 [address]Dublin [place] [id number] Immature granulocytes (Bld) [#/Vol] 0.0 10*3/uL Normal 0.0-0.1 [facility]; [facility] Work Phone: Comment on above: PATIENT WAS FASTINGP ERFORMED BY: CB [facility] Crzqyt7503 [address]Dublin [place] [id number] Immature granulocytes/100 WBC (Bld) 0 % Normal [facility]; [facility] Work Phone: Comment on above: PATIENT WAS FASTINGP ERFORMED BY: CB [facility] Mhfcwx3563 [address]Dublin [place] [id number] Lymphocytes (Bld) [#/Vol] 1.9 10*3/uL Normal 0.7-3.1 [facility]; [facility] Work Phone: Comment on above: PATIENT WAS FASTINGP ERFORMED BY: PARTH Lab[facility] HernandezNatepg5177 [address]Dublin [place] [id number] Lymphocytes/100 WBC (Bld) 20 % Normal [facility]; [facility] Work Phone: Comment on above: PATIENT WAS FASTINGP ERFORMED BY: PARTH [facility] Kffhru9288 [address]Dublin [place] [id number] MCH (RBC) [Entitic mass] 31.0 pg Normal 26.6-33.0 [facility]; [facility] Work Phone: Comment on above: PATIENT WAS FASTINGP ERFORMED BY: PARTH [facility] LealFchheu0059 [address]Dublin [place] [id number] MCHC (RBC) [Mass/Vol] 33.2 g/dL Normal 31.5-35.7 [facility]; [facility] Work Phone: Comment on above: PATIENT WAS FASTINGP ERFORMED BY: PARTH [facility] Jzgdnz7559 [address]Dublin [place] [id number] MCV (RBC) [Entitic vol] 94 fL Normal 79-97 [facility]; [facility] Work Phone: Comment on above: PATIENT WAS FASTINGP ERFORMED BY: PARTH [facility] Pbtqyn3790 [address]Dublin [place] [id number] Monocytes (Bld) [#/Vol] 0.8 10*3/uL Normal 0.1-0.9 [facility]; [facility] Work Phone: Comment on above: PATIENT WAS FASTINGP ERFORMED BY: PARTH [facility] Goevih5[address]Dublin [place] [id number] Monocytes/100 WBC (Bld) 8 % Normal [facility]; [facility] Work Phone: Comment on above: PATIENT WAS FASTINGP ERFORMED BY: [facility] Vtxkou1259 [address]Dublin [place] [id number] Neutrophils (Bld) [#/Vol] 6.5 10*3/uL Normal 1.4-7.0 [facility]; [facility] Work Phone: Comment on above: PATIENT WAS FASTINGP ERFORMED BY: PARTH Lab[facility] HernandezUdvpoj2984 [address]Dublin [place] [id number] Neutrophils/100 WBC (Bld) 67 % Normal [facility]; [facility] Work Phone: Comment on above: PATIENT WAS FASTINGP ERFORMED BY: PARTH [facility] Lfsday8544 [address]Dublin [place] [id number] Platelets (Bld) [#/Vol] 213 10*3/uL Normal 150-450 [facility]; [facility] Work Phone: Comment on above: PATIENT WAS FASTINGP ERFORMED BY: PARTH [facility] Keubfk3534 [address]Dublin [place] [id number] RBC (Bld) [#/Vol] 4.32 10*6/uL Normal 3.77-5.28 [facility]; [facility] Work Phone: Comment on above: PATIENT WAS FASTINGP ERFORMED BY: PARTH [facility] Rhzeyw0[address]Dublin [place] [id number] WBC (Bld) [#/Vol] 9.6 10*3/uL Normal 3.4-10.[address] [facility]; [facility] Work Phone: Comment on above: PATIENT WAS FASTINGP ERFORMED BY: PARTH [facility] Izlecs6871 [address]Dublin [place] [id number] LIPID PANEL ([id number])Ordered B y: Collaborative Physician on 01-17-2022 Cholesterol [Mass/Vol] 169 mg/dL Normal 100-199 [facility]; [facility] Work Phone: Comment on above: PATIENT WAS FASTINGP ERFORMED BY: PARTH [facility] Fiqzoc1950 [address]Dublin [place] [id number] Cholesterol in HDL [Mass/Vol] 49 mg/dL Normal [facility]; [facility] Work Phone: Comment on above: PATIENT WAS FASTINGP ERFORMED BY: PARTH [facility] Rpswzx6489 [address]blin [place] [id number] Triglyceride [Mass/Vol] 119 mg/dL Normal 0-149 [facility]; [facility] Work Phone: Comment on above: PATIENT WAS FASTINGP ERFORMED BY: PARTH [facility] Sumvln7983 [address]blin [place] [id number] LIPID PANEL (09165) 21 mg/dL Normal 5-40 [facility]; [facility] Work Phone: Comment on above: PATIENT WAS FASTINGP ERFORMED BY: PARTH [facility] Tyoqfb2699 [address]blin [place] [id number] LIPID PANEL (49849) 99 mg/dL Normal 0-99 [facility]; [facility] Work Phone: Comment on above: PATIENT WAS FASTINGP ERFORMED BY: PARTH [facility] Rzdtev[address] [facility] [id number] LIPID PANEL (77979) 2.0 {ratio} Normal 0.0-3.2 [facility]; [facility] Work Phone: Comment on above: LDL/HDL Ratio Men Wo men 1/2 Avg.Risk 1.0 1.5 Avg.Risk 3.6 3.2 2X Avg.Risk 6.2 5.0 3X Avg.Risk 8.0 6.1 PATIENT WAS FASTINGP ERFORMED BY: PARTH [facility] Yctdaq0425 [facility] [id number] METABOLIC PANEL, COMPREHENSI VE ([id number])Ordered By: Collaborative Physician on 01-17-2022 Albumin [Mass/Vol] 4.1 g/dL Normal 3.7-4.7 [facility]; [facility] Work Phone: Comment on above: PATIENT WAS FASTINGP ERFORMED BY: PARTH [facility] Gdtprp7364 [address]Dublin [place] [id number] Albumin/Globulin [Mass ratio] 2.0 {ratio} Normal 1.2-2.2 [facility]; [facility] Work Phone: Comment on above: PATIENT WAS FASTINGP ERFORMED BY: CB [facility] Eldnzn4605 [address]Dublin [place] [id number] ALP [Catalytic activity/Vol] 88 U/L Normal 44-121 [facility]; [facility] Work Phone: Comment on above: PATIENT WAS FASTINGP ERFORMED BY: CB [facility] Tqjhmg9720 [address]Dublin [place] [id number] ALT [Catalytic activity/Vol] 26 U/L Normal 0-32 [facility]; [facility] Work Phone: Comment on above: PATIENT WAS FASTINGP ERFORMED BY: CB [facility] Kjwmlx5107 [address]Dublin [place] [id number] AST [Catalytic activity/Vol] 21 U/L Normal 0-40 [facility]; [facility] Work Phone: Comment on above: PATIENT WAS FASTINGP ERFORMED BY: [facility] Ceriwe2824 [address]Dublin [place] [id number] Bilirubin [Mass/Vol] 0.3 mg/dL Normal 0.0-1.2 Comp rehensive [facility]; [facility] Work Phone: Comment on above: PATIENT WAS FASTINGP ERFORMED BY: [facility] Aedwbg3394 [address]Dublin [place] [id number] Calcium [Mass/Vol] 9.5 mg/dL Normal 8.7-10.3 [facility]; [facility] Work Phone: Comment on above: PATIENT WAS FASTINGP ERFORMED BY: [facility] Gzocou4785 [address] RoadDublin [place] [id number] Chloride [Moles/Vol] 103 mmol/L Normal 96-106 [facility]; [facility] Work Phone: Comment on above: PATIENT WAS FASTINGP ERFORMED BY: CB [facility] Mqohmx2577 [address]Dublin [place] [id number] CO2 [Moles/Vol] 23 mmol/L Normal 20-29 Compre[facility]; [facility] Work Phone: Comment on above: PATIENT WAS FASTINGP ERFORMED BY: PARTH [facility] Tsktcu9144 [address]Dublin [place] [id number] Creatinine [Mass/Vol] 1.19 mg/dL Abnormal 0.57-1.00 [facility]; [facility] Work Phone: Comment on above: PATIENT WAS FASTINGP ERFORMED BY: PARTH [facility] Zsjsjj3458 [address]Dublin [place] [id number] GFR/1.73 sq M.predicted among non-blacks MDRD (S/P/Bld) [Vol rate/Area] 48 mL/min/{1.73_m2} Abnormal Com[facility]; [facility] Work Phone: Comment on above: PATIENT WAS FASTINGP ERFORMED BY: PARTH [facility] Onovim3523 [address]Dublin [place] [id number] Globulin (S) [Mass/Vol] 2.1 g/dL Normal 1.5-4.5 [facility]; [facility] Work Phone: Comment on above: PATIENT WAS FASTINGP ERFORMED BY: PARTH [facility] Vyosqx9[address]Dublin [place] [id number] Glucose [Mass/Vol] 92 mg/dL Normal 65-99 [facility]; [facility] Work Phone: Comment on above: PATIENT WAS FASTINGP ERFORMED BY: PARTH [facility] Wzroqi8658 [address]Dublin [place] [id number] Potassium [Moles/Vol] 4.9 mmol/L Normal 3.5-5.2 [facility]; [facility] Work Phone: Comment on above: PATIENT WAS FASTINGP ERFORMED BY: CB [facility] Xgzqpc1136 [address]Dublin [place] [id number] Protein [Mass/Vol] 6.2 g/dL Normal 6.0-8.5 [facility]; [facility] Work Phone: Comment on above: PATIENT WAS FASTINGP ERFORMED BY: [facility] Kcbatr1703 [address]Dublin [place] [id number] Sodium [Moles/Vol] 140 mmol/L Normal 134-144 [facility]; [facility] Work Phone: Comment on above: PATIENT WAS FASTINGP ERFORMED BY: PARTH [facility] Jjguyq5059 [address]Dublin [place] [id number] Urea nitrogen [Mass/Vol] 28 mg/dL Abnormal 8-27 [facility]; [facility] Work Phone: Comment on above: PATIENT WAS FASTINGP ERFORMED BY: PARTH [facility] Zhjfgl3953 [address]Dublin [place] [id number] Urea nitrogen/Creatinine [Mass ratio] 24 mg/mg Normal 12-28 [facility]; [facility] Work Phone: Comment on above: PATIENT WAS FASTINGP ERFORMED BY: PARTH [facility] Qkgcwm2423 [address]Dublin [place] [id number] MICROALBUMINOrdered By: Syst em Deck Hand on 01-17-2022 Albumin DL <= 20 mg/L (U) [Mass/Vol] 4.3 ug/mL Normal Comprehens[facility]; [facility] Work Phone: Comment on above: PATIENT WAS FASTINGP ERFORMED BY: PARTH [facility] Vydzzi1306 [address]Dublin [place] [id number] Albumin/Creatinine (U) [Mass ratio] 4 {mg/g_creat} Normal 0-29 [facility]; [facility] Work Phone: Comment on above: Normal: 0 - 29 Moder ately increased: 30 - 300 Severely increased: >300 PATIENT WAS FASTINGP ERFORMED BY: PARTH [facility] Bncoen3330 [address]Dublin [place] [id number] Creatinine (U) [Mass/Vol] 120.9 mg/dL Normal [facility]; [facility] Work Phone: Comment on above: PATIENT WAS FASTINGP ERFORMED BY: PARTH [facility] Nachzo3413 [address]Dublin [place] [id number] TSH ([id number])Ordered By: Jenie m Deck Hand on 01-17-2022 TSH Qn 1.580 {uIU/mL} Normal 0.450-4.50 0 [facility]; [facility] Work Phone: Comment on above: PATIENT WAS FASTINGP ERFORMED BY: PARTH [facility] Brjbdc3065 [facility] [id number] CALCIFIDIOL (05494) VIT D 25 Ordered By: Collaborative Physician on 05-02-2021 25-hydroxyvitamin D [Mass/Vol] 47.0 ng/mL Normal 30.0-100.0 [facility]; [facility] Work Phone: Comment on above: Vitamin D deficiency has been defined by the [place] ofMedicine and an Endocrine Society practice guideline as alevel of serum 25-OH vitamin D less than 20 ng/mL (1,2).The Endocrine Society went on to further define vitamin Dinsufficiency as a level between 21 and 29 ng/mL (2).1. IOM ([place] of Medicine). 2010. Dietary reference intakes for calcium and D. [place]: The National Academies Press.2. Lisa MF, Jatinder DAVILA, Sofía MA, et al. Evaluation, treatment, and prevention of vitamin D deficiency: an Endocrine Society clinical practice guideline. JCEM. 2010; 96(7):1911-30. Test(s) 034229-EMER- CoV-2 Antibody, IgGhas not been FDA cleared or approved. This test hasbeen authorized by FDA under an Emergency Use Authorization(EUA). This test is only authorized for the duration of thedeclaration that circumstances exist justifying the authorizationof emergency use of in vitro diagnostics for detection and/ordiagnosis of COVID-19 under Section 564(b)(1) of the Act, 21U.S.C. 360bbb-3(b)(1), unless the authorization is terminated orrevoked sooner. This test has been authorized only for detectingthe presence of antibodies against SARS-CoV-2, not for any otherviruses or pathogens.PATIENT NOT FASTINGPERFORMED BY: PARTH [facility] Oswmsh3992 [facility] [id number] CBC W/AUTO DIFF WBC ([id number])O rdered By: Collaborative Physician on 11-03-2021 Basophils (Bld) [#/Vol] 0.0 10*3/uL Normal 0.0-0.2 [facility]; [facility] Work Phone: Comment on above: Test(s) [id number]-OFYJ- CoV-2 Antibody, IgGhas not been FDA cleared or approved. This test hasbeen authorized by FDA under an Emergency Use Authorization(EUA). This test is only authorized for the duration of thedeclaration that circumstances exist justifying the authorizationof emergency use of in vitro diagnostics for detection and/ordiagnosis of COVID-19 under Section 564(b)(1) of the Act, 21U.S.C. 360bbb-3(b)(1), unless the authorization is terminated orrevoked sooner. This test has been authorized only for detectingthe presence of antibodies against SARS-CoV-2, not for any otherviruses or pathogens.PATIENT NOT FASTINGPERFORMED BY: [facility] Cocqoq3004 [facility]aut[facility]Compare[facility] [id number] Information: PT HAD CEREAL Basophils/100 WBC (Bld) 1 % Normal [facility]; [facility] Work Phone: Comment on above: Test(s) [id number]-XVFX- CoV-2 Antibody, IgGhas not been FDA cleared or approved. This test hasbeen authorized by FDA under an Emergency Use Authorization(EUA). This test is only authorized for the duration of thedeclaration that circumstances exist justifying the authorizationof emergency use of in vitro diagnostics for detection and/ordiagnosis of COVID-19 under Section 564(b)(1) of the Act, 21U.S.C. 360bbb-3(b)(1), unless the authorization is terminated orrevoked sooner. This test has been authorized only for detectingthe presence of antibodies against SARS-CoV-2, not for any otherviruses or pathogens.PATIENT NOT FASTINGPERFORMED BY: [facility]6[address] [facility] [id number] Information: PT HAD CEREAL Eosinophils (Bld) [#/Vol] 0.3 10*3/uL Normal 0.0-0.4 [facility]; [facility] Work Phone: Comment on above: Test(s) 368841-HWBI- CoV-2 Antibody, IgGhas not been FDA cleared or approved. This test hasbeen authorized by FDA under an Emergency Use Authorization(EUA). This test is only authorized for the duration of thedeclaration that circumstances exist justifying the authorizationof emergency use of in vitro diagnostics for detection and/ordiagnosis of COVID-19 under Section 564(b)(1) of the Act, 21U.S.C. 360bbb-3(b)(1), unless the authorization is terminated orrevoked sooner. This test has been authorized only for detectingthe presence of antibodies against SARS-CoV-2, not for any otherviruses or pathogens.PATIENT NOT FASTINGPERFORMED BY: [facility] Styeaz4986 [facility] [id number] Information: PT HAD CEREAL Eosinophils/100 WBC (Bld) 4 % Normal [facility]; [facility] Work Phone: Comment on above: Test(s) [id number]-RYTS- CoV-2 Antibody, IgGhas not been FDA cleared or approved. This test hasbeen authorized by FDA under an Emergency Use Authorization(EUA). This test is only authorized for the duration of thedeclaration that circumstances exist justifying the authorizationof emergency use of in vitro diagnostics for detection and/ordiagnosis of COVID-19 under Section 564(b)(1) of the Act, 21U.S.C. 360bbb-3(b)(1), unless the authorization is terminated orrevoked sooner. This test has been authorized only for detectingthe presence of antibodies against SARS-CoV-2, not for any otherviruses or pathogens.PATIENT NOT FASTINGPERFORMED BY: [facility] [facility] [id number] Information: PT HAD CEREAL Erythrocyte distribution width (RBC) [Ratio] 12.1 % Normal 11.7-15.4 [facility]; [facility] Work Phone: Comment on above: Test(s) [id number]-XNGZ- CoV-2 Antibody, IgGhas not been FDA cleared or approved. This test hasbeen authorized by FDA under an Emergency Use Authorization(EUA). This test is only authorized for the duration of thedeclaration that circumstances exist justifying the authorizationof emergency use of in vitro diagnostics for detection and/ordiagnosis of COVID-19 under Section 564(b)(1) of the Act, 21U.S.C. 360bbb-3(b)(1), unless the authorization is terminated orrevoked sooner. This test has been authorized only for detectingthe presence of antibodies against SARS-CoV-2, not for any otherviruses or pathogens.PATIENT NOT FASTINGPERFORMED BY: [facility]6[address] [facility] [id number] Information: PT HAD CEREAL Hematocrit (Bld) [Volume fraction] 38.7 % Normal 34.0-46.6 [facility]; [facility] Work Phone: Comment on above: Test(s) [id number]-JYTV- CoV-2 Antibody, IgGhas not been FDA cleared or approved. This test hasbeen authorized by FDA under an Emergency Use Authorization(EUA). This test is only authorized for the duration of thedeclaration that circumstances exist justifying the authorizationof emergency use of in vitro diagnostics for detection and/ordiagnosis of COVID-19 under Section 564(b)(1) of the Act, 21U.S.C. 360bbb-3(b)(1), unless the authorization is terminated orrevoked sooner. This test has been authorized only for detectingthe presence of antibodies against SARS-CoV-2, not for any otherviruses or pathogens.PATIENT NOT FASTINGPERFORMED BY: [facility]6[address] [facility] [id number] Information: PT HAD CEREAL Hemoglobin (Bld) [Mass/Vol] 12.9 g/dL Normal 11.1-15.9 [facility]; [facility] Work Phone: Comment on above: Test(s) 158798-GOKL- CoV-2 Antibody, IgGhas not been FDA cleared or approved. This test hasbeen authorized by FDA under an Emergency Use Authorization(EUA). This test is only authorized for the duration of thedeclaration that circumstances exist justifying the authorizationof emergency use of in vitro diagnostics for detection and/ordiagnosis of COVID-19 under Section 564(b)(1) of the Act, 21U.S.C. 360bbb-3(b)(1), unless the authorization is terminated orrevoked sooner. This test has been authorized only for detectingthe presence of antibodies against SARS-CoV-2, not for any otherviruses or pathogens.PATIENT NOT FASTINGPERFORMED BY: [facility]6[address] [facility] [id number] Information: PT HAD CEREAL Immature granulocytes (Bld) [#/Vol] 0.0 10*3/uL Normal 0.0-0.1 [facility]; [facility] Work Phone: Comment on above: Test(s) 407804-UYWE- CoV-2 Antibody, IgGhas not been FDA cleared or approved. This test hasbeen authorized by FDA under an Emergency Use Authorization(EUA). This test is only authorized for the duration of thedeclaration that circumstances exist justifying the authorizationof emergency use of in vitro diagnostics for detection and/ordiagnosis of COVID-19 under Section 564(b)(1) of the Act, 21U.S.C. 360bbb-3(b)(1), unless the authorization is terminated orrevoked sooner. This test has been authorized only for detectingthe presence of antibodies against SARS-CoV-2, not for any otherviruses or pathogens.PATIENT NOT FASTINGPERFORMED BY: [facility]6[address] [facility] [id number] Information: PT HAD CEREAL Immature granulocytes/100 WBC (Bld) 0 % Normal [facility]; [facility] Work Phone: Comment on above: Test(s) [id number]-QERU- CoV-2 Antibody, IgGhas not been FDA cleared or approved. This test hasbeen authorized by FDA under an Emergency Use Authorization(EUA). This test is only authorized for the duration of thedeclaration that circumstances exist justifying the authorizationof emergency use of in vitro diagnostics for detection and/ordiagnosis of COVID-19 under Section 564(b)(1) of the Act, 21U.S.C. 360bbb-3(b)(1), unless the authorization is terminated orrevoked sooner. This test has been authorized only for detectingthe presence of antibodies against SARS-CoV-2, not for any otherviruses or pathogens.PATIENT NOT FASTINGPERFORMED BY: [facility] [facility] [id number] Information: PT HAD CEREAL Lymphocytes (Bld) [#/Vol] 2.1 10*3/uL Normal 0.7-3.1 [facility]; [facility] Work Phone: Comment on above: Test(s) [id number]-MWZP- CoV-2 Antibody, IgGhas not been FDA cleared or approved. This test hasbeen authorized by FDA under an Emergency Use Authorization(EUA). This test is only authorized for the duration of thedeclaration that circumstances exist justifying the authorizationof emergency use of in vitro diagnostics for detection and/ordiagnosis of COVID-19 under Section 564(b)(1) of the Act, 21U.S.C. 360bbb-3(b)(1), unless the authorization is terminated orrevoked sooner. This test has been authorized only for detectingthe presence of antibodies against SARS-CoV-2, not for any otherviruses or pathogens.PATIENT NOT FASTINGPERFORMED BY: [facility]6[address] [facility] [id number] Information: PT HAD CEREAL Lymphocytes/100 WBC (Bld) 28 % Normal [facility]; [facility] Work Phone: Comment on above: Test(s) [id number]-WYSH- CoV-2 Antibody, IgGhas not been FDA cleared or approved. This test hasbeen authorized by FDA under an Emergency Use Authorization(EUA). This test is only authorized for the duration of thedeclaration that circumstances exist justifying the authorizationof emergency use of in vitro diagnostics for detection and/ordiagnosis of COVID-19 under Section 564(b)(1) of the Act, 21U.S.C. 360bbb-3(b)(1), unless the authorization is terminated orrevoked sooner. This test has been authorized only for detectingthe presence of antibodies against SARS-CoV-2, not for any otherviruses or pathogens.PATIENT NOT FASTINGPERFORMED BY: [facility]6[address] [facility] [id number] Information: PT HAD CEREAL MCH (RBC) [Entitic mass] 30.8 pg Normal 26.6-33.0 [facility]; [facility] Work Phone: Comment on above: Test(s) [id number]-ESFJ- CoV-2 Antibody, IgGhas not been FDA cleared or approved. This test hasbeen authorized by FDA under an Emergency Use Authorization(EUA). This test is only authorized for the duration of thedeclaration that circumstances exist justifying the authorizationof emergency use of in vitro diagnostics for detection and/ordiagnosis of COVID-19 under Section 564(b)(1) of the Act, 21U.S.C. 360bbb-3(b)(1), unless the authorization is terminated orrevoked sooner. This test has been authorized only for detectingthe presence of antibodies against SARS-CoV-2, not for any otherviruses or pathogens.PATIENT NOT FASTINGPERFORMED BY: [facility] [facility] [id number] Information: PT HAD CEREAL MCHC (RBC) [Mass/Vol] 33.3 g/dL Normal 31.5-35.7 [facility]; [facility] Work Phone: Comment on above: Test(s) [id number]-CDGK- CoV-2 Antibody, IgGhas not been FDA cleared or approved. This test hasbeen authorized by FDA under an Emergency Use Authorization(EUA). This test is only authorized for the duration of thedeclaration that circumstances exist justifying the authorizationof emergency use of in vitro diagnostics for detection and/ordiagnosis of COVID-19 under Section 564(b)(1) of the Act, 21U.S.C. 360bbb-3(b)(1), unless the authorization is terminated orrevoked sooner. This test has been authorized only for detectingthe presence of antibodies against SARS-CoV-2, not for any otherviruses or pathogens.PATIENT NOT FASTINGPERFORMED BY: [facility] Vuqwev0371 [facility] [id number] Information: PT HAD CEREAL MCV (RBC) [Entitic vol] 92 fL Normal 79-97 [facility]; [facility] Work Phone: Comment on above: Test(s) 658041-FILW- CoV-2 Antibody, IgGhas not been FDA cleared or approved. This test hasbeen authorized by [facility] under an Emergency Use Authorization(EUA). This test is only authorized for the duration of thedeclaration that circumstances exist justifying the authorizationof emergency use of in vitro diagnostics for detection and/ordiagnosis of COVID-19 under Section 564(b)(1) of the Act, 21U.S.C. 360bbb-3(b)(1), unless the authorization is terminated orrevoked sooner. This test has been authorized only for detectingthe presence of antibodies against SARS-CoV-2, not for any otherviruses or pathogens.PATIENT NOT FASTINGPERFORMED BY: [facility] [facility] [id number] Information: PT HAD CEREAL Monocytes (Bld) [#/Vol] 0.7 10*3/uL Normal 0.1-0.9 [facility]; [facility] Work Phone: Comment on above: Test(s) [id number]-NLPS- CoV-2 Antibody, IgGhas not been FDA cleared or approved. This test hasbeen authorized by [facility] under an Emergency Use Authorization(EUA). This test is only authorized for the duration of thedeclaration that circumstances exist justifying the authorizationof emergency use of in vitro diagnostics for detection and/ordiagnosis of COVID-19 under Section 564(b)(1) of the Act, 21U.S.C. 360bbb-3(b)(1), unless the authorization is terminated orrevoked sooner. This test has been authorized only for detectingthe presence of antibodies against SARS-CoV-2, not for any otherviruses or pathogens.PATIENT NOT FASTINGPERFORMED BY: [facility] [facility] [id number] Information: PT HAD CEREAL Monocytes/100 WBC (Bld) 9 % Normal [facility]; [facility] Work Phone: Comment on above: Test(s) [id number]-SLHY- CoV-2 Antibody, IgGhas not been FDA cleared or approved. This test hasbeen authorized by FDA under an Emergency Use Authorization(EUA). This test is only authorized for the duration of thedeclaration that circumstances exist justifying the authorizationof emergency use of in vitro diagnostics for detection and/ordiagnosis of COVID-19 under Section 564(b)(1) of the Act, 21U.S.C. 360bbb-3(b)(1), unless the authorization is terminated orrevoked sooner. This test has been authorized only for detectingthe presence of antibodies against SARS-CoV-2, not for any otherviruses or pathogens.PATIENT NOT FASTINGPERFORMED BY: [facility] Qsuijp8605 [facility] [id number] Information: PT HAD CEREAL Neutrophils (Bld) [#/Vol] 4.3 10*3/uL Normal 1.4-7.0 [facility]; [facility] Work Phone: Comment on above: Test(s) 488500-ZKUE- CoV-2 Antibody, IgGhas not been FDA cleared or approved. This test hasbeen authorized by [facility] under an Emergency Use Authorization(EUA). This test is only authorized for the duration of thedeclaration that circumstances exist justifying the authorizationof emergency use of in vitro diagnostics for detection and/ordiagnosis of COVID-19 under Section 564(b)(1) of the Act, 21U.S.C. 360bbb-3(b)(1), unless the authorization is terminated orrevoked sooner. This test has been authorized only for detectingthe presence of antibodies against SARS-CoV-2, not for any otherviruses or pathogens.PATIENT NOT FASTINGPERFORMED BY: [facility]6[address] [facility] [id number] Information: PT HAD CEREAL Neutrophils/100 WBC (Bld) 58 % Normal [facility]; [facility] Work Phone: Comment on above: Test(s) 167962-ODQS- CoV-2 Antibody, IgGhas not been FDA cleared or approved. This test hasbeen authorized by FDA under an Emergency Use Authorization(EUA). This test is only authorized for the duration of thedeclaration that circumstances exist justifying the authorizationof emergency use of in vitro diagnostics for detection and/ordiagnosis of COVID-19 under Section 564(b)(1) of the Act, 21U.S.C. 360bbb-3(b)(1), unless the authorization is terminated orrevoked sooner. This test has been authorized only for detectingthe presence of antibodies against SARS-CoV-2, not for any otherviruses or pathogens.PATIENT NOT FASTINGPERFORMED BY: [employer] Zjaggy1847 [facility]BeautyCompareEC[facility] [id number] Information: PT HAD CEREAL Platelets (Bld) [#/Vol] 194 10*3/uL Normal 150-450 [facility]; [facility] Work Phone: Comment on above: Test(s) [id number]-DMWW- CoV-2 Antibody, IgGhas not been FDA cleared or approved. This test hasbeen authorized by FDA under an Emergency Use Authorization(EUA). This test is only authorized for the duration of thedeclaration that circumstances exist justifying the authorizationof emergency use of in vitro diagnostics for detection and/ordiagnosis of COVID-19 under Section 564(b)(1) of the Act, 21U.S.C. 360bbb-3(b)(1), unless the authorization is terminated orrevoked sooner. This test has been authorized only for detectingthe presence of antibodies against SARS-CoV-2, not for any otherviruses or pathogens.PATIENT NOT FASTINGPERFORMED BY: [facility] Qfynyx5142 [place] VirtualQubeECU Health [facility] Center [id number] Information: PT HAD CEREAL RBC (Bld) [#/Vol] 4.19 10*6/uL Normal 3.77-5.28 [facility]; [facility] Work Phone: Comment on above: Test(s) [id number]-ZBTY- CoV-2 Antibody, IgGhas not been FDA cleared or approved. This test hasbeen authorized by FDA under an Emergency Use Authorization(EUA). This test is only authorized for the duration of thedeclaration that circumstances exist justifying the authorizationof emergency use of in vitro diagnostics for detection and/ordiagnosis of COVID-19 under Section 564(b)(1) of the Act, 21U.S.C. 360bbb-3(b)(1), unless the authorization is terminated orrevoked sooner. This test has been authorized only for detectingthe presence of antibodies against SARS-CoV-2, not for any otherviruses or pathogens.PATIENT NOT FASTINGPERFORMED BY: [employer] [facility]orksUNC [facility] [id number] Information: PT HAD CEREAL WBC (Bld) [#/Vol] 7.4 10*3/uL Normal 3.4-10.8 [facility]; [facility] Work Phone: Comment on above: Test(s) [id number]-YZCM- CoV-2 Antibody, IgGhas not been FDA cleared or approved. This test hasbeen authorized by FDA under an Emergency Use Authorization(EUA). This test is only authorized for the duration of thedeclaration that circumstances exist justifying the authorizationof emergency use of in vitro diagnostics for detection and/ordiagnosis of COVID-19 under Section 564(b)(1) of the Act, 21U.S.C. 360bbb-3(b)(1), unless the authorization is terminated orrevoked sooner. This test has been authorized only for detectingthe presence of antibodies against SARS-CoV-2, not for any otherviruses or pathogens.PATIENT NOT FASTINGPERFORMED BY: [facility] Ftfmxw5386 [facility] VirtualQubeECU Health [facility] Center [id number] Information: PT HAD CEREAL LIPID PANEL (74138)Ordered B y: Collaborative Physician on 05-02-2021 Cholesterol [Mass/Vol] 172 mg/dL Normal 100-199 [facility]; [facility] Work Phone: Comment on above: Test(s) 632000-OLDH- CoV-2 Antibody, IgGhas not been FDA cleared or approved. This test hasbeen authorized by FDA under an Emergency Use Authorization(EUA). This test is only authorized for the duration of thedeclaration that circumstances exist justifying the authorizationof emergency use of in vitro diagnostics for detection and/ordiagnosis of COVID-19 under Section 564(b)(1) of the Act, 21U.S.C. 360bbb-3(b)(1), unless the authorization is terminated orrevoked sooner. This test has been authorized only for detectingthe presence of antibodies against SARS-CoV-2, not for any otherviruses or pathogens.PATIENT NOT FASTINGPERFORMED BY: [facility] Cehqbe3062 [facility] [id number] Cholesterol in HDL [Mass/Vol] 46 mg/dL Normal [facility]; [facility] Work Phone: Comment on above: Test(s) 550316-KOXR- CoV-2 Antibody, IgGhas not been FDA cleared or approved. This test hasbeen authorized by FDA under an Emergency Use Authorization(EUA). This test is only authorized for the duration of thedeclaration that circumstances exist justifying the authorizationof emergency use of in vitro diagnostics for detection and/ordiagnosis of COVID-19 under Section 564(b)(1) of the Act, 21U.S.C. 360bbb-3(b)(1), unless the authorization is terminated orrevoked sooner. This test has been authorized only for detectingthe presence of antibodies against SARS-CoV-2, not for any otherviruses or pathogens.PATIENT NOT FASTINGPERFORMED BY: [facility] Ikghmx3711 [facility] [id number] Triglyceride [Mass/Vol] 182 mg/dL Abnormal 0-149 [facility]; [facility] Work Phone: Comment on above: Test(s) 499509-JQVG- CoV-2 Antibody, IgGhas not been FDA cleared or approved. This test hasbeen authorized by FDA under an Emergency Use Authorization(EUA). This test is only authorized for the duration of thedeclaration that circumstances exist justifying the authorizationof emergency use of in vitro diagnostics for detection and/ordiagnosis of COVID-19 under Section 564(b)(1) of the Act, 21U.S.C. 360bbb-3(b)(1), unless the authorization is terminated orrevoked sooner. This test has been authorized only for detectingthe presence of antibodies against SARS-CoV-2, not for any otherviruses or pathogens.PATIENT NOT FASTINGPERFORMED BY: [facility]6[address] [facility] [id number] LIPID PANEL (06994) 31 mg/dL Normal 5-40 Compr ens[facility]; [facility] Work Phone: Comment on above: Test(s) 724102-ASNI- CoV-2 Antibody, IgGhas not been FDA cleared or approved. This test hasbeen authorized by FDA under an Emergency Use Authorization(EUA). This test is only authorized for the duration of thedeclaration that circumstances exist justifying the authorizationof emergency use of in vitro diagnostics for detection and/ordiagnosis of COVID-19 under Section 564(b)(1) of the Act, 21U.S.C. 360bbb-3(b)(1), unless the authorization is terminated orrevoked sooner. This test has been authorized only for detectingthe presence of antibodies against SARS-CoV-2, not for any otherviruses or pathogens.PATIENT NOT FASTINGPERFORMED BY: [facility]6[address] [facility] [id number] LIPID PANEL (93957) 95 mg/dL Normal 0-99 [facility]pr [facility]; [facility] Work Phone: Comment on above: Test(s) 104018-QZWG- CoV-2 Antibody, IgGhas not been FDA cleared or approved. This test hasbeen authorized by FDA under an Emergency Use Authorization(EUA). This test is only authorized for the duration of thedeclaration that circumstances exist justifying the authorizationof emergency use of in vitro diagnostics for detection and/ordiagnosis of COVID-19 under Section 564(b)(1) of the Act, 21U.S.C. 360bbb-3(b)(1), unless the authorization is terminated orrevoked sooner. This test has been authorized only for detectingthe presence of antibodies against SARS-CoV-2, not for any otherviruses or pathogens.PATIENT NOT FASTINGPERFORMED BY: [facility] Pdcpdl9895 [facility] [id number] LIPID PANEL (47590) 2.1 {ratio} Normal 0.0-3.2 Comp rehensive [facility]; [facility] Work Phone: Comment on above: LDL/HDL Ratio Men Wo men 1/2 Avg.Risk 1.0 1.5 Avg.Risk 3.6 3.2 2X Avg.Risk 6.2 5.0 3X Avg.Risk 8.0 6.1 Test(s) 056316-HUPN- CoV-2 Antibody, IgGhas not been FDA cleared or approved. This test hasbeen authorized by FDA under an Emergency Use Authorization(EUA). This test is only authorized for the duration of thedeclaration that circumstances exist justifying the authorizationof emergency use of in vitro diagnostics for detection and/ordiagnosis of COVID-19 under Section 564(b)(1) of the Act, 21U.S.C. 360bbb-3(b)(1), unless the authorization is terminated orrevoked sooner. This test has been authorized only for detectingthe presence of antibodies against SARS-CoV-2, not for any otherviruses or pathogens.PATIENT NOT FASTINGPERFORMED BY: [facility]6[address] [facility] [id number] METABOLIC PANEL, COMPREHENSI VE ([id number])Ordered By: Collaborative Physician on 05-02-2021 Albumin [Mass/Vol] 4.2 g/dL Normal 3.7-4.7 [facility]; [facility] Work Phone: Comment on above: Test(s) [id number]-OQCW- CoV-2 Antibody, IgGhas not been FDA cleared or approved. This test hasbeen authorized by FDA under an Emergency Use Authorization(EUA). This test is only authorized for the duration of thedeclaration that circumstances exist justifying the authorizationof emergency use of in vitro diagnostics for detection and/ordiagnosis of COVID-19 under Section 564(b)(1) of the Act, 21U.S.C. 360bbb-3(b)(1), unless the authorization is terminated orrevoked sooner. This test has been authorized only for detectingthe presence of antibodies against SARS-CoV-2, not for any otherviruses or pathogens.PATIENT NOT FASTINGPERFORMED BY: [facility]6[address] [facility] [id number] Albumin/Globulin [Mass ratio] 1.8 {ratio} Normal 1.2-2.2 [facility]; [facility] Work Phone: Comment on above: Test(s) 860624-TNCU- CoV-2 Antibody, IgGhas not been FDA cleared or approved. This test hasbeen authorized by FDA under an Emergency Use Authorization(EUA). This test is only authorized for the duration of thedeclaration that circumstances exist justifying the authorizationof emergency use of in vitro diagnostics for detection and/ordiagnosis of COVID-19 under Section 564(b)(1) of the Act, 21U.S.C. 360bbb-3(b)(1), unless the authorization is terminated orrevoked sooner. This test has been authorized only for detectingthe presence of antibodies against SARS-CoV-2, not for any otherviruses or pathogens.PATIENT NOT FASTINGPERFORMED BY: [facility] [id number] ALP [Catalytic activity/Vol] 83 U/L Normal 44-121 [facility]; [facility] Work Phone: Comment on above: Please note refere nce interval change Test(s) 008829-BDAW- CoV-2 Antibody, IgGhas not been FDA cleared or approved. This test hasbeen authorized by FDA under an Emergency Use Authorization(EUA). This test is only authorized for the duration of thedeclaration that circumstances exist justifying the authorizationof emergency use of in vitro diagnostics for detection and/ordiagnosis of COVID-19 under Section 564(b)(1) of the Act, 21U.S.C. 360bbb-3(b)(1), unless the authorization is terminated orrevoked sooner. This test has been authorized only for detectingthe presence of antibodies against SARS-CoV-2, not for any otherviruses or pathogens.PATIENT NOT FASTINGPERFORMED BY: PARTH Hernandez6370 [facility] [id number] ALT [Catalytic activity/Vol] 21 U/L Normal 0-32 [facility]; [facility] Work Phone: Comment on above: Test(s) 203249-HXKH- CoV-2 Antibody, IgGhas not been FDA cleared or approved. This test hasbeen authorized by [facility] under an Emergency Use Authorization(EUA). This test is only authorized for the duration of thedeclaration that circumstances exist justifying the authorizationof emergency use of in vitro diagnostics for detection and/ordiagnosis of COVID-19 under Section 564(b)(1) of the Act, 21U.S.C. 360bbb-3(b)(1), unless the authorization is terminated orrevoked sooner. This test has been authorized only for detectingthe presence of antibodies against SARS-CoV-2, not for any otherviruses or pathogens.PATIENT NOT FASTINGPERFORMED BY: [facility] Eiisti4310 [address] [facility] [id number] AST [Catalytic activity/Vol] 18 U/L Normal 0-40 [facility]; [facility] Work Phone: Comment on above: Test(s) 801672-KLNR- CoV-2 Antibody, IgGhas not been FDA cleared or approved. This test hasbeen authorized by [facility] under an Emergency Use Authorization(EUA). This test is only authorized for the duration of thedeclaration that circumstances exist justifying the authorizationof emergency use of in vitro diagnostics for detection and/ordiagnosis of COVID-19 under Section 564(b)(1) of the Act, 21U.S.C. 360bbb-3(b)(1), unless the authorization is terminated orrevoked sooner. This test has been authorized only for detectingthe presence of antibodies against SARS-CoV-2, not for any otherviruses or pathogens.PATIENT NOT FASTINGPERFORMED BY: [facility] Ysibjf1360 [facility] [id number] Bilirubin [Mass/Vol] 0.3 mg/dL Normal 0.0-1.2 [facility]; [facility] Work Phone: Comment on above: Test(s) 662269-YTDI- CoV-2 Antibody, IgGhas not been FDA cleared or approved. This test hasbeen authorized by FDA under an Emergency Use Authorization(EUA). This test is only authorized for the duration of thedeclaration that circumstances exist justifying the authorizationof emergency use of in vitro diagnostics for detection and/ordiagnosis of COVID-19 under Section 564(b)(1) of the Act, 21U.S.C. 360bbb-3(b)(1), unless the authorization is terminated orrevoked sooner. This test has been authorized only for detectingthe presence of antibodies against SARS-CoV-2, not for any otherviruses or pathogens.PATIENT NOT FASTINGPERFORMED BY: [facility]6[address] [facility] [id number] Calcium [Mass/Vol] 9.8 mg/dL Normal 8.7-10.3 [facility]; [facility] Work Phone: Comment on above: Test(s) 761946-JTSN- CoV-2 Antibody, IgGhas not been FDA cleared or approved. This test hasbeen authorized by FDA under an Emergency Use Authorization(EUA). This test is only authorized for the duration of thedeclaration that circumstances exist justifying the authorizationof emergency use of in vitro diagnostics for detection and/ordiagnosis of COVID-19 under Section 564(b)(1) of the Act, 21U.S.C. 360bbb-3(b)(1), unless the authorization is terminated orrevoked sooner. This test has been authorized only for detectingthe presence of antibodies against SARS-CoV-2, not for any otherviruses or pathogens.PATIENT NOT FASTINGPERFORMED BY: [facility]6[address] [facility] [id number] Chloride [Moles/Vol] 105 mmol/L Normal 96-106 [facility]; [facility] Work Phone: Comment on above: Test(s) 259137-MKVV- CoV-2 Antibody, IgGhas not been FDA cleared or approved. This test hasbeen authorized by FDA under an Emergency Use Authorization(EUA). This test is only authorized for the duration of thedeclaration that circumstances exist justifying the authorizationof emergency use of in vitro diagnostics for detection and/ordiagnosis of COVID-19 under Section 564(b)(1) of the Act, 21U.S.C. 360bbb-3(b)(1), unless the authorization is terminated orrevoked sooner. This test has been authorized only for detectingthe presence of antibodies against SARS-CoV-2, not for any otherviruses or pathogens.PATIENT NOT FASTINGPERFORMED BY: [employer] [id number] PeoplePerHour.comUNC [facility] [id number] CO2 [Moles/Vol] 21 mmol/L Normal 20-29 [facility]; [facility] Work Phone: Comment on above: Test(s) 288990-USBI- CoV-2 Antibody, IgGhas not been FDA cleared or approved. This test hasbeen authorized by FDA under an Emergency Use Authorization(EUA). This test is only authorized for the duration of thedeclaration that circumstances exist justifying the authorizationof emergency use of in vitro diagnostics for detection and/ordiagnosis of COVID-19 under Section 564(b)(1) of the Act, 21U.S.C. 360bbb-3(b)(1), unless the authorization is terminated orrevoked sooner. This test has been authorized only for detectingthe presence of antibodies against SARS-CoV-2, not for any otherviruses or pathogens.PATIENT NOT FASTINGPERFORMED BY: [facility] Gzbxoh5729 [address] [facility] [id number] Creatinine [Mass/Vol] 1.09 mg/dL Abnormal 0.57-1.00 [facility] Internal Medicine; [facility] Work Phone: Comment on above: Test(s) [id number]-OPSN- CoV-2 Antibody, IgGhas not been FDA cleared or approved. This test hasbeen authorized by FDA under an Emergency Use Authorization(EUA). This test is only authorized for the duration of thedeclaration that circumstances exist justifying the authorizationof emergency use of in vitro diagnostics for detection and/ordiagnosis of COVID-19 under Section 564(b)(1) of the Act, 21U.S.C. 360bbb-3(b)(1), unless the authorization is terminated orrevoked sooner. This test has been authorized only for detectingthe presence of antibodies against SARS-CoV-2, not for any otherviruses or pathogens.PATIENT NOT FASTINGPERFORMED BY: [facility] Aulcxg1005 [facility] [id number] GFR/1.73 sq M.predicted among blacks CKD-EPI (S/P/Bld) [Vol rate/Area] 58 mL/min/1.73 Abnormal [facility]; [facility] Work Phone: Comment on above: In accordance with recommendations from the NKF-ASN Task force, [facility] is in the process of updating its eGFR calculation to the 2020 CKD-EPI creatinine equation that estimates kidney function without a race variable. Test(s) 750986-JHFJ- CoV-2 Antibody, IgGhas not been FDA cleared or approved. This test hasbeen authorized by FDA under an Emergency Use Authorization(EUA). This test is only authorized for the duration of thedeclaration that circumstances exist justifying the authorizationof emergency use of in vitro diagnostics for detection and/ordiagnosis of COVID-19 under Section 564(b)(1) of the Act, 21U.S.C. 360bbb-3(b)(1), unless the authorization is terminated orrevoked sooner. This test has been authorized only for detectingthe presence of antibodies against SARS-CoV-2, not for any otherviruses or pathogens.PATIENT NOT FASTINGPERFORMED BY: [facility]6[address] [facility] [id number] GFR/1.73 sq M.predicted among non-blacks CKD-EPI (S/P/Bld) [Vol rate/Area] 50 mL/min/1.73 Abnormal [facility]; [facility] Work Phone: Comment on above: Test(s) 888351-RIAW- CoV-2 Antibody, IgGhas not been FDA cleared or approved. This test hasbeen authorized by FDA under an Emergency Use Authorization(EUA). This test is only authorized for the duration of thedeclaration that circumstances exist justifying the authorizationof emergency use of in vitro diagnostics for detection and/ordiagnosis of COVID-19 under Section 564(b)(1) of the Act, 21U.S.C. 360bbb-3(b)(1), unless the authorization is terminated orrevoked sooner. This test has been authorized only for detectingthe presence of antibodies against SARS-CoV-2, not for any otherviruses or pathogens.PATIENT NOT FASTINGPERFORMED BY: [facility]6[address] [facility] [id number] Globulin (S) [Mass/Vol] 2.4 g/dL Normal 1.5-4.5 [facility]; [facility] Work Phone: Comment on above: Test(s) 230508-BEXO- CoV-2 Antibody, IgGhas not been FDA cleared or approved. This test hasbeen authorized by FDA under an Emergency Use Authorization(EUA). This test is only authorized for the duration of thedeclaration that circumstances exist justifying the authorizationof emergency use of in vitro diagnostics for detection and/ordiagnosis of COVID-19 under Section 564(b)(1) of the Act, 21U.S.C. 360bbb-3(b)(1), unless the authorization is terminated orrevoked sooner. This test has been authorized only for detectingthe presence of antibodies against SARS-CoV-2, not for any otherviruses or pathogens.PATIENT NOT FASTINGPERFORMED BY: [facility] Uwiyso3361 [facility] [id number] Glucose [Mass/Vol] 97 mg/dL Normal 65-99 [facility]; [facility] Work Phone: Comment on above: Test(s) 355836-BMHG- CoV-2 Antibody, IgGhas not been FDA cleared or approved. This test hasbeen authorized by FDA under an Emergency Use Authorization(EUA). This test is only authorized for the duration of thedeclaration that circumstances exist justifying the authorizationof emergency use of in vitro diagnostics for detection and/ordiagnosis of COVID-19 under Section 564(b)(1) of the Act, 21U.S.C. 360bbb-3(b)(1), unless the authorization is terminated orrevoked sooner. This test has been authorized only for detectingthe presence of antibodies against SARS-CoV-2, not for any otherviruses or pathogens.PATIENT NOT FASTINGPERFORMED BY: [facility]6[address] [facility] [id number] Potassium [Moles/Vol] 4.8 mmol/L Normal 3.5-5.2 [facility]; [facility] Internal Medicine Work Phone: Comment on above: Test(s) 733580-DTSP- CoV-2 Antibody, IgGhas not been FDA cleared or approved. This test hasbeen authorized by FDA under an Emergency Use Authorization(EUA). This test is only authorized for the duration of thedeclaration that circumstances exist justifying the authorizationof emergency use of in vitro diagnostics for detection and/ordiagnosis of COVID-19 under Section 564(b)(1) of the Act, 21U.S.C. 360bbb-3(b)(1), unless the authorization is terminated orrevoked sooner. This test has been authorized only for detectingthe presence of antibodies against SARS-CoV-2, not for any otherviruses or pathogens.PATIENT NOT FASTINGPERFORMED BY: [facility]6[address] [facility] [id number] Protein [Mass/Vol] 6.6 g/dL Normal 6.0-8.5 [facility] Internal Medicine; [facility] Internal Medicine Work Phone: Comment on above: Test(s) 747375-LUEG- CoV-2 Antibody, IgGhas not been FDA cleared or approved. This test hasbeen authorized by FDA under an Emergency Use Authorization(EUA). This test is only authorized for the duration of thedeclaration that circumstances exist justifying the authorizationof emergency use of in vitro diagnostics for detection and/ordiagnosis of COVID-19 under Section 564(b)(1) of the Act, 21U.S.C. 360bbb-3(b)(1), unless the authorization is terminated orrevoked sooner. This test has been authorized only for detectingthe presence of antibodies against SARS-CoV-2, not for any otherviruses or pathogens.PATIENT NOT FASTINGPERFORMED BY: [facility]6[address] [facility] [id number] Sodium [Moles/Vol] 140 mmol/L Normal 134-144 [facility]; [facility] Work Phone: Comment on above: Test(s) 374171-OZLZ- CoV-2 Antibody, IgGhas not been FDA cleared or approved. This test hasbeen authorized by FDA under an Emergency Use Authorization(EUA). This test is only authorized for the duration of thedeclaration that circumstances exist justifying the authorizationof emergency use of in vitro diagnostics for detection and/ordiagnosis of COVID-19 under Section 564(b)(1) of the Act, 21U.S.C. 360bbb-3(b)(1), unless the authorization is terminated orrevoked sooner. This test has been authorized only for detectingthe presence of antibodies against SARS-CoV-2, not for any otherviruses or pathogens.PATIENT NOT FASTINGPERFORMED BY: [facility]6[address] [facility] [id number] Urea nitrogen [Mass/Vol] 22 mg/dL Normal 8-27 [facility]; [facility] Work Phone: Comment on above: Test(s) 189023-JMLN- CoV-2 Antibody, IgGhas not been FDA cleared or approved. This test hasbeen authorized by FDA under an Emergency Use Authorization(EUA). This test is only authorized for the duration of thedeclaration that circumstances exist justifying the authorizationof emergency use of in vitro diagnostics for detection and/ordiagnosis of COVID-19 under Section 564(b)(1) of the Act, 21U.S.C. 360bbb-3(b)(1), unless the authorization is terminated orrevoked sooner. This test has been authorized only for detectingthe presence of antibodies against SARS-CoV-2, not for any otherviruses or pathogens.PATIENT NOT FASTINGPERFORMED BY: PARTH Ashford Awfplk5770 [facility] [id number] Urea nitrogen/Creatinine [Mass ratio] 20 mg/mg Normal 12-28 [facility]; [facility] Work Phone: Comment on above: Test(s) 057628-ESEJ- CoV-2 Antibody, IgGhas not been FDA cleared or approved. This test hasbeen authorized by FDA under an Emergency Use Authorization(EUA). This test is only authorized for the duration of thedeclaration that circumstances exist justifying the authorizationof emergency use of in vitro diagnostics for detection and/ordiagnosis of COVID-19 under Section 564(b)(1) of the Act, 21U.S.C. 360bbb-3(b)(1), unless the authorization is terminated orrevoked sooner. This test has been authorized only for detectingthe presence of antibodies against SARS-CoV-2, not for any otherviruses or pathogens.PATIENT NOT FASTINGPERFORMED BY: [facility] Jnnzba0598 [facility] [id number] MICROALBUMINOrdered By: Syst em Deck Hand on 05-02-2021 Albumin DL <= 20 mg/L (U) [Mass/Vol] 3.1 ug/mL Normal Comprehensiv e Internal Medicine; [facility] Work Phone: Comment on above: Test(s) [id number]-QVQR- CoV-2 Antibody, IgGhas not been FDA cleared or approved. This test hasbeen authorized by FDA under an Emergency Use Authorization(EUA). This test is only authorized for the duration of thedeclaration that circumstances exist justifying the authorizationof emergency use of in vitro diagnostics for detection and/ordiagnosis of COVID-19 under Section 564(b)(1) of the Act, 21U.S.C. 360bbb-3(b)(1), unless the authorization is terminated orrevoked sooner. This test has been authorized only for detectingthe presence of antibodies against SARS-CoV-2, not for any otherviruses or pathogens.PATIENT NOT FASTINGPERFORMED BY: PARTH [employer] [id number] [address] [facility]QubeEC[facility] [id number] Albumin/Creatinine (U) [Mass ratio] 3 {mg/g_creat} Normal 0-29 [facility]; [facility] Work Phone: Comment on above: Normal: 0 - 29 Moder ately increased: 30 - 300 Severely increased: >300 Test(s) 164192-UHIE- CoV-2 Antibody, IgGhas not been FDA cleared or approved. This test hasbeen authorized by [facility] under an Emergency Use Authorization(EUA). This test is only authorized for the duration of thedeclaration that circumstances exist justifying the authorizationof emergency use of in vitro diagnostics for detection and/ordiagnosis of COVID-19 under Section 564(b)(1) of the Act, 21U.S.C. 360bbb-3(b)(1), unless the authorization is terminated orrevoked sooner. This test has been authorized only for detectingthe presence of antibodies against SARS-CoV-2, not for any otherviruses or pathogens.PATIENT NOT FASTINGPERFORMED BY: PARTH [employer] [id number] [facility] [facility]EC[facility] [id number] Creatinine (U) [Mass/Vol] 107.8 mg/dL Normal [facility]; [facility] Work Phone: Comment on above: Test(s) 599261-OPQM- CoV-2 Antibody, IgGhas not been FDA cleared or approved. This test hasbeen authorized by [facility] under an Emergency Use Authorization(EUA). This test is only authorized for the duration of thedeclaration that circumstances exist justifying the authorizationof emergency use of in vitro diagnostics for detection and/ordiagnosis of COVID-19 under Section 564(b)(1) of the Act, 21U.S.C. 360bbb-3(b)(1), unless the authorization is terminated orrevoked sooner. This test has been authorized only for detectingthe presence of antibodies against SARS-CoV-2, not for any otherviruses or pathogens.PATIENT NOT FASTINGPERFORMED BY: [facility] Rsnyhw4276 [place] [facility] [id number] SARS-CoV-2 Antibody, IgGOrde red By: Collaborative Physician on 05-02-2021 SARS-CoV-2 Antibody, IgG Positive Normal [facility]; [facility] Work Phone: Comment on above: Results suggest rece nt or prior infection with SARS-CoV-2. Correlationwith epidemiologic risk factors and other clinical and laboratoryfindings is recommended. Serologic results should not be used as thesole basis to diagnose or exclude recent SARS-CoV-2 infection. Falsepositive results infrequently occur due to prior infection with otherhuman Coronaviruses.This assay was performed using the [employer] Liaison(R)SARS-CoV-2 S1/S2 IgG assay.This assay detects antibodies against SARS-CoV-2 spike proteinincluding the receptor binding domain (RBD).Effective May 07, 2021, this test will be changing froma qualitative assay to a semi-quantitative assay for UYBZ-JpH-4dxjwrnbdkl against the viral spike protein. Test(s) 774415-HPNU- CoV-2 Antibody, IgGhas not been FDA cleared or approved. This test hasbeen authorized by FDA under an Emergency Use Authorization(EUA). This test is only authorized for the duration of thedeclaration that circumstances exist justifying the authorizationof emergency use of in vitro diagnostics for detection and/ordiagnosis of COVID-19 under Section 564(b)(1) of the Act, 21U.S.C. 360bbb-3(b)(1), unless the authorization is terminated orrevoked sooner. This test has been authorized only for detectingthe presence of antibodies against SARS-CoV-2, not for any otherviruses or pathogens.PATIENT NOT FASTINGPERFORMED BY: [facility] [id number] Varg[address] [facility] [id number] TSH ([id number])Ordered By: Mikaela gonzalez Deck Hand on 05-02-2021 TSH Qn 0.467 {uIU/mL} Normal 0.450-4.50 0 [facility]; [facility] Work Phone: Comment on above: Test(s) 969628-EVFU- CoV-2 Antibody, IgGhas not been FDA cleared or approved. This test hasbeen authorized by FDA under an Emergency Use Authorization(EUA). This test is only authorized for the duration of thedeclaration that circumstances exist justifying the authorizationof emergency use of in vitro diagnostics for detection and/ordiagnosis of COVID-19 under Section 564(b)(1) of the Act, 21U.S.C. 360bbb-3(b)(1), unless the authorization is terminated orrevoked sooner. This test has been authorized only for detectingthe presence of antibodies against SARS-CoV-2, not for any otherviruses or pathogens.PATIENT NOT FASTINGPERFORMED BY: [facility] [id number] [place] [facility]QubeEC[facility] [id number] URINALYSIS, W/ MICRO ([id number]) Ordered By: Collaborative Physician on 05-02-2021 Appearance (U) Clear Normal Comprehens maranda Internal Medicine; [facility] Work Phone: Comment on above: Test(s) 517689-WFUR- CoV-2 Antibody, IgGhas not been FDA cleared or approved. This test hasbeen authorized by FDA under an Emergency Use Authorization(EUA). This test is only authorized for the duration of thedeclaration that circumstances exist justifying the authorizationof emergency use of in vitro diagnostics for detection and/ordiagnosis of COVID-19 under Section 564(b)(1) of the Act, 21U.S.C. 360bbb-3(b)(1), unless the authorization is terminated orrevoked sooner. This test has been authorized only for detectingthe presence of antibodies against SARS-CoV-2, not for any otherviruses or pathogens.PATIENT NOT FASTINGPERFORMED BY: [facility] [id number] [place] [facility]QubeEC[facility] [id number] Bilirubin Ql (U) Negative Normal Comprehe nsive Internal Medicine; [facility] Work Phone: Comment on above: Test(s) 812605-JFFW- CoV-2 Antibody, IgGhas not been FDA cleared or approved. This test hasbeen authorized by FDA under an Emergency Use Authorization(EUA). This test is only authorized for the duration of thedeclaration that circumstances exist justifying the authorizationof emergency use of in vitro diagnostics for detection and/ordiagnosis of COVID-19 under Section 564(b)(1) of the Act, 21U.S.C. 360bbb-3(b)(1), unless the authorization is terminated orrevoked sooner. This test has been authorized only for detectingthe presence of antibodies against SARS-CoV-2, not for any otherviruses or pathogens.PATIENT NOT FASTINGPERFORMED BY: [facility] Hsqnba[address] [facility] [place] [id number] Color (U) Yellow Normal [facility]; [facility] Work Phone: Comment on above: Test(s) 552119-QFKO- CoV-2 Antibody, IgGhas not been FDA cleared or approved. This test hasbeen authorized by FDA under an Emergency Use Authorization(EUA). This test is only authorized for the duration of thedeclaration that circumstances exist justifying the authorizationof emergency use of in vitro diagnostics for detection and/ordiagnosis of COVID-19 under Section 564(b)(1) of the Act, 21U.S.C. 360bbb-3(b)(1), unless the authorization is terminated orrevoked sooner. This test has been authorized only for detectingthe presence of antibodies against SARS-CoV-2, not for any otherviruses or pathogens.PATIENT NOT FASTINGPERFORMED BY: [facility] Fvtsjq0536 [facility] [id number] Glucose Ql (U) Negative Normal Comprehens mar[facility]; [facility] Work Phone: Comment on above: Test(s) 183703-KGDT- CoV-2 Antibody, IgGhas not been FDA cleared or approved. This test hasbeen authorized by FDA under an Emergency Use Authorization(EUA). This test is only authorized for the duration of thedeclaration that circumstances exist justifying the authorizationof emergency use of in vitro diagnostics for detection and/ordiagnosis of COVID-19 under Section 564(b)(1) of the Act, 21U.S.C. 360bbb-3(b)(1), unless the authorization is terminated orrevoked sooner. This test has been authorized only for detectingthe presence of antibodies against SARS-CoV-2, not for any otherviruses or pathogens.PATIENT NOT FASTINGPERFORMED BY: PARTH [facility] Iffezi9[address] [place] [id number] Hemoglobin Ql (U) Negative Normal Compreh ensive Internal Medicine; [facility] Work Phone: Comment on above: Test(s) 403961-IHGC- CoV-2 Antibody, IgGhas not been FDA cleared or approved. This test hasbeen authorized by FDA under an Emergency Use Authorization(EUA). This test is only authorized for the duration of thedeclaration that circumstances exist justifying the authorizationof emergency use of in vitro diagnostics for detection and/ordiagnosis of COVID-19 under Section 564(b)(1) of the Act, 21U.S.C. 360bbb-3(b)(1), unless the authorization is terminated orrevoked sooner. This test has been authorized only for detectingthe presence of antibodies against SARS-CoV-2, not for any otherviruses or pathogens.PATIENT NOT FASTINGPERFORMED BY: [facility] Dedyak[address] [facility] [id number] Ketones Ql (U) Negative Normal Comprehens mar[facility]; [facility] Work Phone: Comment on above: Test(s) 705919-AIFB- CoV-2 Antibody, IgGhas not been FDA cleared or approved. This test hasbeen authorized by FDA under an Emergency Use Authorization(EUA). This test is only authorized for the duration of thedeclaration that circumstances exist justifying the authorizationof emergency use of in vitro diagnostics for detection and/ordiagnosis of COVID-19 under Section 564(b)(1) of the Act, 21U.S.C. 360bbb-3(b)(1), unless the authorization is terminated orrevoked sooner. This test has been authorized only for detectingthe presence of antibodies against SARS-CoV-2, not for any otherviruses or pathogens.PATIENT NOT FASTINGPERFORMED BY: [facility] Vqwxpg7165 [address] [facility] [id number] Leukocyte esterase Test strip Ql (U) 1+ Abnormal [facility]; [facility] Work Phone: Comment on above: Test(s) 082424-ZRWR- CoV-2 Antibody, IgGhas not been FDA cleared or approved. This test hasbeen authorized by FDA under an Emergency Use Authorization(EUA). This test is only authorized for the duration of thedeclaration that circumstances exist justifying the authorizationof emergency use of in vitro diagnostics for detection and/ordiagnosis of COVID-19 under Section 564(b)(1) of the Act, 21U.S.C. 360bbb-3(b)(1), unless the authorization is terminated orrevoked sooner. This test has been authorized only for detectingthe presence of antibodies against SARS-CoV-2, not for any otherviruses or pathogens.PATIENT NOT FASTINGPERFORMED BY: PARTH [facility] Jbmhhd6757 [address] [facility] [id number] Microscopic observation LM Nom (Urine sed) See below: Normal [facility]; [facility] Work Phone: Comment on above: Microscopic was liberty cated and was performed. Test(s) 987804-JTHZ- CoV-2 Antibody, IgGhas not been FDA cleared or approved. This test hasbeen authorized by FDA under an Emergency Use Authorization(EUA). This test is only authorized for the duration of thedeclaration that circumstances exist justifying the authorizationof emergency use of in vitro diagnostics for detection and/ordiagnosis of COVID-19 under Section 564(b)(1) of the Act, 21U.S.C. 360bbb-3(b)(1), unless the authorization is terminated orrevoked sooner. This test has been authorized only for detectingthe presence of antibodies against SARS-CoV-2, not for any otherviruses or pathogens.PATIENT NOT FASTINGPERFORMED BY: [facility] Ehjxly4874 [address] [facility] [id number] Nitrite Ql (U) Negative Normal Comprehens mar[facility]; [facility] Work Phone: Comment on above: Test(s) 305990-CGPV- CoV-2 Antibody, IgGhas not been FDA cleared or approved. This test hasbeen authorized by FDA under an Emergency Use Authorization(EUA). This test is only authorized for the duration of thedeclaration that circumstances exist justifying the authorizationof emergency use of in vitro diagnostics for detection and/ordiagnosis of COVID-19 under Section 564(b)(1) of the Act, 21U.S.C. 360bbb-3(b)(1), unless the authorization is terminated orrevoked sooner. This test has been authorized only for detectingthe presence of antibodies against SARS-CoV-2, not for any otherviruses or pathogens.PATIENT NOT FASTINGPERFORMED BY: [facility]6370 [facility] [id number] pH (U) 5.5 [pH] Normal 5.0-7.5 [facility]; [facility] Work Phone: Comment on above: Test(s) 673610-CQTQ- CoV-2 Antibody, IgGhas not been FDA cleared or approved. This test hasbeen authorized by FDA under an Emergency Use Authorization(EUA). This test is only authorized for the duration of thedeclaration that circumstances exist justifying the authorizationof emergency use of in vitro diagnostics for detection and/ordiagnosis of COVID-19 under Section 564(b)(1) of the Act, 21U.S.C. 360bbb-3(b)(1), unless the authorization is terminated orrevoked sooner. This test has been authorized only for detectingthe presence of antibodies against SARS-CoV-2, not for any otherviruses or pathogens.PATIENT NOT FASTINGPERFORMED BY: [facility]6370 [facility] [id number] Protein Ql (U) Negative Normal Comprehens maranda [facility]; [facility] Work Phone: Comment on above: Test(s) 795931-ZPPG- CoV-2 Antibody, IgGhas not been FDA cleared or approved. This test hasbeen authorized by FDA under an Emergency Use Authorization(EUA). This test is only authorized for the duration of thedeclaration that circumstances exist justifying the authorizationof emergency use of in vitro diagnostics for detection and/ordiagnosis of COVID-19 under Section 564(b)(1) of the Act, 21U.S.C. 360bbb-3(b)(1), unless the authorization is terminated orrevoked sooner. This test has been authorized only for detectingthe presence of antibodies against SARS-CoV-2, not for any otherviruses or pathogens.PATIENT NOT FASTINGPERFORMED BY: [facility]6370 [facility] [id number] Specific gravity (U) [Rel density] 1.022 1 Normal 1.005-1.03 0 [facility]; [facility] Work Phone: Comment on above: Test(s) 031176-LZUS- CoV-2 Antibody, IgGhas not been FDA cleared or approved. This test hasbeen authorized by FDA under an Emergency Use Authorization(EUA). This test is only authorized for the duration of thedeclaration that circumstances exist justifying the authorizationof emergency use of in vitro diagnostics for detection and/ordiagnosis of COVID-19 under Section 564(b)(1) of the Act, 21U.S.C. 360bbb-3(b)(1), unless the authorization is terminated orrevoked sooner. This test has been authorized only for detectingthe presence of antibodies against SARS-CoV-2, not for any otherviruses or pathogens.PATIENT NOT FASTINGPERFORMED BY: [facility]6370 [facility] [id number] Urobilinogen (U) [Mass/Vol] 0.2 mg/dL Normal 0.2-1.0 [facility]; [facility] Work Phone: Comment on above: Test(s) 096572-OAHN- CoV-2 Antibody, IgGhas not been FDA cleared or approved. This test hasbeen authorized by FDA under an Emergency Use Authorization(EUA). This test is only authorized for the duration of thedeclaration that circumstances exist justifying the authorizationof emergency use of in vitro diagnostics for detection and/ordiagnosis of COVID-19 under Section 564(b)(1) of the Act, 21U.S.C. 360bbb-3(b)(1), unless the authorization is terminated orrevoked sooner. This test has been authorized only for detectingthe presence of antibodies against SARS-CoV-2, not for any otherviruses or pathogens.PATIENT NOT FASTINGPERFORMED BY: [employer] [place] [id number] CALCIFIDIOL (69523) VIT D 25 Ordered By: Collaborative Physician on 03-12-2021 25-hydroxyvitamin D [Mass/Vol] 33.2 ng/mL Normal 30.0-100.0 [facility]; [facility] Work Phone: Comment on above: Vitamin D deficiency has been defined by the [place] of[place]icine and an Endocrine Society practice guideline as alevel of serum 25-OH vitamin D less than 20 ng/mL (1,2).The Endocrine Society went on to further define vitamin Dinsufficiency as a level between 21 and 29 ng/mL (2).1. IOM ([place] of [employer]). 2010. Dietary reference intakes for calcium and D. [place]: The National Academies Press.2. Lisa MF, Jatinder DAVILA, Sofía MA, et al. Evaluation, treatment, and prevention of vitamin D deficiency: an Endocrine Society clinical practice guideline. JCEM. 2010; 96(7):1911-30. PATIENT NOT FASTINGP ERFORMED BY: Milabra6370 [facility]High[facility] [id number] CBC W/AUTO DIFF WBC (42311)O rdered By: Collaborative Physician on 03-12-2021 Basophils (Bld) [#/Vol] 0.1 10*3/uL Normal 0.0-0.2 [facility]; [facility] Work Phone: Comment on above: PATIENT NOT FASTINGP ERFORMED BY: Milabra6370 [email or web address] [id number] Basophils/100 WBC (Bld) 1 % Normal [facility]; [facility] Work Phone: Comment on above: PATIENT NOT FASTINGP ERFORMED BY: Milabra6370 [email or web address].comUNC [facility] [id number] Eosinophils (Bld) [#/Vol] 0.5 10*3/uL Abnormal 0.0-0.4 [facility]; [facility] Work Phone: Comment on above: PATIENT NOT FASTINGP ERFORMED BY: CB [facility] Dpfbbw4651 [address] RoadDublin [place] [id number] Eosinophils/100 WBC (Bld) 6 % Normal [facility]; [facility] Work Phone: Comment on above: PATIENT NOT FASTINGP ERFORMED BY: CB [facility] Thrlea3909 [address] RoadDublin [place] [id number] Erythrocyte distribution width (RBC) [Ratio] 12.1 % Normal 11.7-15.4 [facility]; [facility] Work Phone: Comment on above: PATIENT NOT FASTINGP ERFORMED BY: CB [facility] Unajid1098 [address] RoadDublin [place] [id number] Hematocrit (Bld) [Volume fraction] 40.1 % Normal 34.0-46.6 [facility]; [facility] Work Phone: Comment on above: PATIENT NOT FASTINGP ERFORMED BY: CB [facility] Efscpj8347 [address] RoadDublin [place] [id number] Hemoglobin (Bld) [Mass/Vol] 13.0 g/dL Normal 11.1-15.9 [facility]; [facility] Work Phone: Comment on above: PATIENT NOT FASTINGP ERFORMED BY: CB [facility] Narazu9987 [address] RoadDublin [place] [id number] Immature granulocytes (Bld) [#/Vol] 0.0 10*3/uL Normal 0.0-0.1 [facility]; [facility] Work Phone: Comment on above: PATIENT NOT FASTINGP ERFORMED BY: CB [facility] Hfwakf8361 [address] RoadDublin [place] [id number] Immature granulocytes/100 WBC (Bld) 0 % Normal [facility]; [facility] Work Phone: Comment on above: PATIENT NOT FASTINGP ERFORMED BY: CB [facility] Exmwuw2530 [address] RoadDublin [place] [id number] Lymphocytes (Bld) [#/Vol] 2.0 10*3/uL Normal 0.7-3.1 [facility]; [facility] Work Phone: Comment on above: PATIENT NOT FASTINGP ERFORMED BY: PARTH LabCorogelio HernandezNomgvw4792 [address] RoadDublin [place] [id number] Lymphocytes/100 WBC (Bld) 22 % Normal [facility]; [facility] Work Phone: Comment on above: PATIENT NOT FASTINGP ERFORMED BY: CB [facility] Lznafi1231 [address] RoadDublin [place] [id number] MCH (RBC) [Entitic mass] 30.2 pg Normal 26.6-33.0 [facility]; [facility] Work Phone: Comment on above: PATIENT NOT FASTINGP ERFORMED BY: CB [facility] Hvybrs2666 [address] RoadDublin [place] [id number] MCHC (RBC) [Mass/Vol] 32.4 g/dL Normal 31.5-35.7 [facility]; [facility] Work Phone: Comment on above: PATIENT NOT FASTINGP ERFORMED BY: CB [facility] Kdygdg6305 [address]Dublin [place] [id number] MCV (RBC) [Entitic vol] 93 fL Normal 79-97 [facility]; [facility] Work Phone: Comment on above: PATIENT NOT FASTINGP ERFORMED BY: CB [facility] Srqeui7402 [address] RoadDublin [place] [id number] Monocytes (Bld) [#/Vol] 0.7 10*3/uL Normal 0.1-0.9 [facility]; [facility] Work Phone: Comment on above: PATIENT NOT FASTINGP ERFORMED BY: CB [facility] Zzlfrk7133 [address] RoadDublin [place] [id number] Monocytes/100 WBC (Bld) 7 % Normal [facility]; [facility] Work Phone: Comment on above: PATIENT NOT FASTINGP ERFORMED BY: CB [facility] Scdyql0033 [address]Dublin [place] [id number] Neutrophils (Bld) [#/Vol] 5.9 10*3/uL Normal 1.4-7.0 [facility]; [facility] Work Phone: Comment on above: PATIENT NOT FASTINGP ERFORMED BY: PARTH Maurizio Hernandez6370 [address]ublin [place] [id number] Neutrophils/100 WBC (Bld) 64 % Normal [facility]; [facility] Work Phone: Comment on above: PATIENT NOT FASTINGP ERFORMED BY: PARTH [facility] Mwrbch7997 [address]bl[address] [place] [id number] Platelets (Bld) [#/Vol] 239 10*3/uL Normal 150-450 [facility]; [facility] Work Phone: Comment on above: PATIENT NOT FASTINGP ERFORMED BY: PARTH AdamsArnold Vjxkwj6644 [address] RoadDublin [place] [id number] RBC (Bld) [#/Vol] 4.31 10*6/uL Normal 3.77-5.28 Compr ehensive Internal Medicine; [facility] Work Phone: Comment on above: PATIENT NOT FASTINGP ERFORMED BY: PARTH Dejonrogelio Emmnbe7968 [address] RoadDublin [place] [id number] WBC (Bld) [#/Vol] 9.2 10*3/uL Normal 3.4-10.8 Compre [facility]; [facility] Work Phone: Comment on above: PATIENT NOT FASTINGP ERFORMED BY: PARTH [facility] Cchwhu[address] [facility] [place] [id number] LIPID PANEL (66223)Ordered B y: Collaborative Physician on 03-12-2021 Cholesterol [Mass/Vol] 229 mg/dL Abnormal 100-199 [facility]; [facility] Work Phone: Comment on above: PATIENT NOT FASTINGP ERFORMED BY: PARTH Dejonrogelio Secezu3553 [address] RoadDublin [place] [id number] Cholesterol in HDL [Mass/Vol] 53 mg/dL Normal [facility]; [facility] Work Phone: Comment on above: PATIENT NOT FASTINGP ERFORMED BY: PARTH [facility] Kcpnzf6987 [address] [facility] [place] [id number] Triglyceride [Mass/Vol] 162 mg/dL Abnormal 0-149 [facility]; [facility] Work Phone: Comment on above: PATIENT NOT FASTINGP ERFORMED BY: PARTH [facility] Ilmhym9736 [address] [facility] [id number] LIPID PANEL (41919) 29 mg/dL Normal 5-40 [facility] Centerens[facility]; [facility] Work Phone: Comment on above: PATIENT NOT FASTINGP ERFORMED BY: PARTH [facility] Rvaiaf[address]002 [address] [facility] [id number] LIPID PANEL (00393) 147 mg/dL Abnormal 0-99 [facility]; [facility] Work Phone: Comment on above: PATIENT NOT FASTINGP ERFORMED BY: [facility] Ofbjwv9060 [facility] [id number] LIPID PANEL (59459) 2.8 {ratio} Normal 0.0-3.2 [facility]; [facility] Work Phone: Comment on above: LDL/HDL Ratio Men Wo men 1/2 Avg.Risk 1.0 1.5 Avg.Risk 3.6 3.2 2X Avg.Risk 6.2 5.0 3X Avg.Risk 8.0 6.1 PATIENT NOT FASTINGP ERFORMED BY: PARTH [facility] Vpyohh0980 [facility] [id number] METABOLIC PANEL, COMPREHENSI VE (68050)Ordered By: Collaborative Physician on 03-12-2021 Albumin [Mass/Vol] 4.6 g/dL Normal 3.7-4.7 [facility]; [facility] Work Phone: Comment on above: PATIENT NOT FASTINGP ERFORMED BY: PARTH [facility] Eauryp1244 [facility] [id number] Albumin/Globulin [Mass ratio] 2.1 {ratio} Normal 1.2-2.2 [facility]; [facility] Work Phone: Comment on above: PATIENT NOT FASTINGP ERFORMED BY: CB [facility] Xsphoe4020 [address] RoadDublin [place] [id number] ALP [Catalytic activity/Vol] 94 U/L Normal 44-121 [facility]; [facility] Work Phone: Comment on above: Please note refere nce interval change PATIENT NOT FASTINGP ERFORMED BY: CB [facility] Zkhsii0951 [address] RoadDublin [place] [id number] ALT [Catalytic activity/Vol] 26 U/L Normal 0-32 [facility]; [facility] Work Phone: Comment on above: PATIENT NOT FASTINGP ERFORMED BY: CB [facility] Zvrdxc1681 [address]Dublin [place] [id number] AST [Catalytic activity/Vol] 21 U/L Normal 0-40 [facility]; [facility] Work Phone: Comment on above: PATIENT NOT FASTINGP ERFORMED BY: CB [facility] Msblrn7486 [address]Dublin [place] [id number] Bilirubin [Mass/Vol] 0.4 mg/dL Normal 0.0-1.2 Comp rehensive Internal Medicine; [facility] Work Phone: Comment on above: PATIENT NOT FASTINGP ERFORMED BY: CB [facility] Dkifuh0082 [address] RoadDublin [place] [id number] Calcium [Mass/Vol] 9.5 mg/dL Normal 8.7-10.3 [facility]; [facility] Work Phone: Comment on above: PATIENT NOT FASTINGP ERFORMED BY: CB [facility] Unembc4816 [address] RoadDublin [place] [id number] Chloride [Moles/Vol] 103 mmol/L Normal 96-106 Comp rehensive Internal Medicine; [facility] Work Phone: Comment on above: PATIENT NOT FASTINGP ERFORMED BY: CB [facility] Vnuqym7508 [address] RoadDublin [place] [id number] CO2 [Moles/Vol] 19 mmol/L Abnormal 20-29 Comprehen [facility]; [facility] Work Phone: Comment on above: PATIENT NOT FASTINGP ERFORMED BY: [facility] Iqvwoo4378 [address] [facility] [place] [id number] Creatinine [Mass/Vol] 1.33 mg/dL Abnormal 0.57-1.00 [facility]; [facility] Work Phone: Comment on above: PATIENT NOT FASTINGP ERFORMED BY: [facility] Tcnhii8940 [address] [facility] [place] [id number] GFR/1.73 sq M.predicted among blacks CKD-EPI (S/P/Bld) [Vol rate/Area] 45 mL/min/1.73 Abnormal [facility]; [facility] Work Phone: Comment on above: [facility] eGFR in compliance with the current recommendations of the National Kidney Foundation. [facility] will update reporting as new guidelines are published from the NKF-ASN Task force. PATIENT NOT FASTINGP ERFORMED BY: [facility] Moxvnu[address] [facility] [id number] GFR/1.73 sq M.predicted among non-blacks CKD-EPI (S/P/Bld) [Vol rate/Area] 39 mL/min/1.73 Abnormal [facility]; [facility] Work Phone: Comment on above: PATIENT NOT FASTINGP ERFORMED BY: [facility] Qvbhaz9577 [address] [facility] [place] [id number] Globulin (S) [Mass/Vol] 2.2 g/dL Normal 1.5-4.5 [facility]; [facility] Work Phone: Comment on above: PATIENT NOT FASTINGP ERFORMED BY: [facility] Oszjzy2711 [facility]in [place] [id number] Glucose [Mass/Vol] 99 mg/dL Normal 65-99 [facility]; [facility] Work Phone: Comment on above: PATIENT NOT FASTINGP ERFORMED BY: [facility] Unyado5244 [facility]in [place] [id number] Potassium [Moles/Vol] 4.6 mmol/L Normal 3.5-5.2 [facility]; [facility] Work Phone: Comment on above: PATIENT NOT FASTINGP ERFORMED BY: PARTH Hernandez6370 [address]Dublin [place] [id number] Protein [Mass/Vol] 6.8 g/dL Normal 6.0-8.5 [facility]; [facility] Work Phone: Comment on above: PATIENT NOT FASTINGP ERFORMED BY: PARTH Hernandez6370 [address] [place] [id number] Sodium [Moles/Vol] 140 mmol/L Normal 134-144 [facility]; [facility] Work Phone: Comment on above: PATIENT NOT FASTINGP ERFORMED BY: PARTH Maurizio Hernandez6370 [address]ublin [place] [id number] Urea nitrogen [Mass/Vol] 34 mg/dL Abnormal 8-27 [facility]; [facility] Work Phone: Comment on above: PATIENT NOT FASTINGP ERFORMED BY: PARTH Maurizio Leallin6370 [address]Dublin [place] [id number] Urea nitrogen/Creatinine [Mass ratio] 26 mg/mg Normal 12-28 [facility]; [facility] Work Phone: Comment on above: PATIENT NOT FASTINGP ERFORMED BY: PARTH Maurizio Hernandez6370 [address]Dublin [place] [id number] MICROALBUMINOrdered By: Syst em Deck Hand on 03-12-2021 Albumin DL <= 20 mg/L (U) [Mass/Vol] 5.3 ug/mL Normal Comprehensiv e Internal Medicine; [facility] Work Phone: Comment on above: PATIENT NOT FASTINGP ERFORMED BY: PARTH LabArnold LealDvjiet1353 [address] RoadDublin [place] [id number] Albumin/Creatinine (U) [Mass ratio] 4 {mg/g_creat} Normal 0-29 [facility]; [facility] Work Phone: Comment on above: Normal: 0 - 29 Moder ately increased: 30 - 300 Severely increased: >300 PATIENT NOT FASTINGP ERFORMED BY: PARTH Dejonrogelio LealTirtcs4684 [address] RoadDublin [place] [id number] Creatinine (U) [Mass/Vol] 138.6 mg/dL Normal [facility]; [facility] Work Phone: Comment on above: PATIENT NOT FASTINGP ERFORMED BY: PARTH Dejonroeglio LealDsciwf5779 [address] RoadDublin [place] [id number] TSH ([id number])Ordered By: XPEC Entertainmente m Deck Hand on 03-12-2021 TSH Qn 27.400 {uIU/mL} Abnormal 0.450-4.50 0 [facility]; [facility] Work Phone: Comment on above: PATIENT NOT FASTINGP ERFORMED BY: PARTH Dejonrogelio LealPnamwj4694 Vargas RoadDublin [place] [id number] URINALYSIS, W/ MICRO ([id number]) Ordered By: Collaborative Physician on 03-12-2021 Appearance (U) Cloudy Abnormal Comprehens [facility]; [facility] Work Phone: Comment on above: PATIENT NOT FASTINGP ERFORMED BY: PARTH Dejonrogelio LealUvvhih9788 [address] RoadDublin [place] [id number] Bilirubin Ql (U) Negative Normal Comprehe ns[facility]; [facility] Work Phone: Comment on above: PATIENT NOT FASTINGP ERFORMED BY: PARTH AdamsArnold LealQlsdbu1304 [address] RoadDublin [place] [id number] Color (U) Yellow Normal [facility]; [facility] Work Phone: Comment on above: PATIENT NOT FASTINGP ERFORMED BY: PARTH Dejon Zlnlgb4799 [address]as RoadDublin [place] [id number] Glucose Ql (U) Negative Normal Comprehens [facility]; [facility] Work Phone: Comment on above: PATIENT NOT FASTINGP ERFORMED BY: PARTH Dejonrogelio Zxksby0060 [address] RoadDublin [place] [id number] Hemoglobin Ql (U) Negative Normal Compreh ens[facility]; [facility] Work Phone: Comment on above: PATIENT NOT FASTINGP ERFORMED BY: PARTH [facility] Psipeh8802 [address] RoadDublin [place] [id number] Ketones Ql (U) Negative Normal Comprehens [facility]; [facility] Work Phone: Comment on above: PATIENT NOT FASTINGP ERFORMED BY: PARTH [facility] Kzcqlp5025 [address]as RoadDublin [place] [id number] Leukocyte esterase Test strip Ql (U) Trace Abnormal [facility]; [facility] Work Phone: Comment on above: PATIENT NOT FASTINGP ERFORMED BY: PARTH [facility] Bknmpy4152 [address] RoadDublin [place] [id number] Microscopic observation LM Nom (Urine sed) See below: Normal [facility]; [facility] Work Phone: Comment on above: Microscopic was liberty cated and was performed. PATIENT NOT FASTINGP ERFORMED BY: PARTH LabJavierrp Ussnqz2032 [address] RoadDublin [place] [id number] Nitrite Ql (U) Negative Normal Comprehens [facility]; [facility] Work Phone: Comment on above: PATIENT NOT FASTINGP ERFORMED BY: PARTH [facility] Fhhams1393 [address] RoadDublin [place] [id number] pH (U) 6.0 [pH] Normal 5.0-7.5 [facility]; [facility] Work Phone: Comment on above: PATIENT NOT FASTINGP ERFORMED BY: PARTH [facility] Pbldzj2602 [address] RoadDublin [place] [id number] Protein Ql (U) Negative Normal Comprehens [facility]; [facility] Work Phone: Comment on above: PATIENT NOT FASTINGP ERFORMED BY: PARTH [facility] Bbgiyw6736 [address] RoadDublin [place] [id number] Specific gravity (U) [Rel density] 1.024 1 Normal 1.005-1.03 0 [facility]; [facility] Work Phone: Comment on above: PATIENT NOT FASTINGP ERFORMED BY: CB [facility] Dpewga0081 [address] RoadDublin [place] [id number] Urobilinogen (U) [Mass/Vol] 0.2 mg/dL Normal 0.2-1.0 [facility]; [facility] Work Phone: Comment on above: PATIENT NOT FASTINGP ERFORMED BY: PARTH NetSpendClara Maass Medical CenterNwfbsp7395 [facility] [id number] CALCIFIDIOL (89722) VIT D 25 Ordered By: Collaborative Physician on 05-12-2019 25-Hydroxyvitamin D2+25-Hydroxyvitamin D3 [Mass/Vol] 52.4 ng/mL Normal 30.0-100.0 [facility] Work Phone: Comment on above: Vitamin D deficiency has been defined by the [place] of[place] and an Endocrine Society practice guideline as alevel of serum 25-OH vitamin D less than 20 ng/mL (1,2).The Endocrine Society went on to further define vitamin Dinsufficiency as a level between 21 and 29 ng/mL (2).1. IOM ([place] of [employer]). 2010. Dietary reference intakes for calcium and D. [place]: The National Academies Press.2. Lisa MF, Jatinder DAVILA, Sofía MA, et al. Evaluation, treatment, and prevention of vitamin D deficiency: an Endocrine Society clinical practice guideline. JCEM. 2010; 96(7):1911-30. Test(s) 071945-CPY-P ; 569146-JWP-K; 193808-GLQ-A; 640672-Glgjscvgzomvv; 149504-Rvkbbjoigvk, Total; 925836-YQJ-B (Total);892374-Ippig LDL-P; 405603-BMB Size; 507917-AV-OP Scorewas developed and its performance characteristics determinedby [employer]. It has not been cleared or approved by the Foodand Drug Administration.PATIENT WAS FASTINGPERFORMED BY: NetSpend[address] [id number] BY: [employer] Vnnuzw2169 [facility] [id number] CBC W/AUTO DIFF WBC (92035)O rdered By: Collaborative Physician on 05-12-2019 Basophils (Bld) [#/Vol] 0.0 {x10E3/uL} Normal 0.0-0.2 [facility] Work Phone: Comment on above: Test(s) 260978-KTL-H ; 024072-HAD-L; 579237-UDA-F; 821527-Ktwgpebjgmzlf; 285126-Xbndsvtners, Total; 771147-KND-C (Total);422840-Apegf LDL-P; 129727-TTE Size; 995310-KV-PC Scorewas developed and its performance characteristics determinedby [employer]. It has not been cleared or approved by the Foodand Drug Administration.PATIENT WAS FASTINGPERFORMED BY: Telepathy[address] [id number] BY: VycloneHighlands [facility] [id number] Basophils (Bld) [#/Vol] 0.0 10*3/uL Normal 0.0-0.2 [facility]; [facility] Work Phone: Comment on above: Test(s) 126513-UVB-P ; 743652-JCM-J; 031570-ABW-Q; 301920-Cabacedeowvym; 999432-Bgiysslvtgq, Total; 762159-CDL-K (Total);051664-Lehct LDL-P; 205748-JGJ Size; 846999-QV-HE Scorewas developed and its performance characteristics determinedby [employer]. It has not been cleared or approved by the Foodand Drug Administration.PATIENT WAS FASTINGPERFORMED BY: Telepathy[address] [id number] BY: Milabra6370 DevtapHighlands [facility] [id number] Basophils/100 WBC (Bld) 1 % Normal [facility] Work Phone: Comment on above: Test(s) 152043-OXM-D ; 944936-EZX-L; 640601-DWQ-A; 969058-Gaimshkniearr; 170923-Qrjrxfsciwg, Total; 827385-XNQ-G (Total);401753-Urlbz LDL-P; 306627-FLL Size; 859040-ZX-NO Scorewas developed and its performance characteristics determinedby [employer]. It has not been cleared or approved by the Foodand Drug Administration.PATIENT WAS FASTINGPERFORMED BY: NetSpend[address] [id number] BY: Net[employer] Qkfwnl1818 [facility] [id number] Eosinophils (Bld) [#/Vol] 0.3 {x10E3/uL} Normal 0.0-0.4 [facility] Work Phone: Comment on above: Test(s) 917227-HWL-Y ; 221497-MKE-S; 024114-KNL-O; 965241-Vrnvmjybtttsr; 589612-Pxzdtddrzza, Total; 201035-SQB-U (Total);679001-Sbyrb LDL-P; 264983-RUI Size; 808776-YB-QU Scorewas developed and its performance characteristics determinedby [employer]. It has not been cleared or approved by the Foodand Drug Administration.PATIENT WAS FASTINGPERFORMED BY: NetSpend[address] [id number] BY: Net[employer] Nvkvpx4251 [facility] [id number] Eosinophils (Bld) [#/Vol] 0.3 10*3/uL Normal 0.0-0.4 [facility]; [facility] Work Phone: Comment on above: Test(s) 128881-AWS-Y ; 251986-KHP-E; 724575-XGF-T; 282875-Rxoefxqynymxy; 925749-Csjiyqvvlbj, Total; 154021-GBX-G (Total);588674-Trexm LDL-P; 091610-UGI Size; 766379-NR-VC Scorewas developed and its performance characteristics determinedby [employer]. It has not been cleared or approved by the Foodand Drug Administration.PATIENT WAS FASTINGPERFORMED BY: NetSpend[address] [id number] BY: NetSpendClara Maass Medical CenterXogmbq6737 [facility] [id number] Eosinophils/100 WBC (Bld) 4 % Normal [facility] Work Phone: Comment on above: Test(s) 033825-REL-K ; 764065-LNJ-H; 376079-NOP-D; 022951-Wmzgqrowkstzu; 181871-Zyivhvigegg, Total; 167169-UFT-N (Total);662732-Cxxcb LDL-P; 456954-UPW Size; 627053-PX-PA Scorewas developed and its performance characteristics determinedby [employer]. It has not been cleared or approved by the Foodand Drug Administration.PATIENT WAS FASTINGPERFORMED BY: [employer] [address] [id number] BY: DealPing70 MyBeautyCompareECU Health [facility] [id number] Erythrocyte distribution width (RBC) [Ratio] 12.6 % Normal 12.3-15.4 [facility] Work Phone: Comment on above: Test(s) 353850-FTS-Z ; 080618-GFN-Q; 775811-DCU-H; 259131-Udhkhtnuvesuq; 098407-Udjdrbjqlgt, Total; 091445-PCS-Z (Total);663427-Qrhho LDL-P; 487139-XPH Size; 617498-LH-JX Scorewas developed and its performance characteristics determinedby [employer]. It has not been cleared or approved by the Foodand Drug Administration.PATIENT WAS FASTINGPERFORMED BY: [employer] [address] [id number] BY: Milabra6370 [facility] [id number] Hematocrit (Bld) [Volume fraction] 42.3 % Normal 34.0-46.6 [facility] Work Phone: Comment on above: Test(s) 727396-ZRX-C ; 313929-UQY-J; 598442-SIE-I; 661298-Bvjxdfjjeouig; 465329-Ybmaxqxtgca, Total; 258224-JEH-W (Total);754581-Fjluk LDL-P; 187080-NBH Size; 481826-GC-WJ Scorewas developed and its performance characteristics determinedby [employer]. It has not been cleared or approved by the Foodand Drug Administration.PATIENT WAS FASTINGPERFORMED BY: NetSpend[address] [id number] BY: NetSpendClara Maass Medical CenterLhlddi6635 [facility] [id number] Hemoglobin (Bld) [Mass/Vol] 13.6 g/dL Normal 11.1-15.9 [facility] Work Phone: Comment on above: Test(s) 094910-OPS-T ; 698268-JWF-K; 877212-VEV-C; 174959-Cpnjwpjsukkuv; 356740-Erfvuavqbvp, Total; 562482-MFF-W (Total);821840-Lgorp LDL-P; 463321-EDT Size; 374410-PS-MV Scorewas developed and its performance characteristics determinedby [employer]. It has not been cleared or approved by the Foodand Drug Administration.PATIENT WAS FASTINGPERFORMED BY: [employer] [address] [id number] BY: Net[employer]end Asdzza0084 [facility] [id number] Immature granulocytes (Bld) [#/Vol] 0.0 {x10E3/uL} Normal 0.0-0.1 [facility] Work Phone: Comment on above: Test(s) 353160-AAD-D ; 454819-HFB-B; 028640-TVG-L; 907161-Wvmwgycmividd; 982112-Dtaypacszon, Total; 889504-OVS-J (Total);888185-Euqhc LDL-P; 145640-RUH Size; 573126-JS-VG Scorewas developed and its performance characteristics determinedby [employer]. It has not been cleared or approved by the Foodand Drug Administration.PATIENT WAS FASTINGPERFORMED BY: NetSpend[address] [id number] BY: NetSpendClara Maass Medical CenterRzcaud0719 [facility] [id number] Immature granulocytes (Bld) [#/Vol] 0.0 10*3/uL Normal 0.0-0.1 [facility]; [facility] Work Phone: Comment on above: Test(s) 113642-SSG-Q ; 454073-VRU-V; 714678-KGN-V; 049658-Npwnlwdksicyl; 819251-Msencelmnph, Total; 884100-WUH-E (Total);106205-Pgkgv LDL-P; 059616-IFW Size; 038130-CO-WC Scorewas developed and its performance characteristics determinedby [employer]. It has not been cleared or approved by the Foodand Drug Administration.PATIENT WAS FASTINGPERFORMED BY: [employer] [address] [id number] BY: Deal[employer]70 [facility] [id number] Immature granulocytes/100 WBC (Bld) 0 % Normal [facility] Work Phone: Comment on above: Test(s) 975415-KOD-M ; 068054-XPS-O; 711039-NYH-E; 261907-Bxlbjekmtopcd; 784240-Pcljxpbkpdt, Total; 279651-OPV-D (Total);124168-Wnvea LDL-P; 683468-WGQ Size; 936902-YD-EX Scorewas developed and its performance characteristics determinedby [employer]. It has not been cleared or approved by the Foodand Drug Administration.PATIENT WAS FASTINGPERFORMED BY: [employer] [address] [id number] BY: Milabra6370 [facility] [id number] Lymphocytes (Bld) [#/Vol] 2.1 {x10E3/uL} Normal 0.7-3.1 [facility] Work Phone: Comment on above: Test(s) 633143-TUE-Q ; 452584-CTM-A; 543158-ELD-J; 305053-Jdikvcndhgdjb; 877061-Baoxtwthtyl, Total; 322169-GPI-R (Total);525038-Gbppd LDL-P; 002826-CMM Size; 470718-XU-PH Scorewas developed and its performance characteristics determinedby [employer]. It has not been cleared or approved by the Foodand Drug Administration.PATIENT WAS FASTINGPERFORMED BY: [employer] [id number] BY: NetSpend Laxoqr6405 PeoplePerHour.comUNC Health Johnston [facility] [id number] Lymphocytes (Bld) [#/Vol] 2.1 10*3/uL Normal 0.7-3.1 [facility]; [facility] Work Phone: Comment on above: Test(s) 162068-PAP-D ; 603541-ACF-L; 803335-KMK-M; 905791-Vyacqyxdhjhyh; 433475-Wpsndvqfjnw, Total; 675919-EWD-A (Total);690037-Lgxya LDL-P; 194859-QRD Size; 424410-XM-NF Scorewas developed and its performance characteristics determinedby [employer]. It has not been cleared or approved by the Foodand Drug Administration.PATIENT WAS FASTINGPERFORMED BY: [employer] [address] [id number] BY: XPEC EntertainmentUNC Health Johnston Clayton [id number] Lymphocytes/100 WBC (Bld) 27 % Normal [facility] Work Phone: Comment on above: Test(s) 376609-XQB-J ; 885057-ELM-Z; 296321-OMQ-M; 960822-Eemvpogxdsvlj; 635204-Ewwloytzvlm, Total; 701480-ZKL-G (Total);970184-Tcokf LDL-P; 110818-ZRT Size; 456259-VY-LA Scorewas developed and its performance characteristics determinedby [employer]. It has not been cleared or approved by the Foodand Drug Administration.PATIENT WAS FASTINGPERFORMED BY: NetSpend[address] [id number] BY: Milabra6370 [facility] [id number] MCH (RBC) [Entitic mass] 29.9 pg Normal 26.6-33.0 [facility] Work Phone: Comment on above: Test(s) 345705-BXG-Q ; 164194-MVB-Y; 962338-XXS-O; 246805-Xcforqcihxxee; 732896-Cyofkkhwyvb, Total; 977059-HRA-C (Total);660911-Ojfxa LDL-P; 189025-OYH Size; 305617-GZ-UK Scorewas developed and its performance characteristics determinedby [employer]. It has not been cleared or approved by the Foodand Drug Administration.PATIENT WAS FASTINGPERFORMED BY: [employer] [address] [id number] BY: [employer]70 PeoplePerHour.comUNC Health Johnston [facility] [id number] MCHC (RBC) [Mass/Vol] 32.2 g/dL Normal 31.5-35.7 [facility] Work Phone: Comment on above: Test(s) 012874-NBD-M ; 930782-CXO-V; 450203-EQD-V; 909135-Aoczicumwccon; 432555-Yyzshiuaxvh, Total; 583827-OEH-X (Total);301191-Tkcvq LDL-P; 682456-ENJ Size; 390255-TJ-EW Scorewas developed and its performance characteristics determinedby [employer]. It has not been cleared or approved by the Foodand Drug Administration.PATIENT WAS FASTINGPERFORMED BY: [employer] [address] [id number] BY: Milabra6370 [facility] [id number] MCV (RBC) [Entitic vol] 93 fL Normal 79-97 [facility] Work Phone: Comment on above: Test(s) 765224-POC-U ; 686960-DFU-R; 922353-KTR-C; 829386-Rzhsxvloknuit; 108148-Iaipkxxsjym, Total; 031562-NHZ-U (Total);172832-Cbqcj LDL-P; 026901-BWB Size; 071786-SJ-SV Scorewas developed and its performance characteristics determinedby [employer]. It has not been cleared or approved by the Foodand Drug Administration.PATIENT WAS FASTINGPERFORMED BY: [employer] [address] [id number] BY: Net[employer] Djkwlf7271 [facility] [id number] Monocytes (Bld) [#/Vol] 0.4 {x10E3/uL} Normal 0.1-0.9 [facility] Work Phone: Comment on above: Test(s) 878904-OMS-H ; 486482-BZF-O; 755129-DNP-O; 419157-Xnnypixglipny; 016640-Xcfzjeyypil, Total; 295416-AIC-W (Total);372090-Tkgkw LDL-P; 508405-TFC Size; 137377-AD-OH Scorewas developed and its performance characteristics determinedby [employer]. It has not been cleared or approved by the Foodand Drug Administration.PATIENT WAS FASTINGPERFORMED BY: [employer] [address] [id number] BY: DealPing70 [facility] [id number] Monocytes (Bld) [#/Vol] 0.4 10*3/uL Normal 0.1-0.9 [facility]; [facility] Work Phone: Comment on above: Test(s) 672997-ZHT-O ; 654462-ZIO-R; 098178-EWD-S; 617509-Nxlmssombagsy; 278641-Izxpuiqdydj, Total; 371807-BDX-H (Total);310037-Xirzp LDL-P; 541005-XXX Size; 069254-OA-CD Scorewas developed and its performance characteristics determinedby [employer]. It has not been cleared or approved by the Foodand Drug Administration.PATIENT WAS FASTINGPERFORMED BY: [employer] [address] [id number] BY: Vittana Bwhypb0693 [facility] [id number] Monocytes/100 WBC (Bld) 6 % Normal [facility] Work Phone: Comment on above: Test(s) 659345-AZK-S ; 888171-VJN-C; 460892-SXQ-R; 858975-Uyfvtllboewuo; 553358-Irnwjpavmha, Total; 130258-DQW-W (Total);501653-Eanld LDL-P; 878040-GQU Size; 882506-CS-RW Scorewas developed and its performance characteristics determinedby [employer]. It has not been cleared or approved by the Foodand Drug Administration.PATIENT WAS FASTINGPERFORMED BY: [employer] [address] [id number] BY: NetSpendClara Maass Medical CenterWukcre7263 [facility] [id number] Neutrophils (d) [#/Vol] 4.8 {x10E3/uL} Normal 1.4-7.0 [facility] Work Phone: Comment on above: Test(s) 166602-WYW-G ; 318500-LYJ-Y; 395125-FMG-A; 491147-Rphlnzgsflgtm; 242482-Qvxalhjewdo, Total; 368399-EXV-I (Total);061572-Zpnxy LDL-P; 602616-RUG Size; 805026-RK-RP Scorewas developed and its performance characteristics determinedby [employer]. It has not been cleared or approved by the Foodand Drug Administration.PATIENT WAS FASTINGPERFORMED BY: [employer] [address] [id number] BY: NetSpendClara Maass Medical CenterVuhxbg0736 [facility] [id number] Neutrophils (Bld) [#/Vol] 4.8 10*3/uL Normal 1.4-7.0 [facility]; [facility] Work Phone: Comment on above: Test(s) 364456-KNQ-X ; 431185-ZDA-N; 077947-LCY-X; 729246-Bslmnseezdzbl; 771444-Hsrkdwqzdvr, Total; 669168-NYZ-T (Total);785239-Kxefy LDL-P; 464605-NEZ Size; 013125-HY-EB Scorewas developed and its performance characteristics determinedby [employer]. It has not been cleared or approved by the Foodand Drug Administration.PATIENT WAS FASTINGPERFORMED BY: [employer] [address] [id number] BY: Net[employer] Jdhypw4225 [facility] [id number] Neutrophils/100 WBC (Bld) 62 % Normal [facility] Work Phone: Comment on above: Test(s) 692794-OYD-K ; 316277-RBX-Q; 398834-ZYZ-K; 152332-Mdnvpqrtxdooo; 037835-Huczofaewkm, Total; 675054-XUK-N (Total);614641-Tfnid LDL-P; 582501-HHY Size; 961499-ZG-WA Scorewas developed and its performance characteristics determinedby [employer]. It has not been cleared or approved by the Foodand Drug Administration.PATIENT WAS FASTINGPERFORMED BY: Telepathy[address] [id number] BY: [employer] Exnxen3996 [facility] [id number] Platelets (Bld) [#/Vol] 194 {x10E3/uL} Normal 150-450 [facility] Work Phone: Comment on above: Test(s) 711806-GGT-Y ; 467753-ZSP-M; 685214-XDF-A; 886699-Djqtiejmgtxlk; 708690-Kqipyamwvvo, Total; 175536-ZMO-E (Total);888805-Tgxdz LDL-P; 801727-MZV Size; 375102-QF-ZM Scorewas developed and its performance characteristics determinedby [employer]. It has not been cleared or approved by the Foodand Drug Administration.PATIENT WAS FASTINGPERFORMED BY: [employer] [address] [id number] BY: [employer] Nmgqdm5134 [facility] [id number] Platelets (Bld) [#/Vol] 194 10*3/uL Normal 150-450 [facility]; [facility] Work Phone: Comment on above: Test(s) 657119-PQJ-O ; 997175-CID-S; 430798-YRX-X; 128348-Idhuygsqodneo; 112882-Epfmmviynbs, Total; 853282-JDP-Z (Total);415795-Wrymm LDL-P; 483409-FVZ Size; 437502-OM-AW Scorewas developed and its performance characteristics determinedby [employer]. It has not been cleared or approved by the Foodand Drug Administration.PATIENT WAS FASTINGPERFORMED BY: [employer] [address] [id number] BY: Milabra6370 [facility] [id number] RBC (Bld) [#/Vol] 4.55 {x10E6/uL} Normal 3.77-5.28 [facility] Internal Medicine Work Phone: Comment on above: Test(s) 990130-BZZ-E ; 865473-GYB-H; 692611-EPT-H; 103399-Getxowlmqvszr; 375517-Qyfvhadguhs, Total; 573757-WMZ-Y (Total);172476-Ikzqs LDL-P; 896382-JEX Size; 661155-AL-HK Scorewas developed and its performance characteristics determinedby [employer]. It has not been cleared or approved by the Foodand Drug Administration.PATIENT WAS FASTINGPERFORMED BY: [employer] [address] [id number] BY: Milabra6370 [facility] [id number] RBC (Bld) [#/Vol] 4.55 10*6/uL Normal 3.77-5.28 [facility]; [facility] Work Phone: Comment on above: Test(s) 061026-HHN-Z ; 063056-ZLF-Q; 183036-SEM-B; 890454-Fvopvdskrinlo; 606398-Xlmerawzivl, Total; 500085-VRQ-R (Total);221000-Iltvk LDL-P; 712978-QOH Size; 764836-SP-FP Scorewas developed and its performance characteristics determinedby [employer]. It has not been cleared or approved by the Foodand Drug Administration.PATIENT WAS FASTINGPERFORMED BY: [employer] [address] [id number] BY: [employer] Ybqmoc4406 [facility] [id number] WBC (Bld) [#/Vol] 7.7 {x10E3/uL} Normal 3.4-10.[address] [facility] Internal Medicine Work Phone: Comment on above: Test(s) 826612-WJF-X ; 234930-CPF-J; 783038-BGQ-F; 659256-Mklaapxiirqkj; 036420-Orlcjasokih, Total; 448074-DMN-Y (Total);016202-Yaxpb LDL-P; 289402-XRL Size; 385595-QZ-CU Scorewas developed and its performance characteristics determinedby [employer]. It has not been cleared or approved by the Foodand Drug Administration.PATIENT WAS FASTINGPERFORMED BY: [employer] [address] [id number] BY: Milabra6370 [facility] [id number] WBC (Bld) [#/Vol] 7.7 10*3/uL Normal 3.4-10.8 [facility] Internal Medicine; [facility] Internal Medicine Work Phone: Comment on above: Test(s) 795779-DBB-N ; 375893-BDF-F; 093838-DIW-K; 091206-Vfqyxpqzjdzfa; 046578-Vlhcmumqwev, Total; 299695-ORS-O (Total);063675-Ibnos LDL-P; 184248-YPF Size; 047256-WG-GP Scorewas developed and its performance characteristics determinedby [employer]. It has not been cleared or approved by the Foodand Drug Administration.PATIENT WAS FASTINGPERFORMED BY: [employer] [address] [id number] BY: Milabra6370 [facility] [id number] [employer] PANEL, COMPREHENSI VE ([id number])Ordered By: Collaborative Physician on 05-12-2019 Albumin [Mass/Vol] 4.5 g/dL Normal 3.5-4.8 [facility] Internal Medicine Work Phone: Comment on above: Test(s) 629703-TVL-I ; 033036-HUY-H; 098438-OKM-F; 660484-Ymtyierzamtds; 044858-Ccjicvvrgsx, Total; 552719-BIC-P (Total);040785-Blpvg LDL-P; 369858-AQY Size; 039265-BO-ER Scorewas developed and its performance characteristics determinedby [employer]. It has not been cleared or approved by the Foodand Drug Administration.PATIENT WAS FASTINGPERFORMED BY: Telepathy[address] [id number] BY: DealPing70 PeoplePerHour.comUNC Health Johnston Clayton [id number] Albumin/Globulin [Mass ratio] 2.1 {ratio} Normal 1.2-2.2 [facility] Work Phone: Comment on above: Test(s) 480213-GNJ-R ; 075604-CBQ-C; 745551-VOJ-J; 440863-Kuslfpnyqqdhy; 493394-Jduqfhnvmid, Total; 393073-XWO-S (Total);724331-Rzivp LDL-P; 948737-RAU Size; 887776-DA-ID Scorewas developed and its performance characteristics determinedby [employer]. It has not been cleared or approved by the Foodand Drug Administration.PATIENT WAS FASTINGPERFORMED BY: [employer] [address] [id number] BY: Milabra6370 [address] VirtualQ[facility]ECU [facility] [id number] ALP [Catalytic activity/Vol] 96 [iU]/L Normal 39-117 [facility] Work Phone: Comment on above: Test(s) 605943-FWA-C ; 832795-NFT-G; 245482-WWE-S; 450825-Xsrhyegiysysv; 234899-Ntfqcpvzsxa, Total; 427427-WOZ-Z (Total);272893-Skuqk LDL-P; 948826-ZRH Size; 567732-WU-XJ Scorewas developed and its performance characteristics determinedby [employer]. It has not been cleared or approved by the Foodand Drug Administration.PATIENT WAS FASTINGPERFORMED BY: NetSpend[address] [id number] BY: Field Dailies70 [email or web address] Health Johnston [facility] [id number] ALP [Catalytic activity/Vol] 96 U/L Normal 39-117 [facility]; [facility] Work Phone: Comment on above: Test(s) 173983-GTB-A ; 828005-CXZ-Z; 998610-FQB-O; 850627-Rxebrzmxtapzu; 531021-Kfoisyjvanm, Total; 455182-JFM-X (Total);677099-Kfvye LDL-P; 189431-MHN Size; 303414-DE-SR Scorewas developed and its performance characteristics determinedby [employer]. It has not been cleared or approved by the Foodand Drug Administration.PATIENT WAS FASTINGPERFORMED BY: [employer] [address] [id number] BY: DealPing70 [email or web address] Health Johnston Clayton [id number] ALT [Catalytic activity/Vol] 19 [iU]/L Normal 0-32 [facility] Internal Medicine Work Phone: Comment on above: Test(s) 537073-CSF-V ; 997237-DGS-P; 515026-EZI-B; 272674-Tixirleymxnux; 846478-Nbvrxenxerl, Total; 758819-YWS-V (Total);051673-Qywlb LDL-P; 112357-LOK Size; 014676-GJ-EJ Scorewas developed and its performance characteristics determinedby [employer]. It has not been cleared or approved by the Foodand Drug Administration.PATIENT WAS FASTINGPERFORMED BY: [employer] [address] [id number] BY: DealPing70 [facility]Centerpoint [facility] [id number] ALT [Catalytic activity/Vol] 19 U/L Normal 0-32 [facility]; [facility] Work Phone: Comment on above: Test(s) 328431-ZRI-R ; 010893-DTG-M; 163107-RLY-S; 135404-Yreslrpyrxkhf; 189243-Xskktsodyyz, Total; 309917-HNM-J (Total);194486-Wjxke LDL-P; 768484-SIC Size; 362993-SC-YY Scorewas developed and its performance characteristics determinedby [employer]. It has not been cleared or approved by the Foodand Drug Administration.PATIENT WAS FASTINGPERFORMED BY: [employer] [id number] BY: [employer] Rcsyfq5622 [facility] [id number] AST [Catalytic activity/Vol] 20 [iU]/L Normal 0-40 [facility] Internal Medicine Work Phone: Comment on above: Test(s) 169708-JQY-E ; 530655-SMB-W; 553411-QZT-D; 579854-Lcbvbmagpndnh; 022490-Cvozdrgdxti, Total; 226729-VKH-R (Total);646090-Ehyvd LDL-P; 289772-MJR Size; 223575-IZ-PU Scorewas developed and its performance characteristics determinedby [employer]. It has not been cleared or approved by the Foodand Drug Administration.PATIENT WAS FASTINGPERFORMED BY: [employer] [address] [id number] BY: NetSpendLovelace Women's HospitalBptwpz9722 [facility] [id number] AST [Catalytic activity/Vol] 20 U/L Normal 0-40 [facility]; [facility] Work Phone: Comment on above: Test(s) 047517-ZCV-Q ; 378273-ZME-U; 936600-KDO-P; 125725-Pkswhvtyltvrb; 190195-Zphyaiqlscp, Total; 381499-YWQ-B (Total);941956-Vgyyo LDL-P; 475315-JMO Size; 643754-LF-LL Scorewas developed and its performance characteristics determinedby [employer]. It has not been cleared or approved by the Foodand Drug Administration.PATIENT WAS FASTINGPERFORMED BY: [employer] [address] [id number] BY: [employer] Tkgyqw4281 [facility] [id number] Bilirubin [Mass/Vol] 0.5 mg/dL Normal 0.0-1.2 [facility] Internal Medicine Work Phone: Comment on above: Test(s) 821447-JGR-Y ; 093546-KEL-L; 004068-KSS-C; 711984-Xgqygydzumdyy; 525481-Arqkivokfxi, Total; 959681-QXL-S (Total);130165-Ftbeu LDL-P; 814871-DJZ Size; 965903-ZM-FT Scorewas developed and its performance characteristics determinedby [employer]. It has not been cleared or approved by the Foodand Drug Administration.PATIENT WAS FASTINGPERFORMED BY: [employer] [address] [id number] BY: Milabra6370 [facility] [id number] Calcium [Mass/Vol] 9.5 mg/dL Normal 8.7-10.3 [facility] Internal Medicine Work Phone: Comment on above: Test(s) 426837-QLI-B ; 213615-PSG-C; 017489-MUT-B; 033938-Taqmsnjctysfv; 350319-Nytwbgpcsmz, Total; 858969-JVZ-R (Total);083056-Iaryr LDL-P; 798392-QFL Size; 214380-LM-QU Scorewas developed and its performance characteristics determinedby [employer]. It has not been cleared or approved by the Foodand Drug Administration.PATIENT WAS FASTINGPERFORMED BY: [employer] [address] [id number] BY: Milabra6370 [facility] [id number] Chloride [Moles/Vol] 103 mmol/L Normal 96-106 [facility] Internal Medicine Work Phone: Comment on above: Test(s) 908126-WIE-H ; 392909-DVO-N; 130081-EOO-E; 163987-Ifgkjqzmlptch; 058452-Vgykipvaupa, Total; 219476-ZNF-X (Total);614512-Uxyov LDL-P; 674179-PPX Size; 370171-ZY-CC Scorewas developed and its performance characteristics determinedby [employer]. It has not been cleared or approved by the Foodand Drug Administration.PATIENT WAS FASTINGPERFORMED BY: [employer] [place] [address] [id number] BY: DealPing70 [facility]asCenterpoint [facility] [id number] CO2 [Moles/Vol] 23 mmol/L Normal 20-29 [facility] Work Phone: Comment on above: Test(s) 529199-VEQ-S ; 824890-SNI-C; 019345-ZVC-Y; 645401-Jzhkxsrwoioed; 862751-Rnuupocwamk, Total; 884986-ULU-X (Total);204548-Zljkb LDL-P; 990280-XOD Size; 488434-GY-AV Scorewas developed and its performance characteristics determinedby [employer]. It has not been cleared or approved by the Foodand Drug Administration.PATIENT WAS FASTINGPERFORMED BY: Telepathy[address] [id number] BY: Milabra6370 [facility] [id number] Creatinine [Mass/Vol] 1.05 mg/dL Abnormal 0.57-1.00 [facility] Internal Medicine Work Phone: Comment on above: Test(s) 647490-PYZ-A ; 863632-UTP-A; 418763-HJN-X; 374678-Ejuviyimqowxf; 333121-Ncnwphpnhgp, Total; 002375-GMV-U (Total);685338-Qzrjf LDL-P; 778135-ZKF Size; 057185-MR-TE Scorewas developed and its performance characteristics determinedby [employer]. It has not been cleared or approved by the Foodand Drug Administration.PATIENT WAS FASTINGPERFORMED BY: NetSpend[address] [id number] BY: [employer] Wfgfkf0165 [facility] [id number] GFR/1.73 sq M predicted among blacks CKD-EPI (S/P/Bld) [Vol rate/Area] 61 mL/min/1.73 Normal [facility] Work Phone: Comment on above: Test(s) 785323-BWA-O ; 858688-RRR-U; 678488-JFG-O; 574193-Qwjgzomlszqix; 773305-Wwcdoflybrv, Total; 890584-ANY-O (Total);549608-Ongil LDL-P; 316585-OVZ Size; 054698-JN-DF Scorewas developed and its performance characteristics determinedby [employer]. It has not been cleared or approved by the Foodand Drug Administration.PATIENT WAS FASTINGPERFORMED BY: [employer] [address] [id number] BY: Net[employer]end Gpfkhq1484 [facility] [id number] GFR/1.73 sq M predicted among non-blacks CKD-EPI (S/P/Bld) [Vol rate/Area] 53 mL/min/1.73 Abnormal [facility] Work Phone: Comment on above: Test(s) 605022-HIS-N ; 203190-MZG-R; 106807-QAH-B; 542672-Lpdjafwuhvfpl; 611902-Mxoxhtiyoba, Total; 669483-JPE-M (Total);855408-Oowfb LDL-P; 227387-KHW Size; 777719-BL-LC Scorewas developed and its performance characteristics determinedby [employer]. It has not been cleared or approved by the Foodand Drug Administration.PATIENT WAS FASTINGPERFORMED BY: [employer] [address] [id number] BY: Net[employer]end Atdewr0113 [facility] [id number] Globulin (S) [Mass/Vol] 2.1 g/dL Normal 1.5-4.5 [facility] Internal Medicine Work Phone: Comment on above: Test(s) 194842-EPM-P ; 536155-JOV-U; 805620-ODY-O; 227758-Gjcyeodmismci; 662531-Bodgoohimrr, Total; 034224-ZIT-U (Total);149614-Buzly LDL-P; 431362-MIW Size; 499733-WP-BS Scorewas developed and its performance characteristics determinedby [employer]. It has not been cleared or approved by the Foodand Drug Administration.PATIENT WAS FASTINGPERFORMED BY: Telepathy[address] [id number] BY: Milabra6370 [facility] [id number] Glucose [Mass/Vol] 90 mg/dL Normal 65-99 [facility] Internal Medicine Work Phone: Comment on above: Test(s) 803091-WBZ-S ; 623641-DKY-Q; 235131-IKE-V; 798360-Tpnkmatsvspsi; 462459-Aehqpxenylj, Total; 241586-WYL-S (Total);781886-Hirfq LDL-P; 086354-TZE Size; 801625-AN-KU Scorewas developed and its performance characteristics determinedby [employer]. It has not been cleared or approved by the Foodand Drug Administration.PATIENT WAS FASTINGPERFORMED BY: [employer] [address] [id number] BY: Milabra6370 [facility] [id number] Potassium [Moles/Vol] 4.1 mmol/L Normal 3.5-5.2 [facility] Internal Medicine Work Phone: Comment on above: Test(s) 126787-JKP-X ; 727985-GZG-M; 950418-ECG-L; 305023-Enzrlmuaslpwb; 081684-Ndrxbwjxcor, Total; 168352-NTJ-N (Total);036234-Lhdrq LDL-P; 600702-UFB Size; 119457-YY-OJ Scorewas developed and its performance characteristics determinedby [employer]. It has not been cleared or approved by the Foodand Drug Administration.PATIENT WAS FASTINGPERFORMED BY: NetSpend[address] [id number] BY: NetSpend Otuacj1234 PeoplePerHour.comUNC Health Johnston [facility] [id number] Protein [Mass/Vol] 6.6 g/dL Normal 6.0-8.5 [facility] Internal Medicine Work Phone: Comment on above: Test(s) 316991-AZQ-F ; 885656-BUR-T; 357745-UJN-I; 674914-Izdvgfndswvvx; 215417-Qqmzvsgbkgd, Total; 058858-AOI-U (Total);182446-Xivbr LDL-P; 132929-DYL Size; 991615-RA-GJ Scorewas developed and its performance characteristics determinedby [employer]. It has not been cleared or approved by the Foodand Drug Administration.PATIENT WAS FASTINGPERFORMED BY: [employer] [address] [id number] BY: DealPing70 PeoplePerHour.comUNC Health Johnston [facility] [id number] Sodium [Moles/Vol] 146 mmol/L Abnormal 134-144 [facility] Internal Medicine Work Phone: Comment on above: Test(s) 204022-NPA-E ; 771223-PYI-U; 031940-GRL-T; 242376-Mjyxvvkkkzrsg; 955237-Nndnhhfkhgd, Total; 875949-UOX-U (Total);845191-Rbtpf LDL-P; 272978-SKC Size; 467659-SP-PL Scorewas developed and its performance characteristics determinedby [employer]. It has not been cleared or approved by the Foodand Drug Administration.PATIENT WAS FASTINGPERFORMED BY: NetSpend[address] [id number] BY: Milabra6370 [address] VirtualQubeECU [facility] Center [id number] Urea nitrogen [Mass/Vol] 24 mg/dL Normal 8- [facility] Work Phone: Comment on above: Test(s) 145260-IPN-Y ; 315121-RQJ-X; 709079-JVN-X; 908745-Rpcopxszxjzji; 341393-Rercagsgack, Total; 922698-XOB-A (Total);311919-Imemy LDL-P; 968127-GFP Size; 495686-KQ-BZ Scorewas developed and its performance characteristics determinedby [employer]. It has not been cleared or approved by the Foodand Drug Administration.PATIENT WAS FASTINGPERFORMED BY: Telepathy[address] [id number] BY: DealPing[address] [facility] [id number] Urea nitrogen/Creatinine [Mass ratio] 23 mg/mg Normal 12- [facility] Work Phone: Comment on above: Test(s) 571938-LTE-I ; 482637-QIC-M; 266943-XFX-K; 969646-Yupzrnhpcpdyz; 996283-Xpddvgcaoxr, Total; 647985-GGT-H (Total);026630-Sbglg LDL-P; 150088-AKT Size; 424855-MY-GD Scorewas developed and its performance characteristics determinedby [employer]. It has not been cleared or approved by the Foodand Drug Administration.PATIENT WAS FASTINGPERFORMED BY: [employer] [address] [id number] BY: [employer] Xyzrvy6112 [facility] [id number] NMR Profile (62778)Ordered B y: Collaborative Physician on 05-12-2019 Cholesterol [Mass/Vol] 152 mg/dL Normal 100-199 [facility] Work Phone: Comment on above: Test(s) 439001-WXJ-N ; 108412-PDH-T; 427134-POR-G; 945895-Nrpmogwaruwtg; 880153-Mwdnmlrmeqw, Total; 079959-DFB-M (Total);618165-Yhnlf LDL-P; 483766-BTA Size; 117473-GM-IM Scorewas developed and its performance characteristics determinedby [employer]. It has not been cleared or approved by the Foodand Drug Administration.PATIENT WAS FASTINGPERFORMED BY: [employer] [address] [id number] BY: NetSpendLovelace Women's HospitalGbnhxz2946 [facility] [id number] Lipoprotein.alpha [Moles/Vol] 34.0 umol/L Normal [facility] Work Phone: Comment on above: Test(s) 827008-OUZ-U ; 366739-UKK-V; 654480-LTM-K; 840663-Mvegubytfsmyd; 353102-Delnopfamei, Total; 627343-QCJ-R (Total);528972-Uitgq LDL-P; 455649-EMU Size; 334783-VQ-QF Scorewas developed and its performance characteristics determinedby [employer]. It has not been cleared or approved by the Foodand Drug Administration.PATIENT WAS FASTINGPERFORMED BY: [employer] [address] [id number] BY: marinanow6370 [facility] [id number] Lipoprotein.beta.sub particle [Entitic length] 21.0 nm Normal [facility] Work Phone: Comment on above: INTERPRETATIVE INFORMATION PARTICLE CONCENTRATION AND SIZE <--Lower CVD Risk Higher CVD Risk--> LDL AND HDL PARTICLES Percentile [...] but not afterLDL-P is taken into account. Test(s) 534792-QZE-I ; 025854-TRT-D; 609228-MEG-J; 024822-Gjbrpdwdaplpz; 654627-Mpwqwnddakf, Total; 411587-TSJ-T (Total);409127-Aofcl LDL-P; 312361-OXB Size; 756656-BB-NQ Scorewas developed and its performance characteristics determinedby [employer]. It has not been cleared or approved by the Foodand Drug Administration.PATIENT WAS FASTINGPERFORMED BY: Telepathy[address] [id number] BY: ART[facility] BioscienceCenterpoint Medical Center [id number] Lipoprotein.beta.sub particle [Moles/Vol] 961 nmol/L Normal [facility] Work Phone: Comment on above: Low < 1000 Moderate 1000 - 1299 Borderline-High 1300 - 1599 High 1600 - 2000 Very High > 2000 Test(s) 415190-TNE-W ; 904043-GJD-J; 124016-GSE-X; 794111-Iphahfmpqqplk; 613647-Ewtsebhpehu, Total; 975831-FOB-C (Total);794710-Klreq LDL-P; 276066-JXL Size; 326936-IO-QX Scorewas developed and its performance characteristics determinedby [employer]. It has not been cleared or approved by the Foodand Drug Administration.PATIENT WAS FASTINGPERFORMED BY: Telepathy[address] [id number] BY: [employer] [facility] [id number] Lipoprotein.beta.sub particle.small [Moles/Vol] 418 nmol/L Normal [facility] Internal Medicine Work Phone: Comment on above: Test(s) 976008-CPW-X ; 043933-YNK-I; 365609-MRK-O; 863992-Iugfaihkhjpyb; 010233-Ylrhlfhoedx, Total; 412038-KVF-W (Total);621197-Leqfg LDL-P; 326768-KMR Size; 426451-YL-CM Scorewas developed and its performance characteristics determinedby [employer]. It has not been cleared or approved by the Foodand Drug Administration.PATIENT WAS FASTINGPERFORMED BY: [employer] [address] [id number] BY: [employer] Nonzdy1277 [facility] [id number] Triglyceride [Mass/Vol] 90 mg/dL Normal 0-149 [facility] Work Phone: Comment on above: Test(s) 980893-DXE-T ; 141583-SLL-K; 122736-WZA-J; 667583-Sszbmocqbdfla; 404421-Qlmltuqfgrq, Total; 904329-UNP-J (Total);768010-Ylmzi LDL-P; 328500-TTZ Size; 822197-CH-HF Scorewas developed and its performance characteristics determinedby [employer]. It has not been cleared or approved by the Foodand Drug Administration.PATIENT WAS FASTINGPERFORMED BY: [employer] [address] [id number] BY: [employer] Gobmfg2035 [facility] [id number] NMR Profile (11659) 49 mg/dL Normal [facility] Internal Medicine Work Phone: Comment on above: Test(s) 287359-ALS-S ; 092102-RBV-Y; 322432-SFJ-V; 451492-Brduippkjptfd; 263792-Bivekxinrix, Total; 039253-NZB-U (Total);373026-Wvuyj LDL-P; 892855-WSG Size; 152472-FM-BW Scorewas developed and its performance characteristics determinedby [employer]. It has not been cleared or approved by the Foodand Drug Administration.PATIENT WAS FASTINGPERFORMED BY: [employer] [address] [id number] BY: Milabra6370 [facility] [id number] NMR Profile (25198) 85 mg/dL Normal 0-99 [facility] Internal Medicine Work Phone: Comment on above: . Optimal < 100 Abov e optimal 100 - 129 Borderline 130 - 159 High 160 - 189 Very high > 189 .LDL-C is inaccurate if patient is non-fasting. Test(s) 400634-CUG-F ; 978936-CSV-B; 720964-XZA-R; 956347-Auqswdoqjrgdo; 563043-Yprddgugdle, Total; 367687-HMK-Q (Total);795047-Giqgg LDL-P; 496792-DPH Size; 454245-JH-OG Scorewas developed and its performance characteristics determinedby [employer]. It has not been cleared or approved by the Foodand Drug Administration.PATIENT WAS FASTINGPERFORMED BY: [employer] [place] [address] [id number] BY: Milabra6370 [facility] HospitalLingoLiveUNC Health [facility] [id number] TSH (22288)Ordered By: Mikaela Benites on 05-12-2019 TSH Qn 4.100 {uIU/mL} Normal 0.450-4.50 0 [facility] Internal Medicine Work Phone: Comment on above: Test(s) 581826-WYI-P ; 681235-YPP-S; 683191-KVY-J; 691588-Wtnbmyfaufmkg; 748474-Sytbnudeayk, Total; 500162-ERC-T (Total);363158-Jtfsc LDL-P; 391286-VWD Size; 021206-ZP-QM Scorewas developed and its performance characteristics determinedby [employer]. It has not been cleared or approved by the Foodand Drug Administration.PATIENT WAS FASTINGPERFORMED BY: Telepathy[address] [id number] BY: Milabra6370 [facility] HospitalLingoLiveUNC Health [facility] [id number] CALCIFIDIOL (19985) VIT D 25 on 05-27-2018 25-Hydroxyvitamin D2+25-Hydroxyvitamin D3 mass conc 47.9 ng/mL Normal 30.0-100.0 [facility] Work Phone: Comment on above: Vitamin D deficiency has been defined by the [place] ofMedicine and an Endocrine Society practice guideline as alevel of serum 25-OH vitamin D less than 20 ng/mL (1,2).The Endocrine Society went on to further define vitamin Dinsufficiency as a level between 21 and 29 ng/mL (2).1. IOM ([place] of Medicine). 2010. Dietary reference intakes for calcium and D. [place]: The National Academies Press.2. Lisa MF, Jatinder NC, Sofía MA, et al. Evaluation, treatment, and prevention of vitamin D deficiency: an Endocrine Society clinical practice guideline. JCEM. 2010; 96(7):1911-30. PATIENT WAS FASTINGP ERFORMED BY: Telepathy[address] [id number] BY: [employer] [facility] [id number] CBC W/AUTO DIFF WBC (32618)o n 05-27-2018 Basophils #/vol (Bld) 0.0 {x10E3/uL} Normal 0.0-0.2 [facility] Work Phone: Comment on above: PATIENT WAS FASTINGP ERFORMED BY: Telepathy[address] [id number] BY: DealPing70 [facility] [id number] Basophils Auto #/vol (Bld) 0.0 {x10E3/uL} Normal 0.0-0.2 [facility] Work Phone: Basophils/100 WBC (Bld) 0 % Normal [facility] Work Phone: Comment on above: PATIENT WAS FASTINGP ERFORMED BY: Telepathy[address] [id number] BY: DealPing[address] [facility] [id number] Basophils/100 WBC Auto (Bld) 0 % Normal [facility] Work Phone: Eosinophils #/vol (Bld) 0.2 {x10E3/uL} Normal 0.0-0.4 [facility] Work Phone: Comment on above: PATIENT WAS FASTINGP ERFORMED BY: Telepathy[address] [id number] BY: [employer] Uucguh9805 [facility] [id number] Eosinophils Auto #/vol (Bld) 0.2 {x10E3/uL} Normal 0.0-0.4 [facility] Work Phone: Eosinophils/100 WBC (Bld) 3 % Normal [facility] Work Phone: Comment on above: PATIENT WAS FASTINGP ERFORMED BY: Telepathy[address] [id number] BY: Weottalin6370 [facility] [id number] Eosinophils/100 WBC Auto (Bld) 3 % Normal [facility] Work Phone: Erythrocyte distribution width Auto Ratio (RBC) 12.8 % Normal 12.3-15.4 [facility] Work Phone: Erythrocyte distribution width Ratio (RBC) 12.8 % Normal 12.3-15.4 [facility] Work Phone: Comment on above: PATIENT WAS FASTINGP ERFORMED BY: [employer] [address] [id number] BY: NetSpendClara Maass Medical CenterSsiveu2047 [facility] [id number] Hematocrit Auto Volume Fraction (Bld) 43.4 % Normal 34.0-46.6 [facility] Work Phone: Hematocrit Volume Fraction (Bld) 43.4 % Normal 34.0-46.6 [facility] Work Phone: Comment on above: PATIENT WAS FASTINGP ERFORMED BY: [employer] [address] [id number] BY: [facility]al HospitalCo Pfudxp8854 Vargas RoadAtrium Health Wake Forest Baptist [facility] Medical Centerin [place] [id number] Hemoglobin mass conc (Bld) 14.5 g/dL Normal 11.1-15.9 [facility] Work Phone: Comment on above: PATIENT WAS FASTINGP ERFORMED BY: [address] [id number] BY: LabHarbor Beach Community Hospital6370 Vargas RoadECU Health Medical Center [id number] Immature granulocytes #/vol (Bld) 0.0 {x10E3/uL} Normal 0.0-0.1 [facility] Work Phone: Comment on above: PATIENT WAS FASTINGP ERFORMED BY: [address] [id number] BY: [place] [id number] Varg[facility] RoadECU Health Medical Center [id number] Immature granulocytes/100 WBC (Bld) 0 % Normal [facility] Work Phone: Comment on above: PATIENT WAS FASTINGP ERFORMED BY: [address] [id number] BY: [place] [id number] [facility] [id number] Lymphocytes #/vol (Bld) 2.2 {x10E3/uL} Normal 0.7-3.1 [facility] Work Phone: Comment on above: PATIENT WAS FASTINGP ERFORMED BY: [address] [id number] BY: [place] [id number] [facility] [id number] Lymphocytes Auto #/vol (Bld) 2.2 {x10E3/uL} Normal 0.7-3.1 [facility] Work Phone: Lymphocytes/100 WBC (Bld) 26 % Normal [facility] Work Phone: Comment on above: PATIENT WAS FASTINGP ERFORMED BY: BN Lab[address] [id number] BY: NetSpendClara Maass Medical CenterSoxsbj8361 [facility] [id number] Lymphocytes/100 WBC Auto (Bld) 26 % Normal [facility] Work Phone: MCH Auto Entitic mass (RBC) 29.9 pg Normal 26.6-33.0 [facility] Work Phone: MCH Entitic mass (RBC) 29.9 pg Normal 26.6-33.0 [facility] Work Phone: Comment on above: PATIENT WAS FASTINGP ERFORMED BY: [employer] [id number] BY: NetSpendJessica V[place] 6733070 [facility] [id number] MCHC Auto mass conc (RBC) 33.4 g/dL Normal 31.5-35.7 [facility] Work Phone: MCHC mass conc (RBC) 33.4 g/dL Normal 31.5-35.7 [facility] Internal Medicine Work Phone: Comment on above: PATIENT WAS FASTINGP ERFORMED BY: Net[employer] [id number] BY: NetSpendJessica [place] 6733070 [facility] [id number] MCV Auto Entitic volume (RBC) 90 fL Normal 79-97 [facility] Work Phone: MCV Entitic volume (RBC) 90 fL Normal 79-97 [facility] Work Phone: Comment on above: PATIENT WAS FASTINGP ERFORMED BY: NetSpend[address] [id number] BY: NetSpendJessica [place] 6733070 [facility] [id number] Monocytes #/vol (Bld) 0.5 {x10E3/uL} Normal 0.1-0.9 [facility] Work Phone: Comment on above: PATIENT WAS FASTINGP ERFORMED BY: [facility] [address] [id number] BY: NetSpendClara Maass Medical CenterQcmxpc7257 [facility] [id number] Monocytes Auto #/vol (Bld) 0.5 {x10E3/uL} Normal 0.1-0.9 [facility] Work Phone: Monocytes/100 WBC (Bld) 6 % Normal [facility] Work Phone: Comment on above: PATIENT WAS FASTINGP ERFORMED BY: [employer] [address] [id number] BY: NetSpendJessica [place] 6733070 [facility] [id number] Monocytes/100 WBC Auto (Bld) 6 % Normal [facility] Work Phone: Neutrophils #/vol (Bld) 5.4 {x10E3/uL} Normal 1.4-7.0 [facility] Work Phone: Comment on above: PATIENT WAS FASTINGP ERFORMED BY: [employer] [address] [id number] BY: NetSpendJessica [place] 6733070 [facility] [id number] Neutrophils Auto #/vol (Bld) 5.4 {x10E3/uL} Normal 1.4-7.0 [facility] Work Phone: Neutrophils/100 WBC (Bld) 65 % Normal [facility] Work Phone: Comment on above: PATIENT WAS FASTINGP ERFORMED BY: [employer] [id number] BY: NetSpendClara Maass Medical CenterSactev7433 [facility] [id number] Neutrophils/100 WBC Auto (Bld) 65 % Normal [facility] Work Phone: Platelets #/vol (Bld) 207 {x10E3/uL} Normal 150-379 [facility] Work Phone: Comment on above: PATIENT WAS FASTINGP ERFORMED BY: LabCo[address] [id number] BY: NetSpendClara Maass Medical CenterWxpxhi8942 [facility] [id number] Platelets Auto #/vol (Bld) 207 {x10E3/uL} Normal 150-379 [facility] Work Phone: RBC #/vol (Bld) 4.85 {x10E6/uL} Normal 3.77-5.28 [facility] Internal Medicine Work Phone: Comment on above: PATIENT WAS FASTINGP ERFORMED BY: [employer] [id number] BY: NetSpendJess[place] 6733070 [facility] [id number] RBC Auto #/vol (Bld) 4.85 {x10E6/uL} Normal 3.77-5.28 [facility] Work Phone: WBC #/vol (Bld) 8.4 {x10E3/uL} Normal 3.4-10.8 [facility] Internal Medicine Work Phone: Comment on above: PATIENT WAS FASTINGP ERFORMED BY: [employer] [id number] BY: NetSpendClara Maass Medical CenterViatdu8761 [facility] [id number] WBC Auto #/vol (Bld) 8.4 {x10E3/uL} Normal 3.4-10.8 [facility] Internal Medicine Work Phone: CBC W/AUTO DIFF WBC (08332)O rdered By: Collaborative Physician on 05-27-2018 Basophils (Bld) [#/Vol] 0.0 10*3/uL Normal 0.0-0.2 [facility] Internal Medicine Work Phone: Comment on above: PATIENT WAS FASTINGP ERFORMED BY: Net[employer] [id number] BY: Innovative HealthcareJames Ville 0639670 [facility] [id number] Eosinophils (Bld) [#/Vol] 0.2 10*3/uL Normal 0.0-0.4 [facility] Work Phone: Comment on above: PATIENT WAS FASTINGP ERFORMED BY: Lab[address] [id number] BY: PARTH [facility] Ebxhnp3858 Vargas RoadDublin [place] [id number] Immature granulocytes (Bld) [#/Vol] 0.0 10*3/uL Normal 0.0-0.1 [facility] Work Phone: Comment on above: PATIENT WAS FASTINGP ERFORMED BY: Lab[address] [id number] BY: PARTH [facility] Ssuisk0270 Vargas RoadDublin [place] [id number] Lymphocytes (Bld) [#/Vol] 2.2 10*3/uL Normal 0.7-3.1 [facility] Work Phone: Comment on above: PATIENT WAS FASTINGP ERFORMED BY: [address] [id number] BY: PARTH [facility] Ofktnp2478 Vargas RoadDublin [place] [id number] Monocytes (Bld) [#/Vol] 0.5 10*3/uL Normal 0.1-0.9 [facility] Work Phone: Comment on above: PATIENT WAS FASTINGP ERFORMED BY: [address] [id number] BY: [facility] Junjgk8956 Vargas RoadDublin [place] [id number] Neutrophils (Bld) [#/Vol] 5.4 10*3/uL Normal 1.4-7.0 [facility] Work Phone: Comment on above: PATIENT WAS FASTINGP ERFORMED BY: [address] [id number] BY: PARTH [facility] Qqsnqp3920 Vargas RoadDublin [place] [id number] Platelets (Bld) [#/Vol] 207 10*3/uL Normal 150-379 [facility] Work Phone: Comment on above: PATIENT WAS FASTINGP ERFORMED BY: [facility] Crrmtbbsoy47[address] [id number] BY: [facility] Quuxzx9598 [address] [facility] [id number] RBC (Bld) [#/Vol] 4.85 10*6/uL Normal 3.77-5.28 [facility] Internal Medicine Work Phone: Comment on above: PATIENT WAS FASTINGP ERFORMED BY: [facility] [address] [id number] BY: LabCoClara Maass Medical CenterEgqwol6064 [facility] [id number] WBC (Bld) [#/Vol] 8.4 10*3/uL Normal 3.4-10.[address] Internal Medicine Work Phone: Comment on above: PATIENT WAS FASTINGP ERFORMED BY: LabOur Security Team[address] [id number] BY: LabCoClara Maass Medical CenterYntkpy4756 [facility] [id number] LIPOPROTEIN, BLD, BY NMR (56 704)on 05-27-2018 Cholesterol in HDL mass conc 52 mg/dL Normal [facility] Work Phone: Comment on above: PATIENT WAS FASTINGP ERFORMED BY: LabOur Security Teamrp [address] [id number] BY: LabCoClara Maass Medical CenterClgrxq7358 [facility] [id number] Cholesterol in LDL mass conc 105 mg/dL Abnormal 0-99 [facility] Work Phone: Comment on above: . Optimal < 100 Abov e optimal 100 - 129 Borderline 130 - 159 High 160 - 189 Very high > 189 .LDL-C is inaccurate if patient is non-fasting. PATIENT WAS FASTINGP ERFORMED BY: Net[employer] [id number] BY: Milabra6370 PeoplePerHour.comUNC Health Johnston Clayton [id number] Cholesterol mass conc 180 mg/dL Normal 100-199 [facility] Work Phone: Comment on above: PATIENT WAS FASTINGP ERFORMED BY: Telepathy[address] [id number] BY: [employer] VirtualQubeECU Health Medical Center [id number] Lipoprotein.alpha molar conc 39.1 umol/L Normal [facility] Work Phone: Comment on above: PATIENT WAS FASTINGP ERFORMED BY: Telepathy[address] [id number] BY: [employer]70 PeoplePerHour.comUNC Health Johnston [facility] [id number] Lipoprotein.beta.sub particle Entitic length 21.1 nm Normal [facility] Work Phone: Comment on above: INTERPRETATIVE INFORMATION PARTICLE CONCENTRATION AND SIZE <--Lower CVD Risk Higher CVD Risk--> LDL AND HDL PARTICLES Percentile [...] were developed and their performance characteristicsdetermined by [employer]. These assays have not been cleared by [place] Food and Drug Administration. The clinical utility of theselaboratory values have not been fully established. PATIENT WAS FASTINGP ERFORMED BY: Lab[address] [id number] BY: [facility] Nhyfbi7044 Vargas RoadDublin [place] [id number] Lipoprotein.beta.sub particle molar conc 1294 nmol/L Abnormal Comprehensiv e Internal Medicine Work Phone: Comment on above: Low < 1000 Moderate 1000 - 1299 Borderline-High 1300 - 1599 High 1600 - 2000 Very High > 2000 PATIENT WAS FASTINGP ERFORMED BY: Lab[address] [id number] BY: [facility] Uwzsif8114 Vargas RoadDublin [place] [id number] Lipoprotein.beta.sub particle.small molar conc 472 nmol/L Normal [facility] Work Phone: Comment on above: PATIENT WAS FASTINGP ERFORMED BY: Lab[address] [id number] BY: [facility] Kkulsb8832 [address] [facility]blin [place] [id number] Triglyceride mass conc 115 mg/dL Normal 0-149 [facility] Work Phone: Comment on above: PATIENT WAS FASTINGP ERFORMED BY: Lab[address] [id number] BY: LabSaint [facility] Veazdx6447 [facility] [id number] METABOLIC PANEL, COMPREHENSI VE (75242)on 05-27-2018 Albumin mass conc 4.3 g/dL Normal 3.5-4.8 Compreh ensive Internal Medicine Work Phone: Comment on above: PATIENT WAS FASTINGP ERFORMED BY: Lab[address] [id number] BY: [facility] Qjqtnj2833 [address] [facility]in [place] [id number] Albumin/Globulin mass ratio 1.8 {ratio} Normal 1.2-2.2 [facility] Work Phone: Comment on above: PATIENT WAS FASTINGP ERFORMED BY: LabCo[address] [id number] BY: [facility] Ndsspx0601 Vargas RoadDublin [place] [id number] ALP enzyme act/vol 105 [iU]/L Normal 39-117 [facility] Internal [facility] Work Phone: Comment on above: PATIENT WAS FASTINGP ERFORMED BY: LabCo[address] [id number] BY: CB [facility] Asmslr0292 Vargas RoadDublin [place] [id number] ALT enzyme act/vol 26 [iU]/L Normal 0-32 [facility] Internal Medicine Work Phone: Comment on above: PATIENT WAS FASTINGP ERFORMED BY: Lab[address] [id number] BY: [facility] Zvmuuo8475 [address] RoadDublin [place] [id number] AST enzyme act/vol 24 [iU]/L Normal 0-40 [facility] Internal Medicine Work Phone: Comment on above: PATIENT WAS FASTINGP ERFORMED BY: Lab[address] [id number] BY: [facility] Jmkprp5271 [address] RoadDublin [place] [id number] Bilirubin mass conc 0.3 mg/dL Normal 0.0-1.2 [facility] Internal Medicine Work Phone: Comment on above: PATIENT WAS FASTINGP ERFORMED BY: Lab[address] [id number] BY: [facility] Qpizmj6596 [address] RoadDublin [place] [id number] Calcium mass conc 10.0 mg/dL Normal 8.7-10.3 [facility] Internal Medicine Work Phone: Comment on above: PATIENT WAS FASTINGP ERFORMED BY: BN [facility] Hsrmbfgpjc9042 [facility] [id number] BY: CB [facility] Eduyfv8688 Varg[address] Roadblin [place] [id number] Chloride molar conc 105 mmol/L Normal 96-106 Compr ehensive Internal Medicine Work Phone: Comment on above: PATIENT WAS FASTINGP ERFORMED BY: BN [facility] Ympzksxjbx[address] [id number] BY: CB [facility] Wdours3261 Varg[address] RoadAtrium Health Wake Forest Baptist [facility] Medical Centerin [place] [id number] CO2 molar conc 27 mmol/L Normal 20-29 Comprehens maranda Internal Medicine Work Phone: Comment on above: PATIENT WAS FASTINGP ERFORMED BY: BN [facility] [address] [id number] BY: CB [facility] Rmkkhp0253 [address] [facility] [id number] Creatinine mass conc 1.05 mg/dL Abnormal 0.57-1.00 Comp rehensive Internal Medicine Work Phone: Comment on above: PATIENT WAS FASTINGP ERFORMED BY: [facility] [address] [id number] BY: [facility] Allrap3020 [address] [facility] [id number] GFR/1.73 sq M predicted among blacks CKD-EPI vol rate/area (S/P/Bld) 62 mL/min/1.73 Normal Comprehensiv e Internal Medicine Work Phone: Comment on above: PATIENT WAS FASTINGP ERFORMED BY: [facility] [address] [id number] BY: [facility] Svacps6988 [facility] [id number] GFR/1.73 sq M predicted among non-blacks CKD-EPI vol rate/area (S/P/Bld) 54 mL/min/1.73 Abnormal [facility] Work Phone: Comment on above: PATIENT WAS FASTINGP ERFORMED BY: Innovative HealthcareLisa Ville 650927 [facility] [id number] BY: PARTH [facility] Teitcj5921 [address] [facility] [place] [id number] Globulin Calculated mass conc (S) 2.4 g/dL Normal 1.5-4.5 [facility] Work Phone: Globulin mass conc (S) 2.4 g/dL Normal 1.5-4.5 [facility] Work Phone: Comment on above: PATIENT WAS FASTINGP ERFORMED BY: [employer] [id number] BY: LabCoJessica Ville 6733070 [facility] [id number] Glucose mass conc 98 mg/dL Normal 65-99 Compreh ensive Internal Medicine Work Phone: Comment on above: PATIENT WAS FASTINGP ERFORMED BY: [employer] [id number] BY: LabCoClara Maass Medical CenterIaurrl3004 [facility] [id number] Potassium molar conc 5.0 mmol/L Normal 3.5-5.2 Comp rehensive Internal Medicine Work Phone: Comment on above: PATIENT WAS FASTINGP ERFORMED BY: Net[employer] [id number] BY: LabCoJessica [place]ille 6733070 [facility] [id number] Protein mass conc 6.7 g/dL Normal 6.0-8.5 Compreh ensive Internal Medicine Work Phone: Comment on above: PATIENT WAS FASTINGP ERFORMED BY: [employer] [id number] BY: LabCoClara Maass Medical CenterTmeekm0195 [facility] [id number] Sodium molar conc 147 mmol/L Abnormal 134-144 Compreh ensive Internal Medicine Work Phone: Comment on above: PATIENT WAS FASTINGP ERFORMED BY: [facility] [address] [id number] BY: PARTH [facility] Wyvodo6868 [address] RoadDublin [place] [id number] Urea nitrogen mass conc 23 mg/dL Normal 8-27 [facility] Work Phone: Comment on above: PATIENT WAS FASTINGP ERFORMED BY: [facility] [address] [id number] BY: CB [facility] Xszbkt7040 [address] RoadDublin [place] [id number] Urea nitrogen/Creatinine mass ratio 22 mg/mg Normal 12- [facility] Work Phone: Comment on above: PATIENT WAS FASTINGP ERFORMED BY: [facility] [address] [id number] BY: PARTH [facility] Vvgrdv4703 [address] RoadDublin [place] [id number] METABOLIC PANEL, COMPREHENSI VE ([id number])Ordered By: Collaborative Physician on 05-27-2018 ALP [Catalytic activity/Vol] 105 U/L Normal 39-117 [facility] Work Phone: Comment on above: PATIENT WAS FASTINGP ERFORMED BY: [facility] [address] [id number] BY: PARTH [facility] Auzeiq3830 [address] RoadDublin [place] [id number] ALT [Catalytic activity/Vol] 26 U/L Normal 0-32 [facility] Work Phone: Comment on above: PATIENT WAS FASTINGP ERFORMED BY: [facility] [address] [id number] BY: [facility] Wqzpix5227 [address] RoadDublin [place] [id number] AST [Catalytic activity/Vol] 24 U/L Normal 0-40 [facility] Work Phone: Comment on above: PATIENT WAS FASTINGP ERFORMED BY: LabCo[address] [id number] BY: [facility] Fyshmh5833 [address] RoadDublin [place] [id number] T3, FREE (TRIDOTHYRONINE) (8 7783)on 05-27-2018 T3 free mass conc 2.7 pg/mL Normal 2.0-4.4 Compreh ensive Internal Medicine Work Phone: Comment on above: PATIENT WAS FASTINGP ERFORMED BY: [employer] [id number] BY: [facility]6370 [facility] [id number] T4, FREE (THYROXINE) (90638) on 05-27-2018 T4 free mass conc 1.44 ng/dL Normal 0.82-1.77 Compreh ensive Internal Medicine Work Phone: Comment on above: PATIENT WAS FASTINGP ERFORMED BY: [employer] [id number] BY: NetSpendClara Maass Medical CenterVyhwpa6782 [facility] [id number] TSH (36881)on 05-27-2018 Thyrotropin Qn 0.115 {uIU/mL} Abnormal 0.450-4.50 0 [facility] Work Phone: Comment on above: PATIENT WAS FASTINGP ERFORMED BY: [employer] [id number] BY: [facility]6370 [facility] [id number] CALCIFIDIOL (09900) VIT D 25 on 09-16-2017 25-Hydroxyvitamin D2+25-Hydroxyvitamin D3 mass conc 45.4 ng/mL Normal 30.0-100.0 [facility] Work Phone: Comment on above: Vitamin D deficiency has been defined by the [place] ofMedicine and an Endocrine Society practice guideline as alevel of serum 25-OH vitamin D less than 20 ng/mL (1,2).The Endocrine Society went on to further define vitamin Dinsufficiency as a level between 21 and 29 ng/mL (2).1. IOM ([place] of Medicine). 2010. Dietary reference intakes for calcium and D. [place]: The National Academies Press.2. Lisa MF, Jatinder NC, Sofía MA, et al. Evaluation, treatment, and prevention of vitamin D deficiency: an Endocrine Society clinical practice guideline. JCEM. 2010; 96(7):1911-30. PATIENT WAS FASTINGP ERFORMED BY: [facility] Gbpous9820 [address] [facility] [place] [id number] CBC W/AUTO DIFF WBC (13257)o n 09-16-2017 Basophils #/vol (Bld) 0.0 {x10E3/uL} Normal 0.0-0.2 [facility] Work Phone: Comment on above: PATIENT WAS FASTINGP ERFORMED BY: [facility]Har[facility]6370 [facility]in [place] [id number] Basophils Auto #/vol (Bld) 0.0 {x10E3/uL} Normal 0.0-0.2 [facility] Work Phone: Basophils/100 WBC (Bld) 0 % Normal [facility] Work Phone: Comment on above: PATIENT WAS FASTINGP ERFORMED BY: [facility]6370 [facility]in [place] [id number] Basophils/100 WBC Auto (Bld) 0 % Normal [facility] Work Phone: Eosinophils #/vol (Bld) 0.3 {x10E3/uL} Normal 0.0-0.4 [facility] Work Phone: Comment on above: PATIENT WAS FASTINGP ERFORMED BY: [facility] Ldlbam6871 [address] [facility] [place] [id number] Eosinophils Auto #/vol (Bld) 0.3 {x10E3/uL} Normal 0.0-0.4 [facility] Work Phone: Eosinophils/100 WBC (Bld) 4 % Normal [facility] Work Phone: Comment on above: PATIENT WAS FASTINGP ERFORMED BY: LabSaint [facility] Kkxjqc2158 [address] Roadblin [place] [id number] Eosinophils/100 WBC Auto (Bld) 4 % Normal [facility] Work Phone: Erythrocyte distribution width Auto Ratio (RBC) 12.8 % Normal 12.3-15.4 [facility] Work Phone: Erythrocyte distribution width Ratio (RBC) 12.8 % Normal 12.3-15.4 [facility] Work Phone: Comment on above: PATIENT WAS FASTINGP ERFORMED BY: PARTH [employer] Zaueis0657 [address] VirtualQubeECU Health Medical Center [id number] Hematocrit Auto Volume Fraction (Bld) 44.8 % Normal 34.0-46.6 [facility] Work Phone: Hematocrit Volume Fraction (Bld) 44.8 % Normal 34.0-46.6 [facility] Work Phone: Comment on above: PATIENT WAS FASTINGP ERFORMED BY: PARTH [employer] Mfekdc0698 [address] VirtualQubeECU Health Medical Center [id number] Hemoglobin mass conc (Bld) 15.1 g/dL Normal 11.1-15.9 [facility] Work Phone: Comment on above: PATIENT WAS FASTINGP ERFORMED BY: PARTH [employer] Ifqmch4819 [facility] [id number] Immature granulocytes #/vol (Bld) 0.0 {x10E3/uL} Normal 0.0-0.1 [facility] Work Phone: Comment on above: PATIENT WAS FASTINGP ERFORMED BY: PARTH [employer] Mwdjvc2079 [address] VirtualQubeECU Health Medical Center [id number] Immature granulocytes/100 WBC (Bld) 0 % Normal [facility] Work Phone: Comment on above: PATIENT WAS FASTINGP ERFORMED BY: PARTH [employer] Xsiiig6084 [address] VirtualQubeECU Health Medical Center [id number] Lymphocytes #/vol (Bld) 2.1 {x10E3/uL} Normal 0.7-3.1 [facility] Work Phone: Comment on above: PATIENT WAS FASTINGP ERFORMED BY: PARTH Net[employer]end Uimisn8844 [address] VirtualQubeECU Health Medical Center [id number] Lymphocytes Auto #/vol (Bld) 2.1 {x10E3/uL} Normal 0.7-3.1 [facility] Work Phone: Lymphocytes/100 WBC (Bld) 26 % Normal [facility] Work Phone: Comment on above: PATIENT WAS FASTINGP ERFORMED BY: PARTH [facility] CenterJavierJessica Ville 6733070 [facility] [id number] Lymphocytes/100 WBC Auto (Bld) 26 % Normal [facility] Work Phone: MCH Auto Entitic mass (RBC) 30.4 pg Normal 26.6-33.0 [facility] Work Phone: MCH Entitic mass (RBC) 30.4 pg Normal 26.6-33.0 [facility] Work Phone: Comment on above: PATIENT WAS FASTINGP ERFORMED BY: PARTH [facility] CenterArnold LealRoxeva2200 [facility] [id number] MCHC Auto mass conc (RBC) 33.7 g/dL Normal 31.5-35.7 [facility] Work Phone: MCHC mass conc (RBC) 33.7 g/dL Normal 31.5-35.7 Comp [facility] Internal Medicine Work Phone: Comment on above: PATIENT WAS FASTINGP ERFORMED BY: PARTH [facility] CenterArnold LealZlwkpn1595 [facility] [id number] MCV Auto Entitic volume (RBC) 90 fL Normal 79-97 [facility] Work Phone: MCV Entitic volume (RBC) 90 fL Normal 79-97 [facility] Work Phone: Comment on above: PATIENT WAS FASTINGP ERFORMED BY: PARTH [place] 6003970 [facility] [id number] Monocytes #/vol (Bld) 0.5 {x10E3/uL} Normal 0.1-0.9 [facility] Work Phone: Comment on above: PATIENT WAS FASTINGP ERFORMED BY: PARTH [place] 6003970 [facility] [id number] Monocytes Auto #/vol (Bld) 0.5 {x10E3/uL} Normal 0.1-0.9 [facility] Work Phone: Monocytes/100 WBC (Bld) 6 % Normal [facility] Work Phone: Comment on above: PATIENT WAS FASTINGP ERFORMED BY: PARTH [facility] CenterJavier Dnjppe0715 [facility] [id number] Monocytes/100 WBC Auto (Bld) 6 % Normal [facility] Work Phone: Neutrophils #/vol (Bld) 5.1 {x10E3/uL} Normal 1.4-7.0 [facility] Work Phone: Comment on above: PATIENT WAS FASTINGP ERFORMED BY: PARTH [facility] CenterArnold LealMrlvrd6790 [facility] [id number] Neutrophils Auto #/vol (Bld) 5.1 {x10E3/uL} Normal 1.4-7.0 [facility] Work Phone: Neutrophils/100 WBC (Bld) 64 % Normal [facility] Work Phone: Comment on above: PATIENT WAS FASTINGP ERFORMED BY: PARTH Hernandez6370 [facility] [id number] Neutrophils/100 WBC Auto (Bld) 64 % Normal [facility] Work Phone: Platelets #/vol (Bld) 221 {x10E3/uL} Normal 150-379 [facility] Work Phone: Comment on above: PATIENT WAS FASTINGP ERFORMED BY: PARTH [facility] [place]dn[place]1832 [facility] [id number] Platelets Auto #/vol (Bld) 221 {x10E3/uL} Normal 150-379 [facility] Work Phone: RBC #/vol (Bld) 4.97 {x10E6/uL} Normal 3.77-5.28 Comp rehensive Internal Medicine Work Phone: Comment on above: PATIENT WAS FASTINGP ERFORMED BY: PARTH [facility]Har[facility]6370 [place] [facility] [id number] RBC Auto #/vol (Bld) 4.97 {x10E6/uL} Normal 3.77-5.28 [facility] Work Phone: WBC #/vol (Bld) 8.0 {x10E3/uL} Normal 3.4-10.8 [facility] Internal Medicine Work Phone: Comment on above: PATIENT WAS FASTINGP ERFORMED BY: LabJames Ville [id number] [facility] [id number] WBC Auto #/vol (Bld) 8.0 {x10E3/uL} Normal 3.4-10.8 [facility] Work Phone: CBC W/AUTO DIFF WBC (40427)O rdered By: Collaborative Physician on 09-16-2017 Basophils (Bld) [#/Vol] 0.0 10*3/uL Normal 0.0-0.2 [facility] Work Phone: Comment on above: PATIENT WAS FASTINGP ERFORMED BY: [place] [id number] [facility] [id number] Eosinophils (Bld) [#/Vol] 0.3 10*3/uL Normal 0.0-0.4 [facility] Internal Medicine Work Phone: Comment on above: PATIENT WAS FASTINGP ERFORMED BY: [place] [id number] [facility] [id number] Immature granulocytes (Bld) [#/Vol] 0.0 10*3/uL Normal 0.0-0.1 [facility] Work Phone: Comment on above: PATIENT WAS FASTINGP ERFORMED BY: LabHar[facility]6370 [facility] [id number] Lymphocytes (Bld) [#/Vol] 2.1 10*3/uL Normal 0.7-3.1 [facility] Work Phone: Comment on above: PATIENT WAS FASTINGP ERFORMED BY: LabJames Ville [id number] [facility] [id number] Monocytes (Bld) [#/Vol] 0.5 10*3/uL Normal 0.1-0.9 [facility] Work Phone: Comment on above: PATIENT WAS FASTINGP ERFORMED BY: PARTH LabArnold LealBihivj8983 Vargas RoadDublin [place] [id number] Neutrophils (Bld) [#/Vol] 5.1 10*3/uL Normal 1.4-7.0 [facility] Work Phone: Comment on above: PATIENT WAS FASTINGP ERFORMED BY: PARTH [facility] Lnfini7049 [address] RoadDublin [place] [id number] Platelets (Bld) [#/Vol] 221 10*3/uL Normal 150-379 [facility] Work Phone: Comment on above: PATIENT WAS FASTINGP ERFORMED BY: PARTH LabArnold LealNuzuqg7229 [address] Roadblin [place] [id number] RBC (Bld) [#/Vol] 4.97 10*6/uL Normal 3.77-5.28 [facility] Internal [facility] Work Phone: Comment on above: PATIENT WAS FASTINGP ERFORMED BY: PARTH LabCorogelio LealGqomxd6299 [address] Roadblin [place] [id number] WBC (Bld) [#/Vol] 8.0 10*3/uL Normal 3.4-10.8 [facility] Internal Medicine Work Phone: Comment on above: PATIENT WAS FASTINGP ERFORMED BY: PARTH [facility] Wgsbmk4602 [address] RoadDublin [place] [id number] LIPID PANEL (44497)on 2017 Cholesterol in HDL mass conc 55 mg/dL Normal [facility] Work Phone: Comment on above: PATIENT WAS FASTINGP ERFORMED BY: PARTH LabCorogelio Qankci5962 [address] RoadDublin [place] [id number] Cholesterol in LDL mass conc 81 mg/dL Normal 0-99 [facility] Work Phone: Comment on above: PATIENT WAS FASTINGP ERFORMED BY: PARTH [facility] Lwkvkd8145 [address] RoadDublin [place] [id number] Cholesterol in LDL/Cholesterol in HDL mass ratio 1.5 {ratio_units} Normal 0.0-3.2 [facility] Work Phone: Comment on above: LDL/HDL Ratio Men Wo men 1/2 Avg.Risk 1.0 1.5 Avg.Risk 3.6 3.2 2X Avg.Risk 6.2 5.0 3X Avg.Risk 8.0 6.1 PATIENT WAS FASTINGP ERFORMED BY: PARTH LabArnold Hernandez6370 [facility] [id number] Cholesterol in VLDL mass conc 28 mg/dL Normal 5-40 [facility] Work Phone: Comment on above: PATIENT WAS FASTINGP ERFORMED BY: PARTH Hernandez6370 [facility] [id number] Cholesterol mass conc 164 mg/dL Normal 100-199 [facility] Work Phone: Comment on above: PATIENT WAS FASTINGP ERFORMED BY: PARTH Leallin6370 [facility] [id number] Triglyceride mass conc 139 mg/dL Normal 0-149 [facility] Work Phone: Comment on above: PATIENT WAS FASTINGP ERFORMED BY: PARTH Hernandez6370 [facility] [id number] METABOLIC PANEL, COMPREHENSI VE (09154)on 09-16-2017 Albumin mass conc 4.5 g/dL Normal 3.5-4.8 Compreh ensive Internal Medicine Work Phone: Comment on above: PATIENT WAS FASTINGP ERFORMED BY: PARTH LabArnold LealAyarvs1170 [facility] [id number] Albumin/Globulin mass ratio 1.8 {ratio} Normal 1.2-2.2 [facility] Work Phone: Comment on above: PATIENT WAS FASTINGP ERFORMED BY: PARTH LabArnold LealIzgcxr9429 [facility] [id number] ALP enzyme act/vol 118 [iU]/L Abnormal 39-117 Compre hensive Internal Medicine Work Phone: Comment on above: PATIENT WAS FASTINGP ERFORMED BY: PARTH [facility] Emnuxs5935 [address] RoadDublin [place] [id number] ALT enzyme act/vol 24 [iU]/L Normal 0-32 [facility] Internal Medicine Work Phone: Comment on above: PATIENT WAS FASTINGP ERFORMED BY: PARTH [facility] Flvxpk2030 [address] RoadDublin [place] [id number] AST enzyme act/vol 16 [iU]/L Normal 0-40 [facility] Work Phone: Comment on above: PATIENT WAS FASTINGP ERFORMED BY: PARTH [facility] Ldzcyz5001 [address] RoadDublin [place] [id number] Bilirubin mass conc 0.6 mg/dL Normal 0.0-1.2 Compr ensive Internal Medicine Work Phone: Comment on above: PATIENT WAS FASTINGP ERFORMED BY: PARTH [facility] Fvabzh7545 [address] RoadDublin [place] [id number] Calcium mass conc 9.9 mg/dL Normal 8.7-10.3 Compreh [facility] centerive Internal Medicine Work Phone: Comment on above: PATIENT WAS FASTINGP ERFORMED BY: PARTH [facility] Ieubkk5679 [address] RoadDublin [place] [id number] Chloride molar conc 98 mmol/L Normal 96-106 Compr ensive Internal Medicine Work Phone: Comment on above: PATIENT WAS FASTINGP ERFORMED BY: PARTH [facility] Xjiugm2559 [address] RoadDublin [place] [id number] CO2 molar conc 28 mmol/L Normal 18-29 Comprehconemaugh [facility] Internal Medicine Work Phone: Comment on above: PATIENT WAS FASTINGP ERFORMED BY: PARTH [facility] Umxytm2807 [address] RoadDublin [place] [id number] Creatinine mass conc 0.94 mg/dL Normal 0.57-1.00 Comp [facility] hospitalensive Internal [facility] Work Phone: Comment on above: PATIENT WAS FASTINGP ERFORMED BY: PARTH [facility] Xeprtx8027 [address] RoadDublin [place] [id number] GFR/1.73 sq M predicted among blacks CKD-EPI vol rate/area (S/P/Bld) 71 mL/min/1.73 Normal Comprehensiv e Internal Medicine Work Phone: Comment on above: PATIENT WAS FASTINGP ERFORMED BY: CB [facility] Nzraaq3359 [address] RoadDublin [place] [id number] GFR/1.73 sq M predicted among non-blacks CKD-EPI vol rate/area (S/P/Bld) 62 mL/min/1.73 Normal [facility] Work Phone: Comment on above: PATIENT WAS FASTINGP ERFORMED BY: CB [facility] Pcixcy0659 [address] RoadAtrium Health [facility] Centerin [place] [id number] Globulin Calculated mass conc (S) 2.5 g/dL Normal 1.5-4.5 [facility] Work Phone: Globulin mass conc (S) 2.5 g/dL Normal 1.5-4.5 [facility] Work Phone: Comment on above: PATIENT WAS FASTINGP ERFORMED BY: [facility] Tpnoyh[address] [facility] [place] [id number] Glucose mass conc 94 mg/dL Normal 65-99 Compreh ensive Internal Medicine Work Phone: Comment on above: PATIENT WAS FASTINGP ERFORMED BY: CB [facility] Qkpkdg[address] [facility] [id number] Potassium molar conc 4.3 mmol/L Normal 3.5-5.2 Comp rehensive Internal Medicine Work Phone: Comment on above: PATIENT WAS FASTINGP ERFORMED BY: CB [facility] Dlsxyr[address] [facility]in [place] [id number] Protein mass conc 7.0 g/dL Normal 6.0-8.5 Compreh ensive Internal Medicine Work Phone: Comment on above: PATIENT WAS FASTINGP ERFORMED BY: CB [facility] Rqtrzg[address]97 [address] [facility] [place] [id number] Sodium molar conc 143 mmol/L Normal 134-144 Compreh ensive Internal Medicine Work Phone: Comment on above: PATIENT WAS FASTINGP ERFORMED BY: PARTH LabCorogelio LealGltybn5352 [address] RoadDublin [place] [id number] Urea nitrogen mass conc 18 mg/dL Normal 8-27 [facility] Work Phone: Comment on above: PATIENT WAS FASTINGP ERFORMED BY: PARTH [facility] Lckjby8836 [address] RoadDublin [place] [id number] Urea nitrogen/Creatinine mass ratio 19 mg/mg Normal 12-28 [facility] Work Phone: Comment on above: PATIENT WAS FASTINGP ERFORMED BY: PARTH [facility] Fowehk6189 [address] RoadDublin [place] [id number] METABOLIC PANEL, COMPREHENSI VE (40268)Ordered By: Collaborative Physician on 09-16-2017 ALP [Catalytic activity/Vol] 118 U/L Abnormal 39-117 [facility] Work Phone: Comment on above: PATIENT WAS FASTINGP ERFORMED BY: PARTH Leallin6370 [address] RoadDublin [place] [id number] ALT [Catalytic activity/Vol] 24 U/L Normal 0-32 [facility] Work Phone: Comment on above: PATIENT WAS FASTINGP ERFORMED BY: PARTH Leallin6370 [address] RoadDublin [place] [id number] AST [Catalytic activity/Vol] 16 U/L Normal 0-40 [facility] Work Phone: Comment on above: PATIENT WAS FASTINGP ERFORMED BY: PARTH LabCorogelio LealDhdpdx3070 [address] RoadDublin [place] [id number] MICROALBUMINon 09-16-2017 Albumin DL <= 20 mg/L mass conc (U) 3.3 ug/mL Normal [facility] Work Phone: Comment on above: PATIENT WAS FASTINGP ERFORMED BY: PARTH [facility] Qmfuys4616 [address] RoadDublin [place] [id number] Albumin/Creatinine mass ratio (U) 2.6 {mg/g_creat} Normal 0.0-30.0 [facility] Work Phone: Comment on above: PATIENT WAS FASTINGP ERFORMED BY: CB [facility] Druepd2091 [address] RoadDublin [place] [id number] Creatinine mass conc (U) 125.1 mg/dL Normal [facility] Work Phone: Comment on above: PATIENT WAS FASTINGP ERFORMED BY: [facility] Wxnegb6305 [address] RoadDublin [place] [id number] Microscopic Examinationon Bacteria LM.HPF #/area (Urine sed) Few Normal [facility] Work Phone: Comment on above: PATIENT WAS FASTINGP ERFORMED BY: [facility] Dmlyie5839 [address] RoadDublin [place] [id number] Casts LM Nom (Urine sed) Hyaline casts Normal [facility] Work Phone: Comment on above: PATIENT WAS FASTINGP ERFORMED BY: [facility] Wryitd7132 [address] RoadDublin [place] [id number] Casts LM Ql (Urine sed) Present Abnormal [facility] Work Phone: Comment on above: PATIENT WAS FASTINGP ERFORMED BY: LabCo Shzetn0709 [address] RoadDublin [place] [id number] Crystals LM Nom (Urine sed) Amorphous Sediment Normal [facility] Work Phone: Comment on above: PATIENT WAS FASTINGP ERFORMED BY: [facility] Mnsigh3728 [address] RoadDublin [place] [id number] Epithelial cells LM.HPF #/area (Urine sed) 0-10 Normal 0 - 10 [facility] Work Phone: Comment on above: PATIENT WAS FASTINGP ERFORMED BY: [facility] Xsxacx5561 [address] RoadDublin [place] [id number] Mucus LM Ql (Urine sed) Present Normal [facility] Work Phone: Mucus Ql (Urine sed) Present Normal Comp rehensive Internal Medicine Work Phone: Comment on above: PATIENT WAS FASTINGP ERFORMED BY: [facility] Eelqjz2710 [address] RoadDublin [place] [id number] RBC LM.HPF #/area (Urine sed) 0-2 Normal 0 - 2 [facility] Work Phone: Comment on above: PATIENT WAS FASTINGP ERFORMED BY: PARTH [facility] Eiifmu7437 [address] RoadDublin [place] [id number] Unidentified crystals LM Ql (Urine sed) Present Abnormal [facility] Work Phone: Comment on above: PATIENT WAS FASTINGP ERFORMED BY: PARTH [facility] Uzfvjm3687 [address] RoadDublin [place] [id number] WBC LM.HPF #/area (Urine sed) 0-5 Normal 0 - 5 [facility] Work Phone: Comment on above: PATIENT WAS FASTINGP ERFORMED BY: PARTH [facility] Nowpzd1822 [address] RoadDublin [place] [id number] TSH (02319)on 09-16-2017 Thyrotropin Qn 0.306 {uIU/mL} Abnormal 0.450-4.50 0 [facility] Work Phone: Comment on above: PATIENT WAS FASTINGP ERFORMED BY: PARTH [facility] Okzoxu4096 [address] RoadDublin [place] [id number] URINALYSIS, W/ MICRO (06397) on 09-16-2017 Appearance Nom (U) Clear Normal Compre hensive Internal Medicine Work Phone: Comment on above: PATIENT WAS FASTINGP ERFORMED BY: PARTH [facility] Vlzaxd2562 [address] RoadDublin [place] [id number] Bilirubin Ql (U) Negative Normal Comprehe nsive Internal Medicine Work Phone: Comment on above: PATIENT WAS FASTINGP ERFORMED BY: PARTH [facility] Gcvlzn7510 [address] RoadDublin [place] [id number] Color Nom (U) Yellow Normal Comprehensi ve Internal Medicine Work Phone: Comment on above: PATIENT WAS FASTINGP ERFORMED BY: PARTH [facility] Pgekce0065 [address] RoadDublin [place] [id number] Glucose Ql (U) Negative Normal Comprehens maranda Internal Medicine Work Phone: Comment on above: PATIENT WAS FASTINGP ERFORMED BY: PARTH [facility] Lefzhj5681 [address] RoadDublin [place] [id number] Hemoglobin Ql (U) Negative Normal Compreh ensive Internal Medicine Work Phone: Comment on above: PATIENT WAS FASTINGP ERFORMED BY: PARTH [facility] Erxsdl1115 [address] RoadDublin [place] [id number] Hemoglobin Test strip Ql (U) Negative Normal [facility] Work Phone: Ketones Ql (U) Negative Normal Comprehens maranda Internal Medicine Work Phone: Comment on above: PATIENT WAS FASTINGP ERFORMED BY: PARTH [facility] Zjpbyk0289 [address] RoadDublin [place] [id number] Leukocyte esterase Test strip Ql (U) Negative Normal [facility] Work Phone: Comment on above: PATIENT WAS FASTINGP ERFORMED BY: PARTH [facility] Desnyv6017 [address] RoadDublin [place] [id number] Microscopic observation LM Nom (Urine sed) See below: Normal [facility] Work Phone: Comment on above: Microscopic was liberty cated and was performed. PATIENT WAS FASTINGP ERFORMED BY: PARTH [facility] Bzvhrn3182 [address] RoadDublin [place] [id number] Microscopic observation LM Nom (Urine sed) MICRON Normal [facility] Work Phone: Comment on above: Microscopic follows if indicated. PATIENT WAS FASTINGP ERFORMED BY: PARTH [facility] Ddthcv1175 [address] RoadDublin [place] [id number] Nitrite Ql (U) Negative Normal Comprehens maranda Internal Medicine Work Phone: Comment on above: PATIENT WAS FASTINGP ERFORMED BY: PARTH [facility] Tedipm2056 [address] RoadDublin [place] [id number] Nitrite Test strip Ql (U) Negative Normal [facility] Work Phone: pH (U) 6.5 [pH] Normal 5.0-7.5 [facility] Work Phone: Comment on above: PATIENT WAS FASTINGP ERFORMED BY: [facility] Kwghmq2124 [address] RoadDublin [place] [id number] pH Test strip (U) 6.5 [pH] Normal 5.0-7.5 Compreh ensive Internal Medicine Work Phone: Protein Ql (U) Negative Normal Comprehens maranda Internal Medicine Work Phone: Comment on above: PATIENT WAS FASTINGP ERFORMED BY: PARTH Hernandez6370 [address] RoadDublin [place] [id number] Protein Test strip Ql (U) Negative Normal [facility] Work Phone: Specific gravity Relative Density (U) 1.019 1 Normal 1.005-1.03 0 [facility] Work Phone: Comment on above: PATIENT WAS FASTINGP ERFORMED BY: PARTH Hernandez6370 [address]Dublin [place] [id number] Urobilinogen Test strip mass conc (U) 0.2 mg/dL Normal 0.2-1.0 Comprehensiv e Internal Medicine Work Phone: Comment on above: PATIENT WAS FASTINGP ERFORMED BY: PARTH Leallin6370 [address] RoadDublin [place] [id number] URINALYSIS, W/ MICRO ([id number]) Ordered By: Collaborative Physician on 09-16-2017 Bilirubin Ql (U) Negative Normal Comprehe nsive Internal Medicine Work Phone: Comment on above: PATIENT WAS FASTINGP ERFORMED BY: PARTH Leallin6370 [address] RoadDublin [place] [id number] Glucose Ql (U) Negative Normal Comprehens maranda Internal Medicine Work Phone: Comment on above: PATIENT WAS FASTINGP ERFORMED BY: PARTH Leallin6370 [address]Dublin [place] [id number] Hemoglobin Ql (U) Negative Normal Compreh ensive Internal Medicine Work Phone: Comment on above: PATIENT WAS FASTINGP ERFORMED BY: PARTH Leallin6370 [address] RoadDublin [place] [id number] Ketones Ql (U) Negative Normal Comprehens maranda Internal Medicine Work Phone: Comment on above: PATIENT WAS FASTINGP ERFORMED BY: PARTH Leallin6370 [facility] [id number] Leukocyte esterase Test strip Ql (U) Negative Normal [facility] Work Phone: Comment on above: PATIENT WAS FASTINGP ERFORMED BY: PARTH Leallin6370 [facility] [id number] Nitrite Ql (U) Negative Normal Comprehens maranda Internal Medicine Work Phone: Comment on above: PATIENT WAS FASTINGP ERFORMED BY: PARTH [place] Gwtzvn7489 [facility] [id number] Protein Ql (U) Negative Normal Comprehens maranda Internal Medicine Work Phone: Comment on above: PATIENT WAS FASTINGP ERFORMED BY: PARTH Leallin6370 [facility] [id number] Urobilinogen (U) [Mass/Vol] 0.2 mg/dL Normal 0.2-1.0 [facility] Work Phone: Comment on above: PATIENT WAS FASTINGP ERFORMED BY: PARTH [facility] Jmlhde5958 [facility] [id number] T3, FREE (TRIDOTHYRONINE) (0 2771)on 04-03-2017 T3 free mass conc 2.9 pg/mL Normal 2.0-4.4 Compreh ensive Internal Medicine Work Phone: Comment on above: PATIENT NOT FASTINGP ERFORMED BY: PARTH [facility] Fzlyko3009 [facility] [id number] T4, FREE (THYROXINE) (60887) on 04-03-2017 T4 free mass conc 1.24 ng/dL Normal 0.82-1.77 Compreh ensive Internal Medicine Work Phone: Comment on above: PATIENT NOT FASTINGP ERFORMED BY: PARTH [place] Sgdqmo5295 [facility] [id number] TSH (41312)on 04-03-2017 Thyrotropin Qn 0.504 {uIU/mL} Normal 0.450-4.50 0 [facility] Work Phone: Comment on above: PATIENT NOT FASTINGP ERFORMED BY: Vittana Yiqyrw9648 [facility] [id number] CALCIFIDIOL (91553) VIT D 25 on 01-22-2017 25-Hydroxyvitamin D2+25-Hydroxyvitamin D3 mass conc 42.3 ng/mL Normal 30.0-100.0 [facility] Work Phone: Comment on above: Vitamin D deficiency has been defined by the [place] ofUc Healthcine and an Endocrine Society practice guideline as alevel of serum 25-OH vitamin D less than 20 ng/mL (1,2).The Endocrine Society went on to further define vitamin Dinsufficiency as a level between 21 and 29 ng/mL (2).1. IOM ([place] of Medicine). 2010. Dietary reference intakes for calcium and D. [place]: The National Academies Press.2. Lisa MF, Jatinder DAVILA, Sofía MA, et al. Evaluation, treatment, and prevention of vitamin D deficiency: an Endocrine Society clinical practice guideline. JCEM. 2010; 96(7):1911-30. PATIENT WAS FASTINGP ERFORMED BY: DealPing[address] [facility] [id number] CBC W/AUTO DIFF WBC (92943)o n 01-22-2017 Basophils #/vol (Bld) 0.0 {x10E3/uL} Normal 0.0-0.2 [facility] Work Phone: Comment on above: PATIENT WAS FASTINGP ERFORMED BY: DealPing70 [facility] [id number] Basophils Auto #/vol (Bld) 0.0 {x10E3/uL} Normal 0.0-0.2 [facility] Work Phone: Basophils/100 WBC (Bld) 0 % Normal [facility] Work Phone: Comment on above: PATIENT WAS FASTINGP ERFORMED BY: DealPing70 [facility] [id number] Basophils/100 WBC Auto (Bld) 0 % Normal [facility] Work Phone: Eosinophils #/vol (Bld) 0.3 {x10E3/uL} Normal 0.0-0.4 [facility] Work Phone: Comment on above: PATIENT WAS FASTINGP ERFORMED BY: PARTH Innovative HealthcareJames Ville 0639670 [facility] [id number] Eosinophils Auto #/vol (Bld) 0.3 {x10E3/uL} Normal 0.0-0.4 [facility] Work Phone: Eosinophils/100 WBC (Bld) 3 % Normal [facility] Work Phone: Comment on above: PATIENT WAS FASTINGP ERFORMED BY: NetSpendClara Maass Medical CenterRiumym9240 [facility] [id number] Eosinophils/100 WBC Auto (Bld) 3 % Normal [facility] Work Phone: Erythrocyte distribution width Auto Ratio (RBC) 13.2 % Normal 12.3-15.4 [facility] Work Phone: Erythrocyte distribution width Ratio (RBC) 13.2 % Normal 12.3-15.4 [facility] Work Phone: Comment on above: PATIENT WAS FASTINGP ERFORMED BY: [employer] Sptdvk5911 [facility] [id number] Hematocrit Auto Volume Fraction (Bld) 43.9 % Normal 34.0-46.6 [facility] Work Phone: Hematocrit Volume Fraction (Bld) 43.9 % Normal 34.0-46.6 [facility] Work Phone: Comment on above: PATIENT WAS FASTINGP ERFORMED BY: Innov[facility] HealthcareHar[facility]6370 [facility] [id number] Hemoglobin mass conc (Bld) 14.4 g/dL Normal 11.1-15.9 [facility] Work Phone: Comment on above: PATIENT WAS FASTINGP ERFORMED BY: Innovative HealthcareJames [place]ille 0639670 [facility] [id number] Immature granulocytes #/vol (Bld) 0.0 {x10E3/uL} Normal 0.0-0.1 [facility] Work Phone: Comment on above: PATIENT WAS FASTINGP ERFORMED BY: PARTH Leallin6370 [facility] [id number] Immature granulocytes/100 WBC (Bld) 0 % Normal [facility] Work Phone: Comment on above: PATIENT WAS FASTINGP ERFORMED BY: PARTH Leallin6370 [facility] [id number] Lymphocytes #/vol (Bld) 2.6 {x10E3/uL} Normal 0.7-3.1 [facility] Work Phone: Comment on above: PATIENT WAS FASTINGP ERFORMED BY: PARTH Leallin6370 [facility] [id number] Lymphocytes Auto #/vol (Bld) 2.6 {x10E3/uL} Normal 0.7-3.1 [facility] Work Phone: Lymphocytes/100 WBC (Bld) 28 % Normal [facility] Work Phone: Comment on above: PATIENT WAS FASTINGP ERFORMED BY: PARTH Leallin6370 [facility] [id number] Lymphocytes/100 WBC Auto (Bld) 28 % Normal [facility] Work Phone: MCH Auto Entitic mass (RBC) 29.4 pg Normal 26.6-33.0 [facility] Work Phone: MCH Entitic mass (RBC) 29.4 pg Normal 26.6-33.0 [facility] Work Phone: Comment on above: PATIENT WAS FASTINGP ERFORMED BY: PARTH Leallin6370 [facility] [id number] MCHC Auto mass conc (RBC) 32.8 g/dL Normal 31.5-35.7 [facility] Work Phone: MCHC mass conc (RBC) 32.8 g/dL Normal 31.5-35.7 Comp rehensive Internal Medicine Work Phone: Comment on above: PATIENT WAS FASTINGP ERFORMED BY: [facility]6370 [facility] [id number] MCV Auto Entitic volume (RBC) 90 fL Normal 79-97 [facility] Work Phone: MCV Entitic volume (RBC) 90 fL Normal 79-97 [facility] Work Phone: Comment on above: PATIENT WAS FASTINGP ERFORMED BY: [place] [id number] [facility] [id number] Monocytes #/vol (Bld) 0.6 {x10E3/uL} Normal 0.1-0.9 [facility] Work Phone: Comment on above: PATIENT WAS FASTINGP ERFORMED BY: [place] [id number] [facility] [id number] Monocytes Auto #/vol (Bld) 0.6 {x10E3/uL} Normal 0.1-0.9 [facility] Work Phone: Monocytes/100 WBC (Bld) 6 % Normal [facility] Work Phone: Comment on above: PATIENT WAS FASTINGP ERFORMED BY: [place] [id number] [facility] [id number] Monocytes/100 WBC Auto (Bld) 6 % Normal [facility] Work Phone: Neutrophils #/vol (Bld) 5.7 {x10E3/uL} Normal 1.4-7.0 [facility] Work Phone: Comment on above: PATIENT WAS FASTINGP ERFORMED BY: [place] [id number] [facility] [id number] Neutrophils Auto #/vol (Bld) 5.7 {x10E3/uL} Normal 1.4-7.0 [facility] Work Phone: Neutrophils/100 WBC (Bld) 63 % Normal [facility] Work Phone: Comment on above: PATIENT WAS FASTINGP ERFORMED BY: [place] [id number] [facility] [id number] Neutrophils/100 WBC Auto (Bld) 63 % Normal [facility] Work Phone: Platelets #/vol (Bld) 207 {x10E3/uL} Normal 150-379 [facility] Work Phone: Comment on above: PATIENT WAS FASTINGP ERFORMED BY: PARTH [facility]6370 [facility] [id number] Platelets Auto #/vol (Bld) 207 {x10E3/uL} Normal 150-379 [facility] Work Phone: RBC #/vol (Bld) 4.90 {x10E6/uL} Normal 3.77-5.28 [facility] Medicine Work Phone: Comment on above: PATIENT WAS FASTINGP ERFORMED BY: PARTH Leal[address] [id number] RBC Auto #/vol (Bld) 4.90 {x10E6/uL} Normal 3.77-5.28 [facility] Work Phone: WBC #/vol (Bld) 9.2 {x10E3/uL} Normal 3.4-10.8 [facility] Medicine Work Phone: Comment on above: PATIENT WAS FASTINGP ERFORMED BY: PARTH Leallin6370 [facility] [id number] WBC Auto #/vol (Bld) 9.2 {x10E3/uL} Normal 3.4-10.8 [facility] Work Phone: CBC W/AUTO DIFF WBC ([id number])O rdered By: Collaborative Physician on 01-22-2017 Basophils (Bld) [#/Vol] 0.0 10*3/uL Normal 0.0-0.2 [facility] Work Phone: Comment on above: PATIENT WAS FASTINGP ERFORMED BY: PARTH [place] [id number] [facility] [id number] Eosinophils (Bld) [#/Vol] 0.3 10*3/uL Normal 0.0-0.4 [facility] Work Phone: Comment on above: PATIENT WAS FASTINGP ERFORMED BY: [facility] Tfhcvo3555 [address] RoadDublin [place] [id number] Immature granulocytes (Bld) [#/Vol] 0.0 10*3/uL Normal 0.0-0.1 [facility] Work Phone: Comment on above: PATIENT WAS FASTINGP ERFORMED BY: [facility] Dinzza2627 [address] RoadDublin [place] [id number] Lymphocytes (Bld) [#/Vol] 2.6 10*3/uL Normal 0.7-3.1 [facility] Work Phone: Comment on above: PATIENT WAS FASTINGP ERFORMED BY: [facility] Qexofo0989 [address] RoadDublin [place] [id number] Monocytes (Bld) [#/Vol] 0.6 10*3/uL Normal 0.1-0.9 [facility] Work Phone: Comment on above: PATIENT WAS FASTINGP ERFORMED BY: [facility] Ichblp8119 [address]bl[address] [place] [id number] Neutrophils (Bld) [#/Vol] 5.7 10*3/uL Normal 1.4-7.0 [facility] Work Phone: Comment on above: PATIENT WAS FASTINGP ERFORMED BY: [facility] Kksrfi6634 [address] RoadDublin [place] [id number] Platelets (Bld) [#/Vol] 207 10*3/uL Normal 150-379 [facility] Work Phone: Comment on above: PATIENT WAS FASTINGP ERFORMED BY: [facility] Qypvfq0184 [address] RoadDublin [place] [id number] RBC (Bld) [#/Vol] 4.90 10*6/uL Normal 3.77-5.28 [facility] Work Phone: Comment on above: PATIENT WAS FASTINGP ERFORMED BY: [facility] Rhlbnx8883 [address] RoadDublin [place] [id number] WBC (Bld) [#/Vol] 9.2 10*3/uL Normal 3.4-10.[address] [facility] Internal Medicine Work Phone: Comment on above: PATIENT WAS FASTINGP ERFORMED BY: PARTH Leallin[address] [facility] [place] [id number] LIPID PANEL ([id number])on 2016 Cholesterol in HDL mass conc 59 mg/dL Normal [facility] Work Phone: Comment on above: PATIENT WAS FASTINGP ERFORMED BY: PARTH Leallin[address]bl[address] [place] [id number] Cholesterol in LDL mass conc 67 mg/dL Normal 0-99 [facility] Work Phone: Comment on above: PATIENT WAS FASTINGP ERFORMED BY: PARTH Hernandez[address] [facility] [place] [id number] Cholesterol in LDL/Cholesterol in HDL mass ratio 1.1 {ratio_units} Normal 0.0-3.2 [facility] Work Phone: Comment on above: LDL/HDL Ratio Men Wo men 1/2 Avg.Risk 1.0 1.5 Avg.Risk 3.6 3.2 2X Avg.Risk 6.2 5.0 3X Avg.Risk 8.0 6.1 PATIENT WAS FASTINGP ERFORMED BY: PARTH Leallin[address] [facility] [place] [id number] Cholesterol in VLDL mass conc 19 mg/dL Normal 5-40 [facility] Work Phone: Comment on above: PATIENT WAS FASTINGP ERFORMED BY: PARTH Leallin[address] [facility] [place] [id number] Cholesterol mass conc 145 mg/dL Normal 100-199 [facility] Work Phone: Comment on above: PATIENT WAS FASTINGP ERFORMED BY: PARTH LabArnold LealMqgvkn[address] [facility] [place] [id number] Triglyceride mass conc 94 mg/dL Normal 0-149 [facility] Work Phone: Comment on above: PATIENT WAS FASTINGP ERFORMED BY: PARTH Leallin[address] [facility] [place] [id number] METABOLIC PANEL, COMPREHENSI VE ([id number])on 01-22-2017 Albumin mass conc 4.3 g/dL Normal 3.6-4.8 [facility] Work [facility]: Comment on above: PATIENT WAS FASTINGP ERFORMED BY: CB [facility] Bnsdbc5351 [address] RoadDublin [place] [id number] Albumin/Globulin mass ratio 1.6 {ratio} Normal 1.2-2.2 [facility] Work Phone: Comment on above: PATIENT WAS FASTINGP ERFORMED BY: CB [facility] Dhmeyg5197 [address] RoadDublin [place] [id number] ALP enzyme act/vol 93 [iU]/L Normal 39-117 [facility] Internal Medicine Work Phone: Comment on above: PATIENT WAS FASTINGP ERFORMED BY: CB [facility] Idipkk5902 [address] RoadDublin [place] [id number] ALT enzyme act/vol 23 [iU]/L Normal 0-32 [facility] Work Phone: Comment on above: PATIENT WAS FASTINGP ERFORMED BY: CB [facility] Vondqe5402 [address] RoadDublin [place] [id number] AST enzyme act/vol 16 [iU]/L Normal 0-40 [facility] Internal Medicine Work Phone: Comment on above: PATIENT WAS FASTINGP ERFORMED BY: CB [facility] Wpvaym5112 [address] RoadDublin [place] [id number] Bilirubin mass conc 0.6 mg/dL Normal 0.0-1.2 [facility] Internal Medicine Work Phone: Comment on above: PATIENT WAS FASTINGP ERFORMED BY: CB [facility] Osipzu5409 [address] RoadDublin [place] [id number] Calcium mass conc 9.6 mg/dL Normal 8.7-10.3 [facility] Internal Medicine Work Phone: Comment on above: PATIENT WAS FASTINGP ERFORMED BY: CB [facility] Likrve5742 [address] RoadDublin [place] [id number] Chloride molar conc 100 mmol/L Normal 96-106 Compr ensive Internal Medicine Work Phone: Comment on above: PATIENT WAS FASTINGP ERFORMED BY: PARTH [facility] Esbben6362 [address]Dublin [place] [id number] CO2 molar conc 26 mmol/L Normal 18-29 Comprehens maranda Internal Medicine Work Phone: Comment on above: PATIENT WAS FASTINGP ERFORMED BY: PARTH [facility] Pwghvi9173 [address] RoadDuin [place] [id number] Creatinine mass conc 0.76 mg/dL Normal 0.57-1.00 Comp [facility] Internal Medicine Work Phone: Comment on above: PATIENT WAS FASTINGP ERFORMED BY: PARTH [facility] Gucxqt6420 [address] RoadDuin [place] [id number] GFR/1.73 sq M predicted among blacks CKD-EPI vol rate/area (S/P/Bld) 93 mL/min/1.73 Normal Comprehensiv e Internal Medicine Work Phone: Comment on above: PATIENT WAS FASTINGP ERFORMED BY: PARTH [facility] Vqvefq8262 [address] RoadAt[facility]in [place] [id number] GFR/1.73 sq M predicted among non-blacks CKD-EPI vol rate/area (S/P/Bld) 80 mL/min/1.73 Normal [facility] Work Phone: Comment on above: PATIENT WAS FASTINGP ERFORMED BY: PARTH [facility] Hzxvps[address] [facility] [id number] Globulin Calculated mass conc (S) 2.7 g/dL Normal 1.5-4.5 [facility] Work Phone: Globulin mass conc (S) 2.7 g/dL Normal 1.5-4.5 [facility] Work Phone: Comment on above: PATIENT WAS FASTINGP ERFORMED BY: PARTH [facility] Fxzsng8469 [address] RoadDuin [place] [id number] Glucose mass conc 90 mg/dL Normal 65-99 Compreh ensive Internal Medicine Work Phone: Comment on above: PATIENT WAS FASTINGP ERFORMED BY: PARTH [facility] Ruvwox3587 [address] RoadAtrium [facility] Centerin [place] [id number] Potassium molar conc 4.7 mmol/L Normal 3.5-5.2 Comp rehensive Internal Medicine Work Phone: Comment on above: PATIENT WAS FASTINGP ERFORMED BY: PARTH [facility] Xlkxxz6275 [address] RoadDublin [place] [id number] Protein mass conc 7.0 g/dL Normal 6.0-8.5 Compreh ensive Internal Medicine Work Phone: Comment on above: PATIENT WAS FASTINGP ERFORMED BY: APRTH [facility] Wnsksq0771 [address] RoadAtrium [facility] Centerin [place] [id number] Sodium molar conc 143 mmol/L Normal 134-144 Compreh ensive [facility] Medicine Work Phone: Comment on above: PATIENT WAS FASTINGP ERFORMED BY: PARTH LabCorogelio LealMzhvwv7395 [address] RoadAtrium [facility] Centerin [place] [id number] Urea nitrogen mass conc 22 mg/dL Normal 8-27 [facility] Work Phone: Comment on above: PATIENT WAS FASTINGP ERFORMED BY: PARTH [facility] Tbgrgc1554 [address] RoadAt[facility] Centerin [place] [id number] Urea nitrogen/Creatinine mass ratio 29 mg/mg Abnormal 12-28 [facility] Work Phone: Comment on above: PATIENT WAS FASTINGP ERFORMED BY: PARTH [facility] Jlkucd[address] [facility]in [place] [id number] METABOLIC PANEL, COMPREHENSI VE ([id number])Ordered By: Collaborative Physician on 01-22-2017 ALP [Catalytic activity/Vol] 93 U/L Normal 39-117 [facility] Work Phone: Comment on above: PATIENT WAS FASTINGP ERFORMED BY: PARTH [facility] Wyqouz8643 [address] RoadDublin [place] [id number] ALT [Catalytic activity/Vol] 23 U/L Normal 0-32 [facility] Work Phone: Comment on above: PATIENT WAS FASTINGP ERFORMED BY: PARTH [facility] Sucojq0592 [address] RoadDublin [place] [id number] AST [Catalytic activity/Vol] 16 U/L Normal 0-40 [facility] Work Phone: Comment on above: PATIENT WAS FASTINGP ERFORMED BY: PARTH [facility] Gkmtuw2125 [address]blin [place] [id number] MICROALBUMINOrdered By: Syst em Deck Hand on 01-22-2017 Albumin DL <= 20 mg/L (U) [Mass/Vol] mg/dL Normal Comprehensiv e [facility] Medicine Work Phone: Comment on above: PATIENT WAS FASTINGP ERFORMED BY: PARTH [facility] Zqeqww5736 [address] Roadblin [place] [id number] MICROALBUMINon 01-22-2017 Albumin DL <= 20 mg/L mass conc (U) mg/dL Normal [facility] Work Phone: Comment on above: PATIENT WAS FASTINGP ERFORMED BY: PARTH LabCorogelio LealXuvlzm9612 [address] RoadAtrium [facility] Centerin [place] [id number] Albumin/Creatinine mass ratio (U) <2.5 Normal 0.0-30.0 [facility] Work Phone: Comment on above: PATIENT WAS FASTINGP ERFORMED BY: PARTH [facility] Dtcaue[address] [facility] [place] [id number] Creatinine mass conc (U) 118.9 mg/dL Normal [facility] Work Phone: Comment on above: PATIENT WAS FASTINGP ERFORMED BY: PARTH LabCorogelio Jaqxim1680 [facility]in [place] [id number] Microscopic Examinationon Bacteria LM.HPF #/area (Urine sed) Few Normal [facility] Work Phone: Comment on above: PATIENT WAS FASTINGP ERFORMED BY: PARTH [facility] Wwznww[address] [facility]bl[facility] [place] [id number] Epithelial cells LM.HPF #/area (Urine sed) 0-10 Normal 0 - 10 [facility] Work Phone: Comment on above: PATIENT WAS FASTINGP ERFORMED BY: PARTH [facility] Jprpmc0035 [address] RoadDublin [place] [id number] Mucus LM Ql (Urine sed) Present Normal [facility] Work Phone: Mucus Ql (Urine sed) Present Normal Comp rehensive Internal Medicine Work Phone: Comment on above: PATIENT WAS FASTINGP ERFORMED BY: PARTH [facility] Vdxvxc3983 [address] RoadDublin [place] [id number] RBC LM.HPF #/area (Urine sed) 0-2 Normal 0 - 2 [facility] Work Phone: Comment on above: PATIENT WAS FASTINGP ERFORMED BY: CB [facility] Knqaej6470 [address] RoadDublin [place] [id number] WBC LM.HPF #/area (Urine sed) 0-5 Normal 0 - 5 [facility] Work Phone: Comment on above: PATIENT WAS FASTINGP ERFORMED BY: PARTH [facility] Jmkgad1564 [address] RoadDublin [place] [id number] TSH ([id number])on 01-22-2017 Thyrotropin Qn 0.241 {uIU/mL} Abnormal 0.450-4.50 0 [facility] Work Phone: Comment on above: PATIENT WAS FASTINGP ERFORMED BY: PARTH [facility] Hbccgy3323 [address] RoadDublin [place] [id number] URINALYSIS, W/ MICRO ([id number]) on 01-22-2017 Appearance Nom (U) Clear Normal Compre hensive [facility] Medicine Work Phone: Comment on above: PATIENT WAS FASTINGP ERFORMED BY: PARTH [facility] Xqvqvc1328 [address] RoadDublin [place] [id number] Bilirubin Ql (U) Negative Normal Comprehe nsive Internal Medicine Work Phone: Comment on above: PATIENT WAS FASTINGP ERFORMED BY: CB [facility] Tyvcig6629 [address] RoadDublin [place] [id number] Color Nom (U) Yellow Normal Comprehensi ve Internal Medicine Work Phone: Comment on above: PATIENT WAS FASTINGP ERFORMED BY: PARTH [facility] Aoepki0403 [address] RoadDublin [place] [id number] Glucose Ql (U) Negative Normal Comprehens maranda Internal Medicine Work Phone: Comment on above: PATIENT WAS FASTINGP ERFORMED BY: PARTH Leallin6[address]Dublin [place] [id number] Hemoglobin Ql (U) Negative Normal Compreh ensive Internal Medicine Work Phone: Comment on above: PATIENT WAS FASTINGP ERFORMED BY: PARTH Leallin6[address]Dublin [place] [id number] Hemoglobin Test strip Ql (U) Negative Normal [facility] Work Phone: Ketones Ql (U) Negative Normal Comprehens maranda Internal Medicine Work Phone: Comment on above: PATIENT WAS FASTINGP ERFORMED BY: PARTH LabArnold Hernandez6370 [address]Dublin [place] [id number] Leukocyte esterase Test strip Ql (U) 1+ Abnormal [facility] Work Phone: Comment on above: PATIENT WAS FASTINGP ERFORMED BY: PARTH Hernandez6370 [address]Dublin [place] [id number] Microscopic observation LM Nom (Urine sed) See below: Normal [facility] Work Phone: Comment on above: Microscopic was liberty cated and was performed. PATIENT WAS FASTINGP ERFORMED BY: PARTH Leallin6[address]Dublin [place] [id number] Nitrite Ql (U) Negative Normal Comprehens maranda [facility] Medicine Work Phone: Comment on above: PATIENT WAS FASTINGP ERFORMED BY: PARTH Leallin6[address] [place] [id number] Nitrite Test strip Ql (U) Negative Normal [facility] Work Phone: pH (U) 5.5 [pH] Normal 5.0-7.5 [facility] Work Phone: Comment on above: PATIENT WAS FASTINGP ERFORMED BY: PARTH LabArnold LealZedirg5281 [address] RoadDublin [place] [id number] pH Test strip (U) 5.5 [pH] Normal 5.0-7.5 Compreh ensive Internal Medicine Work Phone: Protein Ql (U) Negative Normal Comprehens maranda Internal Medicine Work Phone: Comment on above: PATIENT WAS FASTINGP ERFORMED BY: PARTH LabCorogelio LealMzrfwx9373 [address]Dublin [place] [id number] Protein Test strip Ql (U) Negative Normal [facility] Work Phone: Specific gravity Relative Density (U) 1.021 1 Normal 1.005-1.03 0 [facility] Work Phone: Comment on above: PATIENT WAS FASTINGP ERFORMED BY: PARTH [facility] Fsisll1832 [address] RoadDublin [place] [id number] Urobilinogen Test strip mass conc (U) 0.2 mg/dL Normal 0.2-1.0 Comprehensiv e Internal Medicine Work Phone: Comment on above: PATIENT WAS FASTINGP ERFORMED BY: PARTH LabArnold LealBkgooh6580 [address] RoadDublin [place] [id number] URINALYSIS, W/ MICRO ([id number]) Ordered By: Collaborative Physician on 01-22-2017 Bilirubin Ql (U) Negative Normal Comprehe nsive Internal Medicine Work Phone: Comment on above: PATIENT WAS FASTINGP ERFORMED BY: PARTH LabArnold LealXmkdwg2508 [address] RoadDublin [place] [id number] Glucose Ql (U) Negative Normal Comprehens maranda [facility] Medicine Work Phone: Comment on above: PATIENT WAS FASTINGP ERFORMED BY: PARTH LabArnold LealTubfiw8862 [address] RoadDublin [place] [id number] Hemoglobin Ql (U) Negative Normal Compreh ensive [facility] Medicine Work Phone: Comment on above: PATIENT WAS FASTINGP ERFORMED BY: PARTH [facility] Rbkktp8526 [address] RoadDublin [place] [id number] Ketones Ql (U) Negative Normal Comprehens maranda [facility] Medicine Work Phone: Comment on above: PATIENT WAS FASTINGP ERFORMED BY: PARTH LabArnold LealEevlka5926 [address] RoadDublin [place] [id number] Nitrite Ql (U) Negative Normal Comprehens maranda [facility] Medicine Work Phone: Comment on above: PATIENT WAS FASTINGP ERFORMED BY: CB [facility] Kuqqso0201 [address]Dublin [place] [id number] Protein Ql (U) Negative Normal Comprehens maranda [facility] Medicine Work Phone: Comment on above: PATIENT WAS FASTINGP ERFORMED BY: CB [facility] Ixbiic1562 [address]Dublin [place] [id number] Urobilinogen (U) [Mass/Vol] 0.2 mg/dL Normal 0.2-1.0 [facility] Work Phone: Comment on above: PATIENT WAS FASTINGP ERFORMED BY: [facility] Cvfcrd3605 [address] RoadDublin [place] [id number] Vital Signs Date Time Vital Sign Value Performing Clinician Facility 09-03-2023 15:32-0500 Body height 143.51 cm [facility] 03-07-2022 11:17-0400 Body temperature 97.8 [degF] Melissa Vasiliy DO Work Phone: [facility]; [facility] Work Phone: Comment on above: Method: Oral 03-07-2022 11:17-0400 Body weight 109.32 kg Melissa Vasiliy DO Work Phone: [facility]; [facility] Work Phone: 03-07-2022 11:17-0400 Diastolic blood pressure 80 mm[Hg] Melissa Vasiliy DO Work Phone: [facility]; [facility] Work Phone: Comment on above: Patient Position: Sitting; Cuff Location : Left Arm; Cuff Size: Standard 03-07-2022 11:17-0400 Heart rate 70 /min Melissa Vasiliy DO Work Phone: [facility]; [facility] Work Phone: Comment on above: Pattern: Regular 03-07-2022 11:17-0400 Respiratory rate 18 /min Melissa Vasiliy DO Work Phone: [facility]; [facility] Work Phone: Comment on above: Pattern: Unlabored 03-07-2022 11:17-0400 SaO2% (BldA) [Mass fraction] 97 % Melissa Amanda DO Work Phone: [facility]; [facility] Work Phone: Comment on above: Room air 03-07-2022 11:17-0400 Systolic blood pressure 130 mm[Hg] Melissa Amanda DO Work Phone: [facility]; [facility] Work Phone: Comment on above: Patient Position: Sitting; Cuff Location : Left Arm; Cuff Size: Standard 12-27-2021 15:09-0400 Body weight 109.32 kg Melissa Amanda DO Work Phone: [facility]; [facility] Work Phone: Comment on above: partial vitals due to tele- visit/covid rise 12-27-2021 15:09-0400 Diastolic blood pressure 63 mm[Hg] Melissa Amanda DO Work Phone: [facility]; [facility] Work Phone: Comment on above: Patient Position: Sitting partial vitals due t o tele- visit/covid rise 12-27-2021 15:09-0400 Systolic blood pressure 119 mm[Hg] Melissa Amanda DO Work Phone: [facility]; [facility] Work Phone: Comment on above: Patient Position: Sitting partial vitals due t o tele- visit/covid rise 12-06-2021 10:50-0400 Body height 149.86 cm Melissa Amanda DO Work Phone: [facility]; [facility] Work Phone: Comment on above: pt will report new reading when called 12-06-2021 10:50-0400 Body mass index (BMI) [Ratio] 48.78 kg/m2 Melissa Castanedaon DO Work Phone: [facility]; [facility] Work Phone: Comment on above: pt will report new reading when called 12-06-2021 10:50-0400 Body surface area Derived from formula 2 m2 Melissa Amanda DO Work Phone: [facility]; [facility] Work Phone: Comment on above: pt will report new reading when called 12-06-2021 10:50-0400 Body temperature 98.1 [degF] Melissa Amanda DO Work Phone: [facility]; [facility] Work Phone: Comment on above: Method: Oral pt will report new r eading when called 12-06-2021 10:50-0400 Body weight 109.54 kg Melissa Amanda DO Work Phone: [facility]; [facility] Work Phone: Comment on above: pt will report new reading when called 12-06-2021 10:50-0400 Diastolic blood pressure 65 mm[Hg] Melissa Amanda DO Work Phone: [facility]; [facility] Work Phone: Comment on above: Patient Position: Sitting pt will report new r eading when called 12-06-2021 10:50-0400 Heart rate 69 /min Melissa Amanda DO Work Phone: [facility]; [facility] Work Phone: Comment on above: Pattern: Regular pt will report new r eading when called 12-06-2021 10:50-0400 Systolic blood pressure 148 mm[Hg] Melissa Amanda DO Work Phone: [facility]; [facility] Work Phone: Comment on above: Patient Position: Sitting pt will report new r eading when called 11-19-2021 15:05-0400 Body height 149.86 cm Melissa Amanda DO Work Phone: [facility]; [facility] Work Phone: Comment on above: pt states real tense today and took meds late 11-19-2021 15:05-0400 Body mass index (BMI) [Ratio] 48.78 kg/m2 Melissa Amanda DO Work Phone: [facility]; [facility] Work Phone: Comment on above: pt states real tense today and took meds late 11-19-2021 15:05-0400 Body surface area Derived from formula 2 m2 Melissa Amanda DO Work Phone: [facility]; [facility] Work Phone: Comment on above: pt states real tense today and took meds late 11-19-2021 15:05-0400 Body temperature 97.3 [degF] Melissa Amanda DO Work Phone: [facility]; [facility] Work Phone: Comment on above: Method: Infrared pt states real tense today and took meds late 11-19-2021 15:05-0400 Body weight 109.54 kg Melissa Amanda DO Work Phone: [facility]; [facility] Work Phone: Comment on above: pt states real tense today and took meds late 11-19-2021 15:05-0400 Diastolic blood pressure 92 mm[Hg] Melissa Amanda DO Work Phone: [facility]; [facility] Work Phone: Comment on above: Patient Position: Sitting; Cuff Location : Left Arm; Cuff Size: Standard pt states real tense today and took meds late 11-19-2021 15:05-0400 Heart rate 66 /min Melissa Amanda DO Work Phone: [facility]; [facility] Work Phone: Comment on above: Pattern: Regular pt states real tense today and took meds late 11-19-2021 15:05-0400 Respiratory rate 16 /min Melissa Amanda DO Work Phone: [facility]; [facility] Work Phone: Comment on above: Pattern: Unlabored pt states real tense today and took meds late 11-19-2021 15:05-0400 SaO2% (BldA) [Mass fraction] 97 % Melissa Amanda DO Work Phone: [facility]; [facility] Work Phone: Comment on above: Room air pt states real tense today and took meds late 11-19-2021 15:05-0400 Systolic blood pressure 162 mm[Hg] Melissa Amanda DO Work Phone: [facility]; [facility] Work Phone: Comment on above: Patient Position: Sitting; Cuff Location : Left Arm; Cuff Size: Standard pt states real tense today and took meds late 07-09-2021 12:23-0500 Body height 149.86 cm Melissa Amanda DO Work Phone: [facility]; [facility] Work Phone: Comment on above: partial vs taken as this is phone encoun ter due to covid 07-09-2021 12:23-0500 Body mass index (BMI) [Ratio] 48.78 kg/m2 Melissa Amanda DO Work Phone: [facility]; [facility] Work Phone: Comment on above: partial vs taken as this is phone encoun ter due to covid 07-09-2021 12:23-0500 Body surface area Derived from formula 2 m2 Melissa Amanda DO Work Phone: [facility]; [facility] Work Phone: Comment on above: partial vs taken as this is phone encoun ter due to covid 07-09-2021 12:23-0500 Body temperature 97.8 [degF] Melissa Amanda DO Work Phone: [facility]; [facility] Work Phone: Comment on above: Method: Oral partial vs taken as this is phone encounter due to covid 07-09-2021 12:23-0500 Body weight 109.54 kg Melissa Amanda DO Work Phone: [facility]; [facility] Work Phone: Comment on above: partial vs taken as this is phone encoun ter due to covid 03-15-2021 11:39-0400 Body height 149.86 cm Monae Murtazaius [employer] [facility]; [facility] Work Phone: 03-15-2021 11:39-0400 Body mass index (BMI) [Ratio] 48.78 kg/m2 Monae Gravius [facility]; [facility] Work Phone: 03-15-2021 11:39-0400 Body surface area Derived from formula 2 m2 Monae Gravius [facility]; [facility] Work Phone: 03-15-2021 11:39-0400 Body weight 109.54 kg Monae Murtazaius [facility]; [facility] Work Phone: 03-09-2021 14:56-0400 Body height 149.86 cm Monae Gravius [facility]; [facility] Work Phone: 03-09-2021 14:56-0400 Body mass index (BMI) [Ratio] 48.78 kg/m2 Monae Gravius [facility]; [facility] Work Phone: 03-09-2021 14:56-0400 Body surface area Derived from formula 2 m2 Monae Murtazaius [facility]; [facility] Work Phone: 03-09-2021 14:56-0400 Body temperature 97.3 [degF] Monae Murtazaius [facility]; [facility] Work Phone: Comment on above: Method: Infrared 03-09-2021 14:56-0400 Body weight 109.54 kg Monae Gravius [facility]; [facility] Work Phone: 03-09-2021 14:56-0400 Diastolic blood pressure 70 mm[Hg] Monae Gravius [facility]; [facility] Work Phone: Comment on above: Patient Position: Sitting; Cuff Location : Left Arm; Cuff Size: Standard 03-09-2021 14:56-0400 Heart rate 62 /min Monae Busby [facility]; [facility] Work Phone: Comment on above: Pattern: Regular 03-09-2021 14:56-0400 Respiratory rate 16 /min Monae Busby [facility] Com[facility]; [facility] Work Phone: Comment on above: Pattern: Unlabored 03-09-2021 14:56-0400 SaO2% (BldA) [Mass fraction] 97 % Monae Busby [facility]; [facility] Work Phone: Comment on above: Room air 03-09-2021 14:56-0400 Systolic blood pressure 114 mm[Hg] Monae Busby [facility]; [facility] Work Phone: Comment on above: Patient Position: Sitting; Cuff Location : Left Arm; Cuff Size: Standard 06-14-2020 11:47-0500 BMI (Body Mass Index) 48.78 kg/m2 Chelsea Marsh [facility]; [facility] Work Phone: 06-14-2020 11:47-0500 Body weight 109.54 kg Chelsea Marsh [facility]; [facility] Work Phone: 06-14-2020 11:47-0500 BSA (Body Surface Area) 2 m2 Chelsea Marsh [facility]; [facility] Work Phone: 06-14-2020 11:47-0500 Height 149.86 cm Chelsea Marsh [facility]; [facility] Work Phone: 05-27-2018 10:23-0500 BMI (Body Mass Index) 48.78 kg/m2 Monae Busby [facility] Work Phone: Comment on above: did not take bp medication yet bc fastin g for labs 05-27-2018 10:23-0500 Body Temperature 98.2 [degF] Monae Busby [facility] Com[facility] e [facility] Work Phone: Comment on above: Method: Temporal did not take bp medi cation yet bc fasting for labs 05-27-2018 10:23-0500 Body weight 109.54 kg Monae Busby [facility] Work Phone: Comment on above: did not take bp medication yet bc fastin g for labs 05-27-2018 10:23-0500 BP Diastolic 98 mm[Hg] Monae Busby [facility] Work Phone: Comment on above: Patient Position: Sitting; Cuff Location : Left Arm; Cuff Size: Standard did not take bp medi cation yet bc fasting for labs 05-27-2018 10:23-0500 BP Systolic 158 mm[Hg] Monae Busby [facility] Work Phone: Comment on above: Patient Position: Sitting; Cuff Location : Left Arm; Cuff Size: Standard did not take bp medi cation yet bc fasting for labs 05-27-2018 10:23-0500 BSA (Body Surface Area) 2 m2 Monae Busby [facility] Work Phone: Comment on above: did not take bp medication yet bc fastin g for labs 05-27-2018 10:23-0500 Height 149.86 cm Monae Busby [facility] Work Phone: Comment on above: did not take bp medication yet bc fastin g for labs 05-27-2018 10:23-0500 Pulse (Heart Rate) 76 /min Monae Busby [facility] Comprehens [facility] Work Phone: Comment on above: Pattern: Regular did not take bp medi cation yet bc fasting for labs 05-27-2018 10:23-0500 Pulse Oximetry 97 % Melissa Amanda [facility] Work Phone: Comment on above: Room air did not take bp medi cation yet bc fasting for labs 05-27-2018 10:23-0500 Respiratory Rate 16 /min Monae Busby [facility] Com[facility] Work Phone: Comment on above: Pattern: Unlabored did not take bp medi cation yet bc fasting for labs 05-27-2018 10:23-0500 SaO2% (BldA) [Mass fraction] 97 % Monae Busby [facility] Work Phone: Comment on above: Room air did not take bp medi cation yet bc fasting for labs 05-27-2018 10:23-0500 Weight 109.54 kg Melissa Amanda [facility] Work Phone: Comment on above: did not take bp medication yet bc fastin g for labs 04-09-2018 11:05-0400 BMI (Body Mass Index) 49.58 kg/m2 Jackie Kohler RN [facility] Work Phone: Comment on above: hearing wnlNo eye doc 04-09-2018 11:05-0400 Body weight 111.36 kg Jackie Kohler RN [facility] Work Phone: Comment on above: hearing wnlNo eye doc 04-09-2018 11:05-0400 BP Diastolic 72 mm[Hg] Jackie Kohler RN [facility] Work Phone: Comment on above: Patient Position: Sitting; Cuff Location : Left Arm; Cuff Size: Large hearing wnlNo eye do 04-09-2018 11:05-0400 BP Systolic 138 mm[Hg] Jackie Kohler RN [facility] Work Phone: Comment on above: Patient Position: Sitting; Cuff Location : Left Arm; Cuff Size: Large hearing wnlNo eye do 04-09-2018 11:05-0400 BSA (Body Surface Area) 2.01 m2 Jackie Kohler RN [facility] Work Phone: Comment on above: hearing wnlNo eye doc 04-09-2018 11:05-0400 Height 149.86 cm Jackie Kohler RN [facility] Work Phone: Comment on above: hearing wnlNo eye doc 04-09-2018 11:05-0400 Pulse (Heart Rate) 104 /min Jackie Kohler RN [facility] Work Phone: Comment on above: Pattern: Regular hearing wnlNo eye do 04-09-2018 11:05-0400 Pulse Oximetry 97 % Melissa Vasiliy [facility] Work Phone: Comment on above: Room air hearing wnlNo eye do 04-09-2018 11:05-0400 Respiratory Rate 18 /min Jackie Kohler RN [facility] Work Phone: Comment on above: Pattern: Unlabored hearing wnlNo eye do c 04-09-2018 11:05-0400 SaO2% (BldA) [Mass fraction] 97 % Jackie Kohler RN [facility] Work Phone: Comment on above: Room air hearing wnlNo eye do c 04-09-2018 11:05-0400 Weight 111.36 kg Melissa Castanedaon [facility] Work Phone: Comment on above: hearing wnlNo eye doc 09-16-2017 09:04-0400 BMI (Body Mass Index) 48.75 kg/m2 Jackie Kohler RN [facility] Work Phone: 09-16-2017 09:04-0400 Body weight 109.49 kg Jackie Kohler RN [facility] Work Phone: 09-16-2017 09:04-0400 BP Diastolic 90 mm[Hg] Jackie Kohler RN [facility] Work Phone: Comment on above: Patient Position: Sitting; Cuff Location : Left Arm; Cuff Size: Large 09-16-2017 09:04-0400 BP Systolic 148 mm[Hg] Jackie Kohler RN [facility] Work Phone: Comment on above: Patient Position: Sitting; Cuff Location : Left Arm; Cuff Size: Large 09-16-2017 09:04-0400 BSA (Body Surface Area) 2 m2 Jackie Kohler RN [facility] Work Phone: 09-16-2017 09:04-0400 Height 149.86 cm Jackie Kohler RN [facility] Work Phone: 09-16-2017 09:04-0400 Pulse (Heart Rate) 110 /min Jackie Kohler RN [facility] Work Phone: Comment on above: Pattern: Regular 09-16-2017 09:04-0400 Pulse Oximetry 93 % Melissa Vasiliy [facility] Work Phone: Comment on above: Room air 09-16-2017 09:04-0400 Respiratory Rate 18 /min Jackie Kohler RN [facility] Work Phone: Comment on above: Pattern: Unlabored 09-16-2017 09:04-0400 SaO2% (BldA) [Mass fraction] 93 % Jackie Kohler RN [facility] Work Phone: Comment on above: Room air 09-16-2017 09:04-0400 Weight 109.49 kg Melissa Amanda [facility] Work Phone: 09-04-2017 08:02-0500 BMI (Body Mass Index) 49.08 kg/m2 Jackie Kohler RN [facility] Work Phone: 09-04-2017 08:02-0500 Body weight 110.22 kg Jackie Kohler RN [facility] Work Phone: 09-04-2017 08:02-0500 BP Diastolic 90 mm[Hg] Jackie Kohler RN [facility] Work Phone: Comment on above: Patient Position: Sitting; Cuff Location : Left Arm; Cuff Size: Large 09-04-2017 08:02-0500 BP Systolic 142 mm[Hg] Jackie Kohler RN [facility] Work Phone: Comment on above: Patient Position: Sitting; Cuff Location : Left Arm; Cuff Size: Large 09-04-2017 08:02-0500 BSA (Body Surface Area) 2 m2 Jackie Kohler RN [facility] Work Phone: 09-04-2017 08:02-0500 Height 149.86 cm Jackie Kohler RN [facility] Work Phone: 09-04-2017 08:02-0500 Pulse (Heart Rate) 91 /min Jackie Kohler RN [facility] Work Phone: Comment on above: Pattern: Regular 09-04-2017 08:02-0500 Pulse Oximetry 98 % Melissa Amanda [facility] Work Phone: Comment on above: Room air 09-04-2017 08:02-0500 Respiratory Rate 18 /min Jackie Kohler RN [facility] Work Phone: Comment on above: Pattern: Unlabored 09-04-2017 08:02-0500 SaO2% (BldA) [Mass fraction] 98 % Jackie Kohler RN [facility] Work Phone: Comment on above: Room air 09-04-2017 08:02-0500 Weight 110.22 kg Melissa Amanda [facility] Work Phone: 05-12-2017 12:15-0500 BMI (Body Mass Index) 49.79 kg/m2 Jackie Kohler RN [facility] Work Phone: 05-12-2017 12:15-0500 Body weight 111.81 kg Jackie Kohler RN [facility] Work Phone: 05-12-2017 12:15-0500 BP Diastolic 78 mm[Hg] Jackie Kohler RN [facility] Work Phone: Comment on above: Patient Position: Sitting; Cuff Location : Left Arm; Cuff Size: Large 05-12-2017 12:15-0500 BP Systolic 162 mm[Hg] Jackie Kohler RN [facility] Work Phone: Comment on above: Patient Position: Sitting; Cuff Location : Left Arm; Cuff Size: Large 05-12-2017 12:15-0500 BSA (Body Surface Area) 2.02 m2 Jackie Kohler RN [facility] Work Phone: 05-12-2017 12:15-0500 Height 149.86 cm Jackie Kohler RN [facility] Work Phone: 05-12-2017 12:15-0500 Pulse (Heart Rate) 70 /min Jackie Kohler RN [facility] Work Phone: Comment on above: Pattern: Regular 05-12-2017 12:15-0500 Pulse Oximetry 97 % Melissa Castanedaon [facility] Work Phone: Comment on above: Room air 05-12-2017 12:15-0500 Respiratory Rate 18 /min Jackie Kohler RN [facility] Work Phone: Comment on above: Pattern: Unlabored 05-12-2017 12:15-0500 SaO2% (BldA) [Mass fraction] 97 % Jackie Kohler RN [facility] Work Phone: Comment on above: Room air 05-12-2017 12:15-0500 Weight 111.81 kg Melissa Amanda [facility] Work Phone: 04-03-2017 09:12-0400 BMI (Body Mass Index) 48.9 kg/m2 Jackie Kohler RN [facility] Work Phone: Comment on above: [facility] done 04-03-2017 09:12-0400 Body weight 109.83 kg Jackie Kohler RN [facility] Work Phone: Comment on above: [facility] a glaucoma [facility] done 04-03-2017 09:12-0400 BP Diastolic 84 mm[Hg] Jackie Kohler RN [facility] Work Phone: Comment on above: Patient Position: Sitting; Cuff Location : Left Arm; Cuff Size: Large [facility] [place] nd [place] test done 04-03-2017 09:12-0400 BP Systolic 138 mm[Hg] Jackie Kohler RN [facility] Work Phone: Comment on above: Patient Position: Sitting; Cuff Location : Left Arm; Cuff Size: Large [facility] [place] nd [place] test [facility] 04-03-2017 09:12-0400 BSA (Body Surface Area) 2 m2 Jackie Kohler RN [facility] Work Phone: Comment on above: [place] [facility] and [facility] a glaucoma [facility] done 04-03-2017 09:12-0400 Height 149.86 cm Jackie Kohler RN [facility] Work Phone: Comment on above: [place] [facility] and [facility] a glaucoma [facility] done 04-03-2017 09:12-0400 Pulse (Heart Rate) 77 /min Jackie Kohler RN [facility] Work Phone: Comment on above: Pattern: Regular [facility] [place] [facility] [place] test done 04-03-2017 09:12-0400 Pulse Oximetry 97 % Melissa Amanda [facility] Work Phone: Comment on above: Room air [facility] [place] [facility] [place] test done 04-03-2017 09:12-0400 Respiratory Rate 18 /min Jackie Kohler RN [facility] Work Phone: Comment on above: Pattern: Unlabored [facility] [place] [facility] [place] test done 04-03-2017 09:12-0400 SaO2% (BldA) [Mass fraction] 97 % Jackie Kohler RN [facility] Work Phone: Comment on above: Room air [place] [facility] [place] nd [place] test done 04-03-2017 09:12-0400 Weight 109.83 kg Melissa Amanda [facility] Work Phone: Comment on above: [place] [facility] and [facility] a glaucoma [facility] done 03-10-2017 15:50-0400 BMI (Body Mass Index) 49.99 kg/m2 Darlene Leon STUARTN [facility] Work Phone: 03-10-2017 15:50-0400 Body Temperature 97.9 [degF] Darlene Anabellarb CHILD SUPPORT INVESTIGATOR [facility] Work Phone: 03-10-2017 15:50-0400 Body weight 112.27 kg Darlene Anabellarb CHILD SUPPORT INVESTIGATOR [facility] Work Phone: 03-10-2017 15:50-0400 BP Diastolic 82 mm[Hg] Darlene Slarb CHILD SUPPORT INVESTIGATOR [facility] Work Phone: Comment on above: Patient Position: Sitting; Cuff Location : Left Arm; Cuff Size: Standard 03-10-2017 15:50-0400 BP Systolic 124 mm[Hg] Darlene Slarb CHILD SUPPORT INVESTIGATOR [facility] Work Phone: Comment on above: Patient Position: Sitting; Cuff Location : Left Arm; Cuff Size: Standard 03-10-2017 15:50-0400 BSA (Body Surface Area) 2.02 m2 Darlene Anabellarb CHILD SUPPORT INVESTIGATOR [facility] Work Phone: 03-10-2017 15:50-0400 Height 149.86 cm Darlene Anabellarb CHILD SUPPORT INVESTIGATOR [facility] Work Phone: 03-10-2017 15:50-0400 Pulse (Heart Rate) 79 /min Darlene Leon STUARTN [facility] Work Phone: Comment on above: Pattern: Regular 03-10-2017 15:50-0400 Pulse Oximetry 97 % Melissa Amanda [facility] Work Phone: Comment on above: Room air 03-10-2017 15:50-0400 Respiratory Rate 17 /min Darlene Kylenishi HARDEN [facility] Work Phone: Comment on above: Pattern: Unlabored 03-10-2017 15:50-0400 SaO2% (BldA) [Mass fraction] 97 % Darlene Kylenishi HARDEN [facility] Work Phone: Comment on above: Room air 03-10-2017 15:50-0400 Weight 112.27 kg Melissa Amanda [facility] Work Phone: 02-24-2017 13:04-0400 BMI (Body Mass Index) 49.99 kg/m2 Jackie Kohler RN [facility] Work Phone: 02-24-2017 13:04-0400 Body Temperature 97.3 [degF] Jackie Kohler RN [facility] Work Phone: Comment on above: Method: Temporal 02-24-2017 13:04-0400 Body weight 112.27 kg Jackie Kohler RN [facility] Work Phone: 02-24-2017 13:04-0400 BP Diastolic 84 mm[Hg] Jackie Kohler RN [facility] Work Phone: Comment on above: Patient Position: Sitting; Cuff Location : Left Arm; Cuff Size: Large 02-24-2017 13:04-0400 BP Systolic 126 mm[Hg] Jackie Kohler RN [facility] Work Phone: Comment on above: Patient Position: Sitting; Cuff Location : Left Arm; Cuff Size: Large 02-24-2017 13:04-0400 BSA (Body Surface Area) 2.02 m2 Jackie Kohler RN [facility] Work Phone: 02-24-2017 13:04-0400 Height 149.86 cm Jackie Kohler RN [facility] Work Phone: 02-24-2017 13:04-0400 Pulse (Heart Rate) 112 /min Jackie Kohler RN [facility] Work Phone: Comment on above: Pattern: Regular 02-24-2017 13:04-0400 Pulse Oximetry 92 % Melissa Amanda [facility] Work Phone: Comment on above: Room air 02-24-2017 13:04-0400 Respiratory Rate 18 /min Jackie Kohler RN [facility] Work Phone: Comment on above: Pattern: Unlabored 02-24-2017 13:04-0400 SaO2% (BldA) [Mass fraction] 92 % Jackie Kohler RN [facility] Work Phone: Comment on above: Room air 02-24-2017 13:04-0400 Weight 112.27 kg Melissa Amanda [facility] Work Phone: 02-13-2017 14:15-0400 BMI (Body Mass Index) 49.99 kg/m2 Jackie Kohler RN [facility] Work Phone: 02-13-2017 14:15-0400 Body Temperature 97.3 [degF] Jackie Kohler RN [facility] Work Phone: Comment on above: Method: Temporal 02-13-2017 14:15-0400 Body weight 112.27 kg Jackie Kohler RN [facility] Work Phone: 02-13-2017 14:15-0400 BP Diastolic 80 mm[Hg] Jackie Kohler RN [facility] Work Phone: Comment on above: Patient Position: Sitting; Cuff Location : Left Arm; Cuff Size: Large 02-13-2017 14:15-0400 BP Systolic 124 mm[Hg] Jackie Kohler RN [facility] Work Phone: Comment on above: Patient Position: Sitting; Cuff Location : Left Arm; Cuff Size: Large 02-13-2017 14:15-0400 BSA (Body Surface Area) 2.02 m2 Jackie Kohler RN [facility] Work Phone: 02-13-2017 14:15-0400 Height 149.86 cm Jackie Kohler RN [facility] Work Phone: 02-13-2017 14:15-0400 Pulse (Heart Rate) 93 /min Jackie Kohler RN [facility] Work Phone: Comment on above: Pattern: Regular 02-13-2017 14:15-0400 Pulse Oximetry 96 % Melissa Amanda [facility] Work Phone: Comment on above: Room air 02-13-2017 14:15-0400 Respiratory Rate 16 /min Jackie Kohler RN [facility] Work Phone: Comment on above: Pattern: Unlabored 02-13-2017 14:15-0400 SaO2% (BldA) [Mass fraction] 96 % Jackie Kohler RN [facility] Work Phone: Comment on above: Room air 02-13-2017 14:15-0400 Weight 112.27 kg Melissa Amanda [facility] Work Phone: 01-22-2017 08:45-0400 BMI (Body Mass Index) 49.48 kg/m2 Valorie Hernández RN [facility] Work Phone: 01-22-2017 08:45-0400 Body Temperature 98.1 [degF] Valorie Hernández RN [facility] Work Phone: Comment on above: Method: Temporal 01-22-2017 08:45-0400 Body weight 111.13 kg Valorie Hernández RN [facility] Work Phone: 01-22-2017 08:45-0400 BP Diastolic 84 mm[Hg] Valorie Hernández RN [facility] Work Phone: Comment on above: Patient Position: Sitting; Cuff Location : Left Arm; Cuff Size: Standard 01-22-2017 08:45-0400 BP Systolic 136 mm[Hg] Valorie Hernández RN [facility] Work Phone: Comment on above: Patient Position: Sitting; Cuff Location : Left Arm; Cuff Size: Standard 01-22-2017 08:45-0400 BSA (Body Surface Area) 2.01 m2 Valorie Hernández RN [facility] Work Phone: 01-22-2017 08:45-0400 Height 149.86 cm Valorie Hernández RN [facility] Work Phone: 01-22-2017 08:45-0400 Pulse (Heart Rate) 111 /min Valorie Hernández RN [facility] Work Phone: Comment on above: Pattern: Regular 01-22-2017 08:45-0400 Pulse Oximetry 93 % Melissa Vasiliy [facility] Work Phone: Comment on above: Room air 01-22-2017 08:45-0400 Respiratory Rate 17 /min Valorie Hernández RN [facility] Work Phone: Comment on above: Pattern: Unlabored 01-22-2017 08:45-0400 SaO2% (BldA) [Mass fraction] 93 % Valorie Hernández RN [facility] Work Phone: Comment on above: Room air 01-22-2017 08:45-0400 Weight 111.13 kg Melissa Vasiliy [facility] Work Phone: 07-03-2016 13:14-0500 BMI (Body Mass Index) 48.95 kg/m2 Jackie Kohler RN [facility] Work Phone: 07-03-2016 13:14-0500 Body Temperature 99.7 [degF] Jackie Kohler RN [facility] Work Phone: Comment on above: Method: Temporal 07-03-2016 13:14-0500 Body weight 109.94 kg Jackie Kohler RN [facility] Work Phone: 07-03-2016 13:14-0500 BP Diastolic 82 mm[Hg] Jackie Kohler RN [facility] Work Phone: Comment on above: Patient Position: Sitting; Cuff Location : Left Arm; Cuff Size: Large 07-03-2016 13:14-0500 BP Systolic 138 mm[Hg] Jackie Kohler RN [facility] Work Phone: Comment on above: Patient Position: Sitting; Cuff Location : Left Arm; Cuff Size: Large 07-03-2016 13:14-0500 BSA (Body Surface Area) 2 m2 Jackie Kohler RN [facility] Work Phone: 07-03-2016 13:14-0500 Height 149.86 cm Jackie Kohler RN [facility] Work Phone: 07-03-2016 13:14-0500 Pulse (Heart Rate) 91 /min Jackie Kohler RN [facility] Work Phone: Comment on above: Pattern: Regular 07-03-2016 13:14-0500 Pulse Oximetry 98 % Melissa Castanedaon [facility] Work Phone: Comment on above: Room air 07-03-2016 13:14-0500 Respiratory Rate 18 /min Jackie Kohler RN [facility] Work Phone: Comment on above: Pattern: Unlabored 07-03-2016 13:14-0500 SaO2% (BldA) [Mass fraction] 98 % Jackie Kohler RN [facility] Work Phone: Comment on above: Room air 07-03-2016 13:14-0500 Weight 109.94 kg Melissa Castanedaon [facility] Work Phone: 03-26-2016 11:27-0400 BMI (Body Mass Index) 48.95 kg/m2 Jackie Kohler RN [facility] Work Phone: 03-26-2016 11:27-0400 Body weight 109.94 kg Jackie Kohler RN [facility] Work Phone: 03-26-2016 11:27-0400 BP Diastolic 78 mm[Hg] Jackie Kohler RN [facility] Work Phone: Comment on above: Patient Position: Sitting; Cuff Location : Left Arm; Cuff Size: Large 03-26-2016 11:27-0400 BP Systolic 148 mm[Hg] Jackie Kohler RN [facility] Work Phone: Comment on above: Patient Position: Sitting; Cuff Location : Left Arm; Cuff Size: Large 03-26-2016 11:27-0400 BSA (Body Surface Area) 2 m2 Jackie Kohler RN [facility] Work Phone: 03-26-2016 11:27-0400 Height 149.86 cm Jackie Kohler RN [facility] Work Phone: 03-26-2016 11:27-0400 Pulse (Heart Rate) 101 /min Jackie Kohler RN [facility] Work Phone: Comment on above: Pattern: Regular 03-26-2016 11:27-0400 Pulse Oximetry 96 % Melissa Amanda [facility] Work Phone: Comment on above: Room air 03-26-2016 11:27-0400 Respiratory Rate 18 /min Jackie Kohler RN [facility] Work Phone: Comment on above: Pattern: Unlabored 03-26-2016 11:27-0400 SaO2% (BldA) [Mass fraction] 96 % Jackie Kohler RN [facility] Work Phone: Comment on above: Room air 03-26-2016 11:27-0400 Weight 109.94 kg Melissa Amanda [facility] Work Phone: Encounters Encounter Date Encounter Type Care Provider Facility Start: 09-03-2023 End: 09-03-2023 Patient encounter procedure [facility] Work Phone: Start: 09-03-2023 End: 09-03-2023 ambulatory Melissa Amanda [facility] Work Phone: Start: 07-01-2023 End: 07-01-2023 ambulatory Melissa Amanda Facility:[facility] Start: 07-01-2023 End: 07-01-2023 Patient encounter procedure [facility] Work Phone: Start: 03-07-2022 End: 03-07-2022 Patient encounter procedure Zayra Taylor CMA [facility] Work Phone: Start: 03-07-2022 End: 03-07-2022 Periodic preventive med est patient 65yrs& older Melissa Vasiliy DO Work Phone: [facility] Start: 12-27-2021 End: 12-28-2021 Office outpatient visit 25 minutes Melissa Amanda DO Work Phone: [facility] Start: 12-27-2021 Review Melissa Fearo n DO Work Phone: [facility] [...] End: 06-14-2020 Office outpatient visit 25 minutes Melissakatie Castanedaon [facility] Start: 05-12-2019 End: 05-12-2019 Office outpatient visit 25 minutes Melissa Vasiliy [facility] Start: 02-03-2019 End: 02-03-2019 Phone Encounter Melissa Amanda [facility] Start: 06-02-2018 Patient encounter procedure Melissa Amanda [facility] Start: 05-27-2018 End: 05-27-2018 Office outpatient visit 15 minutes Melissa Vasiliy [facility] Start: 05-25-2018 End: 05-25-2018 Patient encounter procedure SERVANDO CORDOVA Facility:[facility] Start: 04-09-2018 End: 04-09-2018 Patient encounter procedure Jackie Kohler RN [facility] Work Phone: Start: 04-09-2018 End: 04-09-2018 Periodic preventive med est patient 65yrs& older Melissa Amanda [facility] Start: 09-17-2017 End: 09-17-2017 Annotation/Addendum Melissa Vasiliy [facility] Start: 09-16-2017 End: 09-16-2017 Office outpatient visit 25 minutes Melissa Amanda [facility] Start: 09-05-2017 End: 09-05-2017 Patient encounter Melissa Amanda [facility] Start: 09-04-2017 End: 09-04-2017 Office outpatient visit 15 minutes Melissa Amanda [facility] Start: 05-12-2017 End: 05-12-2017 Office outpatient visit 15 minutes Melissa Vasiliy [facility] Start: 04-03-2017 End: 04-03-2017 Patient encounter procedure Melissa Amanda DO Work Phone: [facility] Start: 04-03-2017 End: 04-03-2017 Periodic preventive med est patient 65yrs& older Melissa Amanda [facility] Start: 03-10-2017 End: 03-10-2017 Office outpatient visit 10 minutes Melissa Amanda [facility] Start: 02-24-2017 End: 02-24-2017 Office outpatient visit 15 minutes Melissa Amanda [facility] Start: 02-13-2017 End: 02-13-2017 Office outpatient visit 15 minutes Melissa Amanda [facility] Start: 01-30-2017 End: 01-30-2017 Phone Encounter Melissa Vasiliy [facility] Start: 01-24-2017 End: 01-24-2017 Phone Encounter Melissa Vasiliy [facility] Start: 01-22-2017 End: 01-22-2017 Office outpatient visit 25 minutes Melissa Amanda [facility] Start: 07-03-2016 End: 07-03-2016 Office outpatient visit 15 minutes Melissa Amanda [facility] Start: 03-26-2016 End: 03-26-2016 Patient encounter procedure Melissa Amanda DO Work Phone: [facility] Start: 03-26-2016 End: 03-26-2016 Periodic preventive med est patient 65yrs& older Melissa Amanda [facility] Patient encounter procedure Chelsea Marsh LPN [facility] Work Phone: Patient encounter procedure Monae Gravius [employer] [facility] Work Phone: Patient encounter procedure Monae Gravius [employer] [facility]; [facility] Work Phone: Patient encounter procedure Monae Busby [facility] Work Phone: Patient encounter procedure Monae Busby [facility]; [facility] Work Phone: Patient encounter procedure Darlene Quintero [facility] Work Phone: Patient encounter procedure Zayra Taylor [facility] Work Phone: Procedures Date Procedure Procedure Detail Performing Clinician Start: 09-03-2023 Screening mammography Start: 03-27-2021 End: 03-27-2021 Echo Complete W/ Contrast Comments: See Note; NOTES: [facility] [address] [place] [address] Echo Complete W/ Contrast 03/27/21 1255 MR#: [id number] Acct: [id number] Name: ERIKA BATISTA I Rep #: [id number] : 1945 76 From: Harpal Still MD Attending Dr: Dr. Melissa Amanda, DO Status: R EG CLI Ordering Dr: Melissa Amanda DO Date: 03/27/21 Location: [facility] Sex: F C Admitted: Reason For Study: [...] cm RVDd: 3.4 cm FS: 30.2 % ___ LAV(MOD-bp): 39.4 ml LVAd ap4: 33.3 cm2 [...] % EF(MOD-sp2): 68.3 % EF(sp4-el): 64.7 % ___ SV(MOD-sp4): 75.9 ml SV(MOD-sp2): 64.6 ml SV(sp4-el): 77.7 ml ___ LA A4 area: 15.5 cm2 LA dimension(2D): 3.8 cm RA A4 area: 15.0 cm2 Doppler Measurements Calculations MV E max chitra: 77.1 cm/sec Lat Peak E' Chitra: 9.0 cm/sec Med Peak E' Chitra: 6.0 cm/sec MV A max chitra: 115.2 cm/sec E/E' lat: 8.5 E/E' med: 12.8 MV E/A: 0.67 ___ Ao V2 max: 161.9 cm/sec LV V1 max: 116.4 cm/sec PA V2 max: 99.0 cm/sec Ao max P.5 mmHg LV V1 max P.4 mmHg ___ TR max chitar: 290.4 cm/sec TR max P.7 mmHg ECHO/Echo Complete W/ Contrast Interpretation Summary The study was technically difficult. Contrast injection was performed. Left ventricular systolic function is normal. The estimated ejection fraction is 60 %. Trivial mitral valve insufficiency. Trivial tricuspid valve insufficiency. Right ventricular systolic pressure estimated to be 37 mmHg. Diastolic function is indeterminate. _ Ordering Physician: Meilssa Amanda Referring Physician: Melissa Amanda Performed By: Daisy Wing, TONI, RVT 03/27/211815 Date Harpal Still MD CC: Dr. Melissa Amanda DO Date Dictated: 03/27/21 1255 Date Transcribed: 03/27/211815 Title I Paraprofessional: Signed Melissa Amanda DO Work Phone: Start: 07-18-2020 End: 07-19-2020 Dexa Bone Density/Append Skel Comments: See Note; NOTES: [facility] Imaging Services [address] [place] [address] Dexa Bone Density/Append Skel MR#: [id number] Acct: [id number] Name: ERIKA BATISTA I Rep #: [id number] : 1945 F 75 From: Nico brooks MD PCP: Dr. Melissa Amanda DO Status: REG CLI Study: Dexa Bone Density/Append Skel Date of Exam: Exam# [id number] Ordering Dr: Melissa Amanda DO STUDY: DUAL ENERGY X-RAY ABSORPTIOMETRY / DXA REASON FOR EXAM: Female, 75 years old. 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 Melissa Amanda, Title I Paraprofessional: Signed Melissa Amanda Work Phone: Start: 07-18-2020 End: 07-18-2020 SCRN MAMM (CAD)W/XIOMY BILAT Comments: See Note; NOTES: [facility] Imaging Services [address] [place] [address] SCRN MAMM (CAD)W/XIOMY BILAT MR#: [id number] Acct: [id number] Name: ERIKA BATISTA I Rep #: [id number] : 1945 F 75 From: Nico brooks MD PCP: Dr. Melissa Amanda, DO Status: [facility] Study: SCRN MAMM (CAD)W/XIOMY BILAT Date of Exam: 06/30 03/20 Exam# [id number] Ordering Dr: Melissa Amanda DO MAMMOGRAPHY - [...] delay biopsy of a clinically suspicious abnormality. [id number] Electronically Signed: Nico Shine MD at 15:00 EST , Service support , CC: Dr. Melissa Amanda DO Title I Paraprofessional: Signed Melissa Amanda Work Phone: Start: 07-17-2018 End: 07-17-2018 SCREENING MAMM (CAD), BILAT Comments: See Note; NOTES: [facility] Imaging Services [address] [place] [address] SCREENING MAMM (CAD), BILAT MR#: [id number] Acct: [id number] Name: ERIKA BATISTA I Rep #: [id number] : 1945 F 73 From: Nico Shine MD PCP: Melissa Amanda DO Status: REG CLI Study: SCREENING MAMM (CAD), BILAT Date of Exam: 07/17/18 Exam# [id number] Ordering Dr: Melissa Amanda DO MAMMOGRAPHY - [...] delay biopsy of a clinically suspicious abnormality. [id number] Electronically Signed: Nico Shine MD at 13:08 EST Tel [phone], Service support , CC: Melissa Amanda DO Title I Paraprofessional: Signed Melissa Amanda Work Phone: Start: 05-27-2017 End: 05-27-2017 Inital Evaluation (1) - PT Comments: See Note; NOTES: [facility] [address] [place] [address]. [address] [place] [address] Fax REHABILITATION SERVICES INITIAL EVALUATION MR#: [id number] Acct: [id number] Name: ERIKA BATISTA Rep #: [id number] : 1945 72 From: Darlene Olea MPT Referring Dr.: Melissa Amanda DO Status: REG RCR Insurance: MEDICARE PART A B [facility] Patient's Visit Information ERIKA BATISTA is a 72 year old F referred [...] Pain Intensity (Out of 10): 1 Comment: "where I hit it" - Objective Gait: Walks with shorter strides, [...] to perform ADL's, To increase tolerance to activity/condition/positio n, To improve performance and independence with ADL's, To improve ability of physical actions for home/community/work/leisur e, To improve gait and locomotor functions, To improve endurance Therapeutic Exercise to Include: Strength training, Endurance training, Gait and locomotor training, "In an aquatic setting", Active ROM, Dynamic Lumbar Stabilization For the Purpose of:: To decrease pain, To increase ROM, To improve nutrient delivery to tissue, To improve muscle performance and motor function, To improve ability to perform ADL's, To increase tolerance to activity/condition/positio n, To improve performance and independence with ADL's, To improve ability of physical actions for home/community/work/leisur e, To improve gait and locomotor functions Functional Training to Include: Gait training For the Purpose of:: To improve gait and locomotor functions Thank you for the opportunity to evaluate your patient. For Medicare and Medicare HMO plans, please review the plan of care and approve it. It will need to be FAXED BACK to us at [phone] for Medicare purposes. Please let me know if there are questions or concerns regarding this plan of care. Physician Signature: Date: <Electronically signed by Darlene Olea MPT> 05/27/17 1801 CC: Melissa Amanda DO Signed For Medicare only, by signing this I certify the plan of care. __ Physicians Signature Date Melissa Amanda Start: 05-19-2017 End: 05-19-2017 Lower Ext Joint Only (Routine) Comments: See Note; NOTES: [facility] Imaging Services [address] [place] [address] Lower Ext Joint Only (Routine) MR#: [id number] Acct: [id number] Name: ERIKA BATISTA Rep #: [id number] : 1945 F 72 From: Stan De La Torre MD PCP: Melissa Amanda DO Status: REG CLI Study: Lower Ext Joint Only (Routine) Date of Exam: 05/19/17 Exam# [id number] Ordering Dr: Melissa Amanda DO STUDY: MRI [...] the acetabular labrum, coronal series 5 images 16 through . There is marrow edema of the femoral head with linear diminished signal stress or insufficiency fracture, coronal series 5 images 16 through 18. There is mild edema of the femoral neck . There is moderate joint effusion of the left hip. Normal gluteus minimus, medius and iliopsoas tendons and distal insertions. There is trochanteric bursitis, coronal series 5 images 13 and 14. Normal superior and inferior pubic [...] Service support , CC: Melissa Amanda DO Title I Paraprofessional: Signed Melissa Amanda Work Phone: Start: 05-06-2017 End: 05-06-2017 Re-Evaluation - PT (1) Comments: See Note; NOTES: [facility] [address] [facility] [place] [address] Fax REEVALUATION / MEDICARE RECERTIFICATION PHYSICAL THERAPY MR#: [id number] Acct: [id number] Name: ERIKA BATISTA Rep #: [id number] : 1945 72 From: Darlene Olea MPT Referring Dr.: Melissa Amanda DO Status: REG RCR Insurance: MEDICARE PART A B JUAN ALBERTO Amanda, It has been my pleasure to treat ERIKA BATISTA over the last 18 visits for L [...] to perform ADL's, To increase tolerance to activity/condition/positio n, To improve performance and independence with ADL's, To improve ability of physical actions for home/community/work/leisur e, To improve gait and locomotor functions, To improve endurance Therapeutic Exercise to Include: Strength training, Endurance training, Gait and locomotor training, "In an aquatic setting", Active ROM, Dynamic Lumbar Stabilization For the Purpose of:: To decrease pain, To increase ROM, To improve nutrient delivery to tissue, To improve muscle performance and motor function, To improve ability to perform ADL's, To increase tolerance to activity/condition/positio n, To improve performance and independence with ADL's, To improve ability of physical actions for home/community/work/leisur e, To improve gait and locomotor functions Functional Training to Include: Gait training For the Purpose of:: To improve gait and locomotor functions Please do not hesitate to contact me at [phone] by phone or if you have questions or concerns regarding this new plan of care! Sincerely, Darlene Olea <Electronically signed by Darlene BETANCOURT> 05/06/17 175 CC: Melissa Amanda DO Signed For Medicare only, by signing this I certify the plan of care. __ Physicians Signature Date Melissa Amanda Start: 04-15-2017 End: 04-15-2017 Re-Evaluation - PT (1) Comments: See Note; NOTES: [facility] [address] [facility] [place] [address] Fax REEVALUATION / MEDICARE RECERTIFICATION PHYSICAL THERAPY MR#: [id number] Acct: [id number] Name: ERIKA BATISTA Rep #: [id number] : 1945 72 From: Darlene BETANCOURT Referring Dr.: Melissa Amanda DO Status: REG RCR Insurance: MEDICARE PART A B JUAN ALBERTO Amanda, It has been my pleasure to treat ERIKA BATISTA over the last 10 visits for L [...] to perform ADL's, To increase tolerance to activity/condition/positio n, To improve performance and independence with ADL's, To improve ability of physical actions for home/community/work/leisur e, To improve gait and locomotor functions, To improve endurance Therapeutic Exercise to Include: Strength training, Endurance training, Gait and locomotor training, "In an aquatic setting", Active ROM, Dynamic Lumbar Stabilization For the Purpose of:: To decrease pain, To increase ROM, To improve nutrient delivery to tissue, To improve muscle performance and motor function, To improve ability to perform ADL's, To increase tolerance to activity/condition/positio n, To improve performance and independence with ADL's, To improve ability of physical actions for home/community/work/leisur e, To improve gait and locomotor functions Functional Training to Include: Gait training For the Purpose of:: To improve gait and locomotor functions Please do not hesitate to contact me at [phone] by phone or if you have questions or concerns regarding this new plan of care! Sincerely, Darlene Olea <Electronically signed by Darlene Olea MPT> 04/15/17 3236 CC: Melissa Amanda DO Signed For Medicare only, by signing this I certify the plan of care. __ Physicians Signature Date Melissa Amanda Start: 03-19-2017 End: 03-20-2017 Inital Evaluation (1) - PT Comments: See Note; NOTES: [facility] [address] [facility] [place] [address] Fax REHABILITATION SERVICES INITIAL EVALUATION MR#: [id number] Acct: [id number] Name: ERIKA BATISTA Rep #: [id number] : 1945 72 From: Darlene Olea MPT Referring Dr.: Melissa Amanda DO Status: REG RCR Insurance: MEDICARE PART A B AN[facility] Patient's Visit Information ERIKA BATISTA is a 72 year old F referred [...] to perform ADL's, To increase tolerance to activity/condition/positio n, To improve performance and independence with ADL's, To improve ability of physical actions for home/community/work/leisur e, To improve gait and locomotor functions, To improve endurance Therapeutic Exercise to Include: Strength training, Endurance training, Gait and locomotor training, "In an aquatic setting", Active ROM, Dynamic Lumbar Stabilization For the Purpose of:: To decrease pain, To increase ROM, To improve nutrient delivery to tissue, To improve muscle performance and motor function, To improve ability to perform ADL's, To increase tolerance to activity/condition/positio n, To improve performance and independence with ADL's, To improve ability of physical actions for home/community/work/leisur e, To improve gait and locomotor functions Functional Training to Include: Gait training For the Purpose of:: To improve gait and locomotor functions Thank you for the opportunity to evaluate your patient. For Medicare and Medicare HMO plans, please review the plan of care and approve it. It will need to be FAXED BACK to us at [phone] for Medicare purposes. Please let me know if there are questions or concerns regarding this plan of care. Physician Signature: Date: <Electronically signed by Darlene Olea MPT> 03/19/17 1827 CC: Melissa Amanda DO Signed For Medicare only, by signing this I certify the plan of care. __ Physicians Signature Date Melissa Amanda Start: 03-13-2017 End: 03-13-2017 Hip 2-3 Views with Pelvis Comments: See Note; NOTES: [facility] Imaging Services [address] [place] [address] Hip 2-3 Views with Pelvis MR#: [id number] Acct: [id number] Name: ERIKA BATISTA Rep #: [id number] : 1945 F 72 From: Linda Odell MD PCP: Melissa Amanda DO Status: REG CLI Study: Hip 2-3 Views with Pelvis Date of Exam: 03/13/17 Exam# [id number] Ordering Dr: Melissa Amanda DO STUDY: X-RAY [...] Service support , CC: Melissa Amanda DO Title I Paraprofessional: Signed Melissa Amanda Work Phone: Start: 02-04-2017 End: 02-04-2017 Dexa Bone Density Study (HP) Comments: See Note; NOTES: [facility] Imaging Services [address] [place] [address] Dexa Bone Density Study (HP) MR#: [id number] Acct: [id number] Name: ERIKA BATISTA Rep #: [id number] : 1945 F 72 From: Nico Shine MD PCP: Melissa Amanda DO Status: [facility] CLI Study: Dexa Bone Density Study (HP) Date of Exam: 02/04/17 Exam# [id number] Ordering Dr: Melissa Amanda DO STUDY: DUAL [...] Nico Shine MD at 15:43 EDT Tel [phone], Service support , CC: Melissa Amanda DO Title I Paraprofessional: Signed Melissa Amanda Work Phone: Start: 02-04-2017 End: 02-13-2017 SCREENING MAMM (CAD), BILAT Comments: See Note; NOTES: [facility] Imaging Services [address] [place] [address] SCREENING MAMM (CAD), BILAT MR#: [id number] Acct: [id number] Name: REIKA BATISTA Rep #: [id number] : 1945 F 72 From: Nico Shine MD PCP: Melissa Amanda DO Status: REG CLI Study: SCREENING MAMM (CAD), BILAT Date of Exam: 02/04/17 Exam# [id number] Ordering Dr: Melissa Amanda DO MAMMOGRAPHY - [...] delay biopsy of a clinically suspicious abnormality. [id number] Electronically Signed: Nico Shine MD at 12:03 EDT Tel [phone], Service support , CC: Melissa Amanda DO Title I Paraprofessional: Signed Melissa Amanda Work Phone: Appendectomy Jackie Kohler Comment on above: 1965 Appendectomy Monae Gravius Comment on above: 1965 Appendectomy Monae Gravius Comment on above: 1965 Appendectomy Chelsea Salma Comment on above: 1965 Appendectomy Monae Gravius [employer] Comment on above: 1965 Appendectomy Monae Gravius [employer] Comment on above: 1965 Appendectomy Monae Gravius [employer] Comment on above: 1965 Appendectomy Darlene Leon LP N Comment on above: 1965 Appendectomy Kayela Brandon [employer] Comment on above: 1965 Appendectomy Kayela Braselton [employer] Comment on above: 1965 Extraction of cataract Kayel a Brandon [employer] Comment on above: Date: 07/2021. Date: 10/2021. Extraction of cataract Kayel a Brandon [employer] Comment on above: Date: 07/2021. Date: 10/2021. Hysterectomy Jackie Kohlre Comment on above: 2000 Hysterectomy Monae Gravius Comment on above: 2000 Hysterectomy Monae Gravius Comment on above: 2000 Hysterectomy Chelsea Marsh Comment on above: 2000 Hysterectomy Monae Gravius [employer] Comment on above: 2000 Hysterectomy Monae Gravius [employer] Comment on above: 2000 Hysterectomy Monae Gravius [employer] Comment on above: 2000 Hysterectomy Darlene Slarb LP N Comment on above: 2000 Hysterectomy Bautistaa Braselton [employer] Comment on above: 2000 Hysterectomy Kayela Braselton [employer] Comment on above: 2000 Microscopic examinat ion of cervical Papanicolaou smear Jackie Kohler Comment on above: 2000 Microscopic examinat ion of cervical Papanicolaou smear Monae Gravius Comment on above: 2000 Microscopic examinat ion of cervical Papanicolaou smear Monae Gravius Comment on above: 2000 Microscopic examinat ion of cervical Papanicolaou smear Chelsea Marsh Comment on above: 2000 Microscopic examinat ion of cervical Papanicolaou smear Monae Gravius [employer] Comment on above: 2000 Microscopic examinat ion of cervical Papanicolaou smear Monae Gravius [employer] Comment on above: 2000 Microscopic examinat ion of cervical Papanicolaou smear Monae Gravius [employer]O CASE MAKER Comment on above: 2000 Microscopic examinat ion of cervical Papanicolaou smear Darlene Anabellarb CHILD SUPPORT INVESTIGATOR Comment on above: 2000 Microscopic examinat ion of cervical Papanicolaou smear Karadhaa Brandon [employer] Comment on above: 2000 Microscopic examinat ion of cervical Papanicolaou smear Bautistaa Brandon [employer]O CASE MAKER Comment on above: 2000 Ophthalmic examinati on and evaluation Jackie Kohler Comment on above: 07/05/15 Ophthalmic examinati on and evaluation Monae Gravius Comment on above: 07/05/15 Ophthalmic examinati on and evaluation Monae Gravius Comment on above: 07/05/15 Ophthalmic examinati on and evaluation Chelsea Marsh Comment on above: 07/05/15 Ophthalmic examinati on and evaluation Monae Gravius [employer] Comment on above: 07/05/15 Ophthalmic examinati on and evaluation Monae Gravius [employer]O CASE MAKER Comment on above: 07/05/15 Ophthalmic examinati on and evaluation Monae Gravius PI[employer]O CASE MAKER Comment on above: 07/05/15 Ophthalmic examinati on and evaluation Darlene Slarb CHILD SUPPORT INVESTIGATOR Comment on above: 07/05/15 Ophthalmic examinati on and evaluation Karadhaa Braselton [employer]O CASE [employer]KER Comment on above: 07/05/15 Ophthalmic examinati on and evaluation Karadhaa Brandon [employer]O CASE MAKER Comment on above: 07/05/15 Screening colonoscopy Jackie Kohler Comment on above: 10+ yrs Screening colonoscopy Monae Gravius Comment on above: 10+ yrs Screening colonoscopy Monae Gravius Comment on above: 10+ yrs Screening colonoscopy Chelsea Marsh Comment on above: 10+ yrs Screening colonoscopy Monae Gravius [employer]O CASE MAKER Comment on above: 10+ yrs Screening colonoscopy Monae Gravius PI[employer]O CASE MAKER Comment on above: 10+ yrs Screening colonoscopy Monae Gravius PI[employer]O CASE MAKER Comment on above: 10+ yrs Screening colonoscopy Darlene Slarb CHILD SUPPORT INVESTIGATOR Comment on above: 10+ yrs Screening colonoscopy Rissaradhaeverett Brandon [employer]O CASE MAKER Comment on above: 10+ yrs Screening colonoscopy Rissadario Taylor [employer]O CASE MAKER Comment on above: 10+ yrs Tonsillectomy Jackie velasco Comment on above: 1969 Tonsillectomy Monae Gravius Comment on above: 1969 Tonsillectomy Monae Gravius Comment on above: 1969 Tonsillectomy Chelsea Salma Comment on above: 1969 Tonsillectomy Monae Gravius [employer]O CASE MAKER Comment on above: 1969 Tonsillectomy Monae Gravius PI[employer]O CASE MAKER Comment on above: 1969 Tonsillectomy Monae Gravius PI[employer]O CASE MAKER Comment on above: 1969 Tonsillectomy Darlene Anabellarb L PN Comment on above: 1969 Tonsillectomy Rissadario Taylor [employer]O CASE MAKER Comment on above: 1969 Tonsillectomy Rissadario Taylor [employer]O CASE MAKER Comment on above: 1969 Plan of Treatment Date Care Activity Detail Author Start: 09-03-2023 Dual energy X-ray absorptiometry Dexa Bone Density/Append [facility] Start: 03-07-2022 Procedure Education Eprescribed prescriptions (G8553) [facility]; [facility] Work Phone: Start: 03-07-2022 Provider Instructions for Treatment [facility]; [facility] Work Phone: Start: 12-27-2021 25 hydroxy includes fractions if performed CALCIFIDIOL (74736) VIT D 25 [facility]; [facility] Work Phone: Start: 12-27-2021 Lipid panel LIPID PANEL (91046) [facility]; [facility] Work Phone: Start: 12-27-2021 Blood count complete auto&auto difrntl wbc CBC W/AUTO DIFF WBC (85686) [facility]; [facility] Work Phone: Start: 12-27-2021 Urine albumin quantitative MICROALBUMIN: CREATININE RATIO (23122) AND (76048) [facility]; [facility] Work Phone: Start: 12-27-2021 Comprehensive metabolic panel METABOLIC PANEL, COMPREHENSIVE (71456) [facility]; [facility] Work Phone: Start: 12-27-2021 Assay of thyroid stimulating hormone tsh TSH (49597) [facility]; [facility] Work [...] 25 hydroxy includes fractions if performed CALCIFIDIOL (38775) VIT D 25 [facility]; [facility] Work Phone: Start: 07-09-2021 Assay of thyroid stimulating hormone tsh TSH (10173) [facility]; [facility] Work Phone: Start: 07-09-2021 Urnls dip stick/tablet reagent auto microscopy URINALYSIS, W/ MICRO (44574) [facility]; [facility] Work Phone: Start: 07-09-2021 Urine albumin quantitative MICROALBUMIN: CREATININE RATIO (09960) AND (50213) [facility]; [facility] Work Phone: Start: 07-09-2021 Comprehensive metabolic panel METABOLIC PANEL, COMPREHENSIVE (68607) [facility]; [facility] Work Phone: Start: 07-09-2021 Lipid panel LIPID PANEL (12715) [facility]; [facility] Work Phone: Start: 07-09-2021 Blood count complete auto&auto difrntl wbc CBC W/AUTO DIFF WBC (78855) [facility]; [facility] Work Phone: Start: 07-09-2021 Procedure Education Eprescribed prescriptions (G8553) [facility]; [facility] Work Phone: Start: 07-09-2021 Provider Instructions for Treatment [facility]; [facility] Work Phone: Start: 03-15-2021 Assay of thyroid stimulating hormone tsh TSH (62763) [facility]; [facility] Work Phone: Start: 03-15-2021 Comprehensive metabolic panel METABOLIC PANEL, COMPREHENSIVE (56687) [facility]; [facility] Work [...] 25 hydroxy includes fractions if performed CALCIFIDIOL (71855) VIT D 25 [facility]; [facility] Work Phone: Start: 06-14-2020 Urnls dip stick/tablet reagent auto microscopy URINALYSIS, W/ MICRO (40790) [facility]; [facility] Work Phone: Start: 06-14-2020 Urine albumin quantitative MICROALBUMIN: CREATININE RATIO (99467) AND (04509) [facility]; [facility] Work Phone: Start: 06-14-2020 Comprehensive metabolic panel METABOLIC PANEL, COMPREHENSIVE (61474) [facility]; [facility] Work Phone: Start: 06-14-2020 Blood count complete auto&auto difrntl wbc CBC W/AUTO DIFF WBC (78636) [facility]; [facility] Work Phone: Start: 06-14-2020 Lipid panel LIPID PANEL (50825) [facility]; [facility] Work Phone: Start: 06-14-2020 Assay of thyroid stimulating hormone tsh TSH (06123) [facility]; [facility] Work Phone: Start: 06-14-2020 TSH Qn TSH (22359) [facility]; [facility] Work Phone: Start: 06-14-2020 SARS-CoV-2 Antibody, IgG SARS-CoV-2 Antibody, IgG [facility]; [facility] Work Phone: Start: 05-12-2019 Provider Instructions for Treatment [facility] Work Phone: Start: 05-12-2019 25 hydroxy includes fractions if performed CALCIFIDIOL (00031) VIT D 25 [facility] Work Phone: Start: 05-12-2019 Lipoprotein blood liam numbers & subclasses NMR Profile (35389) [facility] Work Phone: Start: 05-12-2019 TSH Qn TSH (34272) [facility] Work Phone: Start: 05-12-2019 Urnls dip stick/tablet reagent auto microscopy URINALYSIS, W/ MICRO (52546) [facility] Work Phone: Start: 05-12-2019 Comprehensive metabolic panel METABOLIC PANEL, COMPREHENSIVE (14358) [facility] Work Phone: Start: 05-12-2019 Blood count complete auto&auto difrntl wbc CBC W/AUTO DIFF WBC (74457) [facility] Work Phone: Start: 05-27-2018 Procedure Education Eprescribed prescriptions (G8553) [facility] Work Phone: Start: 05-27-2018 T4 free mass conc T4, FREE (THYROXINE) (70975) [facility] Work Phone: Start: 05-27-2018 T3 free mass conc T3, FREE (TRIDOTHYRONINE) (59714) [facility] Work Phone: Start: 05-27-2018 25 hydroxy includes fractions if performed CALCIFIDIOL (42744) VIT D 25 [facility] Work Phone: Start: 05-27-2018 Thyrotropin Qn TSH (25371) [facility] Work Phone: Start: 05-27-2018 Urnls dip stick/tablet reagent auto microscopy URINALYSIS, W/ MICRO (75224) [facility] Work Phone: Start: 05-27-2018 Urine albumin quantitative MICROALBUMIN: CREATININE RATIO (51948) AND (91806) [facility] Work Phone: Start: 05-27-2018 Comprehensive metabolic panel METABOLIC PANEL, COMPREHENSIVE (84871) [facility] Work Phone: Start: 05-27-2018 Protein mass conc LIPOPROTEIN, BLD, BY NMR (89077) [facility] Work Phone: Start: 05-27-2018 Blood count complete auto&auto difrntl wbc CBC W/AUTO DIFF WBC (80776) [facility] Work Phone: Start: 04-09-2018 Provider Instructions for Treatment [facility] Work Phone: Start: 09-17-2017 Assay of free thyroxine THYROXINE FREE (T4) (61288) [facility] Work Phone: Start: 09-17-2017 Assay of triiodothyronine t3 total tt3 T3, TOTAL (TRIDOTHYRONINE) (22254) [facility] Work Phone: Start: 09-17-2017 Assay of thyroid stimulating hormone tsh TSH (THYROID STIMULATING HORMONE) (80969) [facility] Work Phone: Start: 09-17-2017 Thyrotropin Qn TSH (THYROID STIMULATING HORMONE) (89223) [facility] Work Phone: Start: 09-16-2017 Provider Instructions for Treatment [facility] Work Phone: Start: 09-04-2017 Provider Instructions for Treatment Reviewed Diagnostic Tests [facility] Work Phone: Start: 05-12-2017 Provider Instructions for Treatment Reviewed Lead Care Manager Letter [facility] Work Phone: Start: [...] Assay of free thyroxine T4, FREE (THYROXINE) (49344) [facility] Work Phone: Start: 01-24-2017 T4 free mass conc T4, FREE (THYROXINE) (01277) [facility] Work Phone: Start: 01-24-2017 Assay of triiodothyronine t3 free T3, FREE (TRIDOTHYRONINE) (13395) [facility] Work Phone: Start: 01-24-2017 T3 free mass conc T3, FREE (TRIDOTHYRONINE) (34177) [facility] Work Phone: Start: 01-24-2017 Assay of thyroid stimulating hormone tsh TSH (81796) [facility] Work Phone: Start: 01-24-2017 Thyrotropin Qn TSH (21224) [facility] Work Phone: Start: 01-22-2017 Procedure [...] Work Phone: Payers Date Payer Category Payer Self-pay [id number] 2018 Medicare [id number] 2012 Medicare [id number] 2012 Medicare [id number] 1996 Unknown [id number] 1947 Unknown [id number] 1945 Unknown [id number] Unknown Unknown [id number] Unknown [id number] Social History Date Type Detail Facility Caffeine Use Never smoker [facility] Work Phone: Comment on above: qd Living Situation: Lives alone. [facility] Work Phone: Tobacco use: Never smoker. [facility] Work Phone: Living Situation: Living Situation: Compr ehensive [facility] Work Phone: Tobacco use: Tobacco use: [facility] Work Phone: Start: 1945 Sex Assigned At Female W [facility] Functional Status Date Assessment Result Facility 05-12-2019 LP-IR Score LP-IR Score 55 [facility] Work Phone: Comment on above: INSULIN RESISTANCE Lazara VARGAS <--Insulin Sensitive Insulin Resistant--> Percentile in Reference PopulationInsulin Resistance ScoreLP-IR Score Low 25th 50th 75th High <27 27 45 63 >63LP-IR Score is inaccurate if patient is non-fasting. .The LP-IR score is a laboratory developed index that has beenassociated with insulin resistance and diabetes risk and should beused as one component of a physician's clinical assessment. Test(s) 934122-CNS-V ; 239415-ZMX-T; 488776-QWV-R; 792698-Ssdmfulepmqqg; 696088-Ryiojurdogo, Total; 110458-RXV-O (Total);968498-Aotru LDL-P; 854401-VFK Size; 833880-QN-SI Scorewas developed and its performance characteristics determinedby [employer]. It has not been cleared or approved by the Foodand Drug Administration.PATIENT WAS FASTINGPERFORMED BY: [facility] [id number] BY: [email or web address] LearningUNC [facility] [id number] 05-27-2018 LP-IR Score LP-IR Score 62 [facility] Work Phone: Comment on above: INSULIN RESISTANCE Lazara VARGAS <--Insulin Sensitive Insulin Resistant--> Percentile in Reference PopulationInsulin Resistance ScoreLP-IR Score Low 25th 50th 75th High <27 27 45 63 >63LP-IR Score is inaccurate if patient is non-fasting. .The LP-IR score is a laboratory developed index that has beenassociated with insulin resistance and diabetes risk and should beused as one component of a physician's clinical assessment. TheLP-IR score listed above has not been cleared by the [place] Food andDrug Administration. PATIENT WAS FASTINGP ERFORMED BY: [facility] [id number] BY: [employer] [email or web address] [facility] [id number] Clinical Notes Note Date & Type Note Facility Evaluation note No assessment information availa [facility] Work Phone: Instructions Name Patient Instructions Indication:BMI 45.0-49.9, adult Start: 0 Instruction Type:Provider Instructions for Treatment How to access health information online Indication:Non-smoker Start: 8 Instruction Type:Patient Education How to access health information online - Detail Indication:Non-smoker Start: 8 Instruction Type:Patient Education Patient Instructions Indication:Non-smoker Start: 8 Instruction Type:Provider Instructions for Treatment obesity counseling Indication:Hypertension, benign Start: 8 Instruction Type:Provider Instructions for Treatment How to access health information online Indication:BMI 45.0-49.9, adult Start: 8 Instruction Type:Patient Education How to access health information online - Detail Indication:BMI 45.0-49.9, adult Start: 8 Instruction Type:Patient Education Patient Instructions Indication:BMI 45.0-49.9, adult Start: 8 Instruction Type:Provider Instructions for Treatment How to access health information online Indication:Nonsmoker Start: Instruction Type:Patient Education How to access health information online - Detail Indication:Nonsmoker Start: Instruction Type:Patient Education Patient Instructions Indication:Nonsmoker Start: Instruction Type:Provider Instructions for Treatment How to access health information online Indication:Nonsmoker Start:04-Sep-2017 Instruction Type:Patient Education How to access health information online - Detail Indication:Nonsmoker Start:04-Sep-2017 Instruction Type:Patient Education Patient Instructions Indication:Nonsmoker Start:04-Sep-2017 Instruction Type:Provider Instructions for Treatment How to access health information online Indication:Nonsmoker Start: Instruction Type:Patient Education How to access health information online - Detail Indication:Nonsmoker Start: Instruction Type:Patient Education Patient Instructions Indication:Nonsmoker Start: 7 Instruction Type:Provider Instructions for Treatment obesity counseling Indication:Osteoarthritis, localized Start:03-Apr-2017 Instruction Type:Provider Instructions for Treatment How to access health information online Indication:Nonsmoker Start:03-Apr-2017 Instruction Type:Patient Education How to access health information online - Detail Indication:Nonsmoker Start:03-Apr-2017 Instruction Type:Patient Education Patient Instructions Indication:Nonsmoker Start:03-Apr-2017 Instruction Type:Provider Instructions for Treatment How to access health information online Indication:Left groin pain Start: 7 Instruction Type:Patient Education How to access health information online - Detail Indication:Left groin pain Start:11-Sep-201 7 Instruction Type:Patient Education Patient Instructions Indication:Left groin pain Start: Instruction Type:Provider Instructions for Treatment How to access health information online Indication:Nonsmoker Start: Instruction Type:Patient Education How to access health information online - Detail Indication:Nonsmoker Start: Instruction Type:Patient Education Patient Instructions Indication:Nonsmoker Start: Instruction Type:Provider Instructions for Treatment How to access health information online Indication:Nonsmoker Start: Instruction Type:Patient Education How to access health information online - Detail Indication:Nonsmoker Start: Instruction Type:Patient Education Patient Instructions Indication:Nonsmoker Start: Instruction Type:Provider Instructions for Treatment How to access health information online Indication:Nonsmoker Start: Instruction Type:Patient Education How to access health information online - Detail Indication:Nonsmoker Start: Instruction Type:Patient Education Patient Instructions Indication:Nonsmoker Start: Instruction Type:Provider Instructions for Treatment How to access health information online Indication:Nonsmoker Start:03-Jul-2016 Instruction Type:Patient Education How to access health information online - Detail Indication:Nonsmoker Start:03-Jul-2016 Instruction Type:Patient Education Patient Instructions Indication:Nonsmoker Start:03-Jul-2016 Instruction Type:Provider Instructions for Treatment Patient Instructions Indication:Encounter for screening for malignant neoplasm of colon (Renamed from Special screening for malignant neoplasms, colon) Start: Instruction Type:Provider Instructions for Treatment How to access health information online Indication:Encounter for screening for malignant neoplasm of colon (Renamed from Special screening for malignant neoplasms, colon) Start: Instruction Type:Patient Education How to access health information online - Detail Indication:Encounter for screening for malignant neoplasm of colon (Renamed from Special screening for malignant neoplasms, colon) Start: Instruction Type:Patient Education obesity counseling Indication:Hypertension, benign Start: Instruction Type:Provider Instructions for Treatment [facility]; [facility] Work Phone: Instructions* Name Dates Details Patient Instructions Indication:Hypertension, benign Start:15-Mar-2021 Instruction Type:Provider Instructions for Treatment Patient Instructions Indication:BMI 45.0-49.9, adult Start:15-Mar-2021 Instruction Type:Provider Instructions for Treatment How to Access Health Informa tion Online using Patient Portal and 3rd [employer] Apps Indication:BMI 45.0-49.9, adult Start:15-Mar-2021 Instruction Type:Patient Education How to Access Health Informa tion Online using Patient Portal and 3rd [employer] Apps Indication:Non-smoker Start:12-Mar-2021 Instruction Type:Patient Education Patient Instructions Indication:Non-smoker Start:12-Mar-2021 Instruction Type:Provider Instructions for Treatment How to Access Health Informa tion Online using Patient Portal and 3rd [employer] Apps Indication:Non-smoker Start:12-Mar-2021 Instruction Type:Patient Education Patient Instructions Indication:Non-smoker Start:09-Mar-2021 Instruction Type:Provider Instructions for Treatment How to Access Health Informa tion Online using Patient Portal and 3rd [employer] Apps Indication:Non-smoker Start:09-Mar-2021 Instruction Type:Patient Education Patient [...] tion Online using Patient Portal and 3rd [employer] Apps Indication:BMI 45.0-49.9, adult Start:09-Jul-2021 Instruction Type:Patient Education Patient Instructions Indication:Hypertension, benign Start:15-Mar-2021 Instruction Type:Provider Instructions for Treatment Patient Instructions Indication:BMI 45.0-49.9, adult Start:15-Mar-2021 Instruction Type:Provider Instructions for Treatment How to Access Health Informa tion Online using Patient Portal and 3rd [employer] Apps Indication:BMI 45.0-49.9, adult Start:15-Mar-2021 Instruction Type:Patient Education How to Access Health Informa tion Online using Patient Portal and 3rd [employer] Apps Indication:Non-smoker Start:12-Mar-2021 Instruction Type:Patient Education Patient Instructions Indication:Non-smoker Start:12-Mar-2021 Instruction Type:Provider Instructions for Treatment How to Access Health Informa tion Online using Patient Portal and 3rd [employer] Apps Indication:Non-smoker Start:12-Mar-2021 Instruction Type:Patient Education Patient Instructions Indication:Non-smoker Start:09-Mar-2021 Instruction Type:Provider Instructions for Treatment How to Access Health Informa tion Online using Patient Portal and 3rd [employer] Apps Indication:Non-smoker Start:09-Mar-2021 Instruction Type:Patient Education Patient [...] tion Online using Patient Portal and 3rd [employer] Apps Indication:Morbid obesity Start:19-Nov-2021 Instruction Type:Patient Education Patient Instructions Indication:BMI 45.0-49.9, adult Start:09-Jul-2021 Instruction Type:Provider Instructions for Treatment How to Access Health Informa tion Online using Patient Portal and 3rd [employer] Apps Indication:BMI 45.0-49.9, adult Start:09-Jul-2021 Instruction Type:Patient Education Patient Instructions Indication:Hypertension, benign Start:15-Mar-2021 Instruction Type:Provider Instructions for Treatment Patient Instructions Indication:BMI 45.0-49.9, adult Start:15-Mar-2021 Instruction Type:Provider Instructions for Treatment How to Access Health Informa tion Online using Patient Portal and 3rd [employer] Apps Indication:BMI 45.0-49.9, adult Start:15-Mar-2021 Instruction Type:Patient Education How to Access Health Informa tion Online using Patient Portal and 3rd [employer] Apps Indication:Non-smoker Start:12-Mar-2021 Instruction Type:Patient Education Patient Instructions Indication:Non-smoker Start:12-Mar-2021 Instruction Type:Provider Instructions for Treatment How to Access Health Informa tion Online using Patient Portal and 3rd [employer] Apps Indication:Non-smoker Start:12-Mar-2021 Instruction Type:Patient Education Patient Instructions Indication:Non-smoker Start:09-Mar-2021 Instruction Type:Provider Instructions for Treatment How to Access Health Informa tion Online using Patient Portal and 3rd [employer] Apps Indication:Non-smoker Start:09-Mar-2021 Instruction Type:Patient Education Patient [...] tion Online using Patient Portal and 3rd [employer] Apps Indication:Hypertension, benign Start:06-Dec-2021 Instruction Type:Patient Education Patient Instructions Indication:Morbid obesity Start:19-Nov-2021 Instruction Type:Provider Instructions for Treatment How to Access Health Informa tion Online using Patient Portal and 3rd [employer] Apps Indication:Morbid obesity Start:19-Nov-2021 Instruction Type:Patient Education Patient Instructions Indication:BMI 45.0-49.9, adult Start:09-Jul-2021 Instruction Type:Provider Instructions for Treatment How to Access Health Informa tion Online using Patient Portal and 3rd [employer] Apps Indication:BMI 45.0-49.9, adult Start:09-Jul-2021 Instruction Type:Patient Education Patient Instructions Indication:Hypertension, benign Start:15-Mar-2021 Instruction Type:Provider Instructions for Treatment Patient Instructions Indication:BMI 45.0-49.9, adult Start:15-Mar-2021 Instruction Type:Provider Instructions for Treatment How to Access Health Informa tion Online using Patient Portal and 3rd [employer] Apps Indication:BMI 45.0-49.9, adult Start:15-Mar-2021 Instruction Type:Patient Education How to Access Health Informa tion Online using Patient Portal and [employer] Apps Indication:Non-smoker Start:12-Mar-2021 Instruction Type:Patient Education Patient Instructions Indication:Non-smoker Start:12-Mar-2021 Instruction Type:Provider Instructions for Treatment How to Access Health Informa tion Online using Patient Portal and [employer] Apps Indication:Non-smoker Start:12-Mar-2021 Instruction Type:Patient Education Patient Instructions Indication:Non-smoker Start:09-Mar-2021 Instruction Type:Provider Instructions for Treatment How to Access Health Informa tion Online using Patient Portal and [employer] Apps Indication:Non-smoker Start:09-Mar-2021 Instruction Type:Patient Education Patient [...] tion Online using Patient Portal and [employer] Apps Indication:Hypertension, benign Start:06-Dec-2021 Instruction Type:Patient Education Patient Instructions Indication:Morbid obesity Start:19-Nov-2021 Instruction Type:Provider Instructions for Treatment How to Access Health Informa tion Online using Patient Portal and [employer] Apps Indication:Morbid obesity Start:19-Nov-2021 Instruction Type:Patient Education Patient Instructions Indication:BMI 45.0-49.9, adult Start:09-Jul-2021 Instruction Type:Provider Instructions for Treatment How to Access Health Informa tion Online using Patient Portal and [employer] Apps Indication:BMI 45.0-49.9, adult Start:09-Jul-2021 Instruction Type:Patient Education Patient Instructions Indication:Hypertension, benign Start:15-Mar-2021 Instruction Type:Provider Instructions for Treatment Patient Instructions Indication:BMI 45.0-49.9, adult Start:15-Mar-2021 Instruction Type:Provider Instructions for Treatment How to Access Health Informa tion Online using Patient Portal and [employer] Apps Indication:BMI 45.0-49.9, adult Start:15-Mar-2021 Instruction Type:Patient Education How to Access Health Informa tion Online using Patient Portal and [employer] Apps Indication:Non-smoker Start:12-Mar-2021 Instruction Type:Patient Education Patient Instructions Indication:Non-smoker Start:12-Mar-2021 Instruction Type:Provider Instructions for Treatment How to Access Health Informa tion Online using Patient Portal and [employer] Apps Indication:Non-smoker Start:12-Mar-2021 Instruction Type:Patient Education Patient Instructions Indication:Non-smoker Start:09-Mar-2021 Instruction Type:Provider Instructions for Treatment How to Access Health Informa tion Online using Patient Portal and [employer] Apps Indication:Non-smoker Start:09-Mar-2021 Instruction Type:Patient Education Patient [...] tion Online using Patient Portal and [employer] Apps Indication:Hypertension, benign Start:06-Dec-2021 Instruction Type:Patient Education Patient Instructions Indication:Morbid obesity Start:19-Nov-2021 Instruction Type:Provider Instructions for Treatment How to Access Health Informa tion Online using Patient Portal and [employer] Apps Indication:Morbid obesity Start:19-Nov-2021 Instruction Type:Patient Education Patient Instructions Indication:BMI 45.0-49.9, adult Start:09-Jul-2021 Instruction Type:Provider Instructions for Treatment How to Access Health Informa tion Online using Patient Portal and [employer] Apps Indication:BMI 45.0-49.9, adult Start:09-Jul-2021 Instruction Type:Patient Education Patient Instructions Indication:Hypertension, benign Start:15-Mar-2021 Instruction Type:Provider Instructions for Treatment Patient Instructions Indication:BMI 45.0-49.9, adult Start:15-Mar-2021 Instruction Type:Provider Instructions for Treatment How to Access Health Informa tion Online using Patient Portal and [employer] Apps Indication:BMI 45.0-49.9, adult Start:15-Mar-2021 Instruction Type:Patient Education How to Access Health Informa tion Online using Patient Portal and [employer] Apps Indication:Non-smoker Start:12-Mar-2021 Instruction Type:Patient Education Patient Instructions Indication:Non-smoker Start:12-Mar-2021 Instruction Type:Provider Instructions for Treatment How to Access Health Informa tion Online using Patient Portal and [employer] Apps Indication:Non-smoker Start:12-Mar-2021 Instruction Type:Patient Education Patient Instructions Indication:Non-smoker Start:09-Mar-2021 Instruction Type:Provider Instructions for Treatment How to Access Health Informa tion Online using Patient Portal and [employer] Apps Indication:Non-smoker Start:09-Mar-2021 Instruction Type:Patient Education Patient [...] tion Online using Patient Portal and [employer] Apps Indication:Hypertension, benign Start:06-Dec-2021 Instruction Type:Patient Education Patient Instructions Indication:Morbid obesity Start:19-Nov-2021 Instruction Type:Provider Instructions for Treatment How to Access Health Informa tion Online using Patient Portal and [employer] Apps Indication:Morbid obesity Start:19-Nov-2021 Instruction Type:Patient Education Patient Instructions Indication:BMI 45.0-49.9, adult Start:09-Jul-2021 Instruction Type:Provider Instructions for Treatment How to Access Health Informa tion Online using Patient Portal and [employer] Apps Indication:BMI 45.0-49.9, adult Start:09-Jul-2021 Instruction Type:Patient Education Patient Instructions Indication:Hypertension, benign Start:15-Mar-2021 Instruction Type:Provider Instructions for Treatment Patient Instructions Indication:BMI 45.0-49.9, adult Start:15-Mar-2021 Instruction Type:Provider Instructions for Treatment How to Access Health Informa tion Online using Patient Portal and [employer] Apps Indication:BMI 45.0-49.9, adult Start:15-Mar-2021 Instruction Type:Patient Education How to Access Health Informa tion Online using Patient Portal and [employer] Apps Indication:Non-smoker Start:12-Mar-2021 Instruction Type:Patient Education Patient Instructions Indication:Non-smoker Start:12-Mar-2021 Instruction Type:Provider Instructions for Treatment How to Access Health Informa tion Online using Patient Portal and [employer] Apps Indication:Non-smoker Start:12-Mar-2021 Instruction Type:Patient Education Patient Instructions Indication:Non-smoker Start:09-Mar-2021 Instruction Type:Provider Instructions for Treatment How to Access Health Informa tion Online using Patient Portal and [employer] Apps Indication:Non-smoker Start:09-Mar-2021 Instruction Type:Patient Education Patient [...] tion Online using Patient Portal and [employer] Apps Indication:Non-smoker Start:07-Mar-2022 Instruction Type:Patient Education Patient Instructions Indication:Hypertension, benign Start:06-Dec-2021 Instruction Type:Provider Instructions for Treatment How to Access Health Informa tion Online using Patient Portal and [employer] Apps Indication:Hypertension, benign Start:06-Dec-2021 Instruction Type:Patient Education Patient Instructions Indication:Morbid obesity Start:19-Nov-2021 Instruction Type:Provider Instructions for Treatment How to Access Health Informa tion Online using Patient Portal and [employer] Apps Indication:Morbid obesity Start:19-Nov-2021 Instruction Type:Patient Education Patient Instructions Indication:BMI 45.0-49.9, adult Start:09-Jul-2021 Instruction Type:Provider Instructions for Treatment How to Access Health Informa tion Online using Patient Portal and [employer] Apps Indication:BMI 45.0-49.9, adult Start:09-Jul-2021 Instruction Type:Patient Education Patient Instructions Indication:Hypertension, benign Start:15-Mar-2021 Instruction Type:Provider Instructions for Treatment Patient Instructions Indication:BMI 45.0-49.9, adult Start:15-Mar-2021 Instruction Type:Provider Instructions for Treatment How to Access Health Informa tion Online using Patient Portal and [employer] Apps Indication:BMI 45.0-49.9, adult Start:15-Mar-2021 Instruction Type:Patient Education How to Access Health Informa tion Online using Patient Portal and [employer] Apps Indication:Non-smoker Start:12-Mar-2021 Instruction Type:Patient Education Patient Instructions Indication:Non-smoker Start:12-Mar-2021 Instruction Type:Provider Instructions for Treatment How to Access Health Informa tion Online using Patient Portal and [employer] Apps Indication:Non-smoker Start:12-Mar-2021 Instruction Type:Patient Education Patient Instructions Indication:Non-smoker Start:09-Mar-2021 Instruction Type:Provider Instructions for Treatment How to Access Health Informa tion Online using Patient Portal and [employer] Apps Indication:Non-smoker Start:09-Mar-2021 Instruction Type:Patient Education Patient [...] tion Online using Patient Portal and [employer] Apps Indication:Non-smoker Start:07-Mar-2022 Instruction Type:Patient Education Patient Instructions Indication:Hypertension, benign Start:06-Dec-2021 Instruction Type:Provider Instructions for Treatment How to Access Health Informa tion Online using Patient Portal and [employer] Apps Indication:Hypertension, benign Start:06-Dec-2021 Instruction Type:Patient Education Patient Instructions Indication:Morbid obesity Start:19-Nov-2021 Instruction Type:Provider Instructions for Treatment How to Access Health Informa tion Online using Patient Portal and [employer] Apps Indication:Morbid obesity Start:19-Nov-2021 Instruction Type:Patient Education Patient Instructions Indication:BMI 45.0-49.9, adult Start:09-Jul-2021 Instruction Type:Provider Instructions for Treatment How to Access Health Informa tion Online using Patient Portal and [employer] Apps Indication:BMI 45.0-49.9, adult Start:09-Jul-2021 Instruction Type:Patient Education Patient Instructions Indication:Hypertension, benign Start:15-Mar-2021 Instruction Type:Provider Instructions for Treatment Patient Instructions Indication:BMI 45.0-49.9, adult Start:15-Mar-2021 Instruction Type:Provider Instructions for Treatment How to Access Health Informa tion Online using Patient Portal and [employer] Apps Indication:BMI 45.0-49.9, adult Start:15-Mar-2021 Instruction Type:Patient Education How to Access Health Informa tion Online using Patient Portal and [employer] Apps Indication:Non-smoker Start:12-Mar-2021 Instruction Type:Patient Education Patient Instructions Indication:Non-smoker Start:12-Mar-2021 Instruction Type:Provider Instructions for Treatment How to Access Health Informa tion Online using Patient Portal and [employer] Apps Indication:Non-smoker Start:12-Mar-2021 Instruction Type:Patient Education Patient Instructions Indication:Non-smoker Start:09-Mar-2021 Instruction Type:Provider Instructions for Treatment How to Access Health Informa tion Online using Patient Portal and [employer] Apps Indication:Non-smoker Start:09-Mar-2021 Instruction Type:Patient Education Patient [...] tion Online using Patient Portal and [employer] Apps Indication:Non-smoker Start:07-Mar-2022 Instruction Type:Patient Education Patient Instructions Indication:Hypertension, benign Start:06-Dec-2021 Instruction Type:Provider Instructions for Treatment How to Access Health Informa tion Online using Patient Portal and [employer] Apps Indication:Hypertension, benign Start:06-Dec-2021 Instruction Type:Patient Education Patient Instructions Indication:Morbid obesity Start:19-Nov-2021 Instruction Type:Provider Instructions for Treatment How to Access Health Informa tion Online using Patient Portal and [employer] Apps Indication:Morbid obesity Start:19-Nov-2021 Instruction Type:Patient Education Patient Instructions Indication:BMI 45.0-49.9, adult Start:09-Jul-2021 Instruction Type:Provider Instructions for Treatment How to Access Health Informa tion Online using Patient Portal and [employer] Apps Indication:BMI 45.0-49.9, adult Start:09-Jul-2021 Instruction Type:Patient Education Patient Instructions Indication:Hypertension, benign Start:15-Mar-2021 Instruction Type:Provider Instructions for Treatment Patient Instructions Indication:BMI 45.0-49.9, adult Start:15-Mar-2021 Instruction Type:Provider Instructions for Treatment How to Access Health Informa tion Online using Patient Portal and [employer] Apps Indication:BMI 45.0-49.9, adult Start:15-Mar-2021 Instruction Type:Patient Education How to Access Health Informa tion Online using Patient Portal and [employer] Apps Indication:Non-smoker Start:12-Mar-2021 Instruction Type:Patient Education Patient Instructions Indication:Non-smoker Start:12-Mar-2021 Instruction Type:Provider Instructions for Treatment How to Access Health Informa tion Online using Patient Portal and [employer] Apps Indication:Non-smoker Start:12-Mar-2021 Instruction Type:Patient Education Patient Instructions Indication:Non-smoker Start:09-Mar-2021 Instruction Type:Provider Instructions for Treatment How to Access Health Informa tion Online using Patient Portal and [employer] Apps Indication:Non-smoker Start:09-Mar-2021 Instruction Type:Patient Education Patient [...] tion Online using Patient Portal and [employer] Apps Indication:Non-smoker Start:07-Mar-2022 Instruction Type:Patient Education Patient Instructions Indication:Hypertension, benign Start:06-Dec-2021 Instruction Type:Provider Instructions for Treatment How to Access Health Informa tion Online using Patient Portal and [employer] Apps Indication:Hypertension, benign Start:06-Dec-2021 Instruction Type:Patient Education Patient Instructions Indication:Morbid obesity Start:19-Nov-2021 Instruction Type:Provider Instructions for Treatment How to Access Health Informa tion Online using Patient Portal and [employer] Apps Indication:Morbid obesity Start:19-Nov-2021 Instruction Type:Patient Education Patient Instructions Indication:BMI 45.0-49.9, adult Start:09-Jul-2021 Instruction Type:Provider Instructions for Treatment How to Access Health Informa tion Online using Patient Portal and [employer] Apps Indication:BMI 45.0-49.9, adult Start:09-Jul-2021 Instruction Type:Patient Education Patient Instructions Indication:Hypertension, benign Start:15-Mar-2021 Instruction Type:Provider Instructions for Treatment Patient Instructions Indication:BMI 45.0-49.9, adult Start:15-Mar-2021 Instruction Type:Provider Instructions for Treatment How to Access Health Informa tion Online using Patient Portal and [employer] Apps Indication:BMI 45.0-49.9, adult Start:15-Mar-2021 Instruction Type:Patient Education How to Access Health Informa tion Online using Patient Portal and [employer] Apps Indication:Non-smoker Start:12-Mar-2021 Instruction Type:Patient Education Patient Instructions Indication:Non-smoker Start:12-Mar-2021 Instruction Type:Provider Instructions for Treatment How to Access Health Informa tion Online using Patient Portal and [employer] Apps Indication:Non-smoker Start:12-Mar-2021 Instruction Type:Patient Education Patient Instructions Indication:Non-smoker Start:09-Mar-2021 Instruction Type:Provider Instructions for Treatment How to Access Health Informa tion Online using Patient Portal and [employer] Apps Indication:Non-smoker Start:09-Mar-2021 Instruction Type:Patient Education Patient [...] [facility] Work Phone: Family History No Family History Records FoundUnknown Family Member Name Dates Details Alcohol Abuse [...] Indication:BMI 45.0-49.9, adult BMI 45.0-49.9, adult : [place] nt Instructions Indication:BMI 45.0-49.9, adult Nonsmoker : [...] Advanced Directives Records FoundNo Advanced Directives Records FoundNo Advanced Directives Records Found Chief Complaint and Reason for Visit Chief Complaint SCREEN Additional Source Comments INFORMATION SOURCE (unrecogn ized section and content) DATE CREATED AUTHOR 06/07/2018 [facility] DATE CREATED AUTHOR AUTHOR'S ORGANIZ ATION 06/10/2018 [facility] ([place]) DATE CREATED AUTHOR AUTHOR'S ORGANIZ ATION 09/12/2023 [facility] Care Teams (unrecognized sec tion and content) Team Status: Active Member Role Status Dates Dr. Melissa Amanda DO Family Provider Active Dr. Melissa Amanda , DO Primary Care Provider Active Team Status: Inactive Member Role Status Dates Dr. Melissa Amanda , DO Primary Care Pr ovider, Attending Provider, Referring Provider Active Goals (unrecognized section and content) Goals may be documented in a n alternate section FOR RECORDS PERTAINING TO PATIENTS WHO ARE [...] BE BASED ON THE PRIMARY CLINICAL RECORDS. [facility] [employer] [facility]. provides no warranty or guarantee of the accuracy or completeness of information in this document.
[2025-05-22 21:26] LABS: Hematocrit 34.6 % (37-47); Hemoglobin 11.6 g/dL (12.0-15.0); Immature Granulocytes Count 0.050 X10^3/uL (0.0-0.0); Mean Corp Hgb Conc 33.5 g/dL (32-36); Mean Corpuscular Volume 93.8 fL (81-99); Mean Platelet Vol. 9.2 fl (6.2-12.0); NRBC Flagged by Analyzer 0 % (0-5); Platelet Count 228 K/mm3 (150-450); RBC Distribution Width CV 11.9 % (11.6-14.6); RBC Distribution Width SD 41.2 fl (35.1-43.9); Red Blood Count 3.69 M/mm3 (4.2-5.4); White Blood Count 12.8 K/mm3 (4.4-11.0)
--- NOTE | 2025-05-22 21:30 | RAD_ITS ---
PROCEDURE: HIP, UNI W/ PELVIS 2-3 VIEWS 05/22/2025 REASON FOR EXAM: INJURY/PAIN TECHNIQUE: Procedure Code: RAD Modality: DX Procedure: HIP, UNI W/ PELVIS 2-3 VIEWS Laterality: Right COMPARISON: None. FINDINGS: The right hip appears unremarkable, without a fracture or significant degenerative changes. No dislocation. Severe degenerative changes are noted within the left hip including destructive/erosive changes affect in the humeral head, with superior displacement of the left femur. Incompletely imaged degenerative changes are noted within the visualized lower lumbar spine. RAD/HIP, UNI W/ Pelvis 2-3 Views IMPRESSION: As above. Reading Location: [id number]
--- NOTE | 2025-05-22 21:43 | EX.ED.DYSGE1 ---
HPI History of Present Illness Chief Complaint: Lower Extremity Injury Detail of Chief Complaint: Atraumatic right hip/anterior proximal right thigh pain Onset/Context/Timing Onset: Days Context: Sudden Onset Timing: Intermittent and Waxes and wanes Quality: Pain Location: Right greater trochanteric area and proximal anterior right thigh Current Severity: Mild Maximum Severity: Severe Worsened by: Movement Relieved by: Remaining still Associated Symptoms Associated Symptoms: Nothing Narrative Narrative: Patient is a 80-year-old woman. She states she has not experienced pain like this in over 40 years. 40 years ago she was told she had sciatica. That pain was posterior. She denies any trauma. She denies fever, chills night sweats. She denies paresthesia, anesthesia or motor weakness. She is not diabetic. She has no GI or urologic symptoms. She has not noted a rash. She states approximate week ago her thyroid medicine was changed. She started having pain around that time. Of note she did not get her prescription however until Friday. She denies foot drop. She denies bowel bladder dysfunction. Denies saddle paresthesia anesthesia. Prior similar symptoms: No Recent Illness/Hospitalization: No PFSH PFSH Medical History Rapid heart rate Encounter for annual general medical examination with abnormal findings in adult Encounter for screening for malignant neoplasm of colon Sinusitis Post-menopausal Hypercholesteremia Non-smoker Nail problem Tear of left acetabular labrum Vitamin D deficiency Right bundle branch block Hip pain Osteoarthritis BRODY (acute kidney injury) Abnormal TSH BMI 45.0-49.9, adult Morbid obesity Nutritional counseling Hypertension, benign GERD (gastroesophageal reflux disease) Encounter for hepatitis C virus screening test for high risk patient Renal insufficiency Hyperglycemia Pulmonary hypertension Acquired hypothyroidism Anxiety Osteopenia Stress fracture Sciatica Home Medications Medication Instructions Recorded Last Taken Type aspirin 81 mg chewable tablet 81 mg PO QDAY 05/13/25 Unknown History atenolol 25 mg tablet 25 mg PO QDAY PRN rapid heartrate 05/13/25 Unknown Rx #30 tabs atorvastatin 20 mg tablet 20 mg PO QDAY #90 tabs 05/13/25 Unknown Rx latanoprost 0.005 % eye drops 1 drp ophthalmic (eye) QHS 05/13/25 Unknown History liothyronine 5 mcg tablet (Cytomel) 5 mcg PO QDAY #30 tabs 05/13/25 Unknown Rx paroxetine HCl 20 mg tablet 20 mg PO QDAY #90 tabs 05/13/25 Unknown Rx potassium chloride 10 mEq 10 meq PO QDAY #90 tabs 05/13/25 Unknown Rx tablet,extended release valsartan 320 1 tab PO QDAY 90 days #90 tabs 05/13/25 Unknown Rx mg-hydrochlorothiazide 12.5 mg tablet levothyroxine 200 mcg tablet 200 mcg PO QDAY #30 tabs 05/17/25 Unknown Rx (Levoxyl) hydrocodone-acetaminophen 5-325mg 1 tab PO Q6H PRN PRN Pain 3 days 05/22/25 Unknown Rx 5mg-325mg #10 TABLETS levothyroxine 150 mcg tablet 150 mcg PO DAILY 05/22/25 Unknown History valsartan 320 1 tab PO DAILY 05/22/25 Unknown History mg-hydrochlorothiazide 25 mg tablet Allergy/AdvReac Type Severity Reaction Status Date / Time metoclopramide (From Reglan) Allergy Severe lump in Verified 05/22/25 20:35 throat naproxen (From Aleve) AdvReac Severe chest pain Verified 05/22/25 20:35 citalopram (From Celexa) AdvReac Intermediate hyperactivi Verified 05/22/25 20:35 ty Family History Mother Thyroid disorder Lung cancer Anxiety disorder Kidney disease Brother Thyroid disorder Father Diabetes Prostate disease Prostate CA Kidney disease Grandmother Colon cancer IBS (irritable bowel syndrome) Maternal Grandfather Alcohol abuse Grandfather Alcohol abuse Surgical History H/O cataract extraction H/O: hysterectomy History of tonsillectomy History of appendectomy Social History adopted: Yes household members: family current occupational status: retired current occupational exposures/hazards: Yes history of recent travel: No Smoking Status: Never smoker alcohol intake: never substance use type: does not use caffeine: Yes (coffee 12 oz per day ) what type of physical activity do you participate in: none seatbelt use: always do you feel safe at home: Yes ROS ROS ED Constitutional Constitutional ED: Denies chills, fever(s), subjective, sweats or weight loss Gastrointestinal Gastrointestinal: Denies abdominal pain, constipation, diarrhea, melena, nausea or vomiting Genitourinary Genitourinary ED: Denies dysuria, hematuria or urinary frequency Musculoskeletal Musculoskeletal: Denies arthralgias, back pain, myalgias or neck pain Integumentary Denies rash Neurologic Neurologic: Denies paresthesias or weakness Endocrine Endocrinology: Denies cold intolerance or heat intolerance Hematologic/Lymphatic Hematologic/Lymphatic: Reports systems reviewed and no addt'l complaints, except as documented EXAM Physical Exam Const Vital Signs: 05/22/25 20:29 Temperature 98.2 F Temperature Source Oral Pulse Rate 110 H Respiratory Rate 18 Blood Pressure 196/78 H Blood Pressure Mean 117 Pulse Ox 98 Oxygen Delivery Method Room Air Positive well nourished and well developed General Appearance ED: well developed, NAD and pallor HEENT Reports moist mucous membranes Eyes PERRL and EOMs intact bilaterally General Eye ED: Negative for pale conjunctiva or scleral icterus Neck no lymphadenopathy, supple and no JVD Chest Wall inspection of chest normal and palpation of chest normal Resp normal respiratory effort and clear to auscultation bilaterally Cardio regular rate, regular rhythm, S1 normal heart sound, S2 normal heart sound and no murmurs GI normal to inspection, nondistended, normoactive bowel sounds, non-tender, non-distended and no masses; Negative for hepatosplenomegaly Narrative: There is no inguinal mass or tenderness. Extremity Extremity Narrative: Bilateral lymphedema. There are some venous stasis changes noted as well. There is no neurovasc compromise of lower extremity exam straight leg test is negative. Normal sensation L3-S1. Patellar and ankle reflex are 1+ and symmetric. Attempt to perform Ruben Annika 4 test causes her pain. She localizes it to the lateral aspect of the proximal right thigh. She has no pain posteriorly. Neuro oriented x3, CN's II-XII intact bilaterally and no sensory deficits noted Sensorium / Orientation: alert Skin no rashes or lesions noted, no wounds and skin turgor normal General Skin Exam: elasticity normal and pallor; Negative for jaundice MDM MDM MDM Narrative Medical decision making narrative: Patient with [place] right hip pain. Differential diagnosis to be osteoarthritis, musculoskeletal strain, doubt SI joint inflammation. This may also represent greater trochanteric bursitis. Appropriate blood work was obtained which included a white count and electrolyte panel to assess blood sugar and renal function. X-ray was obtained X-ray in my opinion reveals arthritic changes of the femoral acetabular joints. There is no acute abnormality noted. Patient was medicated with pain medicine and discharged with pain medicine. She has seen Dr. Pepe in the past. She was informed that she should contact him because she has significant arthritis. Also to follow-up with Dr. Rojo since her blood pressure is elevated this may be due to pain. Lab Data Attestation: I reviewed the patient's lab results. Lab results narrative: White count slightly elevated 12.8 thousand. There is a shift. H&H reveals mild anemia with normal indices. Labs: Laboratory Results - last 24 hr 05/22/25 21:17 WBC 12.8 H RBC 3.69 L Hgb 11.6 L Hct 34.6 L MCV 93.8 MCH 31.4 MCHC 33.5 RDW Std Deviation 41.2 RDW Coeff of Junito 11.9 Plt Count 228 MPV 9.2 Immature Gran % (Auto) 0.400 Neut % (Auto) 84.5 H Lymph % (Auto) 8.1 L [place] % (Auto) 6.0 Eos % (Auto) 0.7 Baso % (Auto) 0.3 Absolute Neuts (auto) 10.9 H Absolute Lymphs (auto) 1.04 Nucleated RBC % 0 Sodium 132 L Potassium 4.1 Chloride 96 L Carbon Dioxide 23.4 Anion Gap 13 BUN 23 H Creatinine 0.91 Estim Creat Clear Calc 55.32 Est GFR (MDRD) Non-Af 65 BUN/Creatinine Ratio 24.8 H Glucose 140 H Calcium 9.5 Radiography Chest X-Ray - ED: Read by ED Physician (Three-view x-ray of the hip was independent reviewed interpreted by me as negative for any acute fracture, sublease dislocation. There are some arthritic changes of the hip joint. There is also a large ball of feces noted in the pelvis area.) Diagnostic Testing: Clinical Impression(s) from Imaging Studies Hip/Pelvis X-Ray 05/22/25 21:30 IMPRESSION: As above. Reading Location: [facility] Discharge Plan Triage Chief Complaint: Lower Extremity Injury ED Provider: Kelton Carty Dx/Rx/DC Orders Clinical Impression: Osteoarthritis of right hip, Walking difficulty due to joint disorder, GERD (gastroesophageal reflux disease), Hypertension, benign, Tachycardia Instructions: ED Osteoarthritis Prescriptions: New hydrocodone-acetaminophen 5-325 mg tablet 1 tab PO Q6H PRN PRN (Reason: Pain) 3 Days Qty: 10 0RF No Action latanoprost 0.005 % drops 1 drp ophthalmic (eye) QHS aspirin 81 mg tablet,chewable 81 mg PO QDAY atenolol 25 mg tablet 25 mg PO QDAY PRN (Reason: rapid heartrate) Qty: 30 0RF atorvastatin 20 mg tablet 20 mg PO QDAY Qty: 90 3RF paroxetine HCl 20 mg tablet 20 mg PO QDAY Qty: 90 3RF potassium chloride 10 mEq tablet extended release 10 meq PO QDAY Qty: 90 3RF valsartan-hydrochlorothiazide 320-12.5 mg tablet 1 tab PO QDAY 90 Days Qty: 90 3RF levothyroxine 150 mcg tablet 150 mcg PO DAILY valsartan-hydrochlorothiazide 320-25 mg tablet 1 tab PO DAILY liothyronine [Cytomel] 5 mcg tablet 5 mcg PO QDAY Qty: 30 3RF levothyroxine [Levoxyl] 200 mcg tablet 200 mcg PO QDAY Qty: 30 3RF Primary Care Provider: Melissa Amanda Referrals: Melissa Amanda DO [Primary Care Provider, Internal Medicine] - 1 Week Wayne Pepe MD [Non-Staff, Orthopedics] - 1-2 Weeks Print Language: Azerbaijani Disposition Disposition: Home, Self Care
[2025-05-22 21:45] LABS: Anion Gap 13 (5-15); BUN 23 mg/dL (4-19); BUN/Creat Ratio 24.8 RATIO (10-20); Calcium,Total 9.5 mg/dL (7.6-11.0); Carbon Dioxide 23.4 mmol/L (21.0-32.0); Chloride 96 mmol/L (98-108); Estimated Creatinine Clearance 55.32 ml/min (50-250); Glucose 140 mg/dL (70-99); Potassium 4.1 mmol/L (3.3-5.1)
[2025-05-22 22:29] VITALS: BP 176/97; PULSE 115; O2SAT 99
[2025-05-22 22:45] VITALS: BP 168/74; PULSE 116; RESP 18; TEMP 36.4; O2SAT 98
== END 2025-05-22 23:17 | disposition home or self-care (01) ==
PROVIDERS: Emergency Provider Emergency Medicine; PCP Internal Medicine; Visit Provider Emergency Medicine
DX: M16.11 Unilateral primary osteoarthritis, right hip (principal); K21.9 Gastro-esophageal reflux disease without esophagitis; E78.00 Pure hypercholesterolemia, unspecified; R00.0 Tachycardia, unspecified; I10 Essential (primary) hypertension; E03.9 Hypothyroidism, unspecified; Z79.890 Hormone replacement therapy; Z79.82 Long term (current) use of aspirin; Z79.899 Other long term (current) drug therapy; D64.9 Anemia, unspecified
CPT/HCPCS: 73502; 80048; 85025; 96374; 99285; A4216